=== PATIENT | male | born 1985 | race Caucasian/White ===

== ENCOUNTER 2017-10-12 10:07 | Emergency (ER) | payer OTHER ==
[2017-10-12 10:17] VITALS: TEMP 98.2
--- NOTE | 2017-10-12 10:44 | ED ---
General Adult HPI - General Chief complaint: Extremity Problem,Nontraumatic Stated complaint: hip and shoulder pain Time Seen by Provider: 10/12/17 10:29 Source: patient, RN notes reviewed Mode of arrival: ambulatory Limitations: no limitations - History of Present Illness Initial comments: Patient's 32-year-old male presented to the emergency room today with increased chronic left shoulder and right hip pain. Patient does admit that he seen neurology in the past for this and also his family doctor. 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 He states is very repetitive. Believes this has caused a flareup of his symptoms. Patient denies any other injury or trauma. Denies any bowel or bladder incontinence retention. Denies any saddle anesthesia. Patient has been using ibuprofen at home for this. He denies any other complaints. Patient denies any recent fever, chills, shortness of breath, chest pain, back pain, abdominal pain , nausea or vomiting, headaches or visual changes, or any other complaints. - Related Data Home Medications Medication Instructions Recorded Confirmed Aspirin 325 mg PO DAILY 08/30/15 08/30/15 Omeprazole [PriLOSEC] 20 mg PO TID PRN 08/30/15 09/03/15 Previous Rx's Medication Instructions Recorded Dexamethasone 0.75 mg PO DIRECTED #12 tablet 10/12/17 Allergies Allergy/AdvReac Type Severity Reaction Status Date / Time No Known Allergies Allergy Verified 10/12/17 10:17 Review of Systems ROS Statement: Those systems with pertinent positive or pertinent negative responses have been documented in the HPI. ROS Other: All systems not noted in ROS Statement are negative. Past Medical History Past Medical History: GERD/Reflux, Musculoskeletal Disorder Additional Past Medical History / Comment(s): ddd, herniated disc, occipital neualgia, constipation with blood in stool, states hx of stomach ulcer. History of Any Multi-Drug Resistant Organisms: None Reported Past Surgical History: No Surgical Hx Reported Additional Past Surgical History / Comment(s): EGD, COLONOSCOPY Past Anesthesia/Blood Transfusion Reactions: No Reported Reaction Past Psychological History: Anxiety, Bipolar, Depression, Schizophrenia Smoking Status: Current every day smoker Past Alcohol Use History: Rare Past Drug Use History: None Reported - Past Family History Mother Family Medical History: Cancer Additional Family Medical History / Comment(s): SKIN CA. GRANDFATHER-COLON CANCER General Exam - General Exam Comments Initial Comments: General: The patient is awake and alert, in no distress, and does not appear acutely ill. Eye: Pupils are equal, round and reactive to light, extra-ocular movements are intact. No nystagmus. There is normal conjunctiva bilaterally. No signs of icterus. Ears, nose, mouth and throat: There are moist mucous membranes and no oral lesions. Neck: The neck is supple, there is no tenderness or JVD. Musculoskeletal: Normal ROM, no tenderness. Normal appearance of both right hip and left shoulder. No specific tenderness on exam. Strength 5/5. Sensation intact. Pulses equal bilaterally 2+. Neurological: A&O x 3. CN II-XII intact, There are no obvious motor or sensory deficits. Coordination appears grossly intact. Speech is normal. Skin: Skin is warm and dry and no rashes or lesions are noted. Psychiatric: Cooperative, appropriate mood & affect, normal judgment. Limitations: no limitations Course Vital Signs 10/12/17 10:15 Temperature 98.2 F Pulse Rate 101 H Respiratory 20 Rate Blood Pressure 110/76 O2 Sat by Pulse 100 Oximetry Medical Decision Making - Medical Decision Making Patient 32-year-old male presenting for chronic left shoulder right hip pain. States been using ibuprofen for pain. Was discussed about following up with orthopedics Dr. no traumatic injury. Given course of steroids for symptoms. Disposition Clinical Impression: Chronic shoulder pain, Chronic hip pain Disposition: HOME SELF-CARE Condition: Good Instructions: Chronic Pain (ED) Additional Instructions: Please use medication as discussed. Please follow-up with family doctor in the next 2 days of symptoms have not improved. Please return to emergency room if the symptoms increase or worsen or for any other concerns. Prescriptions: Dexamethasone 0.75 mg PO DIRECTED #12 tablet Is patient prescribed a controlled substance at d/c from ED?: No Referrals: Robert Sanchez DO [Primary Care Provider] - 1-2 days Time of Disposition: 10:41
[2017-10-12 10:53] VITALS: BP 119/83; PULSE 74; RESP 18
== END 2017-10-12 10:53 | disposition home or self-care (01) ==
LOC: EC 10:07
DX: G89.29 Other chronic pain (principal); M25.512 Pain in left shoulder; M25.551 Pain in right hip; F17.200 Nicotine dependence, unspecified, uncomplicated; Z79.82 Long term (current) use of aspirin
CPT/HCPCS: 99283

== ENCOUNTER 2017-10-20 07:07 | Emergency (ER) | payer OTHER ==
[2017-10-20 07:14] VITALS: TEMP 97.8
[2017-10-20] MEDS ORDERED: SODIUM CHLORIDE 0.9% 1,000 ML IV STA ×2 (07:50)
[2017-10-20] MEDS ORDERED: PANTOPRAZOLE 40 MG/10 ML VIAL IVP STA (07:50)
[2017-10-20 08:37] LABS: Basophils # (A) 0.1 k/uL (0-0.2); Basophils % (A) 0 %; Eosinophils # (A) 0.2 k/uL (0-0.7); Eosinophils % (A) 2 %; HCT 41.6 % (39.0-53.0); HGB 13.9 gm/dL (13.0-17.5); Lymphocytes # (A) 2.1 k/uL (1.0-4.8); Lymphocytes % (A) 14 %; MCH 28.9 pg (25.0-35.0); MCHC 33.5 g/dL (31.0-37.0); MCV 86.2 fL (80.0-100.0); Mean Platelet Volume 6.4; Monocytes # (A) 0.7 k/uL (0-1.0); Monocytes % (A) 5 %; Neutrophils # (A) 11.1 k/uL (1.3-7.7); Neutrophils % (A) 78 %; Platelet Count 242 k/uL (150-450); RBC 4.82 m/uL (4.30-5.90); RDW 14.1 % (11.5-15.5); WBC 14.3 k/uL (3.8-10.6)
[2017-10-20] MEDS ORDERED: traMADol 50 MG TAB PO STA (08:39)
[2017-10-20 08:45] LABS: Partial Thromboplastin Time 22.7 sec (22.0-30.0)
[2017-10-20 08:47] LABS: ALT 31 U/L (21-72); AST 30 U/L (17-59); Albumin 4.2 g/dL (3.5-5.0); Alkaline Phosphatase 53 U/L (38-126); Anion Gap 11 mmol/L; Blood Urea Nitrogen 16 mg/dL (9-20); Carbon Dioxide 24 mmol/L (22-30); Chloride 107 mmol/L (98-107); Glucose 86 mg/dL (74-99); Lipase 98 U/L (23-300); Potassium 4.4 mmol/L (3.5-5.1); Sodium 142 mmol/L (137-145); Total Bilirubin 0.3 mg/dL (0.2-1.3); Total Protein 6.6 g/dL (6.3-8.2)
[2017-10-20 08:50] LABS: Creatine Kinase 249 U/L (55-170)
[2017-10-20 09:02] LABS: Creatine Kinase MB 0.8 ng/mL (0.0-2.4); Troponin I <0.012 ng/mL (0.000-0.034)
--- NOTE | 2017-10-20 10:06 | XR ---
EXAMINATION TYPE: XR Hip Complete RT DATE OF EXAM: 10/20/2017 CLINICAL HISTORY: Chronic right hip pain TECHNIQUE: AP and frogleg views of the right hip are obtained. COMPARISON: None. FINDINGS: There is no acute fracture/dislocation evident in the right hip. The joint space in the r ight hip appears within normal limits. No suspicious focal lytic or sclerotic lesion is seen. The ove rlying soft tissue appears unremarkable. IMPRESSION: Unremarkable study.
--- NOTE | 2017-10-20 10:07 | XR ---
EXAMINATION TYPE: XR KUB DATE OF EXAM: 10/20/2017 9:57 AM CLINICAL HISTORY: History of stomach ulcer with rectal bleeding. TECHNIQUE: Two Upright KUB images of the abdomen are obtained. COMPARISON: CT abdomen and pelvis January 04, 2010 FINDINGS: Scattered gas is seen in non-distended stomach and small bowel loops. Gas and fecal materia l is seen in non-distended colon. There is no visceromegaly, pneumoperitoneum, or abnormal calcificat ion appreciated. The lung bases are clear and the osseous structures are intact. IMPRESSION: Overall nonobstructive bowel gas pattern.
--- NOTE | 2017-10-20 10:41 | ED ---
General Adult HPI - General Chief complaint: GI Bleed Stated complaint: Rectal Bleeding Time Seen by Provider: 10/20/17 07:24 Source: patient Mode of arrival: wheelchair Limitations: no limitations - History of Present Illness Initial comments: 32 years old male has been taking lots of Motrin and he noticed some mom bleeding per rectum he said he has been taking 800 mg this morning but he takes about 1200 mg of Motrin 3 times a day he noticed some blood in his stool today. He is also complaining about some abdominal pain secondary to nonsteroidal anti-inflammatories and also complaining about pain in his pain in his right hip area he had there it medication to the right hip 3 years ago he still complaining about the pain there. No headaches no neck stiffness no chest pain or shortness of breath he has some epigastric area pain and he has a rectal pain noticed some blood No frequency urgency dysuria no other symptoms of TIA or CVA - Related Data Home Medications Medication Instructions Recorded Confirmed Cyanocobalamin (Vitamin B-12) 1,000 mcg PO DAILY 10/12/17 10/20/17 [Vitamin B-12] Ibuprofen [Motrin Ib] 800 mg PO Q6H PRN 10/12/17 10/20/17 [place]-3 Fatty Acids/Fish Oil [Fish 1 cap PO DAILY 10/20/17 10/20/17 Oil 1,000 mg Softgel] Previous Rx's Medication Instructions Recorded Omeprazole 20 mg PO BID #60 tablet. 10/20/17 traMADol HCl [Ultram] 50 mg PO Q6HR PRN 3 Days #12 tab 10/20/17 Allergies Allergy/AdvReac Type Severity Reaction Status Date / Time NARCOTICS AdvReac MIGRAINES Uncoded 10/20/17 07:14 Review of Systems ROS Statement: Those systems with pertinent positive or pertinent negative responses have been documented in the HPI. ROS Other: All systems not noted in ROS Statement are negative. Past Medical History Past Medical History: GERD/Reflux, Musculoskeletal Disorder Additional Past Medical History / Comment(s): ddd, herniated disc, occipital neualgia, constipation with blood in stool, states hx of stomach ulcer. History of Any Multi-Drug Resistant Organisms: None Reported Past Surgical History: No Surgical Hx Reported Additional Past Surgical History / Comment(s): EGD, COLONOSCOPY Past Anesthesia/Blood Transfusion Reactions: No Reported Reaction Past Psychological History: Anxiety, Bipolar, Depression, Schizophrenia Smoking Status: Current every day smoker Past Alcohol Use History: Rare Past Drug Use History: None Reported - Past Family History Mother Family Medical History: Cancer Additional Family Medical History / Comment(s): SKIN CA. GRANDFATHER-COLON CANCER General Exam - General Exam Comments Initial Comments: General: The patient is awake and alert, in no distress, and does not appear acutely ill. Skin: Skin is warm and dry and no rashes or lesions are noted. Eye: Pupils are equal, round and reactive to light, extra-ocular movements are intact; there is normal conjunctiva bilaterally. Ears, nose, mouth and throat: There are moist mucous membranes and no oral lesions. Neck: The neck is supple, there is no tenderness or JVD. Cardiovascular: There is a regular rate and rhythm. No murmur, rub or gallop is appreciated. Respiratory: To auscultation bilateral, no wheezing no rhonchi no distress respiratory degroot noticed Gastrointestinal: He is tender in epigastric area, rectal exam was not done and noticed external hemorrhoids Quite large Back: There is no tenderness to palpation in the midline. There is no obvious deformity. Musculoskeletal: Normal ROM, no tenderness, There is no pedal edema. There is no calf tenderness or swelling. No cords were appreciated. Neurological: CN II-XII intact, Cranial nerves III through XII are intact. There are no obvious motor or sensory deficits. Coordination appears grossly intact. Speech is normal. Psychiatric: Cooperative, appropriate mood & affect, normal judgment. Limitations: no limitations Course Vital Signs 10/20/17 10/20/17 07:11 08:21 Temperature 97.8 F Pulse Rate 70 63 Respiratory 18 20 Rate Blood Pressure 110/73 115/64 O2 Sat by Pulse 100 98 Oximetry Review of the labs noticed term white count is some 14.3 hemoglobin is 13.9 INR is normal troponin is normal his metabolic panel is unremarkable and is to put him on now PPIs guarding give him omeprazole 20 mg twice daily. The Motrin he has tolerated tramadol in the past and I gave him a few pills of tramadol then he will follow with the Dr. Sanchez for external hemorrhoids and will refer him to he be referred to Dr. Goyal is general surgeon station [facility] today considering his elevated white count and some erythema in the rectal area apart from on Augmentin 1 g twice daily for next 7 days. He is being referred to Dr. Esparza of for his hemorrhoids as well as GI bleed hopefully he will get scopes along with the treatment of MrSeth hemorrhoids Medical Decision Making - Lab Data Result diagrams: 10/20/17 08:17 10/20/17 08:17 Lab Results 10/20/17 10/20/17 10/20/17 Range/Units 08:17 08:17 08:17 WBC 14.3 H (3.8-10.6) k/uL RBC 4.82 (4.30-5.90) m/uL Hgb 13.9 (13.0-17.5) gm/dL Hct 41.6 (39.0-53.0) % MCV 86.2 (80.0-100.0) fL MCH 28.9 (25.0-35.0) pg MCHC 33.5 (31.0-37.0) g/dL RDW 14.1 (11.5-15.5) % Plt Count 242 (150-450) k/uL Neutrophils % 78 % Lymphocytes % 14 % Monocytes % 5 % Eosinophils % 2 % Basophils % 0 % Neutrophils # 11.1 H (1.3-7.7) k/uL Lymphocytes # 2.1 (1.0-4.8) k/uL Monocytes # 0.7 (0-1.0) k/uL Eosinophils # 0.2 (0-0.7) k/uL Basophils # 0.1 (0-0.2) k/uL PT (9.0-12.0) sec INR (<1.2) APTT (22.0-30.0) sec Sodium 142 (137-145) mmol/L Potassium 4.4 (3.5-5.1) mmol/L Chloride 107 (98-107) mmol/L Carbon Dioxide 24 (22-30) mmol/L Anion Gap 11 mmol/L BUN 16 (9-20) mg/dL Creatinine 0.89 (0.66-1.25) mg/dL Est GFR (CKD-EPI)AfAm >90 (>60 ml/min/1.73 sqM) Est GFR (CKD-EPI)NonAf >90 (>60 ml/min/1.73 sqM) Glucose 86 (74-99) mg/dL Plasma Lactic Acid Tom (0.7-2.0) mmol/L Calcium 10.0 (8.4-10.2) mg/dL Total Bilirubin 0.3 (0.2-1.3) mg/dL AST 30 (17-59) U/L ALT 31 (21-72) U/L Alkaline Phosphatase 53 (38-126) U/L Total Creatine Kinase 249 H (55-170) U/L CK-MB (CK-2) 0.8 (0.0-2.4) ng/mL CK-MB (CK-2) Rel Index 0.3 Troponin I <0.012 (0.000-0.034) ng/mL Total Protein 6.6 (6.3-8.2) g/dL Albumin 4.2 (3.5-5.0) g/dL Lipase 98 (23-300) U/L Blood Type Blood Type Recheck Antibody Screen Spec Expiration Date 10/20/17 10/20/17 10/20/17 Range/Units 08:17 08:17 08:17 WBC (3.8-10.6) k/uL RBC (4.30-5.90) m/uL Hgb (13.0-17.5) gm/dL Hct (39.0-53.0) % MCV (80.0-100.0) fL MCH (25.0-35.0) pg MCHC (31.0-37.0) g/dL RDW (11.5-15.5) % Plt Count (150-450) k/uL Neutrophils % % Lymphocytes % % Monocytes % % Eosinophils % % Basophils % % Neutrophils # (1.3-7.7) k/uL Lymphocytes # (1.0-4.8) k/uL Monocytes # (0-1.0) k/uL Eosinophils # (0-0.7) k/uL Basophils # (0-0.2) k/uL PT 10.0 (9.0-12.0) sec INR 1.0 (<1.2) APTT 22.7 (22.0-30.0) sec Sodium (137-145) mmol/L Potassium (3.5-5.1) mmol/L Chloride (98-107) mmol/L Carbon Dioxide (22-30) mmol/L Anion Gap mmol/L BUN (9-20) mg/dL Creatinine (0.66-1.25) mg/dL Est GFR (CKD-EPI)AfAm (>60 ml/min/1.73 sqM) Est GFR (CKD-EPI)NonAf (>60 ml/min/1.73 sqM) Glucose (74-99) mg/dL Plasma Lactic Acid Tom 1.2 (0.7-2.0) mmol/L Calcium (8.4-10.2) mg/dL Total Bilirubin (0.2-1.3) mg/dL AST (17-59) U/L ALT (21-72) U/L Alkaline Phosphatase (38-126) U/L Total Creatine Kinase (55-170) U/L CK-MB (CK-2) (0.0-2.4) ng/mL CK-MB (CK-2) Rel Index Troponin I (0.000-0.034) ng/mL Total Protein (6.3-8.2) g/dL Albumin (3.5-5.0) g/dL Lipase (23-300) U/L Blood Type A Positive Blood Type Recheck No Antibody Screen NEGATIVE Spec Expiration Date 10/23/2017 - 2316 Disposition Clinical Impression: GI bleed, Epigastric pain, Hemorrhoids Disposition: HOME SELF-CARE Condition: Good Instructions: Gastrointestinal Bleeding (ED) Prescriptions: Omeprazole 20 mg PO BID #60 tablet. traMADol HCl [Ultram] 50 mg PO Q6HR PRN 3 Days #12 tab PRN Reason: Pain Is patient prescribed a controlled substance at d/c from ED?: Yes When asked, does pt state using other controlled substances?: No If prescribed controlled substance>3 days was MAPS reviewed?: No If opioid is for acute pain is fill amount 7 days or less?: Yes Referrals: Robert Sanchez DO [Primary Care Provider] - 1-2 days Eamon Goyal MD [STAFF PHYSICIAN] - 1-2 days
[2017-10-20 10:49] VITALS: BP 111/63; PULSE 55; RESP 18
== END 2017-10-20 10:59 | disposition home or self-care (01) ==
LOC: EC 07:07
DX: K64.4 Residual hemorrhoidal skin tags (principal); K64.9 Unspecified hemorrhoids; R10.13 Epigastric pain; Z80.0 Family history of malignant neoplasm of digestive organs; F17.200 Nicotine dependence, unspecified, uncomplicated; Z79.899 Other long term (current) drug therapy; Z88.5 Allergy status to narcotic agent; M25.551 Pain in right hip
CPT/HCPCS: 36415; 86900; 86901; 80053; 82550; 82553; 83605; 83690; 84484; 85025; 85610; 85730; 86850; 73502; 74018; 99285; 96374; 96361 ×3; C9113

== ENCOUNTER 2017-11-24 06:14 | Day surgery (SDC) | payer OTHER ==
[2017-11-18 16:42] VITALS: BMI 21.6
[~2017-11-24 06:14] MED LIST: LACTATED RINGERS 1,000 ML IV SCH
[2017-11-24 08:02] VITALS: RESP 16; TEMP 97.3
[2017-11-24] MEDS ORDERED: LIDOCAINE 1% 20 ML VIAL (10MG/ML) FOR IV START INTRADERMA ONE (08:05)
[2017-11-24] MEDS ORDERED: LIDOCAINE HCL/PF 20 MG/ML 10 ML AMP ONE (08:41)
[2017-11-24] MEDS ORDERED: PROPOFOL 10 MG/ML 20 ML VIAL IV ONE (08:41)
--- NOTE | 2017-11-24 08:43 | P.GSHP ---
History of Present Illness H&P Date: 11/24/17 Chief Complaint: GI bleed This a 32-year-old male who has complaints of GI bleed. Patient states that he has been using large amounts of Motrin. He's had some epigastric pain. He presents today for EGD and colonoscopy. Past Medical History Past Medical History: CVA/TIA, GERD/Reflux, GI Bleed, Musculoskeletal Disorder, Osteoarthritis (OA) Additional Past Medical History / Comment(s): DDD, herniated disc X2. RT HIP PAIN R/T OA. Occipital Neuralgia. OCC BLOOD IN STOOL. States hx of stomach ulcer. HX COLON POLYPS. "POSS 2 STROKES R/T SEVERE MIGRAINES." History of Any Multi-Drug Resistant Organisms: None Reported Past Surgical History: No Surgical Hx Reported Additional Past Surgical History / Comment(s): EGD, COLONOSCOPY Past Anesthesia/Blood Transfusion Reactions: Family History of Problems w/ Anesthesia Additional Past Anesthesia/Blood Transfusion Reaction / Comment(s): MOTHER HAD EPIDURAL THAT DIDN'T WORK. Smoking Status: Current every day smoker - Past Family History Mother Family Medical History: Cancer Additional Family Medical History / Comment(s): SKIN CA. GRANDFATHER-COLON CANCER Medications and Allergies Home Medications Medication Instructions Recorded Confirmed Type Ibuprofen [Motrin Ib] 800 mg PO Q6H PRN 10/12/17 11/24/17 History Acetaminophen Tab [Tylenol Tab] 650 mg PO Q4H PRN 11/18/17 11/24/17 History Aspirin 325 mg PO BID PRN 11/18/17 11/24/17 History Ranitidine HCl [Zantac] 150 mg PO BID 11/18/17 11/24/17 History Allergies Allergy/AdvReac Type Severity Reaction Status Date / Time NARCOTICS AdvReac MIGRAINES Uncoded 11/18/17 16:19 Surgical - Exam Vital Signs Temp Pulse Resp BP Pulse Ox 97.3 F L 57 L 16 113/80 98 11/24/17 07:56 11/24/17 07:56 11/24/17 07:56 11/24/17 07:56 11/24/17 07:56 - General well developed, no distress - Eyes PERRL - ENT normal pinna - Neck no masses - Respiratory normal expansion - Cardiovascular Rhythm: regular - Abdomen Abdomen: soft, non tender Assessment and Plan Assessment: GI bleed. We'll perform EGD and colonoscopy.
--- NOTE | 2017-11-24 09:02 | P.OP ---
Date of Procedure: 11/24/17 Preoperative Diagnosis: GI bleed Postoperative Diagnosis: Peptic ulcer disease with small duodenal ulcer Antral gastritis No hiatal hernia Procedure(s) Performed: EGD Colonoscopy Anesthesia: MAC Surgeon: Eamon Goyal Pathology: other (Duodenum, antrum) Condition: stable Disposition: PACU Description of Procedure: Patient's placed on the endoscopy table in the lateral position. He received IV sedation. The gastroscope placed oropharynx passed in the esophagus into the stomach. Scope was then placed through the pylorus. First second portion of duodenum was examined. There is evidence of some small ulcers the duodenum. This was biopsied. There is no ab evidence of active bleeding. Scope summer back the antrum and this appeared mildly inflamed a biopsies performed. The scope was unretroflexed and remainder some appeared normal. There is no evidence of a hiatal hernia. The GE junction was at 40 cm. The distal esophagus appeared normal. The proximal esophagus appeared normal. Scope was withdrawn for patient. Next digital rectal exam was performed which revealed significant external hemorrhoids. Flexible colonoscope was then placed patient anus passed throughout the entire colon. The ileocecal valve was visualized. Cecum, ascending and transverse colon appeared normal. The descending and sigmoid colon appeared normal. Scope summer back the rectum this appeared normal. There is known to blood colon. Scope was withdrawn for patient.
[2017-11-24 09:37] VITALS: BP 114/75; PULSE 57
== END 2017-11-24 09:53 | disposition home or self-care (01) ==
LOC: ORWHC2ENDO 06:14
PROVIDERS: ATTEND Surgery
DX: K29.51 Unspecified chronic gastritis with bleeding (principal); K26.4 Chronic or unspecified duodenal ulcer with hemorrhage; M19.90 Unspecified osteoarthritis, unspecified site; Z86.010 Personal history of colon polyps; K64.4 Residual hemorrhoidal skin tags; Z86.73 Personal history of transient ischemic attack (TIA), and cerebral infarction without residual deficits; F17.210 Nicotine dependence, cigarettes, uncomplicated; Z87.19 Personal history of other diseases of the digestive system; K21.9 Gastro-esophageal reflux disease without esophagitis; Z88.8 Allergy status to other drugs, medicaments and biological substances; Z79.899 Other long term (current) drug therapy; Z79.82 Long term (current) use of aspirin; Z88.5 Allergy status to narcotic agent
CPT/HCPCS: 88305; 45378; 43239; J2001; J2704

== ENCOUNTER → 2018-01-06 | Day surgery (SDC) | payer OTHER ==
[2018-01-01 14:29] VITALS: BMI 22.7
[~2018-01-06] MED LIST changes: +GLYCOPYRROLATE 0.2 MG/ML 2 ML VIAL ONE; +LIDOCAINE 1% 20 ML VIAL (10MG/ML) FOR IV START INTRADERMA ONE; +LIDOCAINE 1% INJ 10MG/ML (20 ML MDV) ONE; +PROPOFOL 10 MG/ML 20 ML VIAL IV ONE
[2018-01-06 10:01] VITALS: TEMP 98.4
--- NOTE | 2018-01-06 10:17 | P.GSHP ---
History of Present Illness H&P Date: 01/06/18 Chief Complaint: Peptic ulcer disease Is a 32-year-old male with history of gastritis. Patient is a complete epigastric pain. He presents today for EGD. Past Medical History Past Medical History: CVA/TIA, GERD/Reflux, GI Bleed, Musculoskeletal Disorder, Osteoarthritis (OA) Additional Past Medical History / Comment(s): DDD, herniated disc X2. RT HIP PAIN R/T OA. Occipital Neuralgia. OCC BLOOD IN STOOL. States hx of stomach ulcer. HX COLON POLYPS. "POSS 2 STROKES R/T SEVERE MIGRAINES." History of Any Multi-Drug Resistant Organisms: None Reported Past Surgical History: No Surgical Hx Reported Additional Past Surgical History / Comment(s): EGD, COLONOSCOPY Past Anesthesia/Blood Transfusion Reactions: No Reported Reaction Additional Past Anesthesia/Blood Transfusion Reaction / Comment(s): MOTHER HAD EPIDURAL THAT DIDN'T WORK. Smoking Status: Current every day smoker - Past Family History Mother Family Medical History: Cancer Additional Family Medical History / Comment(s): SKIN CA. GRANDFATHER-COLON CANCER Medications and Allergies Home Medications Medication Instructions Recorded Confirmed Type Acetaminophen Tab [Tylenol Tab] 650 mg PO Q4H PRN 11/18/17 01/01/18 History Omeprazole 40 mg PO DAILY 01/01/18 01/01/18 History Allergies Allergy/AdvReac Type Severity Reaction Status Date / Time gabapentin Allergy Rash/Hives Verified 01/06/18 09:57 NARCOTICS AdvReac MIGRAINES Uncoded 01/06/18 09:57 Surgical - Exam Vital Signs Temp Pulse Resp BP Pulse Ox 98.4 F 63 16 124/82 99 01/06/18 09:59 01/06/18 09:59 01/06/18 09:59 01/06/18 09:59 01/06/18 09:59 - General well developed, no distress - Eyes PERRL - ENT normal pinna - Neck no masses - Respiratory normal expansion, normal respiratory effort - Cardiovascular Rhythm: regular - Abdomen Abdomen: soft, non tender Assessment and Plan Assessment: Epigastric dull pain. We'll perform EGD.
--- NOTE | 2018-01-06 10:26 | P.OP ---
Date of Procedure: 01/06/18 Preoperative Diagnosis: Peptic ulcer disease Postoperative Diagnosis: Antral gastritis No evidence of hiatal hernia No evidence of esophagitis Procedure(s) Performed: EGD Anesthesia: MAC Surgeon: Eamon Goyal Pathology: other (Antrum) Condition: stable Disposition: PACU Description of Procedure: Patient's placed on the endoscopy table in the lateral position. He received IV sedation. The gastroscope placed oropharynx passed in the esophagus and stomach. Scope was then placed through the pylorus. First second portion duodenum appeared normal. Scope summer back the antrum this. Mildly inflamed. A biopsies was performed. The scope was then retroflexed and the remainder some appeared normal. There is no evidence of hiatal hernia. The GE junction was at 40 cm. The distal esophagus appeared mildly inflamed a biopsies performed. The proximal esophagus appeared normal. Scope was withdrawn for patient.
[2018-01-06 10:54] VITALS: BP 113/69; PULSE 63; RESP 18
--- NOTE | 2018-01-06 14:06 | NM ---
EXAMINATION TYPE: NM hepatobiliary w CCK DATE OF EXAM: 01/06/2018 COMPARISON: NONE HISTORY: Abdominal pain TECHNIQUE: After the intravenous administration of 5.29 mCi Tc 99m Mebrofenin hepatobiliary scintigra phy is performed. Immediate images post injection. FINDINGS: There is satisfactory initial accumulation of tracer by the liver. The gallbladder is visualized wit hin 4 minutes. The small bowel activity is noted on delayed images at 75 minutes. At one hour CCK w as administered, patient was injected with 1.48 mcg of Kinevac, and gallbladder ejection fraction is calculated at 84 %. Therefore there is no scintigraphic evidence of cystic or common bile duct obstr uction to suggest acute cholecystitis. IMPRESSION: Gallbladder ejection fraction 84%, additional findings above.
== END ==
LOC: ORWHC2ENDO 09:37
PROVIDERS: ATTEND Surgery
DX: K29.50 Unspecified chronic gastritis without bleeding (principal); K21.9 Gastro-esophageal reflux disease without esophagitis; M19.90 Unspecified osteoarthritis, unspecified site; M54.81 Occipital neuralgia; G43.909 Migraine, unspecified, not intractable, without status migrainosus; Z87.11 Personal history of peptic ulcer disease; Z86.010 Personal history of colon polyps; Z87.19 Personal history of other diseases of the digestive system; Z86.73 Personal history of transient ischemic attack (TIA), and cerebral infarction without residual deficits; F17.200 Nicotine dependence, unspecified, uncomplicated; Z79.899 Other long term (current) drug therapy; Z88.8 Allergy status to other drugs, medicaments and biological substances; Z88.5 Allergy status to narcotic agent
CPT/HCPCS: 43239; 78227; 88305; 88342

== ENCOUNTER 2018-01-22 08:07 | Day surgery (SDC) | payer OTHER ==
[2018-01-18 16:07] VITALS: BMI 21.6
[~2018-01-22 08:07] MED LIST changes: -GLYCOPYRROLATE 0.2 MG/ML 2 ML VIAL ONE; +HEPARIN SODIUM,PORCINE 5,000 UNIT/ML 1 ML VIAL SQ ONE; -LIDOCAINE 1% 20 ML VIAL (10MG/ML) FOR IV START INTRADERMA ONE; +LIDOCAINE 1% 20 ML VIAL (10MG/ML) FOR IV START INTRADERMA PRN; -LIDOCAINE 1% INJ 10MG/ML (20 ML MDV) ONE; +ONDANSETRON 4 MG/2 ML VIAL IVP ONE; -PROPOFOL 10 MG/ML 20 ML VIAL IV ONE; +ceFAZolin IN SWFI 2 GM/20 ML SYRINGE IVP ONE
--- NOTE | 2018-01-22 09:26 | P.GSHP ---
History of Present Illness H&P Date: 01/22/18 Chief Complaint: Right upper quadrant pain This is a 32-year-old male referred from Dr. Sanchez. Patient presents today for laparoscopic cholecystectomy. He's had complete the right upper quadrant pain. His recent HIDA scan shows abnormal ejection fraction. Past Medical History Past Medical History: CVA/TIA, GERD/Reflux, GI Bleed, Musculoskeletal Disorder, Osteoarthritis (OA) Additional Past Medical History / Comment(s): DDD, herniated disc X2. RT HIP PAIN R/T OA. Occipital Neuralgia. OCC BLOOD IN STOOL. States hx of stomach ulcer. HX COLON POLYPS. "POSS 2 STROKES R/T SEVERE MIGRAINES.", GALLBLADDER ISSUES History of Any Multi-Drug Resistant Organisms: None Reported Past Surgical History: No Surgical Hx Reported Additional Past Surgical History / Comment(s): EGD, COLONOSCOPY Past Anesthesia/Blood Transfusion Reactions: No Reported Reaction Additional Past Anesthesia/Blood Transfusion Reaction / Comment(s): MOTHER HAD EPIDURAL THAT DIDN'T WORK. Smoking Status: Current every day smoker - Past Family History Mother Family Medical History: Cancer Additional Family Medical History / Comment(s): SKIN CA. GRANDFATHER-COLON CANCER Medications and Allergies Home Medications Medication Instructions Recorded Confirmed Type Acetaminophen Tab [Tylenol Tab] 650 mg PO Q4H PRN 11/18/17 01/18/18 History Omeprazole 40 mg PO DAILY 01/01/18 01/18/18 History Allergies Allergy/AdvReac Type Severity Reaction Status Date / Time gabapentin Allergy Rash/Hives Verified 01/18/18 16:03 NARCOTICS AdvReac MIGRAINES Uncoded 01/18/18 16:03 Surgical - Exam - General well developed, no distress - Eyes PERRL - ENT normal pinna - Neck no masses - Respiratory normal expansion - Cardiovascular Rhythm: regular - Abdomen Abdomen: soft, non tender Assessment and Plan Assessment: Chronic cholecystitis. We'll perform laparoscopic cholecystectomy.
[2018-01-22] MEDS ORDERED: MIDAZOLAM 2 MG/2 ML VIAL ONE (10:06)
[2018-01-22] MEDS ORDERED: ROCURONIUM BROMIDE 10 MG/ML 10 ML VIAL IV ONE (10:06)
[2018-01-22] MEDS ORDERED: SUCCINYLCHOLINE CHLORIDE 100 MG/5 ML SYR IV ONE (10:06)
[2018-01-22] MEDS ORDERED: HYDROmorphone (PF) 1 MG/ML ONE (10:06)
[2018-01-22] MEDS ORDERED: ALBUTEROL INHALER 60 PUFF/8 GM INHALER INHALATION ONE (10:06)
[2018-01-22] MEDS ORDERED: PROPOFOL 10 MG/ML 20 ML VIAL IV ONE (10:06)
[2018-01-22] MEDS ORDERED: KETOROLAC 30 MG/ML 1 ML VIAL ONE (10:06)
[2018-01-22] MEDS ORDERED: fentaNYL (PF) 50 MCG/ML 2 ML AMP ONE (10:06)
[2018-01-22] MEDS ORDERED: NEOSTIGMINE 1 MG/ML 10 ML VIAL ONE (10:06)
[2018-01-22] MEDS ORDERED: ePHEDrine SULFATE/0.9% NACL/PF 50 MG/5 ML SYRINGE IV ONE (10:06)
[2018-01-22] MEDS ORDERED: GLYCOPYRROLATE 0.2 MG/ML 2 ML VIAL ONE (10:06)
[2018-01-22] MEDS ORDERED: LIDOCAINE 1% INJ 10MG/ML (20 ML MDV) ONE (10:06)
[2018-01-22] MEDS ORDERED: BUPIVACAIN-EPI 0.25%-1:200,000 30 ML VIAL SQ ONE (10:30)
[2018-01-22] MEDS ORDERED: LACTATED RINGERS 1,000 ML IV ONE (11:01)
--- NOTE | 2018-01-22 11:13 | P.OP ---
Date of Procedure: 01/22/18 Preoperative Diagnosis: Cholecystitis Postoperative Diagnosis: Cholecystitis Procedure(s) Performed: Laparoscopic cholecystectomy Anesthesia: MAC Surgeon: Emaon Goyal Estimated Blood Loss (ml): 5 Pathology: other (Gallbladder) Condition: stable Disposition: PACU Description of Procedure: The patient was placed on the operating table. The patient received a general endotracheal tube anesthesia. The patients abdomen was prepped and draped in the usual sterile fashion. Through an infraumbilical stab incision, the fascia of the anterior abdominal wall was grasped with a pair of Kochers and then the Veress needle was placed in the peritoneal cavity. Position of the Veress needle was confirmed with positive drop test. The abdomen was then insufflated. After adequate insufflation, the 10 mm trocar was placed in the peritoneal cavity. Following this the laparoscope was placed in the peritoneal cavity. The patient was placed in the head-up, right side up position and then a 5 mm trocar was placed in the right lateral and right subcostal position under direct visualization. A 8 mm trocar was placed in the epigastric position. The gallbladder was grasped in the fundus and infundibulum. Traction on the gallbladder was placed in the lateral and the cephalad positions. The triangle of Calot was visualized.. The cystic duct was bluntly dissected until the union of the cystic duct and common bile duct was seen. The cystic duct was then divided and sealed with the Harmonic scissors. A PDS Endoloop was then placed throughout the cystic duct stump. The cystic artery divided and sealed with the Harmonic scissors. The gallbladder was then removed from the liver bed using Harmonic scissors. The gallbladder was then extracted through the epigastric port site. Operative field was checked for any bleeding spots and Harmonic scissors was used to coagulate the liver bed. The abdomen was irrigated. The trocars were removed. The skin was closed using interrupted 3-0 Vicryl suture. Dermabond dressing were applied. The patient tolerated the procedure well.
[2018-01-22 11:24] VITALS: RESP 16; TEMP 97
[2018-01-22] MEDS: HYDROmorphone 0.5 MG/0.5 ML SYRINGE IVP PRN ×2 (11:35→11:42)
[2018-01-22 12:30] VITALS: BP 122/77; PULSE 74
== END 2018-01-22 13:05 | disposition home or self-care (01) ==
LOC: OR 08:07
PROVIDERS: ATTEND Surgery
DX: K81.1 Chronic cholecystitis (principal); K21.9 Gastro-esophageal reflux disease without esophagitis; M19.90 Unspecified osteoarthritis, unspecified site; M79.2 Neuralgia and neuritis, unspecified; G43.909 Migraine, unspecified, not intractable, without status migrainosus; F17.210 Nicotine dependence, cigarettes, uncomplicated; Z79.899 Other long term (current) drug therapy; Z86.73 Personal history of transient ischemic attack (TIA), and cerebral infarction without residual deficits; Z87.11 Personal history of peptic ulcer disease; Z86.010 Personal history of colon polyps; Z88.8 Allergy status to other drugs, medicaments and biological substances; Z88.5 Allergy status to narcotic agent
CPT/HCPCS: 88304; 47562; J2250; J1644; J2710; J2405; J2001; J3010; J1885; J1170 ×2; J0330; J2704; J0690

== ENCOUNTER → 2018-05-26 | Outpatient (CLI) | payer OTHER ==
--- NOTE | 2018-05-26 17:12 | MR ---
EXAMINATION TYPE: MR lumbar spine wo con DATE OF EXAM: 05/26/2018 COMPARISON: None HISTORY: Low back pain into legs CONTRAST: 0 mL intravenous Gadavist. TECHNIQUE: Multiplanar, multisequence images of the lumbar spine were acquired. FINDINGS: Cord terminates at the T12 level. L5-S1: Mild disc bulge is present without thecal sac contact. Small amount of extension beyond the en dplate of S1 may be present suggesting subligamentous disc extension. No spinal canal stenosis or charo ral foraminal stenosis is present. L4-L5: Disc desiccation is present. There is loss of disc height. Broad-based disc bulge has mild ant erior thecal sac impression. Subligamentous disc extension is present centrally. No spinal canal sten osis is present. Neural foramen are patent. L3-L4: No significant disc bulge or disc herniation. No spinal canal stenosis. No foraminal stenosi s. L2-L3: No significant disc bulge or disc herniation. No spinal canal stenosis. No foraminal stenosi s. L1-L2: No significant disc bulge or disc herniation. No spinal canal stenosis. No foraminal stenosi s. T12-L1: No significant disc bulge or disc herniation. No spinal canal stenosis. No foraminal stenos is. IMPRESSION: 1. Subligamentous disc herniation centrally with mild anterior thecal sac contact at L4-5. 2. Disc desiccation and mild loss of disc height L4-5. 3. Mild disc bulge L5-S1 with questionable clinical significance.
== END ==
LOC: RADMRIMAIN 14:23
PROVIDERS: ATTEND Family Medicine
DX: M51.27 Other intervertebral disc displacement, lumbosacral region (principal)
CPT/HCPCS: 72148

== ENCOUNTER → 2018-09-16 | Outpatient (CLI) | payer OTHER ==
[2018-09-14 13:51] VITALS: BMI 24.7
[2018-09-16 11:43] VITALS: BP 125/81; PULSE 98; RESP 16
--- NOTE | 2018-09-16 12:27 | P.PAINCN ---
History of Present Illness - Reason for Consult Consult date: 09/16/18 - History of Present Illness This is initial consultation visit for this 33 years old male with a chronic history of severe low back pain, started more than 15 years ago, patient reported he had multiple minor traumatic injury started more than 15 years ago on from that time and started having neck pain problems, the intensity of the pain does fluctuate, but recently the pain becomes intense and increased with any activity interfering with the quality of life, he had pain management interventions done more than 5 years ago at different pain clinic, some improvement of his pain, currently is complaining of severe mid and low back pain, the pain is constant with radiation to the right lower extremity, associated with numbness and tingling sensation, he denies any weakness, no fever or night sweats, no change in bowel movement or urination Past Medical History Past Medical History: CVA/TIA, GERD/Reflux, GI Bleed, Rheumatoid Arthritis (RA) Additional Past Medical History / Comment(s): DDD, herniated disc X2. Occipital Neuralgia. OCC BLOOD IN STOOL. States hx of stomach ulcer. "POSS 2 STROKES R/T ON MRI.", "RA rt hip", hypoglycemia, History of Any Multi-Drug Resistant Organisms: None Reported Past Surgical History: Cholecystectomy Additional Past Surgical History / Comment(s): EGD, COLONOSCOPY, oral surgery Past Anesthesia/Blood Transfusion Reactions: Family History of Problems w/ Anesthesia Additional Past Anesthesia/Blood Transfusion Reaction / Comm: MOTHER HAD EPIDURAL THAT DIDN'T WORK. Past Psychological History: Anxiety, Bipolar, Depression, Schizoaffective Disorder Additional Psychological History / Comment(s): NO CURRENT [place] Smoking Status: Current every day smoker Past Alcohol Use History: Rare Additional Past Alcohol Use History / Comment(s): SMOKES 1 1/2 -3 PPD, SMOKING SINCE age 16 Past Drug Use History: None Reported - Past Family History Mother Family Medical History: Cancer Additional Family Medical History / Comment(s): SKIN CA Medications and Allergies Home Medications Medication Instructions Recorded Confirmed Type Omeprazole 40 mg PO DAILY 01/01/18 09/16/18 History Aspirin(Dose Known) 6 tab PO BID PRN 09/14/18 09/16/18 History Ibuprofen 600 mg PO TID 09/14/18 09/16/18 History Ibuprofen [Motrin Ib] 1,600 mg PO BID 09/14/18 09/16/18 History Allergies Allergy/AdvReac Type Severity Reaction Status Date / Time gabapentin Allergy Rash/Hives Verified 09/14/18 13:38 topiramate [From Topamax] Allergy creates Verified 09/14/18 13:38 black on on left eye NARCOTICS AdvReac MIGRAINES Uncoded 09/16/18 11:23 Physical Exam Vitals: Vital Signs Pulse Resp BP Pulse Ox 09/16/18 11:26 98 16 125/81 97 Social history : smoker , NO ETOH , NO Illegal drugs use . Family history : Review of Systems : - Constitutional : no chills , no fever , no night sweats , - Ears : no ear discharge , no change in hearing -Nose, Mouth ,Throat ; no bleeding gums, no sore throat , no epistaxis , -Cardiovascular : Denies chest pain, , no orthopnea , no palpitation -Respiratory : Denies cough , no dyspnea , no hemoptysis -Gastrointestinal : no change in bowel habits , no coffee-ground emesis . -Genitourinary : No hematuria , no discharge , no incontinence, -Musculoskeletal : No gait dysfunction , report mid low back pain , - Neurological : no ataxia , no tremor , no sezure , -Psychatric : no suicidal ideation no hallucination - Endocrine : no cold intolerence , no polyuria , no polydypsia , -Hematologic : no easy bleeding , no easy brusing , -Allergic / immm : no angioedema , no wheezing ,no allergic rhinitis -Integumentary : no brttle nails , no change hair / nails , no foot/leg ulcers . Physical Examinations : -Constitutional : Cooperative , not in acute distress . -HEENT : nech ; supple , no Lymphadenopathy , no Thyromegaly , :eyes : no icterus, no photophobia . ENT : normal oropharynx , no Thrush - Respiratory : Chest clear to auscultations Bilaterally , no wheezing . - Cardiovascular : regular rate and rhythem , S1 , S2 , no S3 , no S4. - Gastrointestina l: abdomen soft no tenderness , no organomegally . - Genitourinary : Defferred . -Integumentary : No cellulitis , no ulcers , normal skin turgor , no cyanotic . - neurologic : Cranial nerve II to XII intact , no focal neurological deffecit -psychatric : alert , oriented X 3 , appropriate affect , intact judgment and insight . -Lymphatic : no Lymphadenopathy. - musculoskeltal: Lumber spine moter stegnth lower extremities ,thigh and legs 5/5 Right side , 5/5 Left side deep tendon reflexes : normal Knee Jerk , normal ankle Jerk positive lumber facet Loading Test Range of motion of the lumbar spine Flexion 30 degrees, extension 10 degrees strait leg raising test , positive at 30 degree Fabere test positive RT and positive LT . tenderness over the sacroiliac joint on the right side, and on the left side Multiple trigger points identified in the lower thoracic ,and upper lumbar area. Results Comments: MRI of the lumbar spine L4 5 disc herniation and L5-S1 disc desiccation and degeneration Assessment and Plan Plan: Assessment and plan=1-chronic severe low back pain secondary to lumbar disc herniation at L4 5 2-myofascial pain syndrome of the lumbar and lower thoracic area Patient will be good candidate to have lumbar epidural steroid injection at L4 5 level Patient could benefit from Flexeril 5 mg twice a day. Patient could benefit from physical therapy, referral for physical therapy was given today. Time with Patient: Greater than 30 PQRS Measure Charge Sheet Measure #130: Documentation of Current Meds in Medical Chart: Patient's medications documented in chart Measure #226: Tobacco Use: Screen & Cessation Intervention: Pt screened for tobacco use AND intervention given Measure #111: Pneumonia Vaccination: Pneumococcal vaccine NOT administered or previously given Measure #47: Advance Care Plan: Advance care planning discussed & documented, pt chose/unable to give Measure #412: Opioid Treatment Agreement: No documentation of signed opioid treatment agreement Measure #408: Opioid Therapy Follow-up Evaluation: Patient had NO f/u eval minimum every 3 months during opioid therapy Measure #317: Preventitive Care & Scrn High Bld Press & F/U: Normal blood pressure, f/u not required Measure #128: Body Mass Index (BMI) Screening & Follow-up: BMI documented within normal parameters Measure #131: Pain Assessment & Follow-up: Pain positive & plan documented, Follow-up scheduled Measure #431: Unhealthy Alcohol Use Preventative Care & Scrn: Patient not identified as an unhealthy alcohol user PQRS Narrative: Smoking Status Current every day smoker Do You Want the Pneumonia No Vaccine AT THIS TIME? Blood Pressure 125/81 Pain Intensity [Bilateral 6 Lower Back] Scale Used Numeric (1 - 10) Hx Alcohol Use (MH) No Home Medications: Ambulatory Orders Omeprazole 40 mg PO DAILY 01/01/18 Aspirin(Dose Known) 6 tab PO BID PRN 09/14/18 Ibuprofen 600 mg PO TID 09/14/18 Ibuprofen [Motrin Ib] 1,600 mg PO BID 09/14/18
== END ==
LOC: PNWHC3 10:29
PROVIDERS: ATTEND Specialist
DX: G89.29 Other chronic pain (principal); M51.26 Other intervertebral disc displacement, lumbar region; M79.18 Myalgia, other site; F17.200 Nicotine dependence, unspecified, uncomplicated; Z79.891 Long term (current) use of opiate analgesic; Z79.899 Other long term (current) drug therapy; Z79.1 Long term (current) use of non-steroidal anti-inflammatories (NSAID)
CPT/HCPCS: 99211

== ENCOUNTER 2018-09-30 07:20 | Day surgery (SDC) | payer OTHER ==
[2018-09-28 09:20] VITALS: BMI 24.7
[2018-09-30 07:57] VITALS: RESP 16; TEMP 98
[2018-09-30] MEDS ORDERED: LIDOCAINE 1% 20 ML VIAL (10MG/ML) FOR IV START INTRADERMA ONE (08:01)
[2018-09-30] MEDS ORDERED: LACTATED RINGERS 1,000 ML IV ONE (08:01)
--- NOTE | 2018-09-30 08:45 | P.PCN ---
Date of Procedure: 09/30/18 Description of Procedure: PREOPERATIVE DIAGNOSIS: lumbar radiculopathy POSTOPERATIVE DIAGNOSIS: Lumbar radiculopathy PROCEDURE 1. Lumbar epidural steroid injection under fluoroscopic guidance at the L4-L5 level. 2. Lumbar epidurogram. ANESTHESIA: Local with 1% lidocaine 5 ml and 1 mg of Versed and 50 mics of fentanyl EBL: Minimal PROCEDURE INDICATION: The patient with low back pain and radiculitis symptoms unresponsive to conservative treatment. Fluoroscopy was used to optimize visualization of the needle placement and to maximize safety. PROCEDURE DESCRIPTION / TECHNIQUE: The patient was seen and identified in the preoperative area. Risks, benefits, complications including but not limited to infections ,bleeding ,allergic reaction to the medications, nerve damage and incomplete pain relief , as well as alternatives to the procedure were discussed with the patient. The patient agreed to proceed with the procedure and signed the consent. IV was started, and vital signs were stable. Patient was taken to the OR and time out was completed. The patient was placed in the prone position on procedure table and a pillow was placed under the abdomen to reduce lumbar lordosis. The lumbosacral area was prepped and draped in the usual sterile fashion. Vitals were closely monitored during the procedure. Using anterior-posterior fluoroscopy, the L 4/5 interlaminar space was ident ified and the skin over this site was marked and then infiltrated with 1% lidocaine subcutaneously. Subsequently, a 20-gauge Tuohy epidural needle was inserted and advanced toward the epidural space using the Loss of resistance technique and guided by AP and lateral fluoroscopy. The correct needle position in the epidural space was verified with the injection of 1 mL of the water soluble contrast dye Omnipaque 180 contrast and observing an excellent epidurogram with the epidural spread of the dye, after negative aspiration for blood and CSF and in the absence of paresthesias. Again after negative aspiration, a 3 ml mixture containing 40mg of depomedrol and 2 ml of preservative free Normal Saline was injected and a washout of epidurogram was seen. Needle was withdrawn intact, skin was cleansed, and bandages were applied. COMPLICATIONS: None DISPOSITION / PLANS: The patient was placed in a supine position and transferred to the recovery area in a stable condition for observation. There was no evidence of lower extremity motor or sensory deficit after the procedure. Patient was discharged from the recovery room after meeting discharge criteria. Home discharge instructions were given to the patient by the staff. The patient was reexamined prior to discharge. We will repeat the injection the next 2-4 weeks
[2018-09-30] MEDS ORDERED: IV FLUID CONTINUATION 1,000 ML IV ONE (08:55)
--- NOTE | 2018-09-30 09:04 | FL ---
EXAMINATION TYPE: FL guided pain mgmt. Statistic DATE OF EXAM: 09/30/2018 HISTORY: Fluoroscopy time 3 seconds of fluoroscopy provided. IMPRESSION: 1. Fluoroscopy time.
[2018-09-30 09:16] VITALS: BP 104/68; PULSE 74
== END 2018-09-30 09:27 | disposition home or self-care (01) ==
LOC: ORPAIN 07:20
PROVIDERS: ATTEND Hospitalist
DX: G89.29 Other chronic pain (principal); M51.16 Intervertebral disc disorders with radiculopathy, lumbar region; K21.9 Gastro-esophageal reflux disease without esophagitis; M06.9 Rheumatoid arthritis, unspecified; F31.9 Bipolar disorder, unspecified; F25.9 Schizoaffective disorder, unspecified; F17.210 Nicotine dependence, cigarettes, uncomplicated; M79.18 Myalgia, other site; Z88.5 Allergy status to narcotic agent; Z88.8 Allergy status to other drugs, medicaments and biological substances; Z79.1 Long term (current) use of non-steroidal anti-inflammatories (NSAID); Z79.899 Other long term (current) drug therapy
CPT/HCPCS: 62323; J2250; J1030; J3010; Q9966

== ENCOUNTER 2018-10-14 07:35 | Day surgery (SDC) | payer OTHER ==
[2018-10-12 12:18] VITALS: BMI 24.5
[~2018-10-14 07:35] MED LIST changes: -HEPARIN SODIUM,PORCINE 5,000 UNIT/ML 1 ML VIAL SQ ONE; -LIDOCAINE 1% 20 ML VIAL (10MG/ML) FOR IV START INTRADERMA PRN; -ONDANSETRON 4 MG/2 ML VIAL IVP ONE; -ceFAZolin IN SWFI 2 GM/20 ML SYRINGE IVP ONE
[2018-10-14 08:18] VITALS: TEMP 98.7
[2018-10-14] MEDS ORDERED: LIDOCAINE 1% 20 ML VIAL (10MG/ML) FOR IV START INTRADERMA ONE (08:18)
[2018-10-14] MEDS ORDERED: LACTATED RINGERS 1,000 ML IV ONE (08:19)
[2018-10-14 08:23] LABS: Glucose,Whole Blood 96 mg/dL (75-99)
--- NOTE | 2018-10-14 09:25 | P.PCN ---
Date of Procedure: 10/14/18 Procedure(s) Performed: PREOPERATIVE DIAGNOSIS: 1- Lumbar herniated Disc Diseases 2-Lumbar radiculopathy. POSTOPERATIVE DIAGNOSIS: Same as. Preop Diagnoses PROCEDURE 1. Lumbar epidural steroid injection under fluoroscopic guidance at the L4-5 level. 2. Lumbar epidurogram. ANESTHESIA: Local with 1% lidocaine 3 ml and , moderate sedation with intravenous Versed 3 mg . EBL: Minimal PROCEDURE INDICATION: The patient with low back pain and radiculitis symptoms unresponsive to conservative treatment. Fluoroscopy was used to optimize visualization of the needle placement and to maximize safety. PROCEDURE DESCRIPTION / TECHNIQUE: The patient was seen and identified in the preoperative area. Risks, benefits, complications including but not limited to infections ,bleeding ,allergic reaction to the medications ,nerve damage and not complete pain releife , and alternatives were discussed with the patient. The patient agreed to proceed with the procedure and signed the consent. IV was started, and vital signs were stable. Patient was taken to the OR and time out was completed. The patient was placed in the prone position on procedure table and a pillow was placed under the abdomen to reduce lumbar lordosis. The lumbosacral area was prepped and draped in the usual sterile fashion.ere closely monitored during the procedure. Conscious sedation was used during the procedure to decrease patients anxiety. Vital signs was monitered during the entire procedure. Using anterior-posterior fluoroscopy, the L4-5 interlaminar space was identified and the skin over this site was marked and then infiltrated with 1% lidocaine subcutaneously. Subsequently, a 18-gauge Tuohy epidural needle was inserted and advanced toward the epidural space using the ``Loss of resistance technique and guided by AP and lateral fluoroscopy. The correct needle position in the ep idural space was verified with the injection of 2 mL of the water soluble contrast dye Isovue 200 contrast and observing an excellent epidurogram with the epidural spread of the dye, after negative aspiration for blood and CSF and in the absence of paresthesias. Again after negative aspiration, a 6 ml mixture containing 80 mg of Depo-medrol , and 2 ml of preservative free Normal Saline, and 2 ml of preservative free lidocaine 1% solution was injected and a washout of epidurogram was seen. Needle was withdrawn intact, skin was cleansed, and bandages were applied. COMPLICATIONS: None DISPOSITION / PLANS: The patient was placed in a supine position and transferred to the recovery area in a stable condition for observation. There was no evidence of lower extremity motor or sensory deficit after the procedure. Patient was discharged from the recovery room after meeting discharge criteria. Home discharge instructions were given to the patient by the staff. The patient was reexamined prior to discharge. The patient will schedule a follow up in the clinic in 2-4 weeks.
[2018-10-14 09:49] VITALS: BP 118/78; PULSE 85; RESP 18
--- NOTE | 2018-10-14 11:27 | FL ---
Fluoroscopy HISTORY: Pain 3 seconds fluoroscopy time supplied to the referring clinician. 1 intraoperative C-arm images doc ument the procedure. See dictated report from anesthesia.
== END 2018-10-14 09:56 | disposition home or self-care (01) ==
LOC: ORPAIN 07:35
PROVIDERS: ATTEND Specialist
DX: M51.16 Intervertebral disc disorders with radiculopathy, lumbar region (principal); Z88.8 Allergy status to other drugs, medicaments and biological substances
CPT/HCPCS: 62323; J2250; J1030; Q9966; 99152

== ENCOUNTER 2018-10-25 21:51 | Emergency (ER) | payer OTHER ==
[2018-10-25 22:03] VITALS: RESP 18
[2018-10-25] MEDS ORDERED: diphenhydrAMINE 50 MG/ML 1 ML VIAL IVP STA (22:14)
[2018-10-25] MEDS ORDERED: SODIUM CHLORIDE 0.9% 1,000 ML IV STA (22:14)
--- NOTE | 2018-10-25 22:17 | ED ---
Headache HPI - General Chief Complaint: Headache Stated Complaint: Migraine Time Seen by Provider: 10/25/18 22:14 Mode of arrival: EMS - History of Present Illness Initial Comments: John is a 33-year-old gentleman with a history of chronic migraines who presents the emergency department today for evaluation of migraine that he has had all day today. Patient reports migraine started early this morning he has taken Excedrin Migraine with no relief. He reports this is his usual migraine, no different from previous. Wasn't sudden onset, not the worse headache of his life. Patient reports that he has been told that he has cluster and tension migraines. He has also been treated for occipital neuralgia in the past secondary to an injury to his posterior neck. Patient reports that he also follows with pain management due to chronic neck and back pain and that he is scheduled to see his pain management doctor tomorrow. Patient reports that in the past his headaches have responded well to the injections used to get for occipital neuralgia. - Related Data Home Medications Medication Instructions Recorded Confirmed Ibuprofen [Motrin Ib] 800 mg PO BID 09/14/18 10/25/18 Cyclobenzaprine [Flexeril] 5 mg PO BID 09/16/18 10/25/18 Acetaminophen/Caffeine [Excedrin 1 - 2 tab PO DAILY PRN 10/25/18 10/25/18 Tension Headache Cplt] Omeprazole 20 mg PO BID 10/25/18 10/25/18 Allergies Allergy/AdvReac Type Severity Reaction Status Date / Time gabapentin Allergy Rash/Hives Verified 10/25/18 22:05 topiramate [From Topamax] AdvReac creates Verified 10/25/18 22:05 black on on left eye NARCOTICS AdvReac MIGRAINES Uncoded 10/14/18 08:06 Review of Systems ROS Statement: Those systems with pertinent positive or pertinent negative responses have been documented in the HPI. ROS Other: All systems not noted in ROS Statement are negative. Past Medical History Past Medical History: CVA/TIA, GERD/Reflux, GI Bleed, Rheumatoid Arthritis (RA) Additional Past Medical History / Comment(s): DDD, herniated disc X2. Occipital Neuralgia. OCC BLOOD IN STOOL. States hx of stomach ulcer. "POSS 2 STROKES R/T ON MRI.", "RA rt hip", hypoglycemia, History of Any Multi-Drug Resistant Organisms: None Reported Past Surgical History: Cholecystectomy Additional Past Surgical History / Comment(s): EGD, COLONOSCOPY, oral surgery, PAIN CLINIC Past Anesthesia/Blood Transfusion Reactions: Family History of Problems w/ Anesthesia Additional Past Anesthesia/Blood Transfusion Reaction / Comment(s): MOTHER HAD EPIDURAL THAT DIDN'T WORK. Past Psychological History: Anxiety, Bipolar, Depression, Schizoaffective Disorder Smoking Status: Current every day smoker Past Alcohol Use History: Rare Past Drug Use History: None Reported - Past Family History Mother Family Medical History: Cancer Additional Family Medical History / Comment(s): SKIN CA General Exam - General Exam Comments Initial Comments: Physical Exam GENERAL: Patient is well-developed and well-nourished. Patient is nontoxic and well-hydrated and is in no distress. HENT: Normocephalic, Atraumatic TM normal bilaterally EYES: PERRL, EOMI PULMONARY: Unlabored respirations. No audible rales rhonchi or wheezing was noted. CARDIOVASCULAR: There is a regular rate and rhythm without any murmurs gallops or rubs. ABDOMEN: Soft and nontender with normal bowel sounds. SKIN: Skin is clear with no lesions or rashes and otherwise unremarkable. : Deferred NEUROLOGIC: Patient is alert and oriented x3. Moving all extremities spontaneously MUSCULOSKELETAL: Normal extremities with adequate strength and full range of motion. No lower ex tremity swelling or edema. No calf tenderness. PSYCHIATRIC: Normal psychiatric evaluation. Course Vital Signs 10/25/18 10/25/18 10/25/18 21:55 22:03 23:13 Temperature 98.7 F Pulse Rate 75 71 Respiratory 18 18 Rate Blood Pressure 135/89 121/89 O2 Sat by Pulse 99 98 Oximetry Procedures - Nerve Block Consent Obtained: verbal consent Local Anesthetic Used: Other (Lidocaine 4%) Nerve Blocks: other (Sphenopalatine) Procedure Successful: Yes Complications: none Patient Tolerated Procedure: well Medical Decision Making - Medical Decision Making The patient was seen and evaluated, history is obtained from the patient Patient with history of chronic migraines presenting with a migraine that has been present all day similar to previous no red flag symptoms Patient has tearing of the left eye as well rhinorrhea from the left nostril and pain in the left ear This is a classic cluster headache patient was given nasal cannula oxygen I offered the patient Reglan and Benadryl he states that he took a Benadryl pill earlier and it made it worse we would not like to try this. I discussed the option for skin O Federico block which patient consented to. Sphenopalatine block was performed with 4% topical lidocaine which was inserted into the nostril on a Q-tip, left for 5 minutes. Patient was then able to rest for short period time and requested discharge home he will follow up with his pain management doctor later in the day today. Disposition Clinical Impression: Migraine Disposition: HOME SELF-CARE Condition: Stable Instructions (If sedation given, give patient instructions): Acute Headache (ED) Additional Instructions: Follow up with your Pain Management physician about treatment for headaches Is patient prescribed a controlled substance at d/c from ED?: No Referrals: Robert Sanchez DO [Primary Care Provider] - 1-2 days
[2018-10-25] MEDS ORDERED: LIDOCAINE 4% LTA KIT (4 ML) TOPICAL STA (23:03)
[2018-10-25] MEDS: METOCLOPRAMIDE 5 MG/ML 2 ML VIAL IVP STA ×2 (23:07→23:13)
[2018-10-26 01:12] VITALS: BP 133/84; PULSE 85; TEMP 98
== END 2018-10-26 01:20 | disposition home or self-care (01) ==
LOC: EC 21:51
DX: G43.909 Migraine, unspecified, not intractable, without status migrainosus (principal); K21.9 Gastro-esophageal reflux disease without esophagitis; F17.200 Nicotine dependence, unspecified, uncomplicated; Z86.69 Personal history of other diseases of the nervous system and sense organs; Z86.73 Personal history of transient ischemic attack (TIA), and cerebral infarction without residual deficits; Z90.49 Acquired absence of other specified parts of digestive tract; Z98.890 Other specified postprocedural states; Z79.1 Long term (current) use of non-steroidal anti-inflammatories (NSAID); Z79.899 Other long term (current) drug therapy; Z88.5 Allergy status to narcotic agent; Z88.8 Allergy status to other drugs, medicaments and biological substances
CPT/HCPCS: 64505; 96360; 99284

== ENCOUNTER → 2018-10-26 | Outpatient (CLI) | payer OTHER ==
[2018-10-26 13:28] VITALS: BP 127/85; PULSE 104; RESP 16
--- NOTE | 2018-10-26 14:02 | P.PAINPG ---
Subjective Progress Note Date: 10/26/18 This is a follow-up visit for this 33 years old male with axial of severe chronic low back pain, and the tom were lumbar herniated disc disease lumbar radiculopathy, and previously we have done lumbar epidural steroid injection, and he had improvement of his low back pain, currently is complaining of severe neck pain and headache which is constant and increases with any neck movement, and yesterday patient had emergency room visits secondary to the headache, patient continued to take Flexeril 5 mg twice a day and Excedrin headache, and this medication is not helping enough to control his headache, he denies any visual changes, and he reported the headache starts from the base of the skull and radiated to the top, previously he had been diagnosed with the occipital neuralgia and he had occipital nerve block done by neurologist and according to the patient he had excellent pain relief Objective - Vital Signs Vital signs: Vital Signs Temp Pulse 104 H 10/26/18 13:23 Resp 16 10/26/18 13:23 BP 127/85 10/26/18 13:23 Pulse Ox 97 10/26/18 13:23 Intake & Output 10/25/18 10/26/18 10/26/18 18:59 06:59 18:59 Weight 77.111 kg - Exam Physical Examinations : -Constitutiona : Cooperative , not in acute distress . -HEENT : nech : supple , no Lymphadenopathy , normal thyroid size . eyes : no ptosis , no icterus, no photophobia . ENT : normal of hearing , normal oropharynx , no Thrush . - Respiratory : Chest clear to auscultations Bilaterally , no wheezing , no Rhonchi . - Cardiovascula : regular rate and rhythem , S1 , S2 , no S3 , no S4. - Gastrointestina : abdomen soft no tenderness , bowel sounds , no organomegally . - Genitourinary : Defferred . - neurologic : Cranial nerve II to XII intact , no focal neurological deffecit . -psychatric : alert , oriented X 3 , appropriate affect , intact judgment and insight . -Lymphatic : no Lymphadenopathy . - musculoskeltal : Cervical Spine motor stregnth in the deltoid and biceps, normal right side , normal Left side motor stregnth biceps and the wrist extensors normal right side ,normal left side . motor stregnth in the triceps muscle . normal Right side , normal Left side deep tendon reflexes normal at the biceps , normal at Brachioradialis , normal at triceps. cervical facet loading test: Positive Bilaterally Spurling test positive bilaterally. Sever tenderness over the occipital n erve bilaterally Lumber spine moter stegnth lower extremities ,thigh and legs 5/5 Right side , 5/5 Left side . Assessment and Plan Plan: Assessment and plan= low back pain secondary to lumbar radiculopathy/lumbar herniated disc disease Pain improved after lumbar epidural steroid injections. Severe headache and neck pain, secondary to cervical spondylosis , occipital neuralgia Patient could benefit from Fioricet 1 tablet by mouth every 8 hours dispensed 40 with 1 refill, and amitriptyline 10 mg daily at bedtime Dispensed 30 with one refill, this will decrease the frequency of headache attack Patient will be scheduled to have bilateral occipital nerve block , if patient had no benefit from the occipital nerve block , then in the future we'll order MRI of the cervical spine Time with Patient: Less than 30 PQRS Measure Charge Sheet Measure #130: Documentation of Current Meds in Medical Chart: Patient's medications documented in chart Measure #226: Tobacco Use: Screen & Cessation Intervention: Pt screened for tobacco use AND intervention given Measure #111: Pneumonia Vaccination: Pneumococcal vaccine NOT administered or previously given Measure #47: Advance Care Plan: Advance care planning discussed & documented, pt chose/unable to give Measure #412: Opioid Treatment Agreement: No documentation of signed opioid treatment agreement Measure #408: Opioid Therapy Follow-up Evaluation: Patient had NO f/u eval minimum every 3 months during opioid therapy Measure #317: Preventitive Care & Scrn High Bld Press & F/U: Normal blood pressure, f/u not required Measure #128: Body Mass Index (BMI) Screening & Follow-up: BMI documented within normal parameters Measure #131: Pain Assessment & Follow-up: Pain positive & plan documented, Follow-up scheduled Measure #431: Unhealthy Alcohol Use Preventative Care & Scrn: Patient not identified as an unhealthy alcohol user PQRS Narrative: Smoking Status Current every day smoker Blood Pressure 127/85 Pain Intensity [Posterior Neck 5 ] Scale Used Numeric (1 - 10) Hx Alcohol Use (MH) Yes: OCCASIONAL. Home Medications: Ambulatory Orders Ibuprofen [Motrin Ib] 800 mg PO BID 09/14/18 Cyclobenzaprine [Flexeril] 5 mg PO BID 09/16/18 Acetaminophen/Caffeine [Excedrin Tension Headache Cplt] 1 - 2 tab PO DAILY PRN 10/25/18 Omeprazole 20 mg PO BID 10/25/18 Controlled Substance Measures - Controlled Substance Measures Is patient prescribed a controlled substance at discharge?: No
== END ==
LOC: PNWHC3 12:53
PROVIDERS: ATTEND Specialist
DX: M51.16 Intervertebral disc disorders with radiculopathy, lumbar region (principal); M47.812 Spondylosis without myelopathy or radiculopathy, cervical region; M54.81 Occipital neuralgia; F17.200 Nicotine dependence, unspecified, uncomplicated; Z79.1 Long term (current) use of non-steroidal anti-inflammatories (NSAID); Z79.899 Other long term (current) drug therapy
CPT/HCPCS: 99211

== ENCOUNTER 2018-11-04 09:04 | Day surgery (SDC) | payer OTHER ==
[2018-11-02 11:31] VITALS: BMI 24.7
[2018-11-04 09:53] VITALS: RESP 16; TEMP 98.2
[2018-11-04] MEDS ORDERED: LIDOCAINE 1% 20 ML VIAL (10MG/ML) FOR IV START INTRADERMA ONE (09:58)
[2018-11-04] MEDS ORDERED: LACTATED RINGERS 1,000 ML IV ONE (09:58)
--- NOTE | 2018-11-04 11:27 | P.PCN ---
Date of Procedure: 11/04/18 Procedure(s) Performed: Pre-operative diagnosis: Bilateral occipital neuralgia Post Operative Diagnosis same Procedure: Bilateral occipital nerve blocks ANESTHESIA: none EBL: Minimal PROCEDURE INDICATION: The patient with neck pain and headache secondary to occipital neuralgia unresponsive to conservative treatments. PROCEDURE DESCRIPTION / TECHNIQUE: The patient was seen and identified in the preoperative area. Risks, benefits, complications, and alternatives were discussed with the patient, the patient agreed to proceed with the procedure and signed the consent. IV was started. Vital signs remained stable throughout the procedure. Patient was taken to the OR and time out was completed. The patient was placed in the seated position on the bed, leaning forward on a pillow placed on the procedure table. The cervical area and bilateral occiptial area were prepped with alcohol swab. Vital signs were closely monitored during the procedure. The bilateral occiptal ridge was palpated and was then accessed with a 25 G needle. Then after negative aspiration, 2.5 ml of the treatment solution was injected on each side. Treatment solution consisted of 4 ml of ropivacaine 0.5% and Kenalog 40 mg Needle was withdrawn intact. Patient tolerated procedure well. No acute complications. Patient was given 30 mg IV Toradol following the procedure.
[2018-11-04] MEDS ORDERED: IV FLUID CONTINUATION 1,000 ML IV ONE (11:29)
[2018-11-04] MEDS ORDERED: KETOROLAC 30 MG/ML 1 ML VIAL IVP ONE (11:30)
[2018-11-04 12:26] VITALS: BP 122/89; PULSE 78
== END 2018-11-04 12:42 | disposition home or self-care (01) ==
LOC: ORPAIN 09:04
PROVIDERS: ATTEND Anesthesiology
DX: G89.29 Other chronic pain (principal); M54.81 Occipital neuralgia; M51.16 Intervertebral disc disorders with radiculopathy, lumbar region; F17.200 Nicotine dependence, unspecified, uncomplicated; Z79.899 Other long term (current) drug therapy; Z88.8 Allergy status to other drugs, medicaments and biological substances; Z91.09 Other allergy status, other than to drugs and biological substances
CPT/HCPCS: 64405; J3301; J1885

== ENCOUNTER → 2018-11-29 | Outpatient (CLI) | payer OTHER ==
[2018-11-29 13:53] VITALS: BP 139/91; PULSE 97; RESP 16
--- NOTE | 2018-11-29 16:20 | P.PAINPG ---
Subjective Progress Note Date: 11/29/18 This is a follow-up visit for this 33 year old male who presents with neck pain and chronic low back pain, he was diagnosed with lumbar herniated disc disease, lumbar radiculopathy, and previously we have done lumbar epidural steroid injection, with good ongoing improvement of his low back pain. At his last visit, he was mainly complaining of neck pain, and was diagnosed with occipital neuralgia, he underwent bilateral occipital nerve blocks on 11/04/2018. He returns today for follow-up. He reports that the nerve blocks did not help his pain, and in fact made it worse. He reports that he was having a migraine that day, and the nerve blocks accentuated his migraine. He had pain that lasted for about a day. Pain is primarily located in the left side of his neck and low cervicalupper thoracic region, primarily on the left side. The pain radiates to left trapezius muscle. Pain does not radiate to arms, he denies numbness and tingling or weakness. Review of systems is negative for chest pain, shortness of breath, new onset weakness, numbness/tingling, abdominal pain, malaise, fever, night sweats, chills, homicidal or suicidal ideation, or bowel or bladder incontinence. Objective Physical exam: Vitals: Reviewed in EMR GENERAL: Well appearing, in no acute distress PSYCH: Mood and affect is appropriate. Awake, alert, and oriented SKIN: Skin color, texture, turgor normal, no rashes or lesions HEENT: Normocephalic, atraumatic. EOM intact CV: No pedal edema RESP: Respirations are unlabored, no audible wheezing GI: Abdomen non-distended MUSCULOSKELETAL: Bilateral upper and lower extremity strength is normal and symmetric. No atrophy or tone abnormalities are noted. Neck and upper back: Tenderness to palpation over the cervical paraspinous muscles left greater than right. Spurling negative, Doran's sign negative. Positive facet loading. Positive occipital Tinel's on the left side. Tenderness to palpation over the thoracic spine and paraspinal musculature. Lumbar spine: Straight leg raising in the sitting position is positive on the right for radicular pain. No pain to palpation over the lumbar spine and paraspinous muscles. Negative for pain with facet loading and back extension/rotation. Normal range of motion without pain reproduction Buttocks: No pain to palpation over the PSIS, sacroiliac joint maneuvers are negative for pain. Extremities: Peripheral joint ROM is full and pain free without obvious instability or laxity in all four extremities. No edema or skin discolorations noted. Gait: Gait is normal NEUR: Bilateral upper and lower extremity coordination and muscle stretch reflexes are physiologic and symmetric. Negative clonus bilaterally. No loss of sensation is noted. Assessment and Plan Plan: Assessment and plan= low back pain secondary to lumbar radiculopathy/lumbar herniated disc disease: Pain improved after lumbar epidural steroid injections. Severe headache and neck pain, patient did not benefit from occipital nerve blocks. Pain is likely secondary to cervical and thoracic spondylosis , we will order cervical and thoracic spine MRI today Patient was counseled on the importance of smoking cessation as it pertains to chronic pain Follow-up: After MRI Objective - Vital Signs Vital signs: Vital Signs Temp Pulse 97 11/29/18 13:51 Resp 16 11/29/18 13:51 BP 139/91 11/29/18 13:51 Pulse Ox 98 11/29/18 13:51 Intake & Output 11/28/18 11/29/18 11/29/18 18:59 06:59 18:59 Weight 78.471 kg PQRS Measure Charge Sheet Measure #130: Documentation of Current Meds in Medical Chart: Patient's medications documented in chart Measure #226: Tobacco Use: Screen & Cessation Intervention: Pt screened for tobacco use AND intervention given Measure #111: Pneumonia Vaccination: Pneumococcal vaccine NOT administered or previously given Measure #47: Advance Care Plan: Advance care planning discussed & documented, pt chose/unable to give Measure #412: Opioid Treatment Agreement: No documentation of signed opioid treatment agreement Measure #317: Preventitive Care & Scrn High Bld Press & F/U: Pre-hypertensive or hypertensive BP documented, pt will f/u with PCP Measure #128: Body Mass Index (BMI) Screening & Follow-up: BMI documented within normal parameters Measure #131: Pain Assessment & Follow-up: Pain positive & plan documented, Follow-up scheduled Measure #431: Unhealthy Alcohol Use Preventative Care & Scrn: Patient not identified as an unhealthy alcohol user PQRS Narrative: Smoking Status Current every day smoker Blood Pressure 139/91 Pain Intensity [Medial Back] 5 Scale Used Numeric (1 - 10) Hx Alcohol Use (MH) Yes: OCCASIONAL. Home Medications: Ambulatory Orders Ibuprofen [Motrin Ib] 800 mg PO BID 09/14/18 Cyclobenzaprine [Flexeril] 5 mg PO BID 09/16/18 Omeprazole 40 mg PO BID 10/25/18 Amitriptyline HCl [Elavil] 10 mg PO HS 10/26/18 Butalb/Acetaminophen/Caffeine [Fioricet 50-300-40 mg Capsule] 1 cap PO Q8H PRN 11/02/18 Controlled Substance Measures - Controlled Substance Measures Is patient prescribed a controlled substance at discharge?: No
== END ==
LOC: PNWHC3 13:00
PROVIDERS: ATTEND Anesthesiology
DX: M51.16 Intervertebral disc disorders with radiculopathy, lumbar region (principal); M54.2 Cervicalgia; F17.200 Nicotine dependence, unspecified, uncomplicated; R51 Headache; Z79.1 Long term (current) use of non-steroidal anti-inflammatories (NSAID); Z79.899 Other long term (current) drug therapy
CPT/HCPCS: 99211

== ENCOUNTER → 2018-12-09 | Outpatient (CLI) | payer OTHER ==
--- NOTE | 2018-12-10 00:09 | MR ---
MRI CERVICAL SPINE: MR scan thoracic spine CLINICAL HISTORY: Neck pain back pain TECHNIQUE: Multiplanar, multisequence imaging of the cervical spine and thoracic is performed without contrast COMPARISON: None FINDINGS: Cervical vertebra have fairly normal alignment. Disc spaces appear normal for age. Brainstem is intac t. Cervical spinal cord has normal signal pattern. There is no edema. There is no evidence of cervica l disc herniation. I see no focal bone destruction. Thoracic vertebra have normal alignment. Disc spaces are fairly normal. There is no compression fract ure. I see no focal bone destruction. Thoracic spinal cord has normal signal pattern. There is no cesar ma. There is no thoracic spinal stenosis. Posterior elements are intact. There is no evidence of thor acic paraspinal mass. IMPRESSION: Negative MR scan of the cervical spine. Negative MR scan of the thoracic spine.
== END | disposition home or self-care (01) ==
LOC: RADMRIMAIN 20:21
PROVIDERS: ATTEND Anesthesiology
DX: M47.813 Spondylosis without myelopathy or radiculopathy, cervicothoracic region (principal)
CPT/HCPCS: 72141; 72146

== ENCOUNTER → 2018-12-21 | Outpatient (CLI) | payer OTHER ==
[2018-12-21 14:13] VITALS: BP 127/83; PULSE 89; RESP 16
--- NOTE | 2018-12-21 16:12 | P.PAINPG ---
Subjective Progress Note Date: 12/21/18 Mr. Serrano is a 33-year-old male with occipital neuralgia lumbar radicular pain. Today he states that his pain is very bearable. His occipital nerve block as discussed in previous notes did not help him. He has no new complaints today. He does use Flexeril occasionally less than 15 in a month, he does have refills. Otherwise he is not using it any other medication from our clinic. He continues to experience some benefit from her lumbar epidural steroid injections. Objective - Vital Signs Vital signs: Vital Signs Temp Pulse 89 12/21/18 13:56 Resp 16 12/21/18 13:56 BP 127/83 12/21/18 13:56 Pulse Ox 97 12/21/18 13:56 Intake & Output 12/20/18 12/21/18 12/21/18 18:59 06:59 18:59 Weight 78.018 kg - Exam Vital Signs: Reviewed in EMR GENERAL: Well appearing, in no acute distress, PSYCH: Mood and affect is appropriate. Awake, alert, and oriented SKIN: Skin color, texture, turgor normal, no rashes or lesions HEENT: Normocephalic, atraumatic. EOM intact CV: No pedal edema RESP: Respirations are unlabored, no audible wheezing GI: Abdomen non-distended MUSCULOSKELETAL: Bilateral upper and lower extremity strength is normal and symm etric. No atrophy or tone abnormalities are noted. Neck: No pain with neck flexion, extension, or lateral flexion. No obvious deformity or signs of trauma. Normal cervical lordotic curve and normal cervical spine range of motion Lumbar spine: No pain with palpation Buttocks: No pain to palpation over the PSIS, Judith test is negative bilaterally Extremities: Peripheral joint ROM is full and pain free without obvious instability or laxity in all four extremities. No edema or skin discolorations noted. Gait: Gait is anantalgic NEUR: No loss of sensation is noted. Cranial nerves are grossly intact. Assessment and Plan Assessment: Assessment: 1. Lumbar radicular pain, much improved 2. Occipital neuralgia Plan: 1. Explanation: Spoke to him about the natural process of his disease 2. Opioid agreement: None 3. Counseling: Encouraged him encouraged him to continue to stay active 4. Procedures: None at this time can revisit lumbar epidural if his radicular pain worsens 5. Consultations: None 6. Investigations: MRI was reviewed unremarkable 7. Medications: He has refills on the Flexeril and he takes less than 1 per day 8. Disposition: 3 months , PQRS Measure Charge Sheet PQRS Narrative: Smoking Status Current every day smoker Blood Pressure 127/83 Pain Intensity [Left Posterior 4 Neck] Scale Used Numeric (1 - 10) Hx Alcohol Use (MH) Yes: OCCASIONAL. Home Medications: Ambulatory Orders Ibuprofen [Motrin Ib] 800 mg PO BID 09/14/18 Cyclobenzaprine [Flexeril] 5 mg PO BID 09/16/18 Omeprazole 40 mg PO BID 10/25/18 Controlled Substance Measures - Controlled Substance Measures Is patient prescribed a controlled substance at discharge?: No When asked, does pt state using other controlled substances?: No
== END | disposition home or self-care (01) ==
LOC: PNWHC3 13:36
PROVIDERS: ATTEND Student in an Organized Health Care Education/Training Program
DX: M54.81 Occipital neuralgia (principal); M54.16 Radiculopathy, lumbar region; F17.200 Nicotine dependence, unspecified, uncomplicated; Z79.1 Long term (current) use of non-steroidal anti-inflammatories (NSAID); Z79.899 Other long term (current) drug therapy
CPT/HCPCS: 99211

== ENCOUNTER → 2019-03-14 | Outpatient (CLI) | payer OTHER ==
[2019-03-14 12:04] VITALS: BP 116/80; PULSE 103; RESP 18
--- NOTE | 2019-03-14 12:26 | P.PAINPG ---
Subjective Progress Note Date: 03/14/19 This is a healthy 33-year-old male who is sooner clinic for lumbar radicular pain, neck supple neuralgia. He has had lumbar epidural steroid injections at L4-L5 which really improved his radicular and back pain. He stated that this pain that he has had in the past is returned, and he would like an epidural. He denies any other new medical history. Otherwise she would like a refill for Flexeril, which she has been obtaining through our clinic. He denies any side effects to this medication. 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 He does have an MRI within the past year Objective - Vital Signs Vital signs: Vital Signs Temp Pulse 103 H 03/14/19 12:01 Resp 18 03/14/19 12:01 BP 116/80 03/14/19 12:01 Pulse Ox 98 03/14/19 12:01 - Exam Vital Signs: Reviewed in EMR GENERAL: Well appearing, in no acute distress, PSYCH: Mood and affect is appropriate. Awake, alert, and oriented SKIN: Skin color, texture, turgor normal, no rashes or lesions HEENT: Normocephalic, atraumatic. EOM intact CV: No pedal edema RESP: Respirations are unlabored, no audible wheezing GI: Abdomen non-distended MUSCULOSKELETAL: Bilateral upper and lower extremity strength is normal and symmetric. No atrophy or tone abnormalities are noted. Lumbar spine: To pain to palpation over the lumbar spine and paraspinous muscles. Straight leg test is positive Extremities: Peripheral joint ROM is full and pain free without obvious instability or laxity in all four extremities. No edema or skin discolorations noted. Gait: Gait is anantalgic NEUR: No loss of sensation is noted. Cranial nerves are grossly intact. Assessment and Plan Assessment: Assessment: 1. Lumbar radicular pain 2. Degenerative disc disease 3. Occipital neuralgia Plan: 1. Explanation: He has a good understanding of his disease process, I spoke to him about his bulging disc in his radicular symptoms. 2. Opioid agreement: None 3. Counseling: The patient should continue to be active 4. Procedures: At this time we will plan on performing a lumbar epidural at L4- L5. This is because he had good relief with the previous epidural at this level. While his symptoms appear to be in the L5 or S1 distribution as the pain radiates down to the bottom of his foot, before because of previous good successful attempt at this level. Furthermore his disc herniation is at L4-L5 5. Consultations: None 6. Investigations: His lumbar MRI was reviewed 7. Medications: Refilled his Flexeril 8. Disposition: For his procedure , PQRS Measure Charge Sheet Measure #47: Advance Care Plan: Advance care planning discussed & documented, pt chose/unable to give Measure #131: Pain Assessment & Follow-up: Pain positive & plan documented, Follow-up scheduled PQRS Narrative: Smoking Status Current every day smoker Blood Pressure 116/80 Pain Intensity [Right Back] 5 Scale Used Numeric (1 - 10) Hx Alcohol Use (MH) Yes: RARE Home Medications: Ambulatory Orders Ibuprofen [Motrin Ib] 800 mg PO BID 09/14/18 Cyclobenzaprine [Flexeril] 5 mg PO BID 09/16/18 Omeprazole 40 mg PO BID 10/25/18 Controlled Substance Measures - Controlled Substance Measures Is patient prescribed a controlled substance at discharge?: No
== END | disposition home or self-care (01) ==
LOC: PNWHC3 11:16
PROVIDERS: ATTEND Student in an Organized Health Care Education/Training Program
DX: M51.16 Intervertebral disc disorders with radiculopathy, lumbar region (principal); M54.81 Occipital neuralgia; F17.200 Nicotine dependence, unspecified, uncomplicated; Z79.1 Long term (current) use of non-steroidal anti-inflammatories (NSAID); Z79.899 Other long term (current) drug therapy
CPT/HCPCS: 99211

== ENCOUNTER 2019-03-31 08:29 | Day surgery (SDC) | payer OTHER ==
[2019-03-29 13:11] VITALS: BMI 25.1
[2019-03-31 08:57] VITALS: TEMP 97.9
[2019-03-31] MEDS ORDERED: IV FLUID CONTINUATION 1,000 ML IV ONE (10:01)
[2019-03-31 10:04] VITALS: RESP 16
[2019-03-31 10:14] VITALS: BP 110/72; PULSE 87
--- NOTE | 2019-03-31 10:30 | P.PCN ---
Date of Procedure: 03/31/19 Procedure(s) Performed: PREOPERATIVE DIAGNOSIS: 1- Lumbar radiculopathy, Lumbar Degenerative Disc Diseases 2-Lumbar spondylosis with Facet arthropathy without myelopathy POSTOPERATIVE DIAGNOSIS: 1-Lumber Degenerative Disc Diseases 2-Lumbar spondylosis with Facet arthropathy without myelopathy PROCEDURE 1. Lumbar epidural steroid injection under fluoroscopic guidance at the L4-5 level using a right paramedian approach 2. Lumbar epidurogram. ANESTHESIA: Local with 1% lidocaine 3 ml, moderate sedation with intravenous Versed, sedation time 12 minutes Fluoroscopy was used for the procedure and images were saved in the radiology portion of the chart. EBL: Minimal PROCEDURE INDICATION: The patient with low back pain and radiculitis symptoms unresponsive to conservative treatment. Fluoroscopy was used to optimize visualization of the needle placement and to maximize safety. PROCEDURE DESCRIPTION / TECHNIQUE: The patient was seen and identified in the preoperative area. Risks, benefits, complications including but not limited to infections ,bleeding ,allergic reaction to the medications ,nerve damage and incomplete pain releif , and alternatives were discussed with the patient. The patient agreed to proceed with the procedure and signed the consent. IV was started, and vital signs were stable. Patient was taken to the OR and time out was completed. The patient was placed in the prone position on procedure table and a pillow was placed under the abdomen to reduce lumbar lordosis. The lumbosacral area was prepped and draped in the usual sterile fashion. Vitals were closely monitored during the procedure. Conscious sedation was used during the procedure to decrease patient ?s anxiety. Using anterior-posterior fluoroscopy, the L4-5 interlaminar space was identified and the skin over this site was marked and then infiltrated with 1% lidocaine subcutaneously. Subsequently, a 20-gauge 3.5" Tuohy epidural needle was inserted and advanced toward the epidural space using the loss of resistance technique and guided by AP and lateral/ oblique fluoroscopy. The correct needle position in the epidural space was verified with the injection of 2 mL of the water soluble contrast dye Isovue 200 contrast under live fluoroscopy, observing an excellent epidurogram. Then, after negative aspiration for blood and CSF and in the absence of paresthesias, a 5 ml mixture containing 80 mg of Depo-medrol , 3 ml of preservative free Normal Saline, and 1 ml of preservative free lidocaine 1% solution was injected and a washout epidurogram was seen. Needle was withdrawn intact, skin was cleansed, and bandages were applied. COMPLICATIONS: None DISPOSITION / PLANS: The patient was placed in a supine position and transferred to the recovery area in a stable condition for observation. There was no evidence of lower extremity motor or sensory deficit after the procedure. Patient was discharged from the recovery room after meeting discharge criteria. Home discharge instructions were given to the patient by the staff. The patient will schedule a follow up in the clinic in 2-4 weeks.
--- NOTE | 2019-03-31 10:55 | FL ---
EXAMINATION TYPE: FL guided pain mgmt statistic DATE OF EXAM: 03/31/2019 HISTORY: Flouroscopy time 5 seconds of fluoroscopy provided. IMPRESSION: 1. Fluoroscopy time.
== END 2019-03-31 10:37 | disposition home or self-care (01) ==
LOC: ORPAIN 08:29
PROVIDERS: ATTEND Anesthesiology
DX: M47.26 Other spondylosis with radiculopathy, lumbar region (principal); M51.16 Intervertebral disc disorders with radiculopathy, lumbar region; M54.81 Occipital neuralgia; F17.200 Nicotine dependence, unspecified, uncomplicated; Z91.048 Other nonmedicinal substance allergy status; Z79.899 Other long term (current) drug therapy; Z79.1 Long term (current) use of non-steroidal anti-inflammatories (NSAID); Z88.5 Allergy status to narcotic agent; Z88.8 Allergy status to other drugs, medicaments and biological substances
CPT/HCPCS: 62323; J2250; J1030; Q9966; 99152

== ENCOUNTER → 2019-05-03 | Outpatient (CLI) | payer OTHER ==
[2019-05-03 13:17] VITALS: BP 130/73; PULSE 81; RESP 18; TEMP 98.5
--- NOTE | 2019-05-03 13:49 | P.PAINPG ---
Subjective Progress Note Date: 05/03/19 This is a follow-up visit for this 33 years old male with axial of severe chronic low back pain, he is diagnosed with lumbar herniated disc disease, lumbar radiculopathy, and previously we have done lumbar epidural steroid injection, and he had improvement of his low back pain, patient continued to take Flexeril 5 mg twice a day and Motrin 800 mg every 8 hours., He denies any fever or night sweats. Denies any motor or sensory deficit he denies any change in bowel movement or urination, and he reported that his low back pain improved significantly after the epidural steroid injection Objective - Vital Signs Vital signs: Vital Signs Temp 98.5 F 05/03/19 13:09 Pulse 81 05/03/19 13:09 Resp 18 05/03/19 13:09 BP 130/73 05/03/19 13:09 Pulse Ox 99 05/03/19 13:09 - Exam Physical Examinations : -Constitutiona : Cooperative , not in acute distress . -HEENT : nech : supple , no Lymphadenopathy , normal thyroid size . : eyes : no ptosis , no icterus, no photophobia . - neurologic : Cranial nerve II to XII intact , no focal neurological deffecit . -psychatric : alert , oriented X 3 , appropriate affect , intact judgment and insight . -Lymphatic : no Lymphadenopathy . - musculoskeltal : Lumber spine moter stegnth lower extremities ,thigh and legs 5/5 Right side , 5/5 Left side deep tendon reflexes : normal Knee Jerk , normal ankle Jerk Assessment and Plan Plan: Assessment and plan= lumbar herniated disc disease. Lumbar radiculopathy. Patient improved after lumbar epidural steroid injection, patient given prescription refill for Flexeril 10 mg twice a day when necessary Motrin 800 mg every 8 hours dispense 90 with 2 refills, and he will follow up in the pain clinic when necessary. Time with Patient: Less than 30 PQRS Measure Charge Sheet Measure #130: Documentation of Current Meds in Medical Chart: Patient's medications documented in chart Measure #226: Tobacco Use: Screen & Cessation Intervention: Pt screened for tobacco use AND intervention given Measure #111: Pneumonia Vaccination: Pneumococcal vaccine NOT administered or previously given Measure #47: Advance Care Plan: Advance care planning discussed & documented, pt chose/unable to give Measure #412: Opioid Treatment Agreement: No documentation of signed opioid treatment agreement Measure #408: Opioid Therapy Follow-up Evaluation: Patient had NO f/u eval minimum every 3 months during opioid therapy Measure #317: Preventitive Care & Scrn High Bld Press & F/U: Normal blood pressure, f/u not required Measure #128: Body Mass Index (BMI) Screening & Follow-up: BMI documented within normal parameters Measure #131: Pain Assessment & Follow-up: Pain positive & plan documented, Follow-up scheduled Measure #431: Unhealthy Alcohol Use Preventative Care & Scrn: Patient not identified as an unhealthy alcohol user PQRS Narrative: Smoking Status Current every day smoker Blood Pressure 130/73 Pain Intensity [Lower Back] 4 Scale Used Numeric (1 - 10) Hx Alcohol Use (MH) Yes: OCCASIONAL Home Medications: Ambulatory Orders Ibuprofen [Motrin Ib] 800 mg PO BID 09/14/18 Cyclobenzaprine [Flexeril] 5 mg PO BID 09/16/18 Omeprazole 40 mg PO BID 10/25/18 Controlled Substance Measures - Controlled Substance Measures Is patient prescribed a controlled substance at discharge?: No
== END | disposition home or self-care (01) ==
LOC: PNWHC3 12:33
PROVIDERS: ATTEND Specialist
DX: M51.16 Intervertebral disc disorders with radiculopathy, lumbar region (principal); F17.200 Nicotine dependence, unspecified, uncomplicated; Z79.1 Long term (current) use of non-steroidal anti-inflammatories (NSAID); Z79.899 Other long term (current) drug therapy
CPT/HCPCS: 99211

== ENCOUNTER 2020-01-29 10:52 | Emergency (ER) | payer OTHER ==
[2020-01-29 11:11] VITALS: BP 124/90; PULSE 75; RESP 18; TEMP 98
--- NOTE | 2020-01-29 11:21 | ED ---
Upper Extremity HPI - General Chief Complaint: Extremity Injury, Upper Stated Complaint: hand injury Time Seen by Provider: 01/29/20 11:12 Source: patient, RN notes reviewed, old records reviewed Mode of arrival: ambulatory Limitations: no limitations - History of Present Illness Initial Comments: is a 34-year-old male who presents the ER today for evaluation with chief complaint of left arm and hand swelling and irritation with movement for the past few weeks. Patient reports he was lifting something a few weeks ago and felt a pop sensation in his hand and wrist. He reports he's been diagnosed with carpal tunnel in the past has been using wrist splint. Patient reports that today he woke up after sleeping with his wrist splint on noting that his left hand is significant swollen. He is left-handed. Patient states that he has been taking ibuprofen for pain relief. Patient states that he was seen by his PCP who is had referred him to see orthopedics. He states he is not called orthopedics due to being busy over the past few weeks. He denies any other significant complaints. - Related Data Home Medications Medication Instructions Recorded Confirmed Ibuprofen [Motrin Ib] 800 mg PO BID 09/14/18 05/03/19 Cyclobenzaprine [Flexeril] 5 mg PO BID 09/16/18 05/03/19 Omeprazole 40 mg PO BID 10/25/18 05/03/19 Previous Rx's Medication Instructions Recorded Ibuprofen [Motrin] 800 mg PO Q8H #30 tab 01/29/20 methylPREDNISolone Dose Pack 4 mg PO DIRECTED #21 package 01/29/20 [Medrol Dose Pack] Allergies Allergy/AdvReac Type Severity Reaction Status Date / Time adhesive tape Allergy Rash/Hives Verified 01/29/20 11:11 gabapentin Allergy Rash/Hives Verified 01/29/20 11:11 topiramate [From Topamax] AdvReac creates Verified 01/29/20 11:11 black SPOT on left eye NARCOTICS AdvReac MIGRAINES Uncoded 01/29/20 11:11 Review of Systems ROS Statement: Those systems with pertinent positive or pertinent negative responses have been documented in the HPI. ROS Other: All systems not noted in ROS Statement are negative. Past Medical History Past Medical History: CVA/TIA, GERD/Reflux, GI Bleed, Rheumatoid Arthritis (RA) Additional Past Medical History / Comment(s): DDD, herniated disc X2. Occipital Neuralgia. OCC BLOOD IN STOOL. States hx of stomach ulcer. "POSS 2 STROKES R/T ON MRI.", "Rheumatoid Arthritis rt hip", hypoglycemia. History of Any Multi-Drug Resistant Organisms: None Reported Past Surgical History: Cholecystectomy Additional Past Surgical History / Comment(s): EGD, COLONOSCOPY, oral surgery, PAIN CLINIC PROCEDURES. Past Anesthesia/Blood Transfusion Reactions: Family History of Problems w/ Anesthesia Additional Past Anesthesia/Blood Transfusion Reaction / Comment(s): MOTHER HAD EPIDURAL THAT DIDN'T WORK. Past Psychological History: Anxiety, Bipolar, Depression, Schizoaffective Disorder Past Alcohol Use History: Rare Past Drug Use History: None Reported - Past Family History Mother Family Medical History: Cancer Additional Family Medical History / Comment(s): SKIN CA General Exam - General Exam Comments Initial Comments: Alert and oriented 34-year-old male. No acute distress. Limitations: no limitations General appearance: alert, in no apparent distress Head exam: Present: atraumatic, normocephalic, normal inspection Eye exam: Present: normal appearance, PERRL, EOMI. Absent: scleral icterus, conjunctival injection, periorbital swelling ENT exam: Present: normal exam Neck exam: Present: normal inspection. Absent: tenderness, meningismus, lymphadenopathy Respiratory exam: Present: normal lung sounds bilaterally. Absent: respiratory distress, wheezes, rales, rhonchi, stridor Cardiovascular Exam: Present: regular rate, normal rhythm, normal heart sounds. Absent: systolic murmur, diastolic murmur, rubs, gallop, clicks GI/Abdominal exam: Present: soft, normal bowel sounds. Absent: distended, tenderness, guarding, rebound, rigid Extremities exam: Present: normal inspection, full ROM, normal capillary refill. Absent: tenderness, pedal edema, joint swelling, calf tenderness Left Upper Arm exam: Present: normal inspection, full ROM Elbow exam: Present: normal inspection, full ROM Forearm Wrist exam: Present: swelling, other (Patient has positive Tinel's test. Evidence of swelling over the thenar eminence. No erythema. Normal pulses distally. Capillary refill less than 2 seconds. ). Absent: normal inspection, full ROM Hand Wrist exam: Present: tenderness, swelling. Absent: normal inspection, full ROM, abrasion, laceration, ecchymosis Neuro motor exam: Present: wrist extension intact, thumb opposition intact, thumb IP flexion intact, thumb adduction intact, fingers 2-5 abduction intact Vascular: Present: normal capillary refill Back exam: Present: normal inspection Neurological exam: Present: alert Psychiatric exam: Present: normal affect, normal mood Skin exam: Present: warm, dry, intact, normal color. Absent: rash Course Vital Signs 01/29/20 11:09 Temperature 98.0 F Pulse Rate 75 Respiratory 18 Rate Blood Pressure 124/90 O2 Sat by Pulse 99 Oximetry Medical Decision Making - Medical Decision Making 34-year-old male presents emergency department today for evaluation for left wrist and forearm pain has been present for 7 weeks. He reports initially having a pop in his wrist while lifting. Patient reports wearing a sports for carpal tunnel but not frequently. Patient does have evidence of swelling that he had no erythema. Some pain with range of motion of the wrist. Positive Tinel sign. At this time patient's symptoms would be consistent with carpal tunnel. Advised Patient to take anti-inflammatory medicine. Wrist and hand x- ray were negative for acute process. Patient will have follow-up with orthopedic. - Radiology Data Radiology results: report reviewed No acute osseous abdomen and left hand. Significant soft tissue swelling is identified. Normal two-view left forearm. Disposition Clinical Impression: Swelling of left hand, Forearm strain, Carpal tunnel syndrome of left wrist Disposition: HOME SELF-CARE Condition: Good Instructions (If sedation given, give patient instructions): Arthralgia (ED), Carpal Tunnel Surgery (DC) Additional Instructions: Patient advised to use a wrist splints. Following up with medical staff specialist. Patient can take anti-inflammatory medicine as prescribed and co ntinue Tylenol and Motrin for pain. Ice the areas of swelling and pain 2-3 times a day and stretch with wrist and hand. Prescriptions: methylPREDNISolone Dose Pack [Medrol Dose Pack] 4 mg PO DIRECTED #21 package Ibuprofen [Motrin] 800 mg PO Q8H #30 tab Is patient prescribed a controlled substance at d/c from ED?: No Referrals: Robert Sanchez DO [Primary Care Provider] - 1-2 days Marina Contreras DO [Doctor of Osteopathic Medicine] - 1-2 days Time of Disposition: 12:17
--- NOTE | 2020-01-29 11:38 | XR ---
EXAMINATION TYPE: XR forearm LT DATE OF EXAM: 01/29/2020 COMPARISON: None HISTORY: Popping injury 7 weeks prior, pain and swelling TECHNIQUE: 2 view left forearm FINDINGS: No acute fracture or dislocation is evident. Soft tissues appear normal. No subacute abnorm ality is evident. IMPRESSION: 1. Normal 2 view left forearm
--- NOTE | 2020-01-29 11:39 | XR ---
EXAMINATION TYPE: XR hand complete LT DATE OF EXAM: 01/29/2020 COMPARISON: None HISTORY: Pain swelling popping injury 7 weeks prior TECHNIQUE: Three-view left hand FINDINGS: No acute fractures or dislocations are evident. Old fifth metacarpal fracture is evident. N o significant soft tissue swelling this however joint spaces are preserved. IMPRESSION: 1. No acute osseous abnormality left hand. 2. Significant soft tissue swelling is not identified
== END 2020-01-29 12:30 | disposition home or self-care (01) ==
LOC: EC 10:52
DX: G56.02 Carpal tunnel syndrome, left upper limb (principal); S56.912A Strain of unspecified muscles, fascia and tendons at forearm level, left arm, initial encounter; K21.9 Gastro-esophageal reflux disease without esophagitis; F41.9 Anxiety disorder, unspecified; F32.9 Major depressive disorder, single episode, unspecified; F25.9 Schizoaffective disorder, unspecified; M06.9 Rheumatoid arthritis, unspecified; Z79.1 Long term (current) use of non-steroidal anti-inflammatories (NSAID); Z79.899 Other long term (current) drug therapy; Z91.048 Other nonmedicinal substance allergy status; Z88.8 Allergy status to other drugs, medicaments and biological substances; Z88.5 Allergy status to narcotic agent; Z87.19 Personal history of other diseases of the digestive system; Z86.73 Personal history of transient ischemic attack (TIA), and cerebral infarction without residual deficits; Z87.11 Personal history of peptic ulcer disease; Z90.49 Acquired absence of other specified parts of digestive tract; Z98.890 Other specified postprocedural states; X50.0XXA Overexertion from strenuous movement or load, initial encounter; Y93.89 Activity, other specified
CPT/HCPCS: 99284

== ENCOUNTER 2020-09-20 08:29 | Emergency (ER) | payer OTHER ==
[2020-09-20 08:41] VITALS: BP 136/86; PULSE 77; RESP 18; TEMP 97.5
[2020-09-20] MEDS ORDERED: DIPH,PERTUS(ACELL)TETVAC-LF 0.5 ML VIAL IM ONE (09:08)
--- NOTE | 2020-09-20 09:54 | XR ---
EXAMINATION TYPE: XR hand complete LT DATE OF EXAM: 09/20/2020 CLINICAL HISTORY: Pain and swelling after popping injury 7 weeks ago. TECHNIQUE: Frontal, lateral and oblique images of the left hand are obtained. COMPARISON: Lateral hand xray January 29, 2020. FINDINGS: There is no acute fracture/dislocation evident in the left hand. Old fracture fifth metaca rpal redemonstrated midshaft level. The joint spaces in the left hand appear within normal limits. T he overlying soft tissue appears unremarkable. IMPRESSION: There is no acute fracture or dislocation in the left hand.
--- NOTE | 2020-09-20 10:04 | ED ---
Upper Extremity HPI - General Chief Complaint: Extremity Injury, Upper Stated Complaint: Hand injury Time Seen by Provider: 09/20/20 08:44 Source: patient, old records reviewed Mode of arrival: ambulatory Limitations: physical limitation - History of Present Illness Initial Comments: 35-year-old male presents emergency from chief complaint left hand pain. Patient states that he was coming out of his back porch was so we'll states that he put all his weight on it when he fell. Patient states there is a small, tetanus not up-to-date. Patient states he still painful swollen is concerned about possible fracture - Related Data Home Medications Medication Instructions Recorded Confirmed Ibuprofen [Motrin Ib] 800 mg PO BID 09/14/18 05/03/19 Cyclobenzaprine [Flexeril] 5 mg PO BID 09/16/18 05/03/19 Omeprazole 40 mg PO BID 10/25/18 05/03/19 Previous Rx's Medication Instructions Recorded Ibuprofen [Motrin] 800 mg PO Q8H #30 tab 01/29/20 methylPREDNISolone Dose Pack 4 mg PO DIRECTED #21 package 01/29/20 [Medrol Dose Pack] Allergies Allergy/AdvReac Type Severity Reaction Status Date / Time adhesive tape Allergy Rash/Hives Verified 09/20/20 08:41 gabapentin Allergy Rash/Hives Verified 09/20/20 08:41 topiramate [From Topamax] AdvReac creates Verified 09/20/20 08:41 black SPOT on left eye NARCOTICS AdvReac MIGRAINES Uncoded 09/20/20 08:41 Review of Systems ROS Statement: Those systems with pertinent positive or pertinent negative responses have been documented in the HPI. ROS Other: All systems not noted in ROS Statement are negative. Past Medical History Past Medical History: CVA/TIA, GERD/Reflux, GI Bleed, Rheumatoid Arthritis (RA) Additional Past Medical History / Comment(s): DDD, herniated disc X2. Occipital Neuralgia. OCC BLOOD IN STOOL. States hx of stomach ulcer. "POSS 2 STROKES R/T ON MRI.", "Rheumatoid Arthritis rt hip", hypoglycemia. History of Any Multi-Drug Resistant Organisms: None Reported Past Surgical History: Cholecystectomy Additional Past Surgical History / Comment(s): EGD, COLONOSCOPY, oral surgery, PAIN CLINIC PROCEDURES. Past Anesthesia/Blood Transfusion Reactions: Family History of Problems w/ Anesthesia Additional Past Anesthesia/Blood Transfusion Reaction / Comment(s): MOTHER HAD EPIDURAL THAT DIDN'T WORK. Past Psychological History: Anxiety, Bipolar, Depression, Schizoaffective Disorder Past Alcohol Use History: Rare Past Drug Use History: None Reported - Past Family History Mother Family Medical History: Cancer Additional Family Medical History / Comment(s): SKIN CA General Exam Limitations: no limitations General appearance: alert, in no apparent distress Head exam: Present: atraumatic, normocephalic, normal inspection Neck exam: Present: full ROM Respiratory exam: Present: normal lung sounds bilaterally. Absent: respiratory distress, wheezes, rales, rhonchi, stridor Cardiovascular Exam: Present: regular rate, normal rhythm, normal heart sounds. Absent: systolic murmur, diastolic murmur, rubs, gallop, clicks Extremities exam: Present: other (Left hand there is moderate ecchymosis and tenderness with palpation of the dorsal aspect no iris deformity full range of motion) Course Vital Signs 09/20/20 08:39 Temperature 97.5 F L Pulse Rate 77 Respiratory 18 Rate Blood Pressure 136/86 O2 Sat by Pulse 99 Oximetry Medical Decision Making - Medical Decision Making X-rays unremarkable. Patient is left-hand sprain. Patient will be discharged stable condition. Disposition Clinical Impression: Sprain of left hand Disposition: HOME SELF-CARE Condition: Stable Instructions (If sedation given, give patient instructions): Hand Sprain (ED) Additional Instructions: Please return to the Emergency Department if symptoms worsen or any other concerns. Is patient prescribed a controlled substance at d/c from ED?: No Referrals: Robert Sanchez DO [Primary Care Provider] - 1-2 days Time of Disposition: 10:03
== END 2020-09-20 10:55 | disposition home or self-care (01) ==
LOC: EC 08:29
DX: S63.92XA Sprain of unspecified part of left wrist and hand, initial encounter (principal); F31.9 Bipolar disorder, unspecified; F25.9 Schizoaffective disorder, unspecified; K21.9 Gastro-esophageal reflux disease without esophagitis; M06.9 Rheumatoid arthritis, unspecified; Z86.73 Personal history of transient ischemic attack (TIA), and cerebral infarction without residual deficits; Z87.11 Personal history of peptic ulcer disease; Z79.1 Long term (current) use of non-steroidal anti-inflammatories (NSAID); W18.30XA Fall on same level, unspecified, initial encounter
CPT/HCPCS: 90471; 90715; 99284

== ENCOUNTER → 2021-04-24 | Outpatient (CLI) | payer OTHER ==
--- NOTE | 2021-04-25 04:10 | MR ---
EXAMINATION TYPE: MR lumbar spine wo con DATE OF EXAM: 04/24/2021 COMPARISON: 05/26/2018 HISTORY: Lower Back pain that radiates down right side x20 years Multiplanar multiecho imaging of the lumbar spine without contrast. Normal alignment. There is mild narrowing and decreased signal in the L4-5 disc. 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 The other disc spaces are fairly normal. There is no compression fracture. Th e neural foramina appear normal. There is no spinal stenosis. Lumbar nerve roots appear normal. There is no lumbar paraspinal mass. Sacroiliac joints are intact. There is no evidence of focal bone destr uction. IMPRESSION: Mild degenerative disc changes at L4-5 with small posterior disc herniation at L4-5 that appears smal ler than old exam. No spinal stenosis. No fracture.
== END | disposition home or self-care (01) ==
LOC: RADMRIMAIN 18:26
PROVIDERS: ATTEND Family Medicine
DX: M51.16 Intervertebral disc disorders with radiculopathy, lumbar region (principal)
CPT/HCPCS: 72148

== ENCOUNTER → 2021-04-29 | Outpatient (CLI) | payer OTHER ==
[2021-04-29 13:20] VITALS: BP 128/74; PULSE 90; RESP 18; TEMP 98.4
--- NOTE | 2021-04-29 20:20 | P.PN ---
Subjective Progress Note Date: 04/29/21 Principal diagnosis: This is follow-up visit for this patient, a 35 yr old male with a history of severe and chronic low back pain secondary to lumbar degenerative disc diseases and disc hernation presents today for a pain management evaluation. Pain is on average a 6 /10 in intensity and dull/ achy in the lower lumbar region and at times is sharp/ shooting on the left side towards his knee and on the right side down towards his toes. He is unsure if his history of pelvic fracture has anything to do with his radiating pain. Pain is provoked by bending, lifting and twisting. Pain is alleviated with medications, rest, injections, home based exercise regimen, topical pain creams and heat. He is not in physical or occupational therapy at this time. Pt admits he took "a lot of flexeril and motrin" this morning prior to his appointment so he would be in less pain walking from the parking lot to the 3rd floor. Interventional pain procedures completed include L4-L5 LESI in 03/2019 with >50% improvement in pain Patient is currently on Patient denies any side effects of the medication(s), denies excessive drowsiness or sleepiness, denies suicidal ideation and reports that the current pain medication is helping to control the pain and improve activities of daily living. Patient denies any motor or sensory deficits. Patient denies any fever or night sweats, denies any change in the bowel movements or urination. Physical Examination: -Constitutional: Cooperative. Not in acute distress . -HEENT: Neck is supple. No lymphadenopathy. No thyromegaly. Normal thyroid size. Eyes: No ptosis , no icterus, no photophobia. ENT: No auditory deficits. Normal oropharynx. No Thrush. - Respiratory: Chest clear to auscultations bilaterally. No wheezing. No rhonchi. - Cardiovascular: Regular rate and rhythm. S1 / S2 , no S3 , no S4. - Gastrointestinal: Abdomen soft no tenderness. Bowel sounds positive in all four quadrants. No organomegaly. - Genitourinary: Deferred. - Neurologic: Cranial nerve II to XII intact. No focal neurological deficits. - Psychatric: Alert & oriented x 3. Matching mood & appropriate affect. Judgment and insight intact. - Lymphatic: No Lymphadenopathy. - Musculoskeltal: Cervical spine: Muscle bulk/ tone/ strength in the bilateral upper extremities normal. Facet loading test cervical area positive. Lumbar spine: Motor bulk/ tone is 5/5 and strength in the lower extremities , thigh and legs is 4-5/5, limited due to pain Deep tendon reflexes : Normal Knee Jerk. Normal Ankle Jerk . L5 vertebral body tenderness to palpation, minimal L5 facet tenderness without jump reflex Lumbar Facet Loading Test positive Straight Leg Raise: positive at 30 degree right side/ left side Judith test: positive right side / left side Range of motion: Range of motion in flexion of the lumbar spine <60 degrees Range of motion: Extension of the lumbar spine <20 degrees Severe tenderness over the Sacroiliac joint: right side / left side MRI of the Lumbar spine: L4-L5 small disc herniation with degenerative disc disease Assessment and plan: Chronic low back pain secondary to lumbar disc hernation and degenerative disc disease without myelopathy Recommendation of L4-L5 LESI Chronic and current use of high-risk medication (Opioids). The patient was counseled about risk of opioid use, psychological risk associated with opioids and was orally counseled to not overuse , divert or sell medications. Pt is to store medication in a safe location. The patient is counseled against driving while using narcotic medications and also not to use alcohol or any illicit recreational drugs. Patient verbalized understanding that the lack of compliance will result in failure to renew narcotic prescription(s) as well as possible discharge from the clinic Diagnoses, prognosis and treatment options including but not limited to physical therapy, surgical interventions, interventional therapies and medication management including narcotics and adjuvant medication were discussed. All patient questions answered MAPS reviewed and it was appropriate. I have spent 31 minutes on patient care today. The time was used to review the medical records including relevant urine studies and Prescription history (MAPs), review of the available imaging, evaluation and examination of the pa tient, coordination of care with the medical staff and if applicable referring physicians, as well as creation of the medical record Objective - Vital Signs Vital signs: Vital Signs Temp 98.4 F 04/29/21 13:01 Pulse 90 04/29/21 13:01 Resp 18 04/29/21 13:01 BP 128/74 04/29/21 13:01 Pulse Ox 98 04/29/21 13:01 Intake & Output 04/29/21 04/29/21 04/30/21 06:59 18:59 06:59 Weight 73.482 kg PQRS Measure Charge Sheet Mode of Arrival: Ambulatory - Pain Location Bilateral Lower Back Non-Pharmacological Interventions: Heat, Inactivity Pharmacological Interventions: PRN Medication, Topical Medication PQRS Narrative: Smoking Status Current every day smoker Blood Pressure 128/74 Pain Intensity [Bilateral 4 Lower Back] Scale Used Numeric (1 - 10) Hx Alcohol Use (MH) Yes: OCCASIONAL Home Medications: Ambulatory Orders Ibuprofen [Motrin Ib] 800 mg PO BID 09/14/18 Cyclobenzaprine [Flexeril] 5 mg PO BID 09/16/18 Omeprazole 40 mg PO BID 10/25/18 Ibuprofen [Motrin] 800 mg PO Q8H #30 tab 01/29/20 methylPREDNISolone Dose Pack [Medrol Dose Pack] 4 mg PO DIRECTED #21 package 01/29/20
== END ==
LOC: PNWHC3 12:27
PROVIDERS: ATTEND Physician Assistant Medical
DX: M51.36 Other intervertebral disc degeneration, lumbar region (principal); M51.26 Other intervertebral disc displacement, lumbar region; G89.29 Other chronic pain; Z79.891 Long term (current) use of opiate analgesic; F17.200 Nicotine dependence, unspecified, uncomplicated; Z91.048 Other nonmedicinal substance allergy status; Z88.8 Allergy status to other drugs, medicaments and biological substances; Z88.1 Allergy status to other antibiotic agents; Z88.5 Allergy status to narcotic agent
CPT/HCPCS: 99211

== ENCOUNTER 2021-07-11 09:13 | Day surgery (SDC) | payer OTHER ==
[2021-07-09 11:24] VITALS: BMI 22.8
[~2021-07-11 09:13] MED LIST changes: +LIDOCAINE 1% (10MG/ML) FOR IV START INTRADERMA PRN
[2021-07-11 09:32] VITALS: TEMP 97
[2021-07-11] MEDS ORDERED: LIDOCAINE 1% (10MG/ML) FOR IV START INTRADERMA ONE (09:35)
[2021-07-11] MEDS ORDERED: methylPREDNISolone ACETATE 40 MG/ML 1 ML VIAL ONE (09:48)
[2021-07-11] MEDS ORDERED: IOPAMIDOL M200 10 ML VIAL ONE (09:48)
[2021-07-11] MEDS ORDERED: ROPIVACAINE 5MG/ML 20ML VIAL ONE (09:48)
[2021-07-11] MEDS ORDERED: MIDAZOLAM 2 MG/2 ML VIAL ONE (09:48)
[2021-07-11] MEDS ORDERED: IV FLUID CONTINUATION 800 ML IV ONE (10:04)
--- NOTE | 2021-07-11 10:08 | P.PCN ---
Date of Procedure: 07/11/21 Procedure(s) Performed: PREOPERATIVE DIAGNOSIS: 1- Lumbar herniated Disc Diseases 2-Lumbar radiculopathy. 3-myofascial pain syndrome thoracic area POSTOPERATIVE DIAGNOSIS: Same as. Preop Diagnoses PROCEDURE 1. Lumbar epidural steroid injection under fluoroscopic guidance at the L4-5 level. 2. Lumbar epidurogram. 3-trigger point injection left side thoracic paraspinal muscles, total of 3 trigger point injections. ANESTHESIA: Local with 1% lidocaine 3 ml and , moderate sedation with intravenous Versed 2 mg . EBL: Minimal PROCEDURE INDICATION: The patient with low back pain and radiculitis symptoms unresponsive to conservative treatment. Fluoroscopy was used to optimize v isualization of the needle placement and to maximize safety. PROCEDURE DESCRIPTION / TECHNIQUE: The patient was seen and identified in the preoperative area. Risks, benefits, complications including but not limited to infections ,bleeding ,allergic reaction to the medications ,nerve damage and not complete pain releife , and alternatives were discussed with the patient. The patient agreed to proceed with the procedure and signed the consent. IV was started, and vital signs were stable. Patient was taken to the OR and time out was completed. The patient was placed in the prone position on procedure table and a pillow was placed under the abdomen to reduce lumbar lordosis. The lumbosacral area was prepped and draped in the usual sterile fashion.ere closely monitored during the procedure. Conscious sedation was used during the procedure to decrease patients anxiety. Vital signs was monitered during the entire procedure. Using anterior-posterior fluoroscopy, the L4-5 interlaminar space was identified and the skin over this site was marked and then infiltrated with 1% lidocaine subcutaneously. Subsequently, a 20-gauge Tuohy epidural needle was inserted and advanced toward the epidural space using the ``Loss of resistance technique and guided by AP and lateral fluoroscopy. The correct needle position in the epidural space was verified with the injection of 2 mL of the water soluble contrast dye Isovue 200 contrast and observing an excellent epidurogram with the epidural spread of the dye, after negative aspiration for blood and CSF and in the absence of paresthesias. Again after negative aspiration, a 6 ml mixture containing 80 mg of Depo-medrol , and 2 ml of preservative free Normal Saline, and 2 ml of preservative free lidocaine 1% solution was injected and a washout of epidurogram was seen. Needle was withdrawn intact. And after that the trigger point injection done in a sterile technique, using 25-gauge needle total of 3 trigger point injections on the left side thoracic paraspinal muscles around T8 and T9, T10, on the left side each trigger point injected with ropivacaine 0.5% injection done after negative aspiration under was no paresthesia during the injection patient tolerated the procedure well without any complication. COMPLICATIONS: None DISPOSITION / PLANS: The patient was placed in a supine position and transferred to the recovery area in a stable condition for observation. There was no evidence of lower extremity motor or sensory deficit after the procedure. Patient was discharged from the recovery room after meeting discharge criteria. Home discharge instructions were given to the patient by the staff. The patient was reexamined prior to discharge. The patient will schedule a follow up in the clinic in 2-4 weeks.
[2021-07-11 10:18] VITALS: RESP 20
[2021-07-11 10:27] VITALS: BP 116/70; PULSE 70
--- NOTE | 2021-07-11 12:23 | FL ---
Fluoroscopy HISTORY: Pain 4 seconds fluoroscopy time supplied to the referring clinician. 1 intraoperative C-arm images docume nt the procedure. See dictated report from anesthesia.
== END 2021-07-11 10:33 | disposition home or self-care (01) ==
LOC: ORPAIN 09:13
PROVIDERS: ATTEND Specialist
DX: M51.16 Intervertebral disc disorders with radiculopathy, lumbar region (principal); M79.18 Myalgia, other site; Z88.5 Allergy status to narcotic agent; Z88.8 Allergy status to other drugs, medicaments and biological substances; Z91.09 Other allergy status, other than to drugs and biological substances
CPT/HCPCS: 20553; 62323; J2250; J1030; Q9966; J2795; 99152

== ENCOUNTER 2021-07-25 13:41 | Emergency (ER) | payer OTHER ==
[2021-07-25 14:15] VITALS: TEMP 97.7
[2021-07-25] MEDS ORDERED: DEXAMETHASONE SOD PHOSPHATE 4 MG/ML 1 ML VIAL IVP STA (15:16)
[2021-07-25] MEDS ORDERED: SODIUM CHLORIDE 0.9% 1,000 ML IV ONE (15:18)
[2021-07-25 15:28] VITALS: RESP 18
[2021-07-25 15:39] LABS: Basophils # (A) 0.1 k/uL (0-0.2); Basophils % (A) 1 %; Eosinophils # (A) 0.3 k/uL (0-0.7); Eosinophils % (A) 3 %; HCT 42.7 % (39.0-53.0); HGB 13.6 gm/dL (13.0-17.5); Lymphocytes # (A) 3.2 k/uL (1.0-4.8); Lymphocytes % (A) 36 %; MCH 27.9 pg (25.0-35.0); MCHC 31.9 g/dL (31.0-37.0); MCV 87.4 fL (80.0-100.0); Monocytes # (A) 0.5 k/uL (0-1.0); Monocytes % (A) 5 %; Neutrophils # (A) 4.8 k/uL (1.3-7.7); Neutrophils % (A) 53 %; Platelet Count 252 k/uL (150-450); RBC 4.89 m/uL (4.30-5.90); RDW 13.3 % (11.5-15.5); WBC 8.9 k/uL (3.8-10.6)
[2021-07-25 15:52] LABS: ALT 15 U/L (4-49); AST 24 U/L (17-59); African American GFR (CKD) >90 (>60 ml/min/1.73 sqM); Albumin 3.3 g/dL (3.5-5.0); Alkaline Phosphatase 45 U/L (38-126); Anion Gap 5 mmol/L; Blood Urea Nitrogen 17 mg/dL (9-20); Calcium 8.9 mg/dL (8.4-10.2); Carbon Dioxide 22 mmol/L (22-30); Chloride 108 mmol/L (98-107); Glucose 93 mg/dL (74-99); Non-African American GFR(CKD) >90 (>60 ml/min/1.73 sqM); Potassium 3.9 mmol/L (3.5-5.1); Sodium 135 mmol/L (137-145); Total Bilirubin 0.3 mg/dL (0.2-1.3); Total Protein 5.7 g/dL (6.3-8.2)
--- NOTE | 2021-07-25 16:33 | XR ---
EXAMINATION TYPE: XR chest 2V DATE OF EXAM: 07/25/2021 4:29 PM COMPARISON:Chest radiographs from 08/31/2010 TECHNIQUE: XR chest 2V Frontal and lateral views of the chest. CLINICAL INDICATION:Male, 36 years old with history of chest pain; FINDINGS: Lungs/Pleura: There is no evidence of pleural effusion, focal consolidation, or pneumothorax. Pulmonary vascularity: Unremarkable. Heart/mediastinum: Cardiomediastinal silhouette is unremarkable. Musculoskeletal: No acute osseous pathology. IMPRESSION: No acute cardiopulmonary disease/process.
--- NOTE | 2021-07-25 16:35 | XR ---
EXAMINATION TYPE: XR forearm LT DATE OF EXAM: 07/25/2021 4:29 PM INDICATION: Patient age:Male; 36 years old; Reason for study: forearm and hand pain; COMPARISON: Hand radiograph 09/20/2020 and forearm 01/29/2020. TECHNIQUE: The left forearm was examined in AP and lateral projections. FINDINGS: No acute osseous pathology, soft tissue swelling or joint dislocations are seen. IMPRESSION: No evidence of acute fracture.
[2021-07-25] MEDS ORDERED: hydrOXYzine HCL 50 MG/ML 1 ML VIAL IM PRN (16:59)
[2021-07-25] MEDS ORDERED: ACETAMINOPHEN TAB 325 MG TAB PO STA (17:04)
--- NOTE | 2021-07-25 17:36 | ED ---
Extremity Problem HPI - General Chief complaint: Extremity Problem,Nontraumatic Stated complaint: L arm pain,Dizziness Time Seen by Provider: 07/25/21 14:45 Source: patient, family Mode of arrival: wheelchair Limitations: no limitations - History of Present Illness Initial comments: Patient is a 36-year-old male presenting with chief complaint of L forearm pain. Pain began today just a few hours prior to presentation, patient states that the pain radiates down the forearm into his fifth and fourth finger. His partner at bedside states that earlier his finger was beginning to turn purple and feel cold which prompted them to present to the ER. The pain as a burning tension type pain that wraps around the left forearm At home he took 1200 mg of Motrin and one dose, which she states did not affect the pain. Patient states that while waiting in the ER he began to develop sharp chest pain that comes and goes. It is localized to the center of the chest. No pleuritic changes. He is complaining of headache, he has a hx of occipital neuralgia. He denies shortness of breath, fever, chills, nausea, vomiting, weakness, loss of range of motion, loss of sensation, vision/hearing changes. - Related Data Home Medications Medication Instructions Recorded Confirmed Aspirin/Acetaminophen/Caffeine 2 tab PO DAILY PRN 07/25/21 07/25/21 [Excedrin Migraine Caplet] Cyclobenzaprine [Flexeril] 5 mg PO BID PRN 07/25/21 07/25/21 Ibuprofen [Motrin Ib] 800 mg PO Q8H PRN 07/25/21 07/25/21 Omeprazole 40 mg PO DAILY PRN 07/25/21 07/25/21 Previous Rx's Medication Instructions Recorded methylPREDNISolone [Medrol Dose 4 mg PO DIRECTED #1 packet 07/25/21 Pack] Allergies Allergy/AdvReac Type Severity Reaction Status Date / Time adhesive tape Allergy Rash/Hives Verified 07/25/21 16:15 gabapentin Allergy Rash/Hives Verified 07/25/21 16:15 topiramate [From Topamax] AdvReac creates Verified 07/25/21 16:15 black SPOT on left eye NARCOTICS AdvReac MIGRAINES Uncoded 07/25/21 16:15 Review of Systems ROS Statement: Those systems with pertinent positive or pertinent negative responses have been documented in the HPI. ROS Other: All systems not noted in ROS Statement are negative. Past Medical History Past Medical History: CVA/TIA, GERD/Reflux, GI Bleed, Rheumatoid Arthritis (RA) Additional Past Medical History / Comment(s): Patient states back pain is worse since last procedure. DDD, herniated disc X2. Occipital Neuralgia. OCC BLOOD IN STOOL. States hx of stomach ulcer. "POSSIBLE 2 STROKES ON MRI.", "Rheumatoid Arthritis right hip", hypoglycemia. History of Any Multi-Drug Resistant Organisms: None Reported Past Surgical History: Cholecystectomy Additional Past Surgical History / Comment(s): EGD, COLONOSCOPY, oral surgery, PAIN CLINIC PROCEDURES. Past Anesthesia/Blood Transfusion Reactions: Family History of Problems w/ Anesthesia Additional Past Anesthesia/Blood Transfusion Reaction / Comment(s): MOTHER HAD EPIDURAL THAT DIDN'T WORK. Past Psychological History: Anxiety, Bipolar, Depression, Schizoaffective Disorder Smoking Status: Current every day smoker Past Alcohol Use History: Rare Past Drug Use History: None Reported - Past Family History Mother Family Medical History: Cancer Additional Family Medical History / Comment(s): SKIN CANCER. General Exam Limitations: no limitations General appearance: alert, in distress (visibly in pain) Head exam: Present: atraumatic, normocephalic, normal inspection Eye exam: Present: normal appearance, PERRL, EOMI. Absent: scleral icterus, conjunctival injection, periorbital swelling Neck exam: Present: normal inspection Respiratory exam: Present: normal lung sounds bilaterally. Absent: respiratory distress, wheezes, rales, rhonchi, stridor Cardiovascular Exam: Present: regular rate, normal rhythm, normal heart sounds. Absent: systolic murmur, diastolic murmur, rubs, gallop, clicks Extremities exam: Present: normal inspection, full ROM, normal capillary refill. Absent: joint swelling Left General: Present: normal inspection Forearm Wrist exam: Present: normal inspection, full ROM, tenderness. Absent: swelling, ecchymosis, crepitus, dislocation Vascular: Present: radial pulse (normal) Back exam: Present: normal inspection. Absent: tenderness Neurological exam: Present: alert, oriented X3, CN II-XII intact Psychiatric exam: Present: normal affect, normal mood Skin exam: Present: warm, dry, intact, normal color. Absent: rash Course Vital Signs 07/25/21 07/25/21 07/25/21 14:12 15:26 16:44 Temperature 97.7 F Pulse Rate 103 H 82 77 Respiratory 16 18 18 Rate Blood Pressure 131/78 111/76 112/78 O2 Sat by Pulse 98 99 98 Oximetry 07/25/21 17:52 Temperature Pulse Rate 62 Respiratory 18 Rate Blood Pressure 111/83 O2 Sat by Pulse 98 Oximetry Medical Decision Making - Medical Decision Making Patient is a 36-year-old male presenting with chief complaint of left forearm pain. Pain began today a few hours prior to presentation, it is a burning tension-type pain, it wraps around the forearm and radiates down to the fourth and fifth digit. Patient states that earlier the fingers were feeling cold and turning purple. Since arrival he is also complaining of chest pain and headache. On examination there is normal inspection of the left forearm and fingers, there is no discoloration. Radial pulse is easily palpated and 2/2. Fingers and wrist have full range of motion, patient admits to pain with range of motion at the elbow but is still able to flex and extend the arm. Heart and lungs are clear to auscultation. X-ray of the forearm and chest showed no acute abnormality. Venous Doppler study shows no evidence of DVT. Patient was given 1 L fluid bolus, 650 mg of Tylenol, 4 mg Decadron, and 25 mg hydroxyzine. On reevaluation patient states that pain is still present, states that he no longer notices the discoloration that he states was present on presentation. Patient is requesting discharge home for continued rest and supportive treatment. I prescribed the patient a Medrol Dosepak, take as instructed. Follow up with PCP tomorrow. Return to ER if symptoms worsen or if new onset alarm symptoms began. I educated the patient on return parameters and answered all questions. Patient conveyed verbal understanding and agreed to the plan. I discussed this case with my attending Dr. Beyer. - Lab Data Result diagrams: 07/25/21 15:26 07/25/21 15:26 Lab Results 07/25/21 07/25/21 07/25/21 Range/Units 15:26 15:26 15:26 WBC 8.9 (3.8-10.6) k/uL RBC 4.89 (4.30-5.90) m/uL Hgb 13.6 (13.0-17.5) gm/dL Hct 42.7 (39.0-53.0) % MCV 87.4 (80.0-100.0) fL MCH 27.9 (25.0-35.0) pg MCHC 31.9 (31.0-37.0) g/dL RDW 13.3 (11.5-15.5) % Plt Count 252 (150-450) k/uL MPV 7.0 Neutrophils % 53 % Lymphocytes % 36 % Monocytes % 5 % Eosinophils % 3 % Basophils % 1 % Neutrophils # 4.8 (1.3-7.7) k/uL Lymphocytes # 3.2 (1.0-4.8) k/uL Monocytes # 0.5 (0-1.0) k/uL Eosinophils # 0.3 (0-0.7) k/uL Basophils # 0.1 (0-0.2) k/uL Sodium 135 L (137-145) mmol/L Potassium 3.9 (3.5-5.1) mmol/L Chloride 108 H (98-107) mmol/L Carbon Dioxide 22 (22-30) mmol/L Anion Gap 5 mmol/L BUN 17 (9-20) mg/dL Creatinine 1.01 (0.66-1.25) mg/dL Est GFR (CKD-EPI)AfAm >90 (>60 ml/min/1.73 sqM) Est GFR (CKD-EPI)NonAf >90 (>60 ml/min/1.73 sqM) Glucose 93 (74-99) mg/dL Calcium 8.9 (8.4-10.2) mg/dL Total Bilirubin 0.3 (0.2-1.3) mg/dL AST 24 (17-59) U/L ALT 15 (4-49) U/L Alkaline Phosphatase 45 (38-126) U/L Troponin I <0.012 (0.000-0.034) ng/mL Total Protein 5.7 L (6.3-8.2) g/dL Albumin 3.3 L (3.5-5.0) g/dL - EKG Data -: EKG Interpreted by Me (and Dr. Beyer) EKG shows normal: sinus rhythm, axis, intervals, QRS complexes, ST-T waves Rate: normal - Radiology Data Radiology results: report reviewed Chest x-ray: No acute process Forearm x-ray: No acute fracture or dislocation Venous Doppler ultrasound of left upper extremity: No evidence of DVT Disposition Clinical Impression: Radiculopathy affecting upper extremity Disposition: HOME SELF-CARE Condition: Good Instructions (If sedation given, give patient instructions): Paresthesia (ED), Cervical Radiculopathy (ED), Arthralgia (ED), Arm Pain (ED) Additional Instructions: Follow-up with primary care tomorrow. Take medication as prescribed. May take Motrin and Tylenol as needed for pain control per package instructions. Do not exceed 4000 mg of Tylenol or 3200 mg of Motrin in 24 hours. Report back to ER with any worsening symptoms or new onset alarming symptoms, including but not limited to loss of range of motion, loss of sensation, pallor of the extremity, increasing coldness of extremity. Prescriptions: methylPREDNISolone [Medrol Dose Pack] 4 mg PO DIRECTED #1 packet Is patient prescribed a controlled substance at d/c from ED?: No Referrals: Robert Sanchze DO [Primary Care Provider] - 1-2 days Time of Disposition: 18:28
--- NOTE | 2021-07-25 18:17 | US ---
EXAMINATION TYPE: US venous doppler duplex UE LT DATE OF EXAM: 07/25/2021 COMPARISON: NONE CLINICAL HISTORY: L arm pain. Left arm pain x 1 day SIDE PERFORMED: Left Left Arm: Appears negative for DVT Grayscale, color doppler, spectral doppler imaging performed of the deep veins of the upper extremiti es. There is normal flow, compressibility and vascular waveforms. IMPRESSION: No evidence of DVT of the left arm.
[2021-07-25 18:45] VITALS: BP 113/86; PULSE 70
== END 2021-07-25 18:45 | disposition home or self-care (01) ==
LOC: EC 13:41
DX: M54.10 Radiculopathy, site unspecified (principal); K21.9 Gastro-esophageal reflux disease without esophagitis; M06.9 Rheumatoid arthritis, unspecified; F41.9 Anxiety disorder, unspecified; F31.9 Bipolar disorder, unspecified; F25.9 Schizoaffective disorder, unspecified; F17.200 Nicotine dependence, unspecified, uncomplicated; Z79.82 Long term (current) use of aspirin; Z88.5 Allergy status to narcotic agent; Z86.73 Personal history of transient ischemic attack (TIA), and cerebral infarction without residual deficits; Z90.49 Acquired absence of other specified parts of digestive tract
CPT/HCPCS: 99285; 96374; 96361; 36415; 93005; 80053; 84484; 85025; 73090; 71046; 93971; J1100

== ENCOUNTER → 2021-08-29 | Outpatient (CLI) | payer OTHER ==
[2021-08-29 11:07] VITALS: BP 114/81; PULSE 86; RESP 18; TEMP 98.7
--- NOTE | 2021-08-29 11:15 | P.PN ---
Subjective Progress Note Date: 08/29/21 Principal diagnosis: A 36 yr old male with a history of severe and chronic low back pain secondary to lumbar degenerative disc diseases and lumbar spondylosis with facet arthropathy presents today for evaluation. MRI results of the cervical spine reviewed with patient. Pain level is currently at 5 out of 10 in intensity, constant, stabbing, sore sensation in the muscular regions of the left cervical spine, bilateral thoracic spine and bilateral lumbar spine. Denies radiation of pain. Pain is provoked by twisting and bending. Pain is alleviated with medications, topicals, injections, heat, daily home stretching regimen, use of a massage chair and rest. Interventional pain procedures completed include LESI L4-L5 Patient is currently on Motrin, Tylenol, Lidoderm patches Patient denies any side effects of the medication(s), denies excessive drowsiness or sleepiness, denies suicidal ideation and reports that the current pain medication is helping to control the pain and improve activities of daily living. Patient denies any motor or sensory deficits. Patient denies any fever or night sweats, denies any change in the bowel movements or urination. Physical Examination: -Constitutional: Cooperative. Not in acute distress . -HEENT: Neck is supple. No lymphadenopathy. No thyromegaly. Normal thyroid size. Eyes: No ptosis , no icterus, no photophobia. ENT: No auditory deficits. Normal oropharynx. No Thrush. - Respiratory: Chest clear to auscultations bilaterally. No wheezing. No rhonchi. - Cardiovascular: Regular rate and rhythm. S1 / S2 , no S3 , no S4. - Gastrointestinal: Abdomen soft no tenderness. Bowel sounds positive in all four quadrants. No organomegaly. - Genitourinary: Deferred. - Neurologic: Cranial nerve II to XII intact. No focal neurological deficits. - Psychatric: Alert & oriented x 3. Matching mood & appropriate affect. Judgment and insight intact. - Lymphatic: No Lymphadenopathy. - Musculoskeletal: Cervical spine: Muscle bulk tenderness/ tone/ strength in the bilateral upper extremities normal. Facet loading test cervical area positive. Lumbar spine: Motor bulk tenderness/ tone/ strength lower extremities , thigh and legs : 5/5 Deep tendon reflexes : Normal Knee Jerk. Normal Ankle Jerk . Vertebral body tenderness to palpation over Lumbar Facet Loading Test positive Straight Leg Raise: positive at 30 degrees right side/ left side Gaenslen's Test positive Sacral spine : Motor bulk tenderness Severe tenderness over the Sacroiliac joint: right side / left side Range of motion: Flexion of the lumbar spine <60 degrees Range of motion: Extension of the lumbar spine <20 degrees Gaenslen's Test positive Judith test: positive right side / left side Imaging: MRI without contrast of the cervical spine from reviewed Assessment and plan: Chronic cervical and low back pain secondary to lumbar degenerative disc disease , lumbar spondylosis with facet arthropathy without myelopathy Cervical pain appears to be muscular in origin based on MRI findings. Recommendation of TPIs of left C4-C7, BL T6-T12, BL L1-L4. Risks, benefits of procedure discussed and patient verbalized understanding. Denies anticoagulant use or medical history of diabetes. All patient questions answered MAPS reviewed and it was appropriate. I have spent 31 minutes on patient care today. Dr Cook was available by phone for the evaluation of this patient. The time was used to review the medical records including relevant urine studies and Prescription history (MAPs), review of the available imaging, evaluation and examination of the patient, coordination of care with the medical staff and if applicable referring physicians, as well as creation of the medical record Objective - Vital Signs Vital signs: Vital Signs Temp 98.7 F 08/29/21 10:54 Pulse 86 08/29/21 10:54 Resp 18 08/29/21 10:54 BP 114/81 08/29/21 10:54 Pulse Ox 96 08/29/21 10:54 Intake & Output 08/28/21 08/29/21 08/29/21 18:59 06:59 18:59 Weight 74.389 kg PQRS Measure Charge Sheet Mode of Arrival: Ambulatory - Pain Location Bilateral Upper Back Non-Pharmacological Interventions: Exercise, Heat, Home Exercise, Massage Pharmacological Interventions: PRN Medication, Topical Medication PQRS Narrative: Smoking Status Current every day smoker Blood Pressure 114/81 Pain Intensity [Bilateral 5 Upper Back] Scale Used Numeric (1 - 10) Hx Alcohol Use (MH) Yes: OCCASIONAL Home Medications: Ambulatory Orders Aspirin/Acetaminophen/Caffeine [Excedrin Migraine Caplet] 2 tab PO DAILY PRN 07/25/21 Cyclobenzaprine [Flexeril] 5 mg PO BID PRN 07/25/21 Ibuprofen [Motrin Ib] 800 mg PO Q8H PRN 03/31/22 Omeprazole 40 mg PO DAILY PRN 07/25/21
== END ==
LOC: PNWHC3 09:22
PROVIDERS: ATTEND Specialist
DX: M51.36 Other intervertebral disc degeneration, lumbar region (principal); M47.816 Spondylosis without myelopathy or radiculopathy, lumbar region; G89.29 Other chronic pain; M54.2 Cervicalgia; F17.200 Nicotine dependence, unspecified, uncomplicated; Z91.048 Other nonmedicinal substance allergy status; Z88.5 Allergy status to narcotic agent; Z88.6 Allergy status to analgesic agent; Z88.8 Allergy status to other drugs, medicaments and biological substances
CPT/HCPCS: 99211

== ENCOUNTER → 2021-08-30 | Outpatient (CLI) | payer OTHER ==
--- NOTE | 2021-08-30 13:01 | CA ---
Transthoracic Echo Report Name: John Doran Age: 36 Gender: M : 1985 Exam Date: 08/30/2021 11:56 Exam Location: [facility] Ht (in): 72 Wt (lb): 164 Ordering Physician: Ashley Vargas MD Attending/Referring Phys: Maritza Sotelo [employer] Tender Lizett Kwan RDCS Procedure CPT: Indications: I70.90 Atherosclerosis Cardiac Hx: Technical Quality: Contrast 1: Agitated Saline Total Dose (mL): 5 Contrast 2: Total Dose (mL): MEASUREMENTS (Male / Female) Normal Values 2D ECHO LV Diastolic Diameter PLAX 4.8 cm 4.2 - 5.9 / 3.9 - 5.3 cm LV Systolic Diameter PLAX 3.3 cm IVS Diastolic Thickness 1.0 cm 0.6 - 1.0 / 0.6 - 0.9 cm LVPW Diastolic Thickness 1.2 cm 0.6 - 1.0 / 0.6 - 0.9 cm LV Relative Wall Thickness 0.5 RV Internal Dim ED PLAX 2.5 cm LA Systolic Diameter LX 3.2 cm 3.0 - 4.0 / 2.7 - 3.8 cm M-MODE Aortic Root Diameter MM 3.0 cm LA Systolic Diameter MM 3.5 cm LA Ao Ratio MM 1.2 MV E Point Septal Separation 0.4 cm AV Cusp Separation MM 2.2 cm DOPPLER MV Area PHT 5.2 cm??? Mitral E Point Velocity 78.0 cm/s Mitral A Point Velocity 59.8 cm/s Mitral E to A Ratio 1.3 MV Deceleration Time 146.6 ms MV E' Velocity 9.1 cm/s Mitral E to MV E' Ratio 8.5 TR Peak Velocity 146.5 cm/s TR Peak Gradient 8.6 mmHg Right Ventricular Systolic Press 13.6 mmHg FINDINGS Left Ventricle Normal Left ventricular size, wall thickness, systolic function with no obvious regional wall motion abnormalities. Normal Left ventricular diastolic filling pattern. Right Ventricle Normal right ventricular size and function. Right Atrium Normal right atrial size. Left Atrium Normal left atrial size. Bubble study performed no shunt noted. Mitral Valve Mild mitral regurgitation. Aortic Valve Trileaflet aortic valve. Tricuspid Valve Mild tricuspid regurgitation. Pulmonic Valve Structurally normal pulmonic valve. Pericardium Normal pericardium. Aorta Normal size aortic root and proximal ascending aorta. CONCLUSIONS Normal LV size and systolic function without segmental wall motion abnormalities Previewed by: Dr. Orlando Monroe MD (Electronically Signed) Final Date: 30 Aug 2021 13:00
== END | disposition home or self-care (01) ==
LOC: RADECHMAIN 11:46
PROVIDERS: ATTEND Surgery
DX: I08.1 Rheumatic disorders of both mitral and tricuspid valves (principal)
CPT/HCPCS: 93306

== ENCOUNTER 2021-10-02 05:13 | Inpatient (IN) | payer MEDICAID, OTHER ==
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
[2021-10-02 08:31] LABS: ALT 36 U/L (4-49); AST 37 U/L (17-59); Acetaminophen <10.0 ug/mL; African American GFR (CKD) >90 (>60 ml/min/1.73 sqM); Albumin 4.4 g/dL (3.5-5.0); Alkaline Phosphatase 61 U/L (38-126); Anion Gap 10 mmol/L; Blood Urea Nitrogen 5 mg/dL (9-20); Carbon Dioxide 23 mmol/L (22-30); Chloride 104 mmol/L (98-107); Glucose 138 mg/dL (74-99); Non-African American GFR(CKD) >90 (>60 ml/min/1.73 sqM); Potassium 3.6 mmol/L (3.5-5.1); Salicylate <1.0 mg/dL; Sodium 137 mmol/L (137-145); Total Bilirubin 0.4 mg/dL (0.2-1.3); Total Protein 7.2 g/dL (6.3-8.2)
[2021-10-02 09:04] LABS: Amphetamine Screen,Urine Not Detected (NotDetected); Barbiturate Screen,Urine Not Detected (NotDetected); Benzodiazepines Screen,Urine Not Detected (NotDetected); Cocaine Screen,Urine Not Detected (NotDetected); Methadone Screen, Urine Not Detected (NotDetected); Opiate Screen,Urine Not Detected (NotDetected); Oxycodone Screen, Urine Not Detected (NotDetected); Phencyclidine Screen,Urine Not Detected (NotDetected); Tricyclic Antidepressant,Urine Not Detected (NotDetected); Urn Cannabinoid Scrn Not Detected (NotDetected)
[2021-10-02] MEDS ORDERED: HALOPERIDOL LACTATE 5 MG/ML 1 ML VIAL IM PRN (11:13)
[2021-10-02] MEDS ORDERED: MAGNESIUM HYDROXIDE 2,400 MG/10 ML CUP PO PRN (11:13)
[2021-10-02] MEDS ORDERED: LORazepam 2 MG/ML INJ IM PRN (11:17)
[2021-10-02] MEDS ORDERED: haloperidoL 5 MG TAB PO PRN (11:17)
[2021-10-02] MEDS: LORazepam 1 MG TAB PO PRN (11:52)
[2021-10-02] MEDS: NICOTINE 21MG/24HR PATCH TRANSDERM SCH (12:18)
[2021-10-02 12:55] LABS: Appearance,Urine Clear (Clear); Bilirubin,Urine Negative (Negative); Blood,Urine Negative (Negative); Color,Urine Light Yellow; Glucose,Urine (UA) Negative (Negative); Ketones,Urine Trace (Negative); Leukocyte Esterase,Urine Negative (Negative); Nitrite,Urine Negative (Negative); PH, Urine 5.5 (5.0-8.0); Protein,Urine Negative (Negative); Specific Gravity,Urine 1.005 (1.001-1.035); Urobilinogen,Urine <2.0 mg/dL (<2.0)
--- NOTE | 2021-10-02 19:07 | P.CONS ---
History of Present Illness - Reason for Consult Consult date: 10/02/21 Medical management Requesting physician: Robert Toledo - Chief Complaint Hearing voices - History of Present Illness This is a 36-year-old patient who follows with Dr. Sanchez. Brought into the ER by the law enforcement officers. He had called 911 many times complained that his father was trying to harm him by using some raised. He tells me that when he was in his yard and only in his yard his neighbors had this gadget in the hands giving out waves. Patient does give a history of occipital neuralgia and sometimes takes pain medications the same. Denies any fever and chills. Occasional cough. Is a smoker. Takes alcohol occasionally. Unemployed. Lives with his parents. No urinary or bowel symptoms. Also has Raynaud's Review of systems: GEN.: None EYES: None HEENT: None NECK: None RESPIRATORY: None CARDIOVASCULAR: None GASTROINTESTINAL: None GENITOURINARY: None MUSCULOSKELETAL: None LYMPHATICS: None HEMATOLOGICAL: None PSYCHIATRY: As above NEUROLOGICAL: None Past medical history to include: Occipital neuralgia, Raynaud's, GERD, GI bleed, no tinnitus, herniated disc, stomach ulcer, Social history: Smokes average about 2 packs a day. For closer 20 years. Alcohol sometimes. More so in the last few days. Family history: Skin cancer Physical examination: VITAL SIGNS: 98.3, 18, 16, 149.99, 98% room air GENERAL: BMI 21.8, sitting up, awake, slightly anxious. EYES: Pupils equal. Conjunctiva normal. HEENT: External appearance of nose and ears normal, oral cavity grossly normal. NECK: JVD not raised; masses not palpable. HEART: First and second heart sounds are normal; no edema. LUNGS: Respiratory rate normal; clear to auscultation. ABDOMEN: Soft, nontender, liver spleen not palpable, no masses palpable. PSYCH: Alert and oriented x3; mood and affect slightly anxiousl. MUSCULOSKELETAL:No Clubbing/cyanosis;muscles-grossly intact NEUROLOGICAL: Cranial nerves grossly intact; no facial asymmetry, power and sensation grossly intact. LYMPHATICS: No lymph nodes palpable in the axilla and neck INVESTIGATIONS, reviewed in the clinical context: Sodium 137 potassium 3.6 creatinine 0.73 Urine drug screen: Negative COVID-19: Negative Assessment and plan: -Psychosis not otherwise specified -Raynauds disease Room temperatures well controlled -Chronic nicotine dependence, cigarette smoker Nicotine patch 21 -GERD Pepcid when necessary Patient will be able by the psychiatry team. Further medications for them. Patient given nicotine patch. Pepcid as needed. Follow up with Dr. Sanchez upon discharge. Thank you Dr. toledo Past Medical History Past Medical History: CVA/TIA, GERD/Reflux, GI Bleed, Rheumatoid Arthritis (RA) Additional Past Medical History / Comment(s): diverticulitis, DDD, herniated disc X2. Occipital Neuralgia. OCC BLOOD IN STOOL. hx of stomach ulcer. "POSSIBLE 2 STROKES ON MRI.", occiptal migraines, "sore left arm". reynaulds disease History of Any Multi-Drug Resistant Organisms: None Reported Past Surgical History: Cholecystectomy Additional Past Surgical History / Comment(s): EGD, COLONOSCOPY, oral surgery, PAIN CLINIC PROCEDURES. Past Anesthesia/Blood Transfusion Reactions: Family History of Problems w/ Anesthesia Additional Past Anesthesia/Blood Transfusion Reaction / Comm: MOTHER HAD EPIDU RAL THAT DIDN'T WORK. Past Psychological History: Anxiety, Depression Additional Psychological History / Comment(s): NO CURRENT TX. Smoking Status: Current every day smoker Past Alcohol Use History: Occasional Additional Past Alcohol Use History / Comment(s): SMOKES 1 1/2 -3 PPD, SMOKING SINCE age 16. Past Drug Use History: None Reported Additional Drug Use History / Comment(s): occ CBD - Past Family History Mother Family Medical History: Cancer Additional Family Medical History / Comment(s): SKIN CANCER. Medications and Allergies Home Medications Medication Instructions Recorded Confirmed Type Acetaminophen [Tylenol] 650 mg PO TID PRN 10/02/21 10/02/21 History Allergies Allergy/AdvReac Type Severity Reaction Status Date / Time adhesive tape Allergy Rash/Hives Verified 10/02/21 13:02 gabapentin Allergy Rash/Hives Verified 10/02/21 13:02 hydrocodone AdvReac MIGRAINE Verified 10/02/21 13:02 topiramate [From Topamax] AdvReac creates Verified 10/02/21 13:02 black SPOT on left eye NARCOTICS AdvReac MIGRAINES Uncoded 10/02/21 13:02 Physical Exam Vitals: Vital Signs Temp Pulse Pulse Resp BP BP Pulse Ox 10/02/21 12:22 98.7 F 99 20 141/92 98 10/02/21 05:15 98.3 F 108 H 16 149/99 98 Intake and Output 10/02/21 10/02/21 10/02/21 06:59 14:59 22:59 Other: Weight 74.389 kg 70.896 kg Results CBC & Chem 7: 10/02/21 07:39 Labs: Abnormal Lab Results - Last 24 Hours (Table) 10/02/21 10/02/21 Range/Units 07:39 07:39 BUN 5 L (9-20) mg/dL Glucose 138 H (74-99) mg/dL Urine Ketones Trace H (Negative)
[2021-10-03 08:17] LABS: ALT 42 U/L (4-49); AST 42 U/L (17-59); African American GFR (CKD) >90 (>60 ml/min/1.73 sqM); Albumin 4.5 g/dL (3.5-5.0); Alkaline Phosphatase 59 U/L (38-126); Anion Gap 8 mmol/L; Bilirubin,Unconjugated 0.5 mg/dL (0.0-1.1); Blood Urea Nitrogen 13 mg/dL (9-20); Calcium 10.1 mg/dL (8.4-10.2); Carbon Dioxide 25 mmol/L (22-30); Chloride 107 mmol/L (98-107); Glucose 99 mg/dL (74-99); Non-African American GFR(CKD) >90 (>60 ml/min/1.73 sqM); Potassium 4.1 mmol/L (3.5-5.1); Sodium 140 mmol/L (137-145); Total Bilirubin 0.5 mg/dL (0.2-1.3); Total Protein 7.4 g/dL (6.3-8.2)
[2021-10-03] MEDS: NICOTINE 21MG/24HR PATCH TRANSDERM SCH (08:48)
[2021-10-03 10:55] LABS: Chol/HDL Ratio 3.56 Ratio; LDL Cholesterol,Calculated 127.6 mg/dL (0.0-131.0); VLDL Calculation 16.24 mg/dL (5.00-40.00)
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
[2021-10-03] MEDS: ARIPiprazole 5 MG TAB PO SCH (12:29)
[2021-10-03] MEDS: ACETAMINOPHEN TAB 325 MG TAB PO PRN (15:32)
[2021-10-03] MEDS: MAG HYDROX/AL HYDROX/SIMETH 30 ML CUP PO PRN (15:34)
[2021-10-03] MEDS: MELATONIN 5 MG TABLET PO SCH (20:54)
[2021-10-03] MEDS: LORazepam 1 MG TAB PO PRN (20:55)
[2021-10-04] MEDS: ARIPiprazole 5 MG TAB PO SCH (08:27)
[2021-10-04] MEDS: NICOTINE 21MG/24HR PATCH TRANSDERM SCH (08:27)
[2021-10-04] MEDS: LORazepam 1 MG TAB PO PRN (10:26)
--- NOTE | 2021-10-04 10:37 | P.PN ---
Progress Note - Text Progress Note Date: 10/04/21 Interval History: Patient was seen and was directable and agreeable to speak with program writer in the office. Patient appears to be mildly more appropriate today. He claims that he is doing "a bit better" since yesterday. He states that he is taking the Abilify is helping him "with my thoughts". Patient was less preoccupied with his paranoia and delusions of his neighbors. He states that "I just don't want to talk about that anymore". He claims that he is able to sleep better last night using the Ativan. He had several questions about the court process and thought that he was able to "signed myself out". At this time patient denies any suicidal or homical ideations, intent or plan. Patient denies any auditory, visual hallucinations. Patient denies any side effects from the medications and has been compliant with meds. Mental Status Exam: General Appearance: Patient appears to be stated age is alert, directable, and attempts to cooperate however is and paranoid, improving. Patient appears to have improving hygiene and grooming. Behavior: Patient is seated without any agitated behavior. Paranoia, improving Speech: Patient's speech is fluent and nonpressured. Mood/Affect: Patient reports their mood is "ok", affect is congruent and constricted. Suicidality/Homicidality: Patient denies having any homicidal ideation intent or plan. Denies any suicidal ideations intent or plan Perceptions: Patient denies any visual hallucinations and denies any auditory hallucinations Though content/process: Improving paranoia. Illogical at times. More goal oriented. Memory and concentration: AOX3, grossly intact for the purposes of this session Judgment and insight: poor, improving mildly. IMPRESSIONS: Psychosis unspecified Nicotine dependence Alcohol use disorder Plan: -Patient continues to meet criteria for inpatient psychiatric admission for symptom stabilization and safety. Patient has not signed adult voluntary form and medication consent and was placed in patient's chart. -Medications: Increase Abilify to 10 mg daily for mood/psychosis, melatonin 5 mg daily at bedtime for sleep. Added trazodone 50 mg daily at bedtime for insomnia. -When necessary Ativan and Haldol for agitation/aggression. -NRT - nicotine patch -SW on board for discharge planning. Encouraged the patient to participate in milieu. Currently awaiting deferral with trust and estates attorney and court date.
[2021-10-04] MEDS: ACETAMINOPHEN TAB 325 MG TAB PO PRN (18:28)
[2021-10-04] MEDS: traZODone HCL 50 MG TAB PO SCH (20:32)
[2021-10-04] MEDS: MELATONIN 5 MG TABLET PO SCH (20:32)
[2021-10-05] MEDS: NICOTINE 21MG/24HR PATCH TRANSDERM SCH (06:13)
[2021-10-05 06:15] VITALS: RESP 16
[2021-10-05] MEDS: ARIPiprazole 10 MG TAB PO SCH (08:17)
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
[2021-10-05] MEDS: ACETAMINOPHEN TAB 325 MG TAB PO PRN ×2 (12:53→19:58)
[2021-10-05] MEDS: MAG HYDROX/AL HYDROX/SIMETH 30 ML CUP PO PRN (12:56)
[2021-10-05] MEDS: MELATONIN 5 MG TABLET PO SCH (19:58)
[2021-10-05] MEDS: traZODone HCL 50 MG TAB PO SCH (19:58)
[2021-10-05] MEDS: LORazepam 1 MG TAB PO PRN (22:13)
[2021-10-06] MEDS: NICOTINE 21MG/24HR PATCH TRANSDERM SCH (07:56)
[2021-10-06] MEDS: ARIPiprazole 10 MG TAB PO SCH (07:57)
[2021-10-06] MEDS: ACETAMINOPHEN TAB 325 MG TAB PO PRN ×2 (09:22→14:58)
--- NOTE | 2021-10-06 10:54 | P.PN ---
Subjective Progress Note Date: 10/06/21 Principal diagnosis: IMPRESSIONS: Psychosis unspecified Nicotine dependence Alcohol use disorder Subjective data: I am feeling a lot better I also plan to get my medical records which only showed my mother to prove her that it's not all my imagination since he was would have had it documented Patient was little surprised when told that the hospital also feels that he may have some issues with some delusional thinking and that he requires treatment for it Patient seemed to accept it and has dropped area showing the records to his mother Mental Status Exam: General Appearance: Patient appears to be stated age is alert, directable, and attempts to cooperate however is and paranoid, i. Patient appears to have improving hygiene and grooming. Behavior: Patient is seated without any agitated behavior. Paranoia, improving Speech: Patient's speech is fluent and nonpressured. Mood/Affect: Patient reports their mood is "ok", affect is congruent and constricted. Suicidality/Homicidality: Patient denies having any homicidal ideation intent or plan. Denies any suicidal ideations intent or plan Perceptions: Patient denies any visual hallucinations and denies any auditory hallucinations Though content/process: Improving paranoia. Illogical at times. More goal stuart ented. Memory and concentration: AOX3, grossly intact for the purposes of this session Judgment and insight: poor, improving mildly. IMPRESSIONS: Psychosis unspecified Nicotine dependence Alcohol use disorder Plan: -Patient continues to meet criteria for inpatient psychiatric admission for symptom stabilization and safety. Patient has not signed adult voluntary form and medication consent and was placed in patient's chart. -Medications: Increase Abilify to 15 mg daily for mood/psychosis, melatonin 5 mg daily at bedtime for sleep. Continue trazodone 50 mg daily at bedtime for insomnia. -When necessary Ativan and Haldol for agitation/aggression. -NRT - nicotine patch -SW on board for discharge planning. Encouraged the patient to participate in milieu. Currently awaiting deferral with railway head tender and court date. Bob Puga M.D. 10/07/2021 Objective - Vital Signs Vital signs: Vital Signs Temp 97.0 F L 10/05/21 06:14 Pulse 119 H 10/06/21 07:57 Resp 16 10/05/21 06:14 BP 126/67 10/06/21 07:57 Pulse Ox 99 10/04/21 06:52 FiO2 Intake & Output 10/05/21 10/06/21 10/06/21 18:59 06:59 18:59 Weight 70.2 kg - Labs CBC & Chem 7: 10/03/21 07:34
[2021-10-06] MEDS: traZODone HCL 50 MG TAB PO SCH (20:24)
[2021-10-06] MEDS: MELATONIN 5 MG TABLET PO SCH (20:24)
[2021-10-06] MEDS: LORazepam 1 MG TAB PO PRN (22:00)
[2021-10-06] MEDS: MAG HYDROX/AL HYDROX/SIMETH 30 ML CUP PO PRN (22:00)
[2021-10-07 06:44] VITALS: BP 110/58; PULSE 83; TEMP 97.8
[2021-10-07] MEDS: NICOTINE 21MG/24HR PATCH TRANSDERM SCH (07:54)
[2021-10-07] MEDS ORDERED: ARIPiprazole 15 MG TAB PO SCH (09:00)
--- NOTE | 2021-10-07 11:26 | P.DS ---
Providers Date of admission: 10/02/21 11:11 Expected date of discharge: 10/07/21 Attending physician: Robert Toledo MD Consults: 10/02/21 11:13 Consult Physician Routine Consulting Provider: Nirmal Wilson Consult Reason/Comments: Medical H&P Do you want consulting provider notified?: Yes Primary care physician: Robert Sanchez - Discharge Diagnosis(es) (1) Unspecified psychosis Current Visit: Yes Status: Acute Priority: High (2) Nicotine dependence Current Visit: Yes Status: Acute Priority: Low (3) Alcohol use disorder Current Visit: Yes Status: Acute Priority: Medium Hospital Course: Admission HPI: Admission note was completed by technical document writer "Patient is a 36-year-old male who currently lives out of his van and is homeless, has 1 adult and is unemployed. Patient presented to the hospital yesterday and was brought in by the police. Apparently patient was complaining of depression and racing thoughts and was delusional. According to ER report patient had called 911 numerous times. Patient was admitted involuntarily to the mental health unit and according to petition states that patient was hearing voices and believed that other people were out to kill him. Patient was seen today by technical document writer and agreeable to speak. Patient was delusional, believed that his neighbors had "laser mics" which they were using to shoot his van and also to listen in on him. He states that they were hiding it and also were talking about him behind his back. He states that there are also using it on other people in the neighborhood. He claims that he does not know what there again is however believes that "somebody was out to get me". He claims that he believed that people were messing with him and believes that the ER doctor said that there was "damage to my ear" and believes that his hearing is "messed up". He claims that his sleep and appetite are fair. He is denying any depression or anxiety at this time. Patient denies any suicidal or homicidal ideations intent or plan. At this time patient denies any auditory or visual hallucinations. He claims that he uses cigarettes daily and also alcohol frequently. He denies any significant withdrawal symptoms at this time or any DTs in the past. He states his last drink was 2 days ago." Hospital course: Upon admission to the unit patient was admitted involuntarily on a petition and certificate and a second certificate was completed and faxed with the courts. Patient ended up signing a deferral with the disability attorney and agreeing to treatment. Patient got along well with other patients on the unit and followed unit protocol. Patient was compliant with the medications and denied any side effects throughout hospital course. Patient was started on Abilify and titrated to a dose of 50 mg daily for mood/psychosis, trazodone increased to a dose of 100 mg daily at bedtime for insomnia/mood. Patient spoke of his stressors and engaged in therapy both group and individual. Patient was also seen by medical team for history and physical exam. Throughout the course of the hospitalization patient gradually improved with regards to psychosis/delusions, mood, sleep and returned back to their baseline level of functioning. On the day of discharge patient denied any suicidal or homicidal ideations intent or plan denied any auditory or visual hallucinations. Patient endorsed wanting to live for his health and family. The patient denied any access to guns or weapons. Patient denied any paranoia and did not endorse any delusions. Patient does have a significant history of substance abuse and was counseled on abstaining from all substances including alcohol and marijuana. Patient was offered however declined inpatient substance-abuse rehab. Patient elected to do outpatient substance use treatment program through [facility]. Patient was also counseled on the medications and need for regular compliance and was encouraged to follow-up with their outpatient appointment for mental health and also for primary care. Prior to discharge a family meeting will be arranged by social worker psychiatric to answer any questions and ensure safety upon discharge. Mental status exam: General Appearance: Patient appears to be stated age is alert, pleasant, and cooperative. Patient is in no acute distress and has improved hygiene and grooming Behavior: Patient is calmly seated without any agitated behavior. Speech: Patient's speech is fluent and nonpressured. Mood/Affect: Patient reports their mood is "good", affect is congruent\\ Suicidality/Homicidality: Patient denies having any suicidal or homicidal ideation intent or plan. Perceptions: Patient denies any auditory or visual hallucinations. Though content/process: There is no evidence of any delusional thought content and thought process is linear and goal-directed. Memory and concentration: AOX3, grossly intact for the purposes of this session. Can spell "WORLD" backwards correctly. Judgment and insight: chronically poor, however has improved with guarded prognosis Impression: Psychosis unspecified Alcohol use disorder Nicotine dependence Plan: -Continue with discharge today as patient has improved and stabilized psychiatrically and is not currently an imminent threat to himself and/or others. Patient will remain at chronically elevated risk for harm to self and/or others due to his chronically poor insight and judgment. -Continue medications: Abilify 10 mg by mouth daily for mood/psychosis, melatonin 10 mg daily at bedtime for sleep and trazodone 100 mg daily at bedtime for insomnia. -Patient was counseled on the need for medication compliance and appropriate follow-up at mental health and also primary care for medical issues. Patient verbalized understanding and agreed. -Social work to arrange for and conduct family meeting to ensure safety upon discharge and answer any questions/concerns. Social work also to arrange for patients follow up appointments with [facility] for psychiatric care along with follow up with primary care provider. -Patient counseled on abstaining from recreational drugs and marijuana and alcohol. Was informed/educated on the adverse effects on their physical and mental health. Patient verbally agreed and understood. Patient was offered substance abuse treatment however declined at this time. -Patient was instructed to return to the hospital or seek immediate medical care if their psychiatric or medical symptoms do worsen or reoccur. Vital Signs Temp 97.8 F 10/07/21 06:43 Pulse 83 10/07/21 06:43 Resp 16 10/07/21 06:43 BP 110/58 10/07/21 06:43 Pulse Ox 99 10/07/21 06:43 FiO2 Intake & Output 10/06/21 10/07/21 10/07/21 18:59 06:59 18:59 Weight 70.2 kg Allergies Allergy/AdvReac Type Severity Reaction Status Date / Time adhesive tape Allergy Rash/Hives Verified 10/02/21 13:02 gabapentin Allergy Rash/Hives Verified 10/02/21 13:02 hydrocodone AdvReac MIGRAINE Verified 10/02/21 13:02 topiramate [From Topamax] AdvReac creates Verified 10/02/21 13:02 black SPOT on left eye NARCOTICS AdvReac MIGRAINES Uncoded 10/02/21 13:02 Laboratory Results Sodium 140 mmol/L (137-145) 10/03/21 07:34 Potassium 4.1 mmol/L (3.5-5.1) 10/03/21 07:34 Chloride 107 mmol/L (98-107) 10/03/21 07:34 Carbon Dioxide 25 mmol/L (22-30) 10/03/21 07:34 Anion Gap 8 mmol/L 10/03/21 07:34 BUN 13 mg/dL (9-20) 10/03/21 07:34 Creatinine 0.93 mg/dL (0.66-1.25) 10/03/21 07:34 Est GFR (CKD-EPI)AfAm >90 (>60 ml/min/1.73 sqM) 10/03/21 07:34 Est GFR (CKD-EPI)NonAf >90 (>60 ml/min/1.73 sqM) 10/03/21 07:34 Glucose 99 mg/dL (74-99) 10/03/21 07:[address] Glu mg/dL 112 10/03/21 07:34 Hemoglobin A1c 5.5 % (0.0-6.0) 10/03/21 07:34 Calcium 10.1 mg/dL (8.4-10.2) 10/03/21 07:34 Total Bilirubin 0.5 mg/dL (0.2-1.3) 10/03/21 07:34 Conjugated Bilirubin 0.0 mg/dL (0.0-0.3) 10/03/21 07:34 Unconjugated Bilirubin 0.5 mg/dL (0.0-1.1) 10/03/21 07:34 Delta Bilirubin 0.0 mg/dL (0.0-0.2) 10/03/21 07:34 AST 42 U/L (17-59) 10/03/21 07:34 ALT 42 U/L (4-49) 10/03/21 07:34 Alkaline Phosphatase 59 U/L (38-126) 10/03/21 07:34 Total Protein 7.4 g/dL (6.3-8.2) 10/03/21 07:34 Albumin 4.5 g/dL (3.5-5.0) 10/03/21 07:34 Triglycerides 81.20 mg/dL (0.00-149.00) 10/03/21 07:34 Cholesterol 200.00 mg/dL (0.00-200.00) 10/03/21 07:34 LDL Cholesterol, Calc 127.6 mg/dL (0.0-131.0) 10/03/21 07:34 VLDL Cholesterol, Calc 16.24 mg/dL (5.00-40.00) 10/03/21 07:34 HDL Cholesterol 56.20 mg/dL (40.00-60.00) 10/03/21 07:34 Cholesterol/HDL Ratio 3.56 Ratio 10/03/21 07:34 TSH 3.100 mIU/L (0.465-4.680) 10/03/21 07:34 Urine Color Light Yellow 10/02/21 07:39 Urine Appearance Clear (Clear) 10/02/21 07:39 Urine pH 5.5 (5.0-8.0) 10/02/21 07:39 Ur Specific [place] 1.005 (1.001-1.035) 10/02/21 07:39 Urine Protein Negative (Negative) 10/02/21 07:39 Urine Glucose (UA) Negative (Negative) 10/02/21 07:39 Urine Ketones Trace (Negative) H 10/02/21 07:39 Urine Blood Negative (Negative) 10/02/21 07:39 Urine Nitrite Negative (Negative) 10/02/21 07:39 Urine Bilirubin Negative (Negative) 10/02/21 07:39 Urine Urobilinogen <2.0 mg/dL (<2.0) 10/02/21 07:39 Ur Leukocyte Esterase Negative (Negative) 10/02/21 07:39 Salicylates <1.0 mg/dL 10/02/21 07:39 Urine Opiates Screen Not Detected (NotDetected) 10/02/21 07:39 Ur Oxycodone Screen Not Detected (NotDetected) 10/02/21 07:39 Urine Methadone Screen Not Detected (NotDetected) 10/02/21 07:39 Ur Propoxyphene Screen Not Detected (NotDetected) 10/02/21 07:39 Acetaminophen <10.0 ug/mL 10/02/21 07:39 Ur Barbiturates Screen Not Detected (NotDetected) 10/02/21 07:39 U Tricyclic Antidepress Not Detected (NotDetected) 10/02/21 07:39 Ur Phencyclidine Scrn Not Detected (NotDetected) 10/02/21 07:39 Ur Amphetamines Screen Not Detected (NotDetected) 10/02/21 07:39 U Methamphetamines Scrn Not Detected (NotDetected) 10/02/21 07:39 U Benzodiazepines Scrn Not Detected (NotDetected) 10/02/21 07:39 Urine Cocaine Screen Not Detected (NotDetected) 10/02/21 07:39 U Marijuana (THC) Screen Not Detected (NotDetected) 10/02/21 07:39 Coronavirus (PCR) Not Detected (Not Detectd) 10/02/21 09:09 Laboratory Results Sodium 140 mmol/L (137-145) 10/03/21 07:34 Potassium 4.1 mmol/L (3.5-5.1) 10/03/21 07:34 Chloride 107 mmol/L (98-107) 10/03/21 07:34 Carbon Dioxide 25 mmol/L (22-30) 10/03/21 07:34 Anion Gap 8 mmol/L 10/03/21 07:34 BUN 13 mg/dL (9-20) 10/03/21 07:34 Creatinine 0.93 mg/dL (0.66-1.25) 10/03/21 07:34 Est GFR (CKD-EPI)AfAm >90 (>60 ml/min/1.73 sqM) 10/03/21 07:34 Est GFR (CKD-EPI)NonAf >90 (>60 ml/min/1.73 sqM) 10/03/21 07:34 Glucose 99 mg/dL (74-99) 10/03/21 07:[address] Glu mg/dL 112 10/03/21 07:34 Hemoglobin A1c 5.5 % (0.0-6.0) 10/03/21 07:34 Calcium 10.1 mg/dL (8.4-10.2) 10/03/21 07:34 Total Bilirubin 0.5 mg/dL (0.2-1.3) 10/03/21 07:34 Conjugated Bilirubin 0.0 mg/dL (0.0-0.3) 10/03/21 07:34 Unconjugated Bilirubin 0.5 mg/dL (0.0-1.1) 10/03/21 07:34 Delta Bilirubin 0.0 mg/dL (0.0-0.2) 10/03/21 07:34 AST 42 U/L (17-59) 10/03/21 07:34 ALT 42 U/L (4-49) 10/03/21 07:34 Alkaline Phosphatase 59 U/L (38-126) 10/03/21 07:34 Total Protein 7.4 g/dL (6.3-8.2) 10/03/21 07:34 Albumin 4.5 g/dL (3.5-5.0) 10/03/21 07:34 Triglycerides 81.20 mg/dL (0.00-149.00) 10/03/21 07:34 Cholesterol 200.00 mg/dL (0.00-200.00) 10/03/21 07:34 LDL Cholesterol, Calc 127.6 mg/dL (0.0-131.0) 10/03/21 07:34 VLDL Cholesterol, Calc 16.24 mg/dL (5.00-40.00) 10/03/21 07:34 HDL Cholesterol 56.20 mg/dL (40.00-60.00) 10/03/21 07:34 Cholesterol/HDL Ratio 3.56 Ratio 10/03/21 07:34 TSH 3.100 mIU/L (0.465-4.680) 10/03/21 07:34 Urine Color Light Yellow 10/02/21 07:39 Urine Appearance Clear (Clear) 10/02/21 07:39 Urine pH 5.5 (5.0-8.0) 10/02/21 07:39 Ur Specific [place] 1.005 (1.001-1.035) 10/02/21 07:39 Urine Protein Negative (Negative) 10/02/21 07:39 Urine Glucose (UA) Negative (Negative) 10/02/21 07:39 Urine Ketones Trace (Negative) H 10/02/21 07:39 Urine Blood Negative (Negative) 10/02/21 07:39 Urine Nitrite Negative (Negative) 10/02/21 07:39 Urine Bilirubin Negative (Negative) 10/02/21 07:39 Urine Urobilinogen <2.0 mg/dL (<2.0) 10/02/21 07:39 Ur Leukocyte Esterase Negative (Negative) 10/02/21 07:39 Salicylates <1.0 mg/dL 10/02/21 07:39 Urine Opiates Screen Not Detected (NotDetected) 10/02/21 07:39 Ur Oxycodone Screen Not Detected (NotDetected) 10/02/21 07:39 Urine Methadone Screen Not Detected (NotDetected) 10/02/21 07:39 Ur Propoxyphene Screen Not Detected (NotDetected) 10/02/21 07:39 Acetaminophen <10.0 ug/mL 10/02/21 07:39 Ur Barbiturates Screen Not Detected (NotDetected) 10/02/21 07:39 U Tricyclic Antidepress Not Detected (NotDetected) 10/02/21 07:39 Ur Phencyclidine Scrn Not Detected (NotDetected) 10/02/21 07:39 Ur Amphetamines Screen Not Detected (NotDetected) 10/02/21 07:39 U Methamphetamines Scrn Not Detected (NotDetected) 10/02/21 07:39 U Benzodiazepines Scrn Not Detected (NotDetected) 10/02/21 07:39 Urine Cocaine Screen Not Detected (NotDetected) 10/02/21 07:39 U Marijuana (THC) Screen Not Detected (NotDetected) 10/02/21 07:39 Coronavirus (PCR) Not Detected (Not Detectd) 10/02/21 09:09 Patient Condition at Discharge: Stable Plan - Discharge Summary Discharge Rx Participant: Yes New Discharge Prescriptions: New ARIPiprazole [Abilify] 15 mg PO DAILY 30 Days tab traZODone HCL [Desyrel] 100 mg PO HS 30 Days tab Nicotine 21Mg/24Hr Patch [Habitrol] 1 patch TRANSDERM DAILY 14 Days patch Melatonin 10 mg PO HS 30 Days tab Discontinued Acetaminophen [Tylenol] 650 mg PO TID PRN PRN Reason: Pain Or Fever > 100.5 Discharge Medication List ARIPiprazole [Abilify] 15 mg PO DAILY 30 Days tab 10/07/21 [Rx] Melatonin 10 mg PO HS 30 Days tab 10/07/21 [Rx] Nicotine 21Mg/24Hr Patch [Habitrol] 1 patch TRANSDERM DAILY 14 Days patch 10/07/21 [Rx] traZODone HCL [Desyrel] 100 mg PO HS 30 Days tab 10/07/21 [Rx] Follow up Appointment(s)/Referral(s): Robert Sanchez DO [Primary Care Provider] - 1-2 days Activity/Diet/Wound Care/Special Instructions: Activity and diet as tolerated. Avoid the use of street drugs and alcohol. Take all medications as prescribed. When you are in need of refills on your medications please contact your medical provider and/or outpatient psychiatrist to have this done. Please go to scheduled outpatient appointment for aftercare treatment. If symptoms return or become worse, call the crisis line at and/or go to the nearest emergency room for evaluation Discharge Disposition: HOME SELF-CARE
== END 2021-10-07 13:55 | disposition home or self-care (01) | DRG 885 ==
LOC: EC 05:13 → 3MHU 11:11
PROVIDERS: ADMIT Psychiatry & Neurology Psychiatry; ATTEND Psychiatry & Neurology Psychiatry
DX: F23 Brief psychotic disorder (principal); F10.10 Alcohol abuse, uncomplicated; F17.210 Nicotine dependence, cigarettes, uncomplicated; F32.A Depression, unspecified; G47.00 Insomnia, unspecified; I73.00 Raynaud's syndrome without gangrene; K21.9 Gastro-esophageal reflux disease without esophagitis; M06.9 Rheumatoid arthritis, unspecified; Z59.00 Homelessness unspecified; Z79.899 Other long term (current) drug therapy; Z81.8 Family history of other mental and behavioral disorders; Z86.73 Personal history of transient ischemic attack (TIA), and cerebral infarction without residual deficits; Z87.11 Personal history of peptic ulcer disease; Z20.822 Contact with and (suspected) exposure to COVID-19
CPT/HCPCS: 36415; 80053; 80061; 80143; 80179; 80306; 81003; 82075; 82248; 83036; 84443; 87635; 99285

== ENCOUNTER 2021-11-07 11:05 | Day surgery (SDC) | payer OTHER ==
[~2021-11-07 11:05] MED LIST changes: -LIDOCAINE 1% (10MG/ML) FOR IV START INTRADERMA PRN
[2021-11-07 11:22] VITALS: RESP 18; TEMP 98
[2021-11-07] MEDS ORDERED: methylPREDNISolone ACETATE 40 MG/ML 1 ML VIAL ONE (11:58)
[2021-11-07] MEDS ORDERED: ROPIVACAINE 5MG/ML 20ML VIAL ONE (11:58)
[2021-11-07] MEDS ORDERED: DEXAMETHASONE SOD PHOSPHATE 10 MG/ML 1 ML VIAL ONE (11:58)
--- NOTE | 2021-11-07 12:03 | P.PCN ---
Date of Procedure: 11/07/21 Procedure(s) Performed: Bilateral cervical, thoracic, lumbar paraspinal trigger point injection Description of Procedure: Preoperative Diagnosis: myofascial pain syndrome of cervical, thoracic, lumbar paraspinal muscles Postoperative diagnosis: Same Anesthesia: Local Surgeon: Rita Holman MD Indications for procedure: This is a 36 patient with myofascial pain and palpable trigger points in cervical, thoracic, lumbar muscles. The patient consents for an injection after an explanation of risks including but not limited to bleeding and infection, benefits, and alternatives and the patient has signed a consent form indicating understanding of all of them. Description of procedure: After informed consent was obtained the patient's painful area was sterilely prepped in the usual fashion with ChloraPrep. 6 trigger points were identified via palpation of the cervical, thoracic, lumbar muscles and marked sterilely. Each trigger point was injected with a 25-gauge one and a half inch needle. At that point a solution consisting of 19 ml of 0.5% ropivacaine with 40mg of depomedrol was distributed evenly over the trigger points. The patient's vital signs were stable afterwards and the procedure was tolerated well. Patient was discharged home with follow-up instructions.
[2021-11-07 12:25] VITALS: BP 128/87; PULSE 88
== END 2021-11-07 12:35 | disposition home or self-care (01) ==
LOC: ORPAIN 11:05
PROVIDERS: ATTEND Hospitalist
DX: M79.18 Myalgia, other site (principal); Z88.5 Allergy status to narcotic agent; Z88.8 Allergy status to other drugs, medicaments and biological substances; Z91.09 Other allergy status, other than to drugs and biological substances; Z79.899 Other long term (current) drug therapy; F17.200 Nicotine dependence, unspecified, uncomplicated; Z80.0 Family history of malignant neoplasm of digestive organs; Z80.8 Family history of malignant neoplasm of other organs or systems
CPT/HCPCS: 20553; J1100; J2795

== ENCOUNTER 2021-11-20 04:02 | Inpatient (IN) | payer MEDICAID, OTHER ==
--- NOTE | 2021-11-20 06:23 | ED ---
Psych HPI - General Chief Complaint: Psychiatric Symptoms Stated Complaint: Mental Health Time Seen by Provider: 11/20/21 04:25 Source: patient, police Mode of arrival: ambulatory - History of Present Illness Initial Comments: This patient is a 36-year-old man who complains of having auditory hallucinations and insomnia going back for approximately 2 weeks now. Patient has history of similar and states that he has stopped taking his medications. MD Complaint: other Onset/Timin -: week(s) Associated Psychiatric Symptoms: racing thoughts, auditory hallucinations History of same: Yes Quality: getting worse Improves With: none Worsens With: none Context: not taking psychiatric medications Associated Symptoms: insomnia - Related Data Home Medications Medication Instructions Recorded Confirmed Aspirin 325 mg PO DAILY PRN 11/05/21 11/07/21 Melatonin 10 mg PO HS PRN 11/05/21 11/07/21 Nicotine 21Mg/24Hr Patch [Habitrol] 1 patch TRANSDERM DAILY PRN 11/05/21 11/07/21 hydrOXYzine pamoate [Hydroxyzine 25 mg PO DAILY PRN 11/05/21 11/07/21 Pamoate] Allergies Allergy/AdvReac Type Severity Reaction Status Date / Time adhesive tape Allergy Rash/Hives Verified 11/20/21 04:06 gabapentin Allergy Rash/Hives Verified 11/20/21 04:06 hydrocodone AdvReac MIGRAINE Verified 11/20/21 04:06 topiramate [From Topamax] AdvReac creates Verified 11/20/21 04:06 black SPOT on left eye NARCOTICS AdvReac MIGRAINES Uncoded 11/20/21 04:06 Review of Systems ROS Statement: Those systems with pertinent positive or pertinent negative responses have been documented in the HPI. ROS Other: All systems not noted in ROS Statement are negative. Constitutional: Denies: fever Respiratory: Denies: cough, dyspnea Cardiovascular: Denies: chest pain, palpitations Gastrointestinal: Denies: abdominal pain, vomiting, diarrhea Genitourinary: Denies: dysuria, hematuria Musculoskeletal: Denies: back pain Skin: Denies: rash Neurological: Denies: headache, weakness Psychiatric: Reports: anxiety, auditory hallucinations Past Medical History Past Medical History: CVA/TIA, GERD/Reflux, GI Bleed, Rheumatoid Arthritis (RA) Additional Past Medical History / Comment(s): diverticulitis, DDD, herniated disc X2. Occipital Neuralgia. OCC BLOOD IN STOOL. hx of stomach ulcer. "POSSIBLE 2 STROKES ON MRI.", occiptal migraines, "sore left arm". reynaulds disease History of Any Multi-Drug Resistant Organisms: None Reported Past Surgical History: Cholecystectomy Additional Past Surgical History / Comment(s): EGD, COLONOSCOPY, oral surgery, PAIN CLINIC PROCEDURES. Past Anesthesia/Blood Transfusion Reactions: Family History of Problems w/ Anesthesia Additional Past Anesthesia/Blood Transfusion Reaction / Comment(s): MOTHER HAD EPIDURAL THAT DIDN'T WORK. Past Psychological History: Anxiety, Depression Smoking Status: Current every day smoker Past Alcohol Use History: None Reported Past Drug Use History: None Reported - Past Family History Mother Family Medical History: Cancer Additional Family Medical History / Comment(s): SKIN CANCER. grandfather colon cancer General Exam Limitations: no limitations General appearance: alert, in no apparent distress Head exam: Present: atraumatic, normocephalic Eye exam: Present: normal appearance Neck exam: Present: normal inspection, full ROM Respiratory exam: Present: normal lung sounds bilaterally. Absent: respiratory distress, wheezes, rales, rhonchi, stridor Cardiovascular Exam: Present: regular rate, normal rhythm, normal heart sounds. Absent: systolic murmur, diastolic murmur, rubs, gallop GI/Abdominal exam: Present: soft. Absent: distended, tenderness, guarding, rebound, rigid, mass Extremities exam: Present: normal inspection, normal capillary refill. Absent: pedal edema, calf tenderness Neurological exam: Present: alert Psychiatric exam: Present: anxious, manic. Absent: depressed, homicidal ideation, suicidal ideation Skin exam: Present: warm, dry, intact, normal color. Absent: rash Course Vital Signs 11/20/21 04:04 Temperature 98.4 F Pulse Rate 116 H Respiratory 20 Rate Blood Pressure 131/89 O2 Sat by Pulse 99 Oximetry Disposition Clinical Impression: Acute psychosis Disposition: ADMITTED IP TO THIS HOSP Condition: Fair Is patient prescribed a controlled substance at d/c from ED?: No Referrals: Robert Sanchez DO [Primary Care Provider] - 1-2 days
[2021-11-20] MEDS ORDERED: chlorproMAZINE 25 MG/ML 2 ML AMP IM PRN (08:05)
[2021-11-20] MEDS ORDERED: chlorproMAZINE 25 MG TAB PO PRN (08:05)
[2021-11-20] MEDS ORDERED: MAGNESIUM HYDROXIDE 2,400 MG/10 ML CUP PO PRN (08:05)
[2021-11-20] MEDS ORDERED: LORazepam 2 MG/ML INJ IM PRN (08:05)
[2021-11-20] MEDS ORDERED: MAG HYDROX/AL HYDROX/SIMETH 30 ML CUP PO PRN (08:05)
[2021-11-20] MEDS: NICOTINE 14MG/24HR PATCH TRANSDERM SCH (09:18)
[2021-11-20] MEDS: LORazepam 1 MG TAB PO PRN (13:13)
--- NOTE | 2021-11-20 14:40 | P.HP ---
Psychiatric H&P - . H&P Date: 11/20/21 History & Physical: Allergies Allergy/AdvReac Type Severity Reaction Status Date / Time adhesive tape Allergy Rash/Hives Verified 11/20/21 07:04 gabapentin Allergy Rash/Hives Verified 11/20/21 07:04 paliperidone [From Invega] Allergy per oasis Verified 11/20/21 07:04 hydrocodone AdvReac MIGRAINE Verified 11/20/21 07:04 topiramate [From Topamax] AdvReac creates Verified 11/20/21 07:04 black SPOT on left eye NARCOTICS AdvReac MIGRAINES Uncoded 11/20/21 07:04 Vital Signs Temp 99 F 11/20/21 09:21 Pulse 119 H 11/20/21 09:21 Resp 20 11/20/21 09:21 BP 127/89 11/20/21 09:21 Pulse Ox 99 11/20/21 04:04 FiO2 Intake & Output 11/19/21 11/20/21 11/20/21 18:59 06:59 18:59 Weight 73.936 kg 68.492 kg Laboratory Last Values Coronavirus (PCR) Not Detected (Not Detectd) 11/20/21 06:39 11/20/21 14:39 IDENTIFYING DATA: Patient is a homeless, unemployed, 36-year-old male with significant history of psychosis who presents to the hospital on a pickup order due to nonadherence with treatment and follow-up. HPI: Patient presented to the hospital on 11/20/2021, brought into the hospital and corn picker order as a demand has been filed for court. The patient has been nonadherent to treatment. When assessed in the emergency department, the patient was noted to be noticeably responding to internal stimuli, overtly paranoid, and experiencing auditory hallucinations. He was also noted to be quite agitated and yelling. The patient was subsequently admitted on to the psychiatric unit. Upon assessment, psychiatric unit, the patient remains fixated that his neighbor is constantly playing loud music and yelling into his ears even while he is admitted on the unit. The patient believes that the patient in the next room is his neighbor and that he has been following him here onto this unit. The patient is endorsing auditory hallucinations in the form of multiple voices and loud noises. He reports significant paranoia. The patient does admit that he has been nonadherent with medications and firmly states this provider that he is not psychotic. He states that he is not schizophrenic. The patient denies any substance use. He then terminates the interview. PAST PSYCHIATRIC HISTORY: Patient was diagnosed with acute psychosis. The patient was last hospitalized on a psychiatric unit and discharged on 10/07/21 on a regimen of Abilify, trazodone, melatonin, and nicotine patches. Patient has not followed up with any of his outpatient psychiatric appointments. Unable to assess prior suicide attempts. PMH: Past Medical History: CVA/TIA, GERD/Reflux, GI Bleed, Rheumatoid Arthritis (RA) Additional Past Medical History / Comment(s): diverticulitis, DDD, herniated disc X2. Occipital Neuralgia. OCC BLOOD IN STOOL. hx of stomach ulcer. "POSSIBLE 2 STROKES ON MRI.", occiptal migraines, "sore left arm". reynaulds disease History of Any Multi-Drug Resistant Organisms: None Reported Past Surgical History: Cholecystectomy Additional Past Surgical History / Comment(s): EGD, COLONOSCOPY, oral surgery, PAIN CLINIC PROCEDURES. Past Anesthesia/Blood Transfusion Reactions: Family History of Problems w/ Anesthesia Additional Past Anesthesia/Blood Transfusion Reaction / Comment(s): MOTHER HAD EPIDURAL THAT DIDN'T WORK. Past Psychological History: Anxiety, Depression Smoking Status: Current every day smoker Past Alcohol Use History: None Reported Past Drug Use History: None Reported ALLERGIES: The patient has reported allergies to hydrocodone, adhesive tape, gabapentin, Topamax, Invega, and narcotics CHEMICAL DEPENDENCY HISTORY: Patient denies any alcohol, marijuana, tobacco, or illicit drug use. FAMILY PSYCHIATRIC/SUBSTANCE USE HISTORY: Unable to assess. SOCIAL HISTORY: Patient is reportedly homeless but has been living with his mother. No other social history could be obtained at this time. MENTAL STATUS EXAM: General Appearance: Patient appears to be stated age is alert, directable, and attempts to cooperate. Patient appears to have poor hygiene and grooming. He appears to be quite disheveled. Behavior: Patient is lying down in bed with elevated psychomotor activity. He appears to be agitated. Speech: Patient's speech is but in volume, spontaneous, and at times pressured. Mood/Affect: Patient reports their mood is upset, affect is congruent and agitated. Suicidality/Homicidality: Unable to assess. Perceptions: Patient is endorsing auditory hallucinations. Though content/process: Patient appears to be paranoid. Memory and concentration: AOX3, grossly intact for the purposes of this session. Can spell "WORLD" backwards Judgment and insight: Very poor. STRENGTHS/WEAKNESSES: Unable to identify patient's strengths at this time. Weakness is that the patient has very poor insight and his grossly psychotic. INTELLECT: average IMPRESSIONS: Schizophrenia versus schizoaffective disorder PLAN: -Patient is admitted under voluntary involuntary status to [facility] for stabilization of psychiatric symptoms and safety. A demand has been filed for court. -Medications : Will start patient on Haldol 3 mg by mouth twice a day for psychosis. -Thorazine and Ativan PRN for agitation/aggression -Patient states that he will refuse any medications. -Internal Medicine consult to perform medical evaluation and physical. -NRT - nicotine patch -SW on board for discharge planning. Encourage patient to participate in groups to work on coping skills. 11/20/21 14:39
[2021-11-20] MEDS ORDERED: LORATADINE 10 MG TAB PO PRN (14:51)
--- NOTE | 2021-11-20 14:54 | P.CONS ---
History of Present Illness - Reason for Consult Consult date: 11/20/21 medical management - History of Present Illness This is a pleasant 36-year-old male with medical history significant for gastroesophageal reflux disease, self reported rheumatoid arthritis without joint deformity, questionable history of stroke, diverticulitis, degenerative disease with herniated disc, occipital neuralgia, reynauds, migraines. Patient also history of anxiety/depression he is a current daily smoker smokes between 1-2 packs of cigarettes per day he is also a current drinker. Although he does not elaborate on how much he drinks. Patient uses a CBD pen for anxiety. Denies any other illicit substance use. Patient states that he has a "pedochip" in his head and that is what brought him to the and he would like the chip removed. Patient presents to the with auditory hallucinations and insomnia that has been going on for about 2 weeks now this information was taken from patient chart. Patient is maintained outpatient on trazodone, hydroxyzine, Abilify. He states he is supposed to be on some cardiac medications and also a stomach pill but has stopped taking them. He sees Dr Munoz he states and also Dr Lynch. His most recent lab work in September 2021 shows an A1c of 5.5, normal electrolytes, adequate cholesterol panel was TSH 3.100, liver enzymes normal. Patient does have a low-grade fever 99, is tachycardic at 119, blood pressure 127/89. We are asked to see patient in consultation for medical management. He is paranoid during examination, he is reluctant to answer most questions and does not elaborate. States he lives alone, does not work. He is having a generalized headache and reports feeling stuffy. REVIEW OF SYSTEMS: CONSTITUTIONAL: No fever, no malaise, no fatigue. Reports headache. HEENT: No recent visual problems or hearing problems. Denied any sore throat. CARDIOVASCULAR: No chest pain, orthopnea, PND, no palpitations, no syncope. PULMONARY: No shortness of breath, no cough, no hemoptysis. GASTROINTESTINAL: No diarrhea, no nausea, no vomiting, no abdominal pain. NEUROLOGICAL: No headaches, no weakness, no numbness. HEMATOLOGICAL: Denies any bleeding or petechiae. GENITOURINARY: Denies any burning micturition, frequency, or urgency. MUSCULOSKELETAL/RHEUMATOLOGICAL: Denies any joint pain, swelling, or any muscle pain. ENDOCRINE: Denies any polyuria or polydipsia. The rest of the 14-point review of systems is negative. PHYSICAL EXAMINATION: GENERAL: The patient is alert and oriented x3, not in any acute distress. Well developed, well nourished. HEENT: Pupils are round and equally reacting to light. EOMI. No scleral icterus. No conjunctival pallor. Normocephalic, atraumatic. No pharyngeal erythema. No thyromegaly. CARDIOVASCULAR: S1 and S2 present. No murmurs, rubs, or gallops. PULMONARY: Chest is clear to auscultation, no wheezing or crackles. ABDOMEN: Soft, nontender, nondistended, normoactive bowel sounds. No palpable organomegaly. MUSCULOSKELETAL: No joint swelling or deformity. EXTREMITIES: No cyanosis, clubbing, or pedal edema. NEUROLOGICAL: Gross neurological examination did not reveal any focal deficits. SKIN: No rashes. Assessment and Assessment Auditory hallucinations with insomnia Paranoia with dellusional thinking History of anxiety/depression History of gastroesophageal reflux disease Self reported history of rheumatoid arthritis History diverticulitis History degenerative disc disease L3 disc History occipital neuralgia History reynauds History migraines Questionable history of stroke Current daily smoker Frequent alcohol use CBD use GI prophylaxis DVT prophylaxis Plan Resume appropriate home medications Routine screening labs are pending Psychiatric evaluation Drug screen pending Claritin as needed Will add PPI for GI prophylaxis Thank you kindly for this consultation The impression and plan of care has been dictated by Brenda Feliciano Nurse Practitioner as directed. Dr. Jesusita MD I have performed a history and physical examination and medical decision making of this patient, discussed the same with the dictator, and agree with the dictators assessment and plan as written, documented as a scribe. Based on total visit time, I have performed more than 50% of this visit. Past Medical History Past Medical History: CVA/TIA, GERD/Reflux, GI Bleed, Rheumatoid Arthritis (RA) Additional Past Medical History / Comment(s): diverticulitis, DDD, herniated disc X2. Occipital Neuralgia. OCC BLOOD IN STOOL. hx of stomach ulcer. "POSSIBLE 2 STROKES ON MRI.", occiptal migraines, "sore left arm". reynaulds disease History of Any Multi-Drug Resistant Organisms: None Reported Past Surgical History: Cholecystectomy Additional Past Surgical History / Comment(s): EGD, COLONOSCOPY, oral surgery, PAIN CLINIC PROCEDURES. Past Anesthesia/Blood Transfusion Reactions: Family History of Problems w/ Anesthesia Additional Past Anesthesia/Blood Transfusion Reaction / Comm: MOTHER HAD EPIDURAL THAT DIDN'T WORK. Smoking Status: Current every day smoker - Past Family History Mother Family Medical History: Cancer Additional Family Medical History / Comment(s): SKIN CANCER. grandfather colon cancer Medications and Allergies Home Medications Medication Instructions Recorded Confirmed Type Aspirin 325 mg PO DAILY PRN 11/05/21 11/20/21 History Melatonin 10 mg PO HS PRN 11/05/21 11/20/21 History Nicotine 21Mg/24Hr Patch [Habitrol] 1 patch TRANSDERM DAILY PRN 11/05/21 11/20/21 History hydrOXYzine pamoate [Hydroxyzine 25 mg PO DAILY PRN 11/05/21 11/20/21 History Pamoate] ARIPiprazole [Abilify] 15 mg PO HS 11/20/21 11/20/21 History traZODone HCL 100 mg PO HS 11/20/21 11/20/21 History Allergies Allergy/AdvReac Type Severity Reaction Status Date / Time adhesive tape Allergy Rash/Hives Verified 11/20/21 07:04 gabapentin Allergy Rash/Hives Verified 11/20/21 07:04 paliperidone [From Invega] Allergy per oasis Verified 11/20/21 07:04 hydrocodone AdvReac MIGRAINE Verified 11/20/21 07:04 topiramate [From Topamax] AdvReac creates Verified 11/20/21 07:04 black SPOT on left eye NARCOTICS AdvReac MIGRAINES Uncoded 11/20/21 07:04 Physical Exam Vitals: Vital Signs Temp Pulse Pulse Resp BP BP Pulse Ox 11/20/21 09:21 99 F 119 H 20 127/89 11/20/21 04:04 98.4 F 116 H 20 131/89 99 Intake and Output 11/19/21 11/20/21 11/20/21 22:59 06:59 14:59 Other: Weight 73.936 kg 68.492 kg
[2021-11-20] MEDS ORDERED: risperiDONE 2 MG TAB PO SCH (21:00)
[2021-11-21] MEDS: haloperidoL 1 MG TAB PO SCH ×4 (02:36→21:00)
[2021-11-21] MEDS: NICOTINE 14MG/24HR PATCH TRANSDERM SCH (08:40)
[2021-11-21] MEDS: FAMOTIDINE 20 MG TAB PO SCH (08:41)
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
[2021-11-21 14:40] LABS: Basophils # (A) 0.1 k/uL (0-0.2); Basophils % (A) 1 %; Eosinophils # (A) 0.3 k/uL (0-0.7); Eosinophils % (A) 3 %; HCT 46.9 % (39.0-53.0); HGB 15.6 gm/dL (13.0-17.5); Lymphocytes % (A) 22 %; MCHC 33.2 g/dL (31.0-37.0); MCV 87.4 fL (80.0-100.0); Mean Platelet Volume 7.1; Monocytes # (A) 0.3 k/uL (0-1.0); Monocytes % (A) 3 %; Neutrophils # (A) 6.4 k/uL (1.3-7.7); Neutrophils % (A) 70 %; Platelet Count 232 k/uL (150-450); RBC 5.37 m/uL (4.30-5.90); RDW 13.1 % (11.5-15.5); WBC 9.1 k/uL (3.8-10.6)
[2021-11-21 15:02] LABS: ALT 23 U/L (4-49); AST 38 U/L (17-59); African American GFR (CKD) >90 (>60 ml/min/1.73 sqM); Alkaline Phosphatase 71 U/L (38-126); Anion Gap 7 mmol/L; Bilirubin, Delta 0.2 mg/dL (0.0-0.2); Bilirubin,Unconjugated 0.2 mg/dL (0.0-1.1); Blood Urea Nitrogen 19 mg/dL (9-20); Calcium 9.6 mg/dL (8.4-10.2); Carbon Dioxide 21 mmol/L (22-30); Chloride 102 mmol/L (98-107); Glucose 140 mg/dL (74-99); Non-African American GFR(CKD) 83 (>60 ml/min/1.73 sqM); Sodium 130 mmol/L (137-145); Total Bilirubin 0.4 mg/dL (0.2-1.3); Total Protein 6.5 g/dL (6.3-8.2)
[2021-11-21] MEDS: ACETAMINOPHEN TAB 325 MG TAB PO PRN (18:27)
[2021-11-21] MEDS: LORazepam 1 MG TAB PO PRN (21:01)
[2021-11-21 23:43] LABS: Chol/HDL Ratio 4.22 Ratio; LDL Cholesterol,Calculated 100.1 mg/dL (0.0-131.0); VLDL Calculation 19.72 mg/dL (5.00-40.00)
[2021-11-22] MEDS: FAMOTIDINE 20 MG TAB PO SCH (09:08)
[2021-11-22] MEDS: NICOTINE 14MG/24HR PATCH TRANSDERM SCH (09:08)
[2021-11-22] MEDS: haloperidoL 1 MG TAB PO SCH ×2 (09:09→20:58)
[2021-11-22] MEDS: ACETAMINOPHEN TAB 325 MG TAB PO PRN ×2 (13:41→21:01)
--- NOTE | 2021-11-22 13:58 | P.PN ---
Progress Note - Text Progress Note Date: 11/22/21 Interval History: Patient was seen sitting in his room and was directable and agreeable to speak with proposal lead writer in the office. Currently, the patient is not reporting any suicidal or homicidal ideation, intention, and/or plan. He continues to endorse auditory and visual hallucinations. He states that he is constantly having sonic waves shot into his ears and head by drones passing by. He continues to vehemently state that he is not schizophrenic and does not require any medications. Mental Status Exam: General Appearance: Patient appears to be stated age is alert, directable, and cooperative. Behavior: Patient displays psychomotor agitation. Eye contact is appropriate. Speech: Patient's speech is fluent and nonpressured. Loud in volume. Mood/Affect: Mood is "I'm all right," affect is less expansive and appears to be somewhat euthymic today. Suicidality/Homicidality: Patient denies any suicidal or homicidal ideation. Perceptions: Patient reports auditory hallucinations Though content/process: Patient continues to endorse bizarre paranoid delusions. Memory and concentration: AOX3, grossly intact for the purposes of this session Judgment and insight: Poor Vital Signs Temp 97.7 F 11/22/21 06:58 Pulse 106 H 11/22/21 06:58 Resp 16 11/22/21 06:58 BP 124/78 11/22/21 06:58 Pulse Ox 99 11/20/21 04:04 FiO2 Laboratory Results - Last 24 Hours 11/21/21 11/21/21 11/21/21 14:20 14:20 14:20 WBC 9.1 RBC 5.37 Hgb 15.6 Hct 46.9 MCV 87.4 MCH 29.0 MCHC 33.2 RDW 13.1 Plt Count 232 MPV 7.1 Neutrophils % 70 Lymphocytes % 22 Monocytes % 3 Eosinophils % 3 Basophils % 1 Neutrophils # 6.4 Lymphocytes # 2.0 Monocytes # 0.3 Eosinophils # 0.3 Basophils # 0.1 Sodium 130 L Potassium 4.0 Chloride 102 Carbon Dioxide 21 L Anion Gap 7 BUN 19 Creatinine 1.13 Est GFR (CKD-EPI)AfAm >90 Est GFR (CKD-EPI)NonAf [address] Glu mg/dL 107 Hemoglobin A1c 5.4 Calcium 9.6 Total Bilirubin 0.4 Conjugated Bilirubin 0.0 Unconjugated Bilirubin 0.2 Delta Bilirubin 0.2 AST 38 ALT 23 Alkaline Phosphatase 71 Total Protein 6.5 Albumin 4.0 Triglycerides 98.60 Cholesterol 157.00 LDL Cholesterol, Calc 100.1 VLDL Cholesterol, Calc 19.72 HDL Cholesterol 37.20 L Cholesterol/HDL Ratio 4.22 TSH 1.360 Assessment Schizophrenia Nicotine dependence Plan: -Patient continues to meet criteria for inpatient psychiatric admission for symptom stabilization and safety. A demand has been filed for court. -Medications: Continue Haldol 3 mg by mouth twice a day for psychosis. Patient continues to refuse this medication. We will likely await a court order. -When necessary Ativan and Thorazine for agitation/aggression. -NRT - nicotine patch -SW on board for discharge planning. Encouraged the patient to participate in milieu.
[2021-11-22] MEDS: MELATONIN 5 MG TABLET PO SCH (20:59)
[2021-11-23] MEDS: NICOTINE 14MG/24HR PATCH TRANSDERM SCH (07:41)
[2021-11-23] MEDS: FAMOTIDINE 20 MG TAB PO SCH ×2 (07:41→20:24)
[2021-11-23] MEDS: haloperidoL 1 MG TAB PO SCH ×2 (07:42→20:23)
[2021-11-23] MEDS: ACETAMINOPHEN TAB 325 MG TAB PO PRN ×2 (13:34→18:15)
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
--- NOTE | 2021-11-23 16:51 | P.PN ---
Progress Note - Text Progress Note Date: 11/23/21 November 23: Oral intake fair. Had a BM. Has been ambulatory. Anxious and depressed. Reflux symptoms. Active Medications Acetaminophen (Acetaminophen Tab 325 Mg Tab) 650 mg PO Q4HR PRN PRN Reason: Pain/Discomfort Last Admin: 11/23/21 13:34 Dose: 650 mg Al Hydroxide/Mg Hydroxide (Mag Hydrox/Al Hydrox/Simeth 30 Ml Cup) 30 ml PO Q4HR PRN PRN Reason: GI Upset Chlorpromazine HCl (Chlorpromazine 25 Mg/Ml 2 Ml Amp) 50 mg IM QID PRN PRN Reason: Agitation or Acute Psychosis Last Admin: 11/20/21 13:29 Dose: 50 mg Chlorpromazine HCl (Chlorpromazine 25 Mg Tab) 50 mg PO QID PRN PRN Reason: Agitation or Acute Psychosis Famotidine (Famotidine 20 Mg Tab) 20 mg PO DAILY [facility] Last Admin: 11/23/21 07:41 Dose: 20 mg Haloperidol (Haloperidol 1 Mg Tab) 3 mg PO BID [facility] Last Admin: 11/23/21 07:42 Dose: Not Given Loratadine (Loratadine 10 Mg Tab) 5 mg PO DAILY PRN PRN Reason: Allergy Symptoms Lorazepam (Lorazepam 2 Mg/Ml Inj) 2 mg IM QID PRN PRN Reason: Agitation or Acute Anxiety Last Admin: 11/20/21 13:29 Dose: 2 mg Lorazepam (Lorazepam 1 Mg Tab) 2 mg PO QID PRN PRN Reason: Agitation or Acute Anxiety Last Admin: 11/21/21 21:01 Dose: 2 mg Magnesium Hydroxide (Magnesium Hydroxide 2,400 Mg/10 Ml Cup) 2,400 mg PO DAILY PRN PRN Reason: Constipation Melatonin (Melatonin 5 Mg Tablet) 10 mg PO HS [facility] Last Admin: 11/22/21 20:59 Dose: 10 mg Nicotine (Nicotine 14mg/24hr Patch) 1 patch TRANSDERM DAILY [facility] Last Admin: 11/23/21 07:41 Dose: 1 patch On examination: VITAL SIGNS: [97.7, 106, 16, 124-78, 95% on room air] GENERAL APPEARANCE: Sitting up in a chair awake, anxious HEENT: Normal external appearance of nose and ear. Oral cavity normal EYES: Pupils equal. Conjunctiva normal. NECK: JVD not raised. Mass not palpable. RESPIRATORY: Respiratory effort normal. Lungs clear to auscultation. CARDIOVASCULAR: First and second sounds normal. No edema. ABDOMEN: Soft. Liver and spleen not palpable. No tenderness. No mass palpable. PSYCHIATRY: Alert and oriented x3. Mood and affect anxious. 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 Increase Pepcid to 20 mg twice a day. Increase nicotine patch at 21. Discussed with patient.
[2021-11-23] MEDS: NICOTINE 21MG/24HR PATCH TRANSDERM SCH (18:14)
[2021-11-23] MEDS: THIAMINE 100 MG TAB PO SCH (18:15)
[2021-11-23] MEDS: MELATONIN 5 MG TABLET PO SCH (20:24)
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
[2021-11-24] MEDS: FAMOTIDINE 20 MG TAB PO SCH ×2 (08:01→20:45)
[2021-11-24] MEDS: NICOTINE 21MG/24HR PATCH TRANSDERM SCH (08:01)
[2021-11-24] MEDS: haloperidoL 1 MG TAB PO SCH ×2 (08:02→20:45)
[2021-11-24] MEDS: ACETAMINOPHEN TAB 325 MG TAB PO PRN ×3 (08:02→20:50)
[2021-11-24] MEDS: THIAMINE 100 MG TAB PO SCH (08:58)
[2021-11-24] MEDS: PSYLLIUM HUSK 100% 6 GM PACKET PO SCH ×2 (08:59→20:45)
[2021-11-24] MEDS: MELATONIN 5 MG TABLET PO SCH (20:30)
[2021-11-24] MEDS: QUEtiapine 50 MG TAB PO SCH (20:30)
[2021-11-25] MEDS: NICOTINE 21MG/24HR PATCH TRANSDERM SCH (06:46)
[2021-11-25] MEDS: haloperidoL 1 MG TAB PO SCH ×2 (08:34→20:41)
[2021-11-25] MEDS: FAMOTIDINE 20 MG TAB PO SCH ×2 (08:34→20:41)
[2021-11-25] MEDS: PSYLLIUM HUSK 100% 6 GM PACKET PO SCH ×2 (08:35→20:41)
[2021-11-25] MEDS: THIAMINE 100 MG TAB PO SCH (08:36)
[2021-11-25] MEDS: ACETAMINOPHEN TAB 325 MG TAB PO PRN ×3 (08:37→18:03)
[2021-11-25 11:22] LABS: Appearance,Urine Clear (Clear); Bilirubin,Urine Negative (Negative); Blood,Urine Negative (Negative); Color,Urine Yellow; Glucose,Urine (UA) Negative (Negative); Ketones,Urine Negative (Negative); Leukocyte Esterase,Urine Negative (Negative); Nitrite,Urine Negative (Negative); Protein,Urine Negative (Negative); Specific Gravity,Urine 1.022 (1.001-1.035); Urobilinogen,Urine <2.0 mg/dL (<2.0)
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
[2021-11-25] MEDS: QUEtiapine 50 MG TAB PO SCH (20:40)
[2021-11-25] MEDS: MELATONIN 5 MG TABLET PO SCH (20:41)
[2021-11-25 22:39] LABS: Urine Alcohol Negative (Negative); Urine Barbiturate Negative (Negative); Urine Cocaine Negative (Negative); Urine Methadone Negative (Negative); Urine Opiates Negative (Negative); Urine Phencyclidine Negative (Negative)
[2021-11-26] MEDS: NICOTINE 21MG/24HR PATCH TRANSDERM SCH (07:49)
[2021-11-26] MEDS: FAMOTIDINE 20 MG TAB PO SCH ×2 (07:50→20:27)
[2021-11-26] MEDS: THIAMINE 100 MG TAB PO SCH (07:50)
[2021-11-26] MEDS: haloperidoL 1 MG TAB PO SCH ×2 (07:51→20:27)
[2021-11-26] MEDS: PSYLLIUM HUSK 100% 6 GM PACKET PO SCH ×2 (07:51→20:27)
--- NOTE | 2021-11-26 13:33 | P.PN ---
Progress Note - Text Progress Note Date: 11/26/21 Interval History: Patient was seen sitting in his room and was directable and agreeable to speak with typewriter assembler in the office. Currently, the patient is not reporting any suicidal or homicidal ideation, intention, and/or plan. He is not reporting any overt paranoid symptoms. He continues to be in disagreement regarding his diagnosis and the need for medications. He is however agreeable to attend mental health court to plead his case. He is otherwise calm and cooperative with staff and peers. He reports no issues regarding sleep or his appetite. He has been nonadherent with his Seroquel. Mental Status Exam: General Appearance: Patient appears to be stated age is alert, directable, and cooperative. Behavior: Patient displays normal psychomotor activity. Eye contact is appropriate. Speech: Patient's speech is fluent and nonpressured. Loud in volume. Mood/Affect: Mood is "Ok," affect is constricted and euthymic. Suicidality/Homicidality: Patient denies any suicidal or homicidal ideation. Perceptions: Patient reports auditory hallucinations Though content/process: Patient does not endorse any overt delusional thought content today. Memory and concentration: AOX3, grossly intact for the purposes of this session Judgment and insight: Poor Vital Signs Temp 98.2 F 11/26/21 07:02 Pulse 72 11/26/21 07:02 Resp 16 11/25/21 06:20 BP 123/73 11/26/21 07:02 Pulse Ox 99 11/20/21 04:04 FiO2 Laboratory Results - Last 24 Hours 11/25/21 10:00 Urine Opiates Screen Negative Urine Methadone Screen Negative Ur Propoxyphene Screen Negative Urine Barbiturates Negative Ur Phencyclidine Scrn Negative Ur Amphetamine Screen Negative U Benzodiazepines Scrn Negative Urine Cocaine Screen Negative U Cannabinoids Screen Negative Urine Alcohol Negative Assessment Schizophrenia Nicotine dependence Plan: -Patient continues to meet criteria for inpatient psychiatric admission for symptom stabilization and safety. A demand has been filed for court. Court is scheduled for 12/04/2021. -Medications: Continue Seroquel 50 mg at bedtime for psychosis. Patient is nonadherent at this time. -When necessary Ativan and Thorazine for agitation/aggression. -NRT - nicotine patch -SW on board for discharge planning. Encouraged the patient to participate in milieu.
[2021-11-26] MEDS: MELATONIN 5 MG TABLET PO SCH (20:26)
[2021-11-26] MEDS: QUEtiapine 50 MG TAB PO SCH (20:27)
[2021-11-27] MEDS: NICOTINE 21MG/24HR PATCH TRANSDERM SCH (07:44)
[2021-11-27] MEDS: haloperidoL 1 MG TAB PO SCH ×2 (07:45→23:34)
[2021-11-27] MEDS: FAMOTIDINE 20 MG TAB PO SCH ×2 (07:45→23:34)
[2021-11-27] MEDS: PSYLLIUM HUSK 100% 6 GM PACKET PO SCH ×2 (07:45→23:34)
[2021-11-27] MEDS: THIAMINE 100 MG TAB PO SCH (07:45)
[2021-11-27] MEDS: ACETAMINOPHEN TAB 325 MG TAB PO PRN ×2 (07:46→17:20)
[2021-11-27] MEDS: IBUPROFEN 600 MG TAB PO PRN ×2 (12:10→19:50)
--- NOTE | 2021-11-27 14:49 | P.PN ---
Progress Note - Text Progress Note Date: 11/27/21 Interval History: Patient was seen sitting in his room and was directable and agreeable to speak with scientific writer in the office. Currently, the patient is not reporting any suicidal or homicidal ideation, intention, and/or plan. He is not reporting any overt paranoid symptoms. He continues to be in disagreement regarding his diagnosis and the need for medications. He reports that he feels sorry for having to be a burden to staff with his continued presence on the unit. He was informed that he is not a burden. He otherwise reports no issues. Mental Status Exam: Grossly unchanged from yesterday. General Appearance: Patient appears to be stated age is alert, directable, and cooperative however not cooperative with medications. Behavior: Patient displays normal psychomotor activity. Eye contact is appropriate. Speech: Patient's speech is fluent and nonpressured. Loud in volume. Mood/Affect: Mood is "Fine," affect is constricted and euthymic. Suicidality/Homicidality: Patient denies any suicidal or homicidal ideation. Perceptions: Patient denies any auditory or visual hallucinations. Though content/process: Patient does not endorse any overt delusional thought content today. Memory and concentration: AOX3, grossly intact for the purposes of this session Judgment and insight: Poor Schizophrenia Nicotine dependence Plan: -Patient continues to meet criteria for inpatient psychiatric admission for symptom stabilization and safety. A demand has been filed for court. Court is scheduled for 12/04/2021. -Medications: Continue Seroquel 50 mg at bedtime for psychosis. Patient is nonadherent at this time. -When necessary Ativan and Thorazine for agitation/aggression. -NRT - nicotine patch -SW on board for discharge planning. Encouraged the patient to participate in milieu.
[2021-11-27] MEDS: MELATONIN 5 MG TABLET PO SCH (19:49)
[2021-11-27] MEDS: QUEtiapine 50 MG TAB PO SCH (23:35)
[2021-11-28 07:05] VITALS: RESP 18
[2021-11-28] MEDS: THIAMINE 100 MG TAB PO SCH (08:17)
[2021-11-28] MEDS: FAMOTIDINE 20 MG TAB PO SCH ×2 (08:17→20:40)
[2021-11-28] MEDS: NICOTINE 21MG/24HR PATCH TRANSDERM SCH (08:18)
[2021-11-28] MEDS: IBUPROFEN 600 MG TAB PO PRN ×2 (08:19→20:13)
[2021-11-28] MEDS: PSYLLIUM HUSK 100% 6 GM PACKET PO SCH ×2 (08:40→20:40)
[2021-11-28] MEDS: haloperidoL 1 MG TAB PO SCH ×2 (08:40→20:00)
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
[2021-11-28] MEDS: MELATONIN 5 MG TABLET PO SCH (20:14)
[2021-11-28] MEDS: QUEtiapine 50 MG TAB PO SCH (20:40)
[2021-11-29] MEDS: PSYLLIUM HUSK 100% 6 GM PACKET PO SCH ×2 (08:36→20:25)
[2021-11-29] MEDS: haloperidoL 1 MG TAB PO SCH ×2 (08:36→20:25)
[2021-11-29] MEDS: IBUPROFEN 600 MG TAB PO PRN ×2 (08:38→16:17)
[2021-11-29] MEDS: NICOTINE 21MG/24HR PATCH TRANSDERM SCH (08:38)
[2021-11-29] MEDS: FAMOTIDINE 20 MG TAB PO SCH ×2 (08:38→20:23)
[2021-11-29] MEDS: THIAMINE 100 MG TAB PO SCH (08:38)
--- NOTE | 2021-11-29 13:24 | P.PN ---
Progress Note - Text Progress Note Date: 11/29/21 Interval History: Patient was seen sitting in his room and was directable and agreeable to speak with job specification writer in his room. Currently, the patient is not reporting any issues or concerns at this time. He denies any suicidal or homicidal thoughts. He denies any auditory or visual hallucinations. He denies any paranoia or delusions. The patient continues to deny the need for any medications and does not believe that he has schizophrenia. He is awaiting court on 12/04/2021. He reports no medical issues or concerns Mental Status Exam: Grossly unchanged from yesterday. General Appearance: Patient appears to be stated age is alert, directable, and cooperative. Behavior: Patient is calmly seated without any agitated behavior. Speech: Patient's speech is fluent and nonpressured. Mood/Affect: Mood is "fine", affect is congruent and constricted. Suicidality/Homicidality: Patient denies having any suicidal or homicidal ideation intent or plan. Perceptions: Patient denies any visual hallucinations and denies any auditory hallucinations Though content/process: There is no evidence of any delusional thought content and thought process is linear and goal-directed. Memory and concentration: AOX3, grossly intact for the purposes of this session Judgment and insight: Poor Assessment Schizophrenia Nicotine dependence Plan: -Patient continues to meet criteria for inpatient psychiatric admission for symptom stabilization and safety. Patient is scheduled for mental health court on 12/04/2021 -Medications: Seroquel 50 mg by mouth at bedtime for psychosis as ordered however the patient is nonadherent at this time. -When necessary Ativan and Thorazine for agitation/aggression. -NRT - nicotine patch -SW on board for discharge planning. Encouraged the patient to participate in milieu.
[2021-11-29] MEDS: ACETAMINOPHEN TAB 325 MG TAB PO PRN (20:23)
[2021-11-29] MEDS: MELATONIN 5 MG TABLET PO SCH (20:24)
[2021-11-29] MEDS: QUEtiapine 50 MG TAB PO SCH (20:25)
[2021-11-30] MEDS: NICOTINE 21MG/24HR PATCH TRANSDERM SCH (08:44)
[2021-11-30] MEDS: IBUPROFEN 600 MG TAB PO PRN ×2 (08:44→20:26)
[2021-11-30] MEDS: FAMOTIDINE 20 MG TAB PO SCH ×2 (08:46→20:27)
[2021-11-30] MEDS: THIAMINE 100 MG TAB PO SCH (08:46)
[2021-11-30] MEDS: haloperidoL 1 MG TAB PO SCH ×2 (08:46→20:48)
[2021-11-30] MEDS: PSYLLIUM HUSK 100% 6 GM PACKET PO SCH ×2 (08:46→20:48)
[2021-11-30] MEDS: ACETAMINOPHEN TAB 325 MG TAB PO PRN (12:11)
[2021-11-30] MEDS: MELATONIN 5 MG TABLET PO SCH (20:27)
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
[2021-11-30] MEDS: QUEtiapine 50 MG TAB PO SCH (20:48)
[2021-12-01] MEDS: ACETAMINOPHEN TAB 325 MG TAB PO PRN ×3 (06:58→20:27)
[2021-12-01] MEDS: FAMOTIDINE 20 MG TAB PO SCH ×2 (08:23→20:27)
[2021-12-01] MEDS: PSYLLIUM HUSK 100% 6 GM PACKET PO SCH ×2 (08:23→21:00)
[2021-12-01] MEDS: haloperidoL 1 MG TAB PO SCH ×2 (08:23→21:00)
[2021-12-01] MEDS: NICOTINE 21MG/24HR PATCH TRANSDERM SCH (08:23)
[2021-12-01] MEDS: THIAMINE 100 MG TAB PO SCH (08:23)
[2021-12-01] MEDS: IBUPROFEN 600 MG TAB PO PRN ×2 (08:24→16:40)
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
[2021-12-01] MEDS: MELATONIN 5 MG TABLET PO SCH (20:28)
[2021-12-01] MEDS: QUEtiapine 50 MG TAB PO SCH (21:00)
[2021-12-02 06:59] VITALS: BP 131/73; PULSE 107
[2021-12-02] MEDS: THIAMINE 100 MG TAB PO SCH (08:18)
[2021-12-02] MEDS: FAMOTIDINE 20 MG TAB PO SCH (08:18)
[2021-12-02] MEDS: NICOTINE 21MG/24HR PATCH TRANSDERM SCH (08:18)
[2021-12-02] MEDS: IBUPROFEN 600 MG TAB PO PRN ×2 (08:19→18:52)
[2021-12-02 08:21] VITALS: TEMP 99.8
[2021-12-02] MEDS: PSYLLIUM HUSK 100% 6 GM PACKET PO SCH (08:54)
[2021-12-02] MEDS: haloperidoL 1 MG TAB PO SCH (08:54)
[2021-12-02 12:55] VITALS: BMI 22.1
[2021-12-02] MEDS: ACETAMINOPHEN TAB 325 MG TAB PO PRN (13:31)
[2021-12-02] MEDS ORDERED: CHOLECALCIFEROL 125 MCG (5000 IU) TABLET PO SCH (18:15)
[2021-12-02] MEDS ORDERED: ASCORBIC ACID 500 MG TAB PO SCH (21:00)
== END 2021-12-02 18:55 | disposition short-term general hospital (02) | DRG 885 ==
LOC: EC 04:02 → 3MHU 08:01
PROVIDERS: ADMIT Psychiatry & Neurology Psychiatry; ATTEND Psychiatry & Neurology Psychiatry
DX: F20.9 Schizophrenia, unspecified (principal); U07.1 COVID-19; F17.210 Nicotine dependence, cigarettes, uncomplicated; F10.10 Alcohol abuse, uncomplicated; F32.A Depression, unspecified; F41.9 Anxiety disorder, unspecified; F84.0 Autistic disorder; F90.9 Attention-deficit hyperactivity disorder, unspecified type; G47.00 Insomnia, unspecified; K21.9 Gastro-esophageal reflux disease without esophagitis; K59.00 Constipation, unspecified; I73.00 Raynaud's syndrome without gangrene; G43.909 Migraine, unspecified, not intractable, without status migrainosus; M51.36 Other intervertebral disc degeneration, lumbar region; M06.9 Rheumatoid arthritis, unspecified; Z59.02 Unsheltered homelessness; Z79.82 Long term (current) use of aspirin; Z80.0 Family history of malignant neoplasm of digestive organs; Z80.8 Family history of malignant neoplasm of other organs or systems; Z86.73 Personal history of transient ischemic attack (TIA), and cerebral infarction without residual deficits; Z87.11 Personal history of peptic ulcer disease; Z91.14 Patient's other noncompliance with medication regimen; Z91.19 Patient's noncompliance with other medical treatment and regimen; Z65.3 Problems related to other legal circumstances; Z28.310 Unvaccinated for COVID-19; Z60.2 Problems related to living alone
CPT/HCPCS: 80053; 80061; 80306; 81003; 82075; 82248; 83036; 84443; 85025; 87635; 99285

== ENCOUNTER 2021-12-02 15:20 | Inpatient (IN) | payer OTHER ==
[2021-12-02] MEDS ORDERED: ACETAMINOPHEN TAB 325 MG TAB PO PRN (22:22)
[2021-12-02] MEDS ORDERED: MAG HYDROX/AL HYDROX/SIMETH 30 ML CUP PO PRN (22:23)
[2021-12-02] MEDS ORDERED: chlorproMAZINE 25 MG TAB PO PRN (22:25)
[2021-12-02] MEDS ORDERED: IBUPROFEN 600 MG TAB PO PRN (22:29)
[2021-12-02] MEDS ORDERED: LORazepam 2 MG/ML INJ IM PRN (22:30)
[2021-12-02] MEDS ORDERED: LORazepam 1 MG TAB PO PRN (22:31)
[2021-12-02] MEDS ORDERED: MAGNESIUM HYDROXIDE 2,400 MG/10 ML CUP PO PRN (22:32)
[2021-12-02] MEDS ORDERED: QUEtiapine 50 MG TAB PO SCH (22:45)
[2021-12-02] MEDS ORDERED: MELATONIN 5 MG TABLET PO SCH (22:45)
[2021-12-02] MEDS: NAPROXEN 250 MG TAB PO SCH (23:55)
[2021-12-02] MEDS: FAMOTIDINE 20 MG TAB PO SCH (23:56)
[2021-12-03 02:36] VITALS: RESP 16
[2021-12-03 08:15] VITALS: BP 111/72; PULSE 64; TEMP 98.1
[2021-12-03] MEDS ORDERED: PSYLLIUM HUSK 100% 6 GM PACKET PO SCH (09:00)
[2021-12-03] MEDS ORDERED: NICOTINE 21MG/24HR PATCH TRANSDERM SCH (09:00)
[2021-12-03] MEDS ORDERED: THIAMINE 100 MG TAB PO SCH (09:00)
[2021-12-03] MEDS ORDERED: LORATADINE 10 MG TAB PO SCH (09:00)
[2021-12-03] MEDS: FAMOTIDINE 20 MG TAB PO SCH (10:02)
[2021-12-03] MEDS: NAPROXEN 250 MG TAB PO SCH (10:03)
--- NOTE | 2021-12-03 10:38 | P.HPIM ---
History of Present Illness H&P Date: 12/03/21 Chief Complaint: Chills This is a 36-year-old patient who follows with Dr. Sanchez. Chronic stable medical conditions include occipital neuralgia, Yasmany's, GERD, herniated disc. Patient has been admitted to the psychiatry unit [address] [facility]. from November 20 through yesterday. Below is the history of presenting complaint per Dr. Person on presentation. " Patient presented to the hospital on 11/20/2021, brought into the hospital and warehouse picker order as a demand has been filed for court. The patient has been nonadherent to treatment. When assessed in the emergency department, the patient was noted to be noticeably responding to internal stimuli, overtly par anoid, and experiencing auditory hallucinations. He was also noted to be quite agitated and yelling. The patient was subsequently admitted on to the psychiatric unit. Upon assessment, psychiatric unit, the patient remains fixated that his neighbor is constantly playing loud music and yelling into his ears even while he is admitted on the unit. The patient believes that the patient in the next room is his neighbor and that he has been following him here onto this unit. The patient is endorsing auditory hallucinations in the form of multiple voices and loud noises. He reports significant paranoia. The patient does admit that he has been nonadherent with medications and firmly states this provider that he is not psychotic. He states that he is not schizophrenic. The patient denies any substance use. He then terminates the interview." Yesterday patient started feeling a bit chills. No body ache. Increase appetite. Slight sinus drainage. Dry cough. Patient tested positive for COVID-19. Was transferred here. No nausea vomiting diarrhea. Low-grade fever. Pulse ox 98% room air. Patient is somewhat anxious and depressed. He is concerned about his van that is proctitis parents. Review of systems: GEN.: Body ache, chills, low-grade fever EYES: None HEENT: Slight cough NECK: None RESPIRATORY: As above CARDIOVASCULAR: None GASTROINTESTINAL: None GENITOURINARY: None MUSCULOSKELETAL: None LYMPHATICS: None HEMATOLOGICAL: None PSYCHIATRY: Anxious, depressed NEUROLOGICAL: None Past medical history to include: Occipital neuralgia, Raynaud's, GERD, GI bleed, herniated disc, stomach ulcer, Social history: Smokes average about 2 packs a day. For closer 20 years. Alcohol sometimes. Living with his parents. Family history: Skin cancer Physical examination: VITAL SIGNS: 99.8, T-max, 64, 16, 111/72, 98% room air GENERAL: BMI 21.1, sitting up in bed, awake, not in distress, slightly anxious EYES: Pupils equal. Conjunctiva normal. HEENT: External appearance of nose and ears normal, oral cavity grossly normal. NECK: JVD not raised; masses not palpable. HEART: First and second heart sounds are normal; no edema. LUNGS: Respiratory rate normal; clear to auscultation. ABDOMEN: Soft, nontender, liver spleen not palpable, no masses palpable. PSYCH: Alert and oriented x3; mood and affect slightly anxious MUSCULOSKELETAL:No Clubbing/cyanosis;muscles-grossly intact NEUROLOGICAL: Cranial nerves grossly intact; no facial asymmetry, power and sensation grossly intact. LYMPHATICS: No lymph nodes palpable in the axilla and neck INVESTIGATIONS, reviewed in the clinical context: [November 21]: White count 9.1 hemoglobin 15.6 platelets 232 sodium 1:30 potassium 4 creatinine 1.13 COVID 19 PCR: Detected. Note that patient was negative for same on November 20 Assessment and plan: -COVID-19, with respiratory symptoms Pulse ox 98% room air. No indication for steroids. Vitamin C vitamin D. Symptomatically treatment. -Schizophrenia Follow with psychiatry -Raynauds disease Follow clinically -Chronic nicotine dependence, cigarette smoker Nicotine patch 21 -GERD Pepcid when necessary Patient to continue his psychiatry medications. Consult psychiatry. Vitamin C vitamin D. Nicotine patch. Discussed with patient. Past Medical History Past Medical History: CVA/TIA, GERD/Reflux, GI Bleed, Rheumatoid Arthritis (RA) Additional Past Medical History / Comment(s): diverticulitis, DDD, herniated disc X2. Occipital Neuralgia. OCC BLOOD IN STOOL. hx of stomach ulcer. "POSS IBLE 2 STROKES ON MRI.", occiptal migraines, "sore left arm". reynaulds disease History of Any Multi-Drug Resistant Organisms: None Reported Past Surgical History: Cholecystectomy Additional Past Surgical History / Comment(s): EGD, COLONOSCOPY, oral surgery, PAIN CLINIC PROCEDURES. Past Anesthesia/Blood Transfusion Reactions: Family History of Problems w/ Anesthesia Additional Past Anesthesia/Blood Transfusion Reaction / Comment(s): MOTHER HAD EPIDURAL THAT DIDN'T WORK. Past Psychological History: Anxiety, Depression Additional Psychological History / Comment(s): NO CURRENT TX. severe anxiety. pt states his Dr stated to stay off the meds due to side effects. pt is in therapy. Smoking Status: Current every day smoker Past Alcohol Use History: None Reported Additional Past Alcohol Use History / Comment(s): SMOKES 1 1/2 -3 PPD, SMOKING SINCE age 16. pt states he drinks a pint of liquor every couple days. Past Drug Use History: None Reported Additional Drug Use History / Comment(s): occ CBD - Past Family History Mother Family Medical History: Cancer Additional Family Medical History / Comment(s): SKIN CANCER. grandfather colon cancer Medications and Allergies Home Medications Medication Instructions Recorded Confirmed Type Aspirin 325 mg PO DAILY PRN 11/05/21 12/02/21 History Melatonin 10 mg PO HS PRN 11/05/21 12/02/21 History Nicotine 21Mg/24Hr Patch [Habitrol] 1 patch TRANSDERM DAILY PRN 11/05/21 12/02/21 History hydrOXYzine pamoate [Hydroxyzine 25 mg PO DAILY PRN 11/05/21 12/02/21 History Pamoate] ARIPiprazole [Abilify] 15 mg PO HS 11/20/21 12/02/21 History traZODone HCL 100 mg PO HS 11/20/21 12/02/21 History Allergies Allergy/AdvReac Type Severity Reaction Status Date / Time adhesive tape Allergy Rash/Hives Verified 11/20/21 07:04 gabapentin Allergy Rash/Hives Verified 11/20/21 07:04 paliperidone [From Invega] Allergy per oasis Verified 11/20/21 07:04 hydrocodone AdvReac MIGRAINE Verified 11/20/21 07:04 topiramate [From Topamax] AdvReac creates Verified 11/20/21 07:04 black SPOT on left eye NARCOTICS AdvReac MIGRAINES Uncoded 11/20/21 07:04 Physical Exam Vitals: Vital Signs Temp Pulse Resp BP Pulse Ox 12/03/21 02:14 98.5 F 70 16 103/69 97 12/02/21 22:39 98 12/02/21 20:00 98.4 F 84 20 152/93 98 Intake and Output 12/02/21 12/03/21 12/03/21 22:59 06:59 14:59 Other: # Voids 1 1 Weight 68.492 kg Thrombosis Risk Factor Assmnt - Choose All That Apply Any of the Below Risk Factors Present?: Yes Each Factor Represents 1 point: Serious lung disease incl. pneumonia (< 1month) Other Risk Factors: No Other congenital or acquired thrombophilia - If yes, enter type in comment: No Thrombosis Risk Factor Assessment Total Risk Factor Score: 1 Thrombosis Risk Factor Assessment Level: Low Risk
[2021-12-03] MEDS ORDERED: ENOXAPARIN 40 MG/0.4 ML SYRINGE SQ SCH (10:45)
[2021-12-03] MEDS ORDERED: CHOLECALCIFEROL 125 MCG (5000 IU) TABLET PO SCH (10:45)
[2021-12-03] MEDS ORDERED: ASCORBIC ACID 500 MG TAB PO SCH (10:45)
[2021-12-03 13:24] LABS: HCT 46.8 % (39.0-53.0); MCH 28.6 pg (25.0-35.0); MCV 89.1 fL (80.0-100.0); Mean Platelet Volume 6.9; Platelet Count 245 k/uL (150-450); RBC 5.25 m/uL (4.30-5.90); RDW 13.6 % (11.5-15.5); WBC 4.2 k/uL (3.8-10.6)
[2021-12-03 13:48] LABS: ALT 29 U/L (4-49); AST 35 U/L (17-59); African American GFR (CKD) >90 (>60 ml/min/1.73 sqM); Albumin 4.2 g/dL (3.5-5.0); Albumin/Globulin Ratio 1.6; Alkaline Phosphatase 71 U/L (38-126); Anion Gap 10 mmol/L; Blood Urea Nitrogen 13 mg/dL (9-20); Calcium 9.7 mg/dL (8.4-10.2); Carbon Dioxide 25 mmol/L (22-30); Chloride 101 mmol/L (98-107); Globulin 2.7 g/dL; Glucose 91 mg/dL (74-99); Non-African American GFR(CKD) >90 (>60 ml/min/1.73 sqM); Potassium 4.7 mmol/L (3.5-5.1); Sodium 136 mmol/L (137-145); Total Bilirubin 0.1 mg/dL (0.2-1.3); Total Protein 6.9 g/dL (6.3-8.2)
--- NOTE | 2021-12-04 13:35 | P.DS ---
Providers Date of admission: 12/02/21 21:30 Expected date of discharge: 12/03/21 Attending physician: Nirmal Wilson Consults: 12/02/21 22:37 Consult Physician Routine Consulting Provider: Robert Toledo Consult Reason/Comments: Mental Health Transfer Do you want consulting provider notified?: Yes, Notify in am Placement Type Exists?: Yes Primary care physician: [facility] Course: Chief Complaint: Chills This is a 36-year-old patient who follows with Dr. Sanchez. Chronic stable medical conditions include occipital neuralgia, Yasmany's, GERD, herniated disc. Patient has been admitted to the psychiatry unit 3 [facility]. from November 20 through yesterday. Below is the history of presenting complaint per Dr. Person on presentation. " Patient presented to the hospital on 11/20/2021, brought into the hospital and cigar packer and picker order as a demand has been filed for court. The patient has been nonadherent to treatment. When assessed in the emergency department, the patient was noted to be noticeably responding to internal stimuli, overtly paranoid, and experiencing auditory hallucinations. He was also noted to be quite agitated and yelling. The patient was subsequently admitted on to the psychiatric unit. Upon assessment, psychiatric unit, the patient remains fixated that his neighbor is constantly playing loud music and yelling into his ears even while he is admitted on the unit. The patient believes that the patient in the next room is his neighbor and that he has been following him here onto this unit. The p atient is endorsing auditory hallucinations in the form of multiple voices and loud noises. He reports significant paranoia. The patient does admit that he has been nonadherent with medications and firmly states this provider that he is not psychotic. He states that he is not schizophrenic. The patient denies any substance use. He then terminates the interview." Yesterday patient started feeling a bit chills. No body ache. Increase appetite. Slight sinus drainage. Dry cough. Patient tested positive for COVID-19. Was transferred here. No nausea vomiting diarrhea. Low-grade fever. Pulse ox 98% room air. Patient is somewhat anxious and depressed. He is concerned about his van that is proctitis parents. Patient remained stable. Stable respiratory degroot. Patient being accepted to [address]. that was section [place] off for the COVID patients. Past medical history to include: Occipital neuralgia, Raynaud's, GERD, GI bleed, herniated disc, stomach ulcer, Social history: Smokes average about 2 packs a day. For closer 20 years. Alcohol sometimes. Living with his parents. Family history: Skin cancer Physical examination: VITAL SIGNS: 99.8, T-max, 64, 16, 111/72, 98% room air GENERAL: BMI 21.1, sitting up in bed, awake, not in distress, slightly anxious EYES: Pupils equal. Conjunctiva normal. HEENT: External appearance of nose and ears normal, oral cavity grossly normal. NECK: JVD not raised; masses not palpable. HEART: First and second heart sounds are normal; no edema. LUNGS: Respiratory rate normal; clear to auscultation. ABDOMEN: Soft, nontender, liver spleen not palpable, no masses palpable. PSYCH: Alert and oriented x3; mood and affect slightly anxious MUSCULOSKELETAL:No Clubbing/cyanosis;muscles-grossly intact NEUROLOGICAL: Cranial nerves grossly intact; no facial asymmetry, power and sensation grossly intact. LYMPHATICS: No lymph nodes palpable in the axilla and neck INVESTIGATIONS, reviewed in the clinical context: [November 21]: White count 9.1 hemoglobin 15.6 platelets 232 sodium 1:30 potassium 4 creatinine 1.13 COVID 19 PCR: Detected. Note that patient was negative for same on November 20 Assessment and plan: -COVID-19, with respiratory symptoms Pulse ox 98% room air. No indication for steroids. Vitamin C vitamin D. Symptomatically treatment. -Schizophrenia Follow with psychiatry -Raynauds disease Follow clinically -Chronic nicotine dependence, cigarette smoker Nicotine patch 21 -GERD Pepcid when necessary Disposition: [facility] [address]. psychiatry unit [facility] on Plan - Discharge Summary New Discharge Prescriptions: No Action hydrOXYzine pamoate [Hydroxyzine Pamoate] 25 mg PO DAILY PRN PRN Reason: Anxiety Nicotine 21Mg/24Hr Patch [Habitrol] 1 patch TRANSDERM DAILY PRN PRN Reason: Cravings traZODone HCL 100 mg PO HS Melatonin 10 mg PO HS PRN PRN Reason: Insomnia Aspirin 325 mg PO DAILY PRN PRN Reason: Migraine Headache ARIPiprazole [Abilify] 15 mg PO HS Discharge Medication List Aspirin 325 mg PO DAILY PRN 11/05/21 [History] Melatonin 10 mg PO HS PRN 11/05/21 [History] Nicotine 21Mg/24Hr Patch [Habitrol] 1 patch TRANSDERM DAILY PRN 11/05/21 [History] hydrOXYzine pamoate [Hydroxyzine Pamoate] 25 mg PO DAILY PRN 11/05/21 [History] ARIPiprazole [Abilify] 15 mg PO HS 11/20/21 [History] traZODone HCL 100 mg PO HS 11/20/21 [History] Discharge Disposition: TRANSFER TO PSYCH HOSP/UNIT
== END 2021-12-03 15:20 | DRG 179 ==
LOC: 6NMEDSUR 21:30
PROVIDERS: ADMIT Hospitalist; ATTEND Hospitalist
DX: U07.1 COVID-19 (principal); F17.210 Nicotine dependence, cigarettes, uncomplicated; F20.9 Schizophrenia, unspecified; F32.A Depression, unspecified; F41.9 Anxiety disorder, unspecified; I73.00 Raynaud's syndrome without gangrene; K21.9 Gastro-esophageal reflux disease without esophagitis; K62.89 Other specified diseases of anus and rectum; M06.9 Rheumatoid arthritis, unspecified; M54.81 Occipital neuralgia; Z79.82 Long term (current) use of aspirin; Z80.0 Family history of malignant neoplasm of digestive organs; Z80.8 Family history of malignant neoplasm of other organs or systems; Z85.828 Personal history of other malignant neoplasm of skin; Z86.73 Personal history of transient ischemic attack (TIA), and cerebral infarction without residual deficits; Z91.14 Patient's other noncompliance with medication regimen; Z87.11 Personal history of peptic ulcer disease; Z88.5 Allergy status to narcotic agent; Z91.048 Other nonmedicinal substance allergy status; Z88.8 Allergy status to other drugs, medicaments and biological substances; Z90.49 Acquired absence of other specified parts of digestive tract; Z87.19 Personal history of other diseases of the digestive system
CPT/HCPCS: 80053; 85027

== ENCOUNTER 2021-12-03 13:34 | Inpatient (IN) | payer MEDICAID ==
[2021-12-03] MEDS ORDERED: HALOPERIDOL LACTATE 5 MG/ML 1 ML VIAL IM PRN (14:04)
[2021-12-03] MEDS ORDERED: MAG HYDROX/AL HYDROX/SIMETH 30 ML CUP PO PRN (14:04)
[2021-12-03] MEDS ORDERED: MAGNESIUM HYDROXIDE 2,400 MG/10 ML CUP PO PRN (14:04)
[2021-12-03] MEDS ORDERED: LORazepam 2 MG/ML INJ IM PRN (14:06)
[2021-12-03] MEDS ORDERED: haloperidoL 5 MG TAB PO PRN (14:06)
[2021-12-03] MEDS: LORazepam 1 MG TAB PO PRN (16:01)
[2021-12-03] MEDS: MELATONIN 5 MG TABLET PO PRN (20:22)
[2021-12-03] MEDS: haloperidoL 1 MG TAB PO SCH (20:56)
[2021-12-03] MEDS: ASCORBIC ACID 500 MG TAB PO SCH (20:56)
[2021-12-03] MEDS ORDERED: QUEtiapine 50 MG TAB PO SCH (21:00)
[2021-12-04] MEDS: NICOTINE 14MG/24HR PATCH TRANSDERM SCH (09:14)
[2021-12-04] MEDS: ACETAMINOPHEN TAB 325 MG TAB PO PRN ×3 (09:14→20:08)
[2021-12-04] MEDS: CHOLECALCIFEROL 125 MCG (5000 IU) TABLET PO SCH (09:15)
[2021-12-04] MEDS: ASCORBIC ACID 500 MG TAB PO SCH ×2 (09:15→20:07)
[2021-12-04] MEDS: THIAMINE 100 MG TAB PO SCH (09:15)
[2021-12-04] MEDS: haloperidoL 1 MG TAB PO SCH (09:16)
[2021-12-04] MEDS: LORATADINE 10 MG TAB PO SCH (09:16)
--- NOTE | 2021-12-04 13:40 | P.CONS ---
History of Present Illness - Reason for Consult Consult date: 12/04/21 Medical management Requesting physician: Robert Toledo - Chief Complaint Anxious - History of Present Illness This is a 36-year-old patient who follows with Dr. Sanchez. Chronic stable medical conditions include occipital neuralgia, Yasmany's, GERD, herniated disc. Patient has been admitted to the psychiatry unit 3 [facility]. from November 20 through yesterday. Below is the history of presenting complaint per Dr. Person on presentation. " Patient presented to the hospital on 11/20/2021, brought into the hospital and picking machine operator helper order as a demand has been filed for court. The patient has been nonadherent to treatment. When assessed in the emergency department, the patient was noted to be noticeably responding to internal stimuli, overtly paranoid, and experiencing auditory hallucinations. He was also noted to be quite agitated and yelling. The patient was subsequently admitted on to the psychiatric unit. Upon assessment, psychiatric unit, the patient remains fixated that his neighbor is constantly playing loud music and yelling into his ears even while he is admitted on the unit. The patient believes that the patient in the next room is his neighbor and that he has been following him here onto this unit. The patient is endorsing auditory hallucinations in the form of multiple voices and loud noises. He reports significant paranoia. The patient does admit that he has been nonadherent with medications and firmly states this provider that he is not psychotic. He states that he is not schizophrenic. The patient denies any substance use. He then terminates the interview." 12/02/2021: patient started feeling a bit chills. No body ache. Increase appetite. Slight sinus drainage. Dry cough. Patient tested positive for COVID-19. Was transferred to medical floor. No nausea vomiting diarrhea. Low- grade fever. Pulse ox 98% room air. Patient is somewhat anxious and depressed. Patient remained stable. Patient accepted back at [address]. yesterday evening as there was separatearea over COVID patient that is section off. This morning patient feels much better. No body aches. No fever no chills. Eating well. Slightly anxious. Review of systems: GEN.: A bit tired EYES: None HEENT: None NECK: None RESPIRATORY: As above CARDIOVASCULAR: None GASTROINTESTINAL: None GENITOURINARY: None MUSCULOSKELETAL: None LYMPHATICS: None HEMATOLOGICAL: None PSYCHIATRY: Anxious, depressed NEUROLOGICAL: None Past medical history to include: Occipital neuralgia, Raynaud's, GERD, GI bleed, herniated disc, stomach ulcer, Social history: Smokes average about 2 packs a day. For closer 20 years. Alcohol sometimes. Living with his parents. Family history: Skin cancer Physical examination: VITAL SIGNS: 99, 79, 16, 10 9 x 71, 97% room air GENERAL: BMI 21.1, sitting up in chair, awake, comfortable EYES: Pupils equal. Conjunctiva normal. HEENT: External appearance of nose and ears normal, oral cavity grossly normal. NECK: JVD not raised; masses not palpable. HEART: First and second heart sounds are normal; no edema. LUNGS: Respiratory rate normal; clear to auscultation. ABDOMEN: Soft, nontender, liver spleen not palpable, no masses palpable. PSYCH: Alert and oriented x3; mood and affect slightly anxious MUSCULOSKELETAL:No Clubbing/cyanosis;muscles-grossly intact NEUROLOGICAL: Cranial nerves grossly intact; no facial asymmetry, power and sensation grossly intact. LYMPHATICS: No lymph nodes palpable in the axilla and neck INVESTIGATIONS, reviewed in the clinical context: December 03: White count 4.2 hemoglobin 15 sodium 136 potassium 4.7 creatinine 0.9 to [November 21]: White count 9.1 hemoglobin 15.6 platelets 232 sodium 1:30 potassium 4 creatinine 1.13 COVID 19 PCR: Detected. Note that patient was negative for same on November 20 Assessment and plan: -COVID-19, with respiratory symptoms: Improved Pulse ox 98% room air. No indication for steroids. Vitamin C vitamin D. Symptomatic treatment. -Schizophrenia Follow with psychiatry -Raynauds disease Follow clinically -Chronic nicotine dependence, cigarette smoker Nicotine patch 21 -GERD Pepcid when necessary Continue current medications. Discussed with patient. Thank you Dr. Toledo Past Medical History Past Medical History: CVA/TIA, GERD/Reflux, GI Bleed, Rheumatoid Arthritis (RA) Additional Past Medical History / Comment(s): diverticulitis, DDD, herniated disc X2. Occipital Neuralgia. OCC BLOOD IN STOOL. hx of stomach ulcer. "POSSIBLE 2 STROKES ON MRI.", occiptal migraines, "sore left arm". reynaulds disease History of Any Multi-Drug Resistant Organisms: None Reported Past Surgical History: Cholecystectomy Additional Past Surgical History / Comment(s): EGD, COLONOSCOPY, oral surgery, PAIN CLINIC PROCEDURES. Past Anesthesia/Blood Transfusion Reactions: Family History of Problems w/ Anesthesia Additional Past Anesthesia/Blood Transfusion Reaction / Comm: MOTHER HAD EPIDURAL THAT DIDN'T WORK. Past Psychological History: Anxiety, Depression Additional Psychological History / Comment(s): NO CURRENT TX. severe anxiety. pt states his Dr stated to stay off the meds due to side effects. pt is in therapy. Smoking Status: Current every day smoker Past Alcohol Use History: None Reported Additional Past Alcohol Use History / Comment(s): SMOKES 1 1/2 -3 PPD, SMOKING SINCE age 16. pt states he drinks a pint of liquor every couple days. Past Drug Use History: None Reported Additional Drug Use History / Comment(s): occ CBD - Past Family History Mother Family Medical History: Cancer Additional Family Medical History / Comment(s): SKIN CANCER. grandfather colon cancer Medications and Allergies Home Medications Medication Instructions Recorded Confirmed Type Aspirin 325 mg PO DAILY PRN 11/05/21 12/03/21 History Melatonin 10 mg PO HS PRN 11/05/21 12/03/21 History Nicotine 21Mg/24Hr Patch [Habitrol] 1 patch TRANSDERM DAILY PRN 11/05/21 12/03/21 History hydrOXYzine pamoate [Hydroxyzine 25 mg PO DAILY PRN 11/05/21 12/03/21 History Pamoate] ARIPiprazole [Abilify] 15 mg PO HS 11/20/21 12/03/21 History traZODone HCL 100 mg PO HS 11/20/21 12/03/21 History Allergies Allergy/AdvReac Type Severity Reaction Status Date / Time adhesive tape Allergy Rash/Hives Verified 11/20/21 07:04 gabapentin Allergy Rash/Hives Verified 11/20/21 07:04 paliperidone [From Invega] Allergy per oasis Verified 11/20/21 07:04 hydrocodone AdvReac MIGRAINE Verified 11/20/21 07:04 topiramate [From Topamax] AdvReac creates Verified 11/20/21 07:04 black SPOT on left eye NARCOTICS AdvReac MIGRAINES Uncoded 11/20/21 07:04 Physical Exam Vitals: Vital Signs Temp Pulse Resp BP Pulse Ox 12/04/21 06:52 99 F 79 16 109/71 97 12/03/21 15:42 98.6 F 137 H 20 132/92
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
[2021-12-04] MEDS: MELATONIN 5 MG TABLET PO PRN (20:07)
[2021-12-04] MEDS: haloperidoL 5 MG TAB PO SCH (20:07)
[2021-12-05] MEDS: NICOTINE 14MG/24HR PATCH TRANSDERM SCH ×2 (08:45→09:17)
[2021-12-05] MEDS: ASCORBIC ACID 500 MG TAB PO SCH ×2 (08:46→20:27)
[2021-12-05] MEDS: CHOLECALCIFEROL 125 MCG (5000 IU) TABLET PO SCH (08:46)
[2021-12-05] MEDS: LORATADINE 10 MG TAB PO SCH (08:47)
[2021-12-05] MEDS: haloperidoL 5 MG TAB PO SCH ×3 (08:47→21:08)
[2021-12-05] MEDS: THIAMINE 100 MG TAB PO SCH (08:47)
[2021-12-05] MEDS: NICOTINE 21MG/24HR PATCH TRANSDERM SCH (10:40)
[2021-12-05] MEDS: LORazepam 1 MG TAB PO PRN (14:05)
--- NOTE | 2021-12-05 17:04 | P.PN ---
Progress Note - Text Progress Note Date: 12/05/21 Interval History: Patient has seen isolating to his room and was passively engaged in assessment. At this time, patient denies any suicidal or homical ideations, intent or plan. Patient denies any auditory, visual hallucinations, and does not appear to be attending to internal stimuli. He continues to deny having a mental illness and denies needing psychotropic medications. He has been complaint with his oral Haldol 5 mg BID starting last night, however after taking each dose he begins to bargain for discharge. No EPS on assessment. He claims the Haldol makes him hear the ferro talking every once in a while, but objectively he appears to be sabotaging his medication trial in order to not take medications. He remains focused on discharge. He had been making inaccurate statements such as in court he was told he didn't have to take medications and can be discharged, and this was confirmed to be false, nobody told patient this. Mental Status Exam: General Appearance: Patient appears to be stated age, is laying in bed with the covers on. Behavior: Patient is passively engaged in assessment, is guarded and has an irritable edge. Speech: Patient's speech is fluent and non-pressured. Mood/Affect: Mood is irritable, affect is congruent and constricted. Suicidality/Homicidality: Patient denies having any suicidal or homicidal ideation intent or plan. Perceptions: Patient denies any visual hallucinations but claims to hear the ferro talking. Though content: There is evidence of delusional thought content. Thought process: Fixated on discharge, argumentative. Memory and concentration: AOX3, grossly intact for the purposes of this session Judgment and insight: Poor Assessment Schizophrenia (paranoid) Tobacco use disorder, nicotine dependence Plan: -Patient continues to meet criteria for inpatient psychiatric admission for symptom stabilization and safety. Patient has been placed on a 60/180 order for mental health treatment starting 12/04/2021. -Medications: Increase oral Haldol to 5 mg daily in the morning and 10 mg QHS for psychosis, with Haldol 5 mg IM BID PRN for refusal of oral Haldol. Plan for long-acting injectable prior to discharge due to long history of noncompliance. Closely monitor for cheeking, and monitor patient for 30 minutes following medication administration. -When necessary Ativan and Haldol for agitation/aggression. -NRT - nicotine patch -SW on board for discharge planning. Encouraged the patient to participate in milieu. Encourage medication compliance.
[2021-12-05] MEDS: MELATONIN 5 MG TABLET PO PRN (20:33)
[2021-12-05] MEDS: ACETAMINOPHEN TAB 325 MG TAB PO PRN (20:33)
[2021-12-06 07:18] VITALS: RESP 16
[2021-12-06] MEDS: ASCORBIC ACID 500 MG TAB PO SCH ×2 (09:39→20:21)
[2021-12-06] MEDS: haloperidoL 5 MG TAB PO SCH ×2 (09:39→20:22)
[2021-12-06] MEDS: LORATADINE 10 MG TAB PO SCH (09:39)
[2021-12-06] MEDS: CHOLECALCIFEROL 125 MCG (5000 IU) TABLET PO SCH (09:39)
[2021-12-06] MEDS: NICOTINE 21MG/24HR PATCH TRANSDERM SCH (09:40)
[2021-12-06] MEDS: IBUPROFEN 600 MG TAB PO PRN ×2 (09:41→16:02)
[2021-12-06] MEDS: THIAMINE 100 MG TAB PO SCH (09:41)
[2021-12-06] MEDS ORDERED: HALOPERIDOL DECANOATE 100 MG/ML 1 ML VIAL IM STA (14:00)
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
[2021-12-06] MEDS: ACETAMINOPHEN TAB 325 MG TAB PO PRN (20:22)
[2021-12-06] MEDS: MELATONIN 5 MG TABLET PO PRN (20:22)
[2021-12-07] MEDS: NICOTINE 21MG/24HR PATCH TRANSDERM SCH (08:29)
[2021-12-07] MEDS: ASCORBIC ACID 500 MG TAB PO SCH ×2 (08:29→20:43)
[2021-12-07] MEDS: LORATADINE 10 MG TAB PO SCH (08:30)
[2021-12-07] MEDS: CHOLECALCIFEROL 125 MCG (5000 IU) TABLET PO SCH (08:30)
[2021-12-07] MEDS: haloperidoL 5 MG TAB PO SCH (08:30)
[2021-12-07] MEDS: THIAMINE 100 MG TAB PO SCH (08:30)
[2021-12-07] MEDS: IBUPROFEN 600 MG TAB PO PRN ×2 (09:01→21:18)
[2021-12-07] MEDS: LORazepam 1 MG TAB PO PRN (10:18)
--- NOTE | 2021-12-07 16:41 | P.PN ---
Progress Note - Text Progress Note Date: 12/07/21 Interval History: Patient was seen in his room where he was asleep in bed. He awakens to voice but appears drowsy and passively engaged in assessment. Review of MAR shows he received Ativan 1 mg po x 1 this morning for anxiety. He received his Haldol decanoate 100 mg IM yesterday and is tolerating without any reported side effects. At this time, patient denies any suicidal or homical ideations, intent or plan. Patient denies any auditory or visual hallucinations, and does not appear to be overtly attending to internal stimuli. He does not express delusional thought content today. Mental Status Exam: General Appearance: Patient appears to be stated age, is laying in bed with the covers on. Behavior: Patient continues to isolate to his room, lays in bed in the dark. Speech: Patient's speech is fluent and non-pressured. Mood/Affect: Mood is improving, he is much less irritable today, affect is congruent and constricted. Suicidality/Homicidality: Patient denies having any suicidal or homicidal ideation intent or plan. Perceptions: Patient denies any visual hallucinations or auditory hallucinations today. Though content: He does not expressed delusional thought content to me today. Thought process: Linear Memory and concentration: AOX3, grossly intact for the purposes of this session Judgment and insight: Chronically poor, Improving mildly Assessment Schizophrenia (paranoid) Tobacco use disorder, nicotine dependence Plan: -Patient continues to meet criteria for inpatient psychiatric admission for symptom stabilization and safety. Patient has been placed on a 60/180 order for mental health treatment starting 12/04/2021. -Medications: First dose of Haldol decanoate 100 mg IM given on 12/06/21 and he is tolerating it without any reported side effects. Decrease oral Haldol to 5 mg BID for today, and decrease to 2.5 mg BID starting tomorrow, for psychosis. Discontinue PRN for agitation/anxiety. Closely monitor for cheeking, and monitor patient for 30 minutes following medication administration. -When necessary Haldol PRN for agitation/aggression. -NRT - nicotine patch -SW on board for discharge planning. Encouraged the patient to participate in milieu. Encourage medication compliance.
[2021-12-07] MEDS ORDERED: haloperidoL 5 MG TAB PO SCH (21:00)
[2021-12-07] MEDS: MELATONIN 5 MG TABLET PO PRN (21:21)
[2021-12-08] MEDS: LORATADINE 10 MG TAB PO SCH (08:07)
[2021-12-08] MEDS: NICOTINE 21MG/24HR PATCH TRANSDERM SCH (08:07)
[2021-12-08] MEDS: ASCORBIC ACID 500 MG TAB PO SCH ×2 (08:07→20:24)
[2021-12-08] MEDS: haloperidoL 5 MG TAB PO SCH ×2 (08:09→20:24)
[2021-12-08] MEDS: THIAMINE 100 MG TAB PO SCH (08:09)
[2021-12-08] MEDS: CHOLECALCIFEROL 125 MCG (5000 IU) TABLET PO SCH (08:11)
[2021-12-08] MEDS: IBUPROFEN 600 MG TAB PO PRN ×2 (08:12→20:29)
[2021-12-08] MEDS: ACETAMINOPHEN TAB 325 MG TAB PO PRN (11:20)
--- NOTE | 2021-12-08 18:59 | P.PN ---
Progress Note - Text Progress Note Date: 12/08/21 Interval History: Patient was seen in his room, is awake and sitting on his bed. He is alert and oriented to person, place, time and situation. He is calm, is not argumentative or confrontational today as he was on a few days ago. He received his first dose of Haldol decanoate 100 mg IM x 1 on Thursday and is tolerating it well without any reported side effects. At this time, patient denies any suicidal or homical ideations, intent or plan. Patient denies any auditory or visual hallucinations, and does not appear to be overtly attending to internal stimuli. He does not express delusional thought content today. He reports his mood is "stable", appetite is "descent" and sleep is good. He complains of mild COVID symptoms such as mild cough and stuffy nose. Vitals reviewed and are stable. We discussed his Haldol decanoate injection 50 mg IM for tomorrow morning and he expressed agreement. Mental Status Exam: General Appearance: Patient appears to be stated age, is sitting on his bed, neatly dressed, good hygiene. Behavior: Patient appears calmer today, not argumentative or confrontational. Speech: Patient's speech is fluent and non-pressured. Mood/Affect: Mood is "good", affect is congruent and euthymic. Suicidality/Homicidality: Patient denies having any suicidal or homicidal ideation intent or plan. Perceptions: Patient denies any visual hallucinations or auditory hallucinations today. Though content: He does not express delusional thought content to me today. Thought process: Linear Memory and concentration: AOX3, grossly intact for the purposes of this session Judgment and insight: Improving mildly Assessment Schizophrenia (paranoid) Tobacco use disorder, nicotine dependence Plan: -Patient continues to meet criteria for inpatient psychiatric admission for symptom stabilization and safety. Patient has been placed on a 60/180 order for mental health treatment starting 12/04/2021. -Medications: First dose of Haldol decanoate 100 mg IM given on 12/06/21 and he is tolerating it without any reported side effects. Second dose of Haldol decanoate 50 mg IM x 1 is ordered for Thursday12/09/21 at 9am. His monthly Haldol decanoate maintenance dose requirement is expected to be 150 mg IM every 28 days for psychosis, and is expected to be due on 01/03/22 at [facility]. [facility] can monitor response and adjust dose as needed. Continue Haldol 2.5 mg BID for tonight and tomorrow morning and then discontinue after his dose on Thursday morning. -Plan to discharge in the next 1-2 days with follow-up at [facility]. -When necessary Haldol PRN for agitation/aggression. -NRT - nicotine patch -SW on board for discharge planning. Encouraged the patient to participate in milieu. Encourage medication compliance.
[2021-12-08] MEDS: MELATONIN 5 MG TABLET PO PRN (20:28)
[2021-12-09 07:01] VITALS: BP 118/71; PULSE 67; TEMP 97.4
[2021-12-09] MEDS: LORATADINE 10 MG TAB PO SCH (08:17)
[2021-12-09] MEDS: ASCORBIC ACID 500 MG TAB PO SCH ×2 (08:17→20:24)
[2021-12-09] MEDS: NICOTINE 21MG/24HR PATCH TRANSDERM SCH (08:17)
[2021-12-09] MEDS: THIAMINE 100 MG TAB PO SCH (08:17)
[2021-12-09] MEDS: haloperidoL 5 MG TAB PO SCH (08:18)
[2021-12-09] MEDS: CHOLECALCIFEROL 125 MCG (5000 IU) TABLET PO SCH (08:18)
[2021-12-09] MEDS: IBUPROFEN 600 MG TAB PO PRN ×2 (08:19→20:24)
[2021-12-09] MEDS ORDERED: HALOPERIDOL DECANOATE 50 MG/ML 1 ML VIAL IM ONE (09:00)
--- NOTE | 2021-12-09 10:24 | P.PN ---
Progress Note - Text Progress Note Date: 12/09/21 Interval History: Patient was seen wandering the hallways and was directable and agreeable to speak with commercial lines underwriter in his room with no one else present. Currently, patient reports feeling well. He is currently not reporting any significant symptoms of covert aside from mild congestion. He is denying any fever, chills, shortness of breath. He denies any malaise. Currently, the patient is not reporting any suicidal or homicidal ideation, intention, and/or plan. He is not reporting any auditory or visual hallucinations. He is denying any paranoia or other delusions. The patient was informed that he will be receiving Haldol Decanoate today and that we will observe for 24 hours prior to his discharge. He is in agreement at this time. He denies any issues regarding his sleep or his appetite. He reports no significant side effects of his medications. Mental Status Exam: General Appearance: Patient appears to be stated age is alert, directable, and cooperative. Behavior: Patient is calmly standing without any agitated behavior. Speech: Patient's speech is fluent and nonpressured. Mood/Affect: Mood is improving mildly, affect is congruent and constricted. Suicidality/Homicidality: Patient denies having any suicidal or homicidal ideation intent or plan. Perceptions: Patient denies any visual hallucinations and denies any auditory hallucinations Though content/process: There is no evidence of any delusional thought content and thought process is linear and goal-directed. Memory and concentration: AOX3, grossly intact for the purposes of this session Judgment and insight: Improving mildly Vital Signs Temp 97.4 F L 12/09/21 06:51 Pulse 67 12/09/21 06:51 Resp 16 12/09/21 06:51 BP 118/71 12/09/21 06:51 Pulse Ox 98 12/09/21 06:51 FiO2 Assessment Schizophrenia (paranoid) Tobacco use disorder, nicotine dependence Plan: -Patient continues to meet criteria for inpatient psychiatric admission for symptom stabilization and safety. Patient has been placed on a 60/180 order for mental health treatment starting 12/04/2021. -Medications: Second dose of Haldol decanoate 50 mg IM x 1 is ordered for Thursday12/09/21 at 9am. His monthly Haldol decanoate maintenance dose requirement is expected to be 150 mg IM every 28 days for psychosis, and is expected to be due on 01/03/22 at [facility]. [facility] can monitor response and adjust dose as needed. Discontinue oral Haldol. -Plan to discharge in the next 1-2 days with follow-up at [facility]. -When necessary Haldol PRN for agitation/aggression. -NRT - nicotine patch - on board for discharge planning. Encouraged the patient to participate in jesus manuel. Encourage medication compliance.
[2021-12-09] MEDS: ACETAMINOPHEN TAB 325 MG TAB PO PRN ×2 (11:45→17:01)
[2021-12-09] MEDS: MELATONIN 5 MG TABLET PO PRN (20:24)
[2021-12-10] MEDS: NICOTINE 21MG/24HR PATCH TRANSDERM SCH (08:42)
[2021-12-10] MEDS: THIAMINE 100 MG TAB PO SCH (08:42)
[2021-12-10] MEDS: CHOLECALCIFEROL 125 MCG (5000 IU) TABLET PO SCH (08:42)
[2021-12-10] MEDS: LORATADINE 10 MG TAB PO SCH (08:42)
[2021-12-10] MEDS: ASCORBIC ACID 500 MG TAB PO SCH (08:44)
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
== END 2021-12-10 11:11 | disposition home or self-care (01) | DRG 885 ==
LOC: 3MHU 15:24
PROVIDERS: ADMIT Psychiatry & Neurology Psychiatry; ATTEND Psychiatry & Neurology Psychiatry
PROC: 8E0ZXY6 Isolation (ICD-10-PCS; principal; 2021-12-03)
DX: F20.0 Paranoid schizophrenia (principal); U07.1 COVID-19; F84.0 Autistic disorder; F90.9 Attention-deficit hyperactivity disorder, unspecified type; I73.00 Raynaud's syndrome without gangrene; K21.9 Gastro-esophageal reflux disease without esophagitis; M06.9 Rheumatoid arthritis, unspecified; M54.81 Occipital neuralgia; F17.210 Nicotine dependence, cigarettes, uncomplicated; Z59.02 Unsheltered homelessness; Z79.82 Long term (current) use of aspirin; Z79.899 Other long term (current) drug therapy; Z80.0 Family history of malignant neoplasm of digestive organs; Z80.8 Family history of malignant neoplasm of other organs or systems; Z81.8 Family history of other mental and behavioral disorders; Z86.73 Personal history of transient ischemic attack (TIA), and cerebral infarction without residual deficits; Z87.11 Personal history of peptic ulcer disease; Z91.14 Patient's other noncompliance with medication regimen; Z91.19 Patient's noncompliance with other medical treatment and regimen; Z88.5 Allergy status to narcotic agent; Z56.0 Unemployment, unspecified; Z28.21 Immunization not carried out because of patient refusal

== ENCOUNTER 2022-09-28 14:02 | Inpatient (IN) | payer OTHER ==
--- NOTE | 2022-09-28 14:23 | ED ---
General Adult HPI - General Source: patient, RN notes reviewed, old records reviewed Mode of arrival: ambulatory Limitations: no limitations <Jonel Manuel - Last Filed: 09/28/22 15:51> <Michelle Ballesteros - Last Filed: 09/28/22 16:43> - General Chief complaint: Shortness of Breath Stated complaint: ZENY Time Seen by Provider: 09/28/22 14:10 - History of Present Illness Initial comments: 37 -year-old male presenting with right-sided chest pain. Patient feels as though he cannot take a deep breath. He states this woke him from sleep approximately 12 hours prior to arrival. No central chest pain. No vomiting. He reports predominantly dry cough. (Jonel Manuel) - Related Data Previous Rx's Medication Instructions Recorded Ascorbic Acid [Vitamin C] 500 mg PO BID 30 Days tab 12/10/21 Haloperidol Decanoate [Haldol D] 100 mg IM QMONTHLY #1 each 12/10/21 Loratadine [Claritin] 5 mg PO DAILY 30 Days tab 12/10/21 Melatonin 10 mg PO HS PRN 30 Days tab 12/10/21 Nicotine 21Mg/24Hr Patch [Habitrol] 1 patch TRANSDERM DAILY 30 Days 12/10/21 patch Thiamine [Vitamin B-1] 100 mg PO DAILY 30 Days tab 12/10/21 Allergies Allergy/AdvReac Type Severity Reaction Status Date / Time adhesive tape Allergy Rash/Hives Verified 09/28/22 14:09 gabapentin Allergy Rash/Hives Verified 09/28/22 14:09 paliperidone [From Invega] Allergy per oasis Verified 09/28/22 14:09 hydrocodone AdvReac MIGRAINE Verified 09/28/22 14:09 topiramate [From Topamax] AdvReac creates Verified 09/28/22 14:09 black SPOT on left eye NARCOTICS AdvReac MIGRAINES Uncoded 09/28/22 14:09 Review of Systems ROS Other: All systems not noted in ROS Statement are negative. <Jonel Manuel - Last Filed: 09/28/22 15:51> ROS Other: All systems not noted in ROS Statement are negative. <Michelle Ballesteros - Last Filed: 09/28/22 16:43> ROS Statement: Those systems with pertinent positive or pertinent negative responses have been documented in the HPI. Past Medical History Past Medical History: CVA/TIA, GERD/Reflux, GI Bleed, Rheumatoid Arthritis (RA) Additional Past Medical History / Comment(s): diverticulitis, DDD, herniated disc X2. Occipital Neuralgia. OCC BLOOD IN STOOL. hx of stomach ulcer. "POSSIBLE 2 STROKES ON MRI.", occiptal migraines, "sore left arm". reynaulds disease History of Any Multi-Drug Resistant Organisms: None Reported Past Surgical History: Cholecystectomy Additional Past Surgical History / Comment(s): EGD, COLONOSCOPY, oral surgery, PAIN CLINIC PROCEDURES. Past Anesthesia/Blood Transfusion Reactions: Family History of Problems w/ Anesthesia Additional Past Anesthesia/Blood Transfusion Reaction / Comment(s): MOTHER HAD EPIDURAL THAT DIDN'T WORK. Past Psychological History: Anxiety, Depression Smoking Status: Current every day smoker Past Alcohol Use History: Occasional Past Drug Use History: None Reported - Past Family History Mother Family Medical History: Cancer Additional Family Medical History / Comment(s): SKIN CANCER. grandfather colon cancer <Jonel Manuel - Last Filed: 09/28/22 15:51> General Exam Limitations: no limitations General appearance: alert, in no apparent distress Head exam: Present: atraumatic, normocephalic Eye exam: Present: normal appearance, PERRL ENT exam: Present: normal exam Neck exam: Present: normal inspection. Absent: tenderness, meningismus Respiratory exam: Present: normal lung sounds bilaterally. Absent: respiratory distress, wheezes, rales, rhonchi Cardiovascular Exam: Present: regular rate, normal rhythm GI/Abdominal exam: Present: soft. Absent: distended, guarding Extremities exam: Present: normal inspection. Absent: pedal edema, calf tenderness Neurological exam: Present: alert, oriented X3, CN II-XII intact. Absent: motor sensory deficit Psychiatric exam: Present: normal affect, normal mood Skin exam: Present: warm, dry, intact. Absent: cyanosis, diaphoretic <Jonel Manuel - Last Filed: 09/28/22 15:51> Course <Michelle Ballesteros - Last Filed: 09/28/22 16:43> Vital Signs 09/28/22 09/28/22 14:07 14:27 Temperature 98.3 F Pulse Rate 86 90 Respiratory 22 20 Rate Blood Pressure 123/86 109/88 O2 Sat by Pulse 98 99 Oximetry - Reevaluation(s) Reevaluation #1: Spoke with Dr. Simmons - echo ordered 09/28/22 16:22 (Michelle Ballesteros) Medical Decision Making - Lab Data Result diagrams: 09/28/22 14:35 09/28/22 14:35 <Jonel Manuel - Last Filed: 09/28/22 15:51> - Lab Data Result diagrams: 09/28/22 14:35 09/28/22 14:35 <Michelle Ballesteros - Last Filed: 09/28/22 16:43> - Medical Decision Making Was pt. sent in by a medical professional or institution (, PA, LEATHER STRETCHER, urgent care, hospital, or [facility]...) When possible be specific @ -[No] Did you speak to anyone other than the patient for history (EMS, parent, family, police, friend...)? What history was obtained from this source @ -[No] Did you review nursing and triage notes (agree or disagree)? Why? @ -[I reviewed and agree with nursing and triage notes] Were old charts reviewed (outside hosp., previous admission, EMS record, old EKG, old radiological studies, urgent care reports/EKG's, [facility] records)? Report findings @ -[No old charts were reviewed] Differential Diagnosis (chest pain, altered mental status, abdominal pain women, abdominal pain men, vaginal bleeding, weakness, fever, dyspnea, syncope, headache, dizziness, GI bleed, back pain, seizure, CVA, palpatations, mental health, musculoskeletal)? @ -[Differential Dyspnea: Coronary syndrome, arrhythmia, tamponade, asthma, COPD, pulmonary embolism, pneumonia, pneumothorax, pulmonary effusion, anaphylaxis, diabetic ketoacidosis, flailed chest, pulmonary contusion, diaphragmatic rupture, anemia, neuromuscular, this is not meant to be an all-inclusive list. EKG interpreted by me (3pts min.). @ -[Sinus rhythm, rate of 78, MN interval 136, QRS duration 94, QTC 376, no ST segment elevation, T-wave inversion in V3. X-rays interpreted by me (1pt min.). @ -[No pneumothorax, no acute findings CT interpreted by me (1pt min.). @ -[CT chest pending U/S interpreted by me (1pt. min.). @ -[None done] What testing was considered but not performed or refused? (CT, X-rays, U/S, labs)? Why? @ -[None] What meds were considered but not given or refused? Why? @ -[None] Did you discuss the management of the patient with other professionals (professionals i.e. DrSeth, PA, LEATHER STRETCHER, lab, RT, psych nurse, licensed master social worker, airport clerk, teacher, loan workout officer, case assistant)? Give summary @ -[No] Was smoking cessation discussed for >3mins.? @ -[No] Was critical care preformed (if so, how long)? @ -[yes, 35 minutes Were there social determinants of health that impacted care today? How? (Homelessness, low income, unemployed, alcoholism, drug addiction, transportation, low edu. Level, literacy, decrease access to med. care, long term, rehab)? @ -[No] Was there de-escalation of care discussed even if they declined (Discuss DNR or withdrawal of care, Hospice)? DNR status @ -[No] What co-morbidities impacted this encounter? (DM, HTN, Smoking, COPD, CAD, Cancer, CVA, ARF, Chemo, Hep., AIDS, mental health diagnosis, sleep apnea, morbid obesity)? @ -[None] Was patient admitted / discharged? Hospital course, mention meds given and route, prescriptions, significant lab abnormalities, going to OR and other pertinent info. @ -[Patient care signed out to Dr. Ballesteros at shift change awaiting CT imaging. (Jonel Manuel) Was patient admitted / discharged? Hospital course, mention meds given and route, prescriptions, significant lab abnormalities, going to OR and other pertinent info. @ -Patient was signed out to me from Dr. Manuel. I did review the patient's laboratory studies. CT was read by the radiologist as positive for bilateral PEs with questionable heart strain. Patient is hemodynamically stable. He is started on a high-dose heparin drip. Does admit to a history of GI bleed h owever ulcer has been controlled as of recent. No history of hemorrhagic stroke. I called and spoke with Dr. Simmons who is on for EKOS. Echo is ordered of the patient's heart. Also ordered bilateral lower extremity ultrasounds. Patient is admitted to Dr. Wilson. He is awaiting a bed on the floor in stable condition Undiagnosed new problem with uncertain prognosis? @ -Yes Drug Therapy requiring intensive monitoring for toxicity (Heparin, Nitro, Insulin, Cardizem)? @ -Heparin Were any procedures done? @ -No Diagnosis/symptom? @ -Acute chest pain, bilateral PEs, elevated d-dimer Acute, or Chronic, or Acute on Chronic? @ -Acute Uncomplicated (without systemic symptoms) or Complicated (systemic symptoms)? @ -Complicated Side effects of treatment? @ -Bleeding Exacerbation, Progression, or Svee Exacerbation? @ -[No] Poses a threat to life or bodily function? How? (Chest pain, USA, DC, pneumonia, PE, COPD, DKA, ARF, appy, cholecystitis, CVA, Diverticulitis, Homicidal, Suicidal, threat to staff... and all critical care pts) @ -Yes, bilateral PEs with question of heart strain is a significant threat to life (Michelle Ballesteros) - Lab Data Lab Results 09/28/22 09/28/22 09/28/22 Range/Units 14:35 14:35 14:35 WBC 7.6 (3.8-10.6) k/uL RBC 5.28 (4.30-5.90) m/uL Hgb 14.5 (13.0-17.5) gm/dL Hct 44.4 (39.0-53.0) % MCV 84.1 (80.0-100.0) fL MCH 27.6 (25.0-35.0) pg MCHC 32.8 (31.0-37.0) g/dL RDW 14.8 (11.5-15.5) % Plt Count 184 (150-450) k/uL MPV 7.4 Neutrophils % 64 % Lymphocytes % 24 % Monocytes % 7 % Eosinophils % 3 % Basophils % 0 % Neutrophils # 4.9 (1.3-7.7) k/uL Lymphocytes # 1.8 (1.0-4.8) k/uL Monocytes # 0.5 (0-1.0) k/uL Eosinophils # 0.2 (0-0.7) k/uL Basophils # 0.0 (0-0.2) k/uL PT 10.2 (9.0-12.0) sec INR 1.0 (<1.2) APTT 23.0 (22.0-30.0) sec D-Dimer 8.16 H (<0.60) mg/L FEU Sodium 134 L (137-145) mmol/L Potassium 4.1 (3.5-5.1) mmol/L Chloride 101 (98-107) mmol/L Carbon Dioxide 25 (22-30) mmol/L Anion Gap 8 mmol/L BUN 9 (9-20) mg/dL Creatinine 0.97 (0.66-1.25) mg/dL Est GFR (CKD-EPI)AfAm >90 (>60 ml/min/1.73 sqM) Est GFR (CKD-EPI)NonAf >90 (>60 ml/min/1.73 sqM) Glucose 95 (74-99) mg/dL Calcium 9.1 (8.4-10.2) mg/dL Magnesium 1.9 (1.6-2.3) mg/dL Total Bilirubin 0.5 (0.2-1.3) mg/dL AST 23 (17-59) U/L ALT 18 (4-49) U/L Alkaline Phosphatase 86 (38-126) U/L Troponin I (0.000-0.034) ng/mL Total Protein 6.1 L (6.3-8.2) g/dL Albumin 3.5 (3.5-5.0) g/dL 09/28/22 Range/Units 14:35 WBC (3.8-10.6) k/uL RBC (4.30-5.90) m/uL Hgb (13.0-17.5) gm/dL Hct (39.0-53.0) % MCV (80.0-100.0) fL MCH (25.0-35.0) pg MCHC (31.0-37.0) g/dL RDW (11.5-15.5) % Plt Count (150-450) k/uL MPV Neutrophils % % Lymphocytes % % Monocytes % % Eosinophils % % Basophils % % Neutrophils # (1.3-7.7) k/uL Lymphocytes # (1.0-4.8) k/uL Monocytes # (0-1.0) k/uL Eosinophils # (0-0.7) k/uL Basophils # (0-0.2) k/uL PT (9.0-12.0) sec INR (<1.2) APTT (22.0-30.0) sec D-Dimer (<0.60) mg/L FEU Sodium (137-145) mmol/L Potassium (3.5-5.1) mmol/L Chloride (98-107) mmol/L Carbon Dioxide (22-30) mmol/L Anion Gap mmol/L BUN (9-20) mg/dL Creatinine (0.66-1.25) mg/dL Est GFR (CKD-EPI)AfAm (>60 ml/min/1.73 sqM) Est GFR (CKD-EPI)NonAf (>60 ml/min/1.73 sqM) Glucose (74-99) mg/dL Calcium (8.4-10.2) mg/dL Magnesium (1.6-2.3) mg/dL Total Bilirubin (0.2-1.3) mg/dL AST (17-59) U/L ALT (4-49) U/L Alkaline Phosphatase (38-126) U/L Troponin I <0.012 (0.000-0.034) ng/mL Total Protein (6.3-8.2) g/dL Albumin (3.5-5.0) g/dL Disposition <Jonel Manuel - Last Filed: 09/28/22 15:51> Is patient prescribed a controlled substance at d/c from ED?: No Time of Disposition: 16:24 Decision to Admit Reason: Admit from EC Decision Date: 09/28/22 Decision Time: 16:24 <Michelle Ballesteros - Last Filed: 09/28/22 16:43> Clinical Impression: Chest pain, Bilateral pulmonary embolism, Elevated d-dimer Disposition: ADMITTED IP TO THIS [facility] Condition: Serious Referrals: Robert Sanchez DO [Primary Care Provider] - 1-2 days
--- NOTE | 2022-09-28 14:40 | XR ---
EXAMINATION TYPE: XR chest 2V DATE OF EXAM: 09/28/2022 COMPARISON: NONE HISTORY: Chest pain TECHNIQUE: Frontal and lateral views of the chest are obtained. FINDINGS: There is no focal air space opacity. No evidence for pneumothorax. No pleural effusion. The cardiac silhouette size is within normal limits. The osseous structures are grossly intact. IMPRESSION: 1. No acute cardiopulmonary process.
[2022-09-28 14:45] LABS: Basophils % (A) 0 %; Eosinophils # (A) 0.2 k/uL (0-0.7); Eosinophils % (A) 3 %; HCT 44.4 % (39.0-53.0); HGB 14.5 gm/dL (13.0-17.5); Lymphocytes # (A) 1.8 k/uL (1.0-4.8); Lymphocytes % (A) 24 %; MCH 27.6 pg (25.0-35.0); MCHC 32.8 g/dL (31.0-37.0); MCV 84.1 fL (80.0-100.0); Mean Platelet Volume 7.4; Monocytes # (A) 0.5 k/uL (0-1.0); Monocytes % (A) 7 %; Neutrophils # (A) 4.9 k/uL (1.3-7.7); Neutrophils % (A) 64 %; Platelet Count 184 k/uL (150-450); RBC 5.28 m/uL (4.30-5.90); RDW 14.8 % (11.5-15.5); WBC 7.6 k/uL (3.8-10.6)
[2022-09-28 15:06] LABS: Prothrombin Time 10.2 sec (9.0-12.0)
[2022-09-28 15:25] LABS: ALT 18 U/L (4-49); AST 23 U/L (17-59); African American GFR (CKD) >90 (>60 ml/min/1.73 sqM); Albumin 3.5 g/dL (3.5-5.0); Alkaline Phosphatase 86 U/L (38-126); Anion Gap 8 mmol/L; Blood Urea Nitrogen 9 mg/dL (9-20); Calcium 9.1 mg/dL (8.4-10.2); Carbon Dioxide 25 mmol/L (22-30); Chloride 101 mmol/L (98-107); Glucose 95 mg/dL (74-99); Magnesium 1.9 mg/dL (1.6-2.3); Non-African American GFR(CKD) >90 (>60 ml/min/1.73 sqM); Potassium 4.1 mmol/L (3.5-5.1); Sodium 134 mmol/L (137-145); Total Bilirubin 0.5 mg/dL (0.2-1.3); Total Protein 6.1 g/dL (6.3-8.2)
[2022-09-28] MEDS ORDERED: HEPARIN SODIUM 1,000 UN/ML (10ML VL) IV ONE (16:05)
[2022-09-28] MEDS ORDERED: HEPARIN SODIUM 1,000 UN/ML (10ML VL) IV PRN (16:05)
--- NOTE | 2022-09-28 16:10 | CT ---
EXAMINATION TYPE: CT angio chest DATE OF EXAM: 09/28/2022 COMPARISON: None HISTORY: elevated d-dimer, chest pain CT DLP: 374.3 mGycm CONTRAST: CT chest with contrast and 3D reconstruction with MIP imaging is performed with IV Contrast, patient injected with 100 mL of Isovue 370. Contrast-enhanced CT of the chest was performed through the course of the pulmonary arteries with jen g and mediastinal window settings submitted. 3D reconstruction with MIP imaging was also performed. PULMONARY ARTERIES: There are moderate lower lobe pulmonary arterial filling defects noted involving first, Second and third order branches. Main pulmonary arteries are free of filling defect or saddle component. There is a small amount of reflux within the intrahepatic IVC which could reflect early ri ght heart strain. Relative sparing of the upper lobe pulmonary arteries. LUNGS: Small peripheral infiltrate right lower lobe could reflect infarct. No evidence for atelectasi s. No pulmonary nodule or mass is detected. No pleural effusion. MEDIASTINUM: Thoracic aorta is of normal caliber. The heart is not enlarged. No evidence for medias tinal mass. No mediastinal lymph nodes greater than 1cm. HILAR STRUCTURES: No evidence for mass. No hilar lymph nodes greater than 1 cm. UPPER ABDOMEN: No significant abnormality is seen. IMPRESSION: 1. There are moderate lower lobe pulmonary arterial filling defects noted involving first, Second an d third order branches. Main pulmonary arteries are free of filling defect or saddle component. There is a small amount of reflux within the intrahepatic IVC which could reflect early right heart strain .
[2022-09-28] MEDS ORDERED: NALOXONE 0.4 MG/ML 1 ML VIAL IV PRN (16:24)
--- NOTE | 2022-09-28 17:57 | US ---
EXAMINATION TYPE: US venous doppler duplex LE BI DATE OF EXAM: 09/28/2022 5:37 PM COMPARISON: NONE CLINICAL INDICATION: Male, 37 years old with history of pulmonary emboli; PE SIDE PERFORMED: Bilateral TECHNIQUE: The lower extremity deep venous system is examined utilizing real time linear array sonog dalton with graded compression, doppler sonography and color-flow sonography. VESSELS IMAGED: Common Femoral Vein Deep Femoral Vein Greater Saphenous Vein * Femoral Vein Popliteal Vein Small Saphenous Vein * Proximal Calf Veins (* superficial vessels) Right Leg: Negative for DVT Left Leg: Negative for DVT IMPRESSION: No evidence for DVT at this time.
[2022-09-28] MEDS: HEPARIN SOD,PORK IN 0.45% NACL 25,000 UNIT in 0.45% NACL 1 250ML.BAG IV SCH (18:21)
[2022-09-28] MEDS: NICOTINE 14MG/24HR PATCH TRANSDERM SCH (18:44)
[2022-09-28] MEDS: ACETAMINOPHEN TAB 325 MG TAB PO PRN (18:44)
[2022-09-28] MEDS: traMADol 50 MG TAB PO PRN (20:12)
[2022-09-29] MEDS: traMADol 50 MG TAB PO PRN ×4 (02:21→20:38)
[2022-09-29] MEDS: NICOTINE 14MG/24HR PATCH TRANSDERM SCH (09:13)
[2022-09-29 09:53] LABS: Basophils % (A) 0 %; Eosinophils # (A) 0.2 k/uL (0-0.7); Eosinophils % (A) 3 %; HCT 43.2 % (39.0-53.0); HGB 14.1 gm/dL (13.0-17.5); Lymphocytes # (A) 1.6 k/uL (1.0-4.8); Lymphocytes % (A) 20 %; MCHC 32.7 g/dL (31.0-37.0); MCV 85.6 fL (80.0-100.0); Mean Platelet Volume 7.4; Monocytes # (A) 0.6 k/uL (0-1.0); Monocytes % (A) 8 %; Neutrophils # (A) 5.3 k/uL (1.3-7.7); Neutrophils % (A) 67 %; Platelet Count 179 k/uL (150-450); RBC 5.05 m/uL (4.30-5.90); RDW 14.7 % (11.5-15.5); WBC 7.8 k/uL (3.8-10.6)
[2022-09-29 10:33] LABS: African American GFR (CKD) >90 (>60 ml/min/1.73 sqM); Anion Gap 6 mmol/L; Blood Urea Nitrogen 9 mg/dL (9-20); Calcium 8.6 mg/dL (8.4-10.2); Carbon Dioxide 27 mmol/L (22-30); Chloride 101 mmol/L (98-107); Glucose 104 mg/dL (74-99); Non-African American GFR(CKD) >90 (>60 ml/min/1.73 sqM); Potassium 4.1 mmol/L (3.5-5.1); Sodium 134 mmol/L (137-145)
[2022-09-29] MEDS ORDERED: SUMAtriptan succinate 50 MG TAB PO PRN (11:18)
--- NOTE | 2022-09-29 12:34 | CA ---
Transthoracic Echo Report Name: John Doran Age: 37 Gender: M : 1985 Exam Date: 09/29/2022 08:31 Exam Location: [facility] Ht (in): 71 Wt (lb): 183 Ordering Physician: Michelle Ballesteros DO Attending/Referring Phys: [id number], Lesli Director Of Collections Yoshi Suni Procedure CPT: Indications: pulmonary emboli, r/o heart strain Cardiac Hx: Technical Quality: Fair Contrast 1: Total Dose (mL): Contrast 2: Total Dose (mL): MEASUREMENTS (Male / Female) Normal Values 2D ECHO LV Diastolic Diameter PLAX 4.1 cm 4.2 - 5.9 / 3.9 - 5.3 cm LV Systolic Diameter PLAX 2.7 cm IVS Diastolic Thickness 1.1 cm 0.6 - 1.0 / 0.6 - 0.9 cm LVPW Diastolic Thickness 1.2 cm 0.6 - 1.0 / 0.6 - 0.9 cm LV Relative Wall Thickness 0.6 RV Internal Dim ED PLAX 2.6 cm LVOT Diameter 2.1 cm Aortic Root Diameter 3.2 cm LA Systolic Diameter LX 2.5 cm 3.0 - 4.0 / 2.7 - 3.8 cm LV Diastolic Volume MOD BP 47.1 cm??? 67 - 155 / 56 - 104 cm??? LV Systolic Volume MOD BP 14.1 cm??? 22 - 58 / 19 - 49 cm??? LV Ejection Fraction MOD BP 70.0 % >= 55 % LV Diastolic Volume MOD 4C 64.5 cm??? LV Systolic Volume MOD 4C 18.5 cm??? LV Ejection Fraction MOD 4C 71.4 % LV Diastolic Length 4C 7.6 cm LV Systolic Length 4C 6.8 cm LV Diastolic Volume MOD 2C 32.4 cm??? LV Systolic Volume MOD 2C 9.6 cm??? LV Ejection Fraction MOD 2C 70.3 % LV Diastolic Length 2C 7.2 cm LV Systolic Length 2C 5.9 cm LA Volume 40.4 cm??? 18 - 58 / 22 - 52 cm??? DOPPLER MV Peak Velocity 88.5 cm/s MV Peak Gradient 3.1 mmHg MV Mean Velocity 50.0 cm/s MV Mean Gradient 1.2 mmHg MV Velocity Time Integral 33.2 cm Mitral E Point Velocity 86.3 cm/s Mitral A Point Velocity 70.7 cm/s Mitral E to A Ratio 1.2 MV Deceleration Time 202.8 ms MV E' Velocity 10.0 cm/s Mitral E to MV E' Ratio 8.6 TR Peak Velocity 160.0 cm/s TR Peak Gradient 10.2 mmHg Right Ventricular Systolic Press 15.2 mmHg FINDINGS Left Ventricle Left ventricular ejection fraction is estimated at 60-65 %. Right Ventricle Normal right ventricular size. Right Atrium Normal right atrial size. Left Atrium Normal left atrial size. Mitral Valve Structurally normal mitral valve. No mitral regurgitation. Aortic Valve Trileaflet aortic valve. No aortic valve stenosis or regurgitation. Tricuspid Valve Structurally normal tricuspid valve. Trace TR. Pulmonic Valve Pericardium Normal pericardium. Aorta Normal size aortic root and proximal ascending aorta. CONCLUSIONS Normal LV systolic function Previewed by: Dr. Cameron Arredondo MD (Electronically Signed) Final Date: 29 September 2022 12:34
[2022-09-29] MEDS: ACETAMINOPHEN TAB 325 MG TAB PO PRN ×2 (13:07→20:37)
[2022-09-29] MEDS: PANTOPRAZOLE 40 MG TABLET PO SCH (13:07)
[2022-09-29] MEDS: HEPARIN SOD,PORK IN 0.45% NACL 25,000 UNIT in 0.45% NACL 1 250ML.BAG IV SCH (13:55)
--- NOTE | 2022-09-29 14:32 | P.HPIM ---
History of Present Illness H&P Date: 09/29/22 Chief Complaint: Short of breath This is a pleasant 37-year-old patient, follows with Dr. Sanchez. Chronic stable medical conditions include GERD, rheumatoid arthritis, herniated disc, occipital neuralgia, stomach ulcer, Raynaud's disease. Anxiety depression. Smoker. Patient about 3:00 in the morning was woken up with shortness of breath. Cardiac to take a deep breath. No fever no chills. Appetite fair. No leg swelling. Pain mainly on the right side of the chest. Chest CT confirmed pulmonary embolism. Started on IV heparin. Cardiology was consulted. This morning remains a bit short of breath. Laying in bed. Pleuritic pain. We deep breath. Patient states his biological father had blood clot. Does not plan any further details. Review of systems: GEN.: Tired EYES: None HEENT: None NECK: None RESPIRATORY: As above CARDIOVASCULAR: None GASTROINTESTINAL: None GENITOURINARY: None MUSCULOSKELETAL: None LYMPHATICS: None HEMATOLOGICAL: None PSYCHIATRY: Anxious NEUROLOGICAL: None Past medical history to include: GERD, rheumatoid arthritis, injected this, occipital neuralgia, Raynaud's disease, occipital migraines, anxiety depression Social history: This is a grandmother's. Smokes a pack and a half a day for many years. Since 717. Drinks a pint of rum every other day. Does use CBD Physical examination: VITAL SIGNS: 98.8, 86, 18, 129/80, 99% 2 L GENERAL: BMI 25.5, laying in bed slightly anxious. EYES: Pupils equal. Conjunctiva normal. HEENT: External appearance of nose and ears normal, oral cavity grossly normal. NECK: JVD not raised; masses not palpable. HEART: First and second heart sounds are normal; no edema. LUNGS: Respiratory rate increased; decreased breath sounds. ABDOMEN: Soft, nontender, liver spleen not palpable, no masses palpable. PSYCH: Alert and oriented x3; mood and affect anxiousl. MUSCULOSKELETAL:No Clubbing/cyanosis;muscles-grossly intact NEUROLOGICAL: Cranial nerves grossly intact; no facial asymmetry, power and sensation grossly intact. LYMPHATICS: No lymph nodes palpable in the axilla and neck INVESTIGATIONS, reviewed in the clinical context: 2-D echocardiogram: EF 60-65%. No right ventricle strain White count 7.8 hemoglobin 14.1 platelets 179 potassium 4.1 creatinine 0.94 Troponin I 3 less than 0.012 EKG tracing personally reviewed by me-no sinus rhythm. Chest x-ray film personally reviewed by me-some hyperinflation CT angiogram chest: Moderate lower lobe pulmonary arterial filling defects Assessment and Plan: -Acute pulmonary embolism, unprovoked. father with history of DVT. Detail is unknown. IV heparin. Consult hematology for familial/hematological causes -Possible pulmonary infarct, pleuritic pain -Chronic nicotine dependence, cigarette smoker Nicotine patch -IV heparin monitoring Follow PTT -Anxiety depression Trazodone -GERD Omeprazole Past Medical History Past Medical History: CVA/TIA, GERD/Reflux, GI Bleed, Rheumatoid Arthritis (RA) Additional Past Medical History / Comment(s): diverticulitis, DDD, herniated disc X2. Occipital Neuralgia. OCC BLOOD IN STOOL. hx of stomach ulcer. "POSSIBLE 2 STROKES ON MRI.", occiptal migraines, "sore left arm". reynaulds disease History of Any Multi-Drug Resistant Organisms: None Reported Past Surgical History: Cholecystectomy Additional Past Surgical History / Comment(s): EGD, COLONOSCOPY, oral surgery, PAIN CLINIC PROCEDURES. Past Anesthesia/Blood Transfusion Reactions: Family History of Problems w/ Anesthesia Additional Past Anesthesia/Blood Transfusion Reaction / Comment(s): MOTHER HAD EPIDURAL THAT DIDN'T WORK. Past Psychological History: Anxiety, Depression Additional Psychological History / Comment(s): NO CURRENT [place]. severe anxiety. pt states his Dr stated to stay off the meds due to side effects. pt is in therapy. Smoking Status: Current every day smoker Past Alcohol Use History: Occasional Additional Past Alcohol Use History / Comment(s): SMOKES 1 1/2 -3 PPD, SMOKING SINCE age 16. pt states he drinks a pint of liquor every couple days. Past Drug Use History: None Reported Additional Drug Use History / Comment(s): occ CBD - Past Family History Mother Family Medical History: Cancer Additional Family Medical History / Comment(s): SKIN CANCER. grandfather colon cancer Medications and Allergies Home Medications Medication Instructions Recorded Confirmed Type Omeprazole 40 mg PO DAILY 09/28/22 09/28/22 History SUMAtriptan succinate [Imitrex] 50 mg PO BID PRN 09/28/22 09/28/22 History traZODone HCL [Desyrel] 50 mg PO HS 09/28/22 09/28/22 History Allergies Allergy/AdvReac Type Severity Reaction Status Date / Time adhesive tape Allergy Rash/Hives Verified 09/28/22 16:46 gabapentin Allergy Rash/Hives Verified 09/28/22 16:46 paliperidone [From Invega] Allergy per oasis Verified 09/28/22 16:46 hydrocodone AdvReac MIGRAINE Verified 09/28/22 16:46 topiramate [From Topamax] AdvReac creates Verified 09/28/22 16:46 black SPOT on left eye NARCOTICS AdvReac MIGRAINES Uncoded 09/28/22 14:09 Physical Exam Vitals: Vital Signs Temp Pulse Pulse Resp BP BP Pulse Ox 09/29/22 08:08 97 09/29/22 08:00 98.8 F 86 18 129/80 99 09/29/22 04:00 98.1 F 84 16 128/80 98 09/29/22 01:22 76 18 09/29/22 00:00 76 18 112/74 99 09/28/22 20:00 97.9 F 80 18 119/80 98 09/28/22 18:38 99.1 F 93 22 114/77 98 09/28/22 18:23 88 20 131/86 99 09/28/22 14:27 90 20 109/88 99 09/28/22 14:07 98.3 F 86 22 123/86 98 Intake and Output 09/28/22 09/29/22 09/29/22 22:59 06:59 14:59 Intake Total 635.856 Output Total 400 Balance 235.856 Intake: Intake, IV Titration 155.856 Amount Heparin Sod,Pork in 0.45% 155.856 NaCl 25,000 unit In 0.45 % NaCl 1 250ml.bag @ 18 UNITS/KG/HR 14.941 mls/hr IV .[id number] [facility] Rx#: [id number] Oral 480 Output: Urine 400 Other: Weight 83.007 kg Results CBC & Chem 7: 09/29/22 09:27 09/29/22 09:27 Labs: Abnormal Lab Results - Last 24 Hours (Table) 09/28/22 09/28/22 09/28/22 Range/Units 14:35 14:35 23:51 APTT 104.1 H* (22.0-30.0) sec D-Dimer 8.16 H (<0.60) mg/L FEU Sodium 134 L (137-145) mmol/L Glucose (74-99) mg/dL Total Protein 6.1 L (6.3-8.2) g/dL 09/29/22 09/29/22 Range/Units 09:27 09:27 APTT 49.9 H (22.0-30.0) sec D-Dimer (<0.60) mg/L FEU Sodium 134 L (137-145) mmol/L Glucose 104 H (74-99) mg/dL Total Protein (6.3-8.2) g/dL Thrombosis Risk Factor Assmnt - Choose All That Apply Any of the Below Risk Factors Present?: No Other Risk Factors: No Other congenital or acquired thrombophilia - If yes, enter type in comment: No Thrombosis Risk Factor Assessment Level: Very Low Risk
--- NOTE | 2022-09-29 14:36 | P.CRDCN ---
History of Present Illness History of present illness: HISTORY OF PRESENTING ILLNESS Patient is a pleasant 37-year-old male with history of some form of clot in his arm and saw the vascular surgeon, Dr. Munoz at then the 2020 with eventual cat heterization showing a clot and placed on anticoagulation. He only take anticoagulation for proximally 3 weeks and then developed hematochezia from hemorrhoids and therefore stopped this and did not have good follow-up outpatient. He additionally has tobacco abuse and migraine headaches. He belie ves his biological father had history of clotting disorder. He does smoke approximately half pack per day. Denies any illicit drugs. Occasional alcohol. He presented with chest pain which started yesterday which is pleuritic worse with deep inspiration. CT showed pulmonary embolism. Troponins normal 3 with proBNP normal. Echocardiogram performed with preserved EF without significant right ventricular strain and normal RVSP. REVIEW OF SYSTEMS At the time of my exam: CONSTITUTIONAL: Denies fever or chills. CARDIOVASCULAR: +Chest pain, +shortness of breath, no orthopnea, PND or palpitations. RESPIRATORY: Denies cough. GASTROINTESTINAL: Denies abdominal pain, diarrhea, constipation, nausea or vomiting. MUSCULOSKELETAL: Denies myalgias. NEUROLOGIC: Denies numbness, tingling or weakness. ENDOCRINE: Denies fatigue, weight change, polydipsia or polyurina. GENITOURINARY: Denies burning, hematuria or urgency with micturation. HEMATOLOGIC: Denies history of anemia or bleeding. PHYSICAL EXAMINATION Vital signs reviewed. CONSTITUTIONAL: No apparent distress. HEENT: Head is normocephalic. Pupils are equal, round. Sclerae anicteric. Mucous membranes of the mouth are moist. No JVD. No carotid bruit. CHEST EXAMINATION: Lungs are clear to auscultation. No chest wall tenderness is noted on palpation or with deep breathing. HEART EXAMINATION: Regular rate and rhythm. S1, S2 heard. No murmurs, gallops or rub. ABDOMEN: Soft, nontender. Positive bowel sounds. EXTREMITIES: 2+ peripheral pulses, no lower extremity edema and no calf tenderness. NEUROLOGIC EXAMINATION: Patient is awake, alert and oriented x3. ASSESSMENT 1. Chest pain appears related to pulmonary embolism 2. Acute pulmonary embolism 3. History of prior clotting of his arm with vascular surgery workup, catheter ization performed at [facility] 4. Tobacco abuse PLAN Patient does have new onset pulmonary embolism with lower extremity venous ultrasound negative. He apparently had prior workup a year to year and a half ago at [facility] for some form of clot and had catheterization performed by Dr. Munoz. Additionally has family history of father with clotting disorder and likely has hypercoagulable state. Discussed tobacco cessation. No significant echo evidence of right ventricular strain and therefore continue medical therapy. Transition to NOAC when able. Likely will need lifelong anticoagulation, consider outpt hematology workup. Obtain records from [facility]. Past Medical History Past Medical History: CVA/TIA, GERD/Reflux, GI Bleed, Rheumatoid Arthritis (RA) Additional Past Medical History / Comment(s): diverticulitis, DDD, herniated disc X2. Occipital Neuralgia. OCC BLOOD IN STOOL. hx of stomach ulcer. "POSSIBLE 2 STROKES ON MRI.", occiptal migraines, "sore left arm". reynaulds disease History of Any Multi-Drug Resistant Organisms: None Reported Past Surgical History: Cholecystectomy Additional Past Surgical History / Comment(s): EGD, COLONOSCOPY, oral surgery, PAIN CLINIC PROCEDURES. Past Anesthesia/Blood Transfusion Reactions: Family History of Problems w/ Anesthesia Additional Past Anesthesia/Blood Transfusion Reaction / Comment(s): MOTHER HAD EPIDURAL THAT DIDN'T WORK. Past Psychological History: Anxiety, Depression Additional Psychological History / Comment(s): NO CURRENT TX. severe anxiety. pt states his Dr stated to stay off the meds due to side effects. pt is in therapy. Smoking Status: Current every day smoker Past Alcohol Use History: Occasional Additional Past Alcohol Use History / Comment(s): SMOKES 1 1/2 -3 PPD, SMOKING SINCE age 16. pt states he drinks a pint of liquor every couple days. Past Drug Use History: None Reported Additional Drug Use History / Comment(s): occ CBD - Past Family History Mother Family Medical History: Cancer Additional Family Medical History / Comment(s): SKIN CANCER. grandfather colon cancer Medications and Allergies Home Medications Medication Instructions Recorded Confirmed Type Omeprazole 40 mg PO DAILY 09/28/22 09/28/22 History SUMAtriptan succinate [Imitrex] 50 mg PO BID PRN 09/28/22 09/28/22 History traZODone HCL [Desyrel] 50 mg PO HS 09/28/22 09/28/22 History Allergies Allergy/AdvReac Type Severity Reaction Status Date / Time adhesive tape Allergy Rash/Hives Verified 09/28/22 16:46 gabapentin Allergy Rash/Hives Verified 09/28/22 16:46 paliperidone [From Invega] Allergy per oasis Verified 09/28/22 16:46 hydrocodone AdvReac MIGRAINE Verified 09/28/22 16:46 topiramate [From Topamax] AdvReac creates Verified 09/28/22 16:46 black SPOT on left eye NARCOTICS AdvReac MIGRAINES Uncoded 09/28/22 14:09 Physical Exam Vitals: Vital Signs Temp Pulse Pulse Resp BP BP Pulse Ox 09/29/22 14:00 84 18 09/29/22 12:00 84 18 131/82 98 09/29/22 08:08 97 09/29/22 08:00 98.8 F 86 18 129/80 99 09/29/22 04:00 98.1 F 84 16 128/80 98 09/29/22 01:22 76 18 09/29/22 00:00 76 18 112/74 99 09/28/22 20:00 97.9 F 80 18 119/80 98 09/28/22 18:38 99.1 F 93 22 114/77 98 09/28/22 18:23 88 20 131/86 99 Intake and Output 09/28/22 09/29/22 09/29/22 22:59 06:59 14:59 Intake Total 635.856 146.092 Output Total 400 Balance 235.856 146.092 Intake: Intake, IV Titration 155.856 146.092 Amount Heparin Sod,Pork in 0.45% 155.856 146.092 NaCl 25,000 unit In 0.45 % NaCl 1 250ml.bag @ 18 UNITS/KG/HR 14.941 mls/hr IV .[id number] [facility] Rx#: [id number] Oral 480 Output: Urine 400 Other: # Voids 2 Weight 83.007 kg Results 09/29/22 09:27 09/29/22 09:27 Cardiac Enzymes 09/28/22 09/28/22 09/28/22 Range/Units 14:35 14:35 18:20 AST 23 (17-59) U/L Troponin I <0.012 <0.012 (0.000-0.034) ng/mL 09/28/22 Range/Units 20:53 AST (17-59) U/L Troponin I <0.012 (0.000-0.034) ng/mL Coagulation 09/28/22 09/28/22 09/29/22 Range/Units 14:35 23:51 09:27 PT 10.2 (9.0-12.0) sec APTT 23.0 104.1 H* 49.9 H (22.0-30.0) sec CBC 09/28/22 09/29/22 Range/Units 14:35 09:27 WBC 7.6 7.8 (3.8-10.6) k/uL RBC 5.28 5.05 (4.30-5.90) m/uL Hgb 14.5 14.1 (13.0-17.5) gm/dL Hct 44.4 43.2 (39.0-53.0) % Plt Count 184 179 (150-450) k/uL Comprehensive Metabolic Panel 09/28/22 09/29/22 Range/Units 14:35 09:27 Sodium 134 L 134 L (137-145) mmol/L Potassium 4.1 4.1 (3.5-5.1) mmol/L Chloride 101 101 (98-107) mmol/L Carbon Dioxide 25 27 (22-30) mmol/L BUN 9 9 (9-20) mg/dL Creatinine 0.97 0.94 (0.66-1.25) mg/dL Glucose 95 104 H (74-99) mg/dL Calcium 9.1 8.6 (8.4-10.2) mg/dL AST 23 (17-59) U/L ALT 18 (4-49) U/L Alkaline Phosphatase 86 (38-126) U/L Total Protein 6.1 L (6.3-8.2) g/dL Albumin 3.5 (3.5-5.0) g/dL Current Medications Generic Name Dose Route Start Last Admin Trade Name Freq PRN Reason Stop Dose Admin Acetaminophen 650 mg 09/28/22 18:31 09/29/22 13:07 Acetaminophen Tab 325 Mg Tab PO 650 mg Q6HR PRN Administration Fever and/ or Mild Pain Heparin Sodium (Porcine) 0 unit 09/28/22 16:05 Heparin Sodium 1,000 Un/Ml (10ml Vl) IV PER PROTOCOL PRN Low PTT Protocol Heparin Sodium/Sodium Chloride 250 mls @ 14.941 mls/hr 09/28/22 16:15 09/29/22 13:55 25,000 unit/ Sodium Chloride IV 09/29/22 17:30 15 units/kg/hr .[id number] NAV 12.451 mls/hr Administration Protocol 18 UNITS/KG/HR Naloxone HCl 0.2 mg 09/28/22 16:24 Naloxone 0.4 Mg/Ml 1 Ml Vial IV Q2M PRN Opioid Reversal Nicotine 1 patch 09/28/22 18:45 09/29/22 09:13 Nicotine 14mg/24hr Patch TRANSDERM 1 patch DAILY NAV Administration Pantoprazole Sodium 40 mg 09/29/22 11:30 09/29/22 13:07 Pantoprazole 40 Mg Tablet PO 40 mg DAILY NAV Administration Rivaroxaban 15 mg 09/29/22 17:30 Rivaroxaban 15 Mg Tab PO BID-W/MEALS NAV Protocol Sumatriptan Succinate 50 mg 09/29/22 11:18 Sumatriptan Succinate 50 Mg Tab PO BID PRN Migraine Headache Tramadol HCl 25 mg 09/28/22 19:43 09/29/22 09:13 Tramadol 50 Mg Tab PO 25 mg QID PRN Administration Pain Trazodone HCl 50 mg 09/29/22 21:00 Trazodone Hcl 50 Mg Tab PO [facility] Intake and Output 09/28/22 09/29/22 09/29/22 22:59 06:59 14:59 Intake Total 635.856 146.092 Output Total 400 Balance 235.856 146.092 Intake: Intake, IV Titration 155.856 146.092 Amount Heparin Sod,Pork in 0.45% 155.856 146.092 NaCl 25,000 unit In 0.45 % NaCl 1 250ml.bag @ 18 UNITS/KG/HR 14.941 mls/hr IV .[id number] [facility] Rx#: [id number] Oral 480 Output: Urine 400 Other: # Voids 2 Weight 83.007 kg 09/29/22 09:27 09/29/22 09:27
[2022-09-29] MEDS: RIVAROXABAN 15 MG TAB PO SCH (17:39)
[2022-09-29] MEDS: traZODone HCL 50 MG TAB PO SCH (20:38)
[2022-09-29] MEDS: KETOROLAC 15 MG/ML 1 ML VIAL IVP SCH (22:50)
[2022-09-30] MEDS: KETOROLAC 15 MG/ML 1 ML VIAL IVP SCH ×3 (06:08→18:36)
[2022-09-30] MEDS: RIVAROXABAN 15 MG TAB PO SCH ×2 (06:08→18:38)
[2022-09-30] MEDS: PANTOPRAZOLE 40 MG TABLET PO SCH (08:41)
[2022-09-30] MEDS: NICOTINE 14MG/24HR PATCH TRANSDERM SCH (08:41)
[2022-09-30] MEDS: ACETAMINOPHEN TAB 325 MG TAB PO PRN ×2 (12:38→20:34)
[2022-09-30] MEDS: IOPAMIDOL CONTRAST (ORAL USE) VIAL PO PRN ×2 (12:39→13:59)
--- NOTE | 2022-09-30 14:47 | XR ---
EXAMINATION TYPE: XR chest 2V DATE OF EXAM: 09/30/2022 COMPARISON: 09/28/2022 TECHNIQUE: PA and lateral views submitted. HISTORY: Fever FINDINGS: Heart size normal pleural effusion or pneumothorax. Patchy right perihilar infiltrate. Mild hyperinfl ation. Increased density on the lateral view in the lower lung zone. IMPRESSION: 1. Patchy right perihilar density as well as increased density lower lung zone posteriorly on the lat eral views patient's for early pneumonia.
--- NOTE | 2022-09-30 14:52 | P.PN ---
Progress Note - Text Progress Note Date: 09/30/22 Chief Complaint: Short of breath This is a pleasant 37-year-old patient, follows with Dr. Sanchez. Chronic stable medical conditions include GERD, rheumatoid arthritis, herniated disc, occipital neuralgia, stomach ulcer, Raynaud's disease. Anxiety depression. Smoker. Patient about 3:00 in the morning was woken up with shortness of breath. Cardiac to take a deep breath. No fever no chills. Appetite fair. No leg swelling. Pain mainly on the right side of the chest. Chest CT confirmed pulmonary embolism. Started on IV heparin. Cardiology was consulted. This morning remains a bit short of breath. Laying in bed. Pleuritic pain. We deep breath. Patient states his biological father had blood clot. Does not plan any further details. September 30: Spiked a fever of 103.1. Some bloody sputum. Suspect pulmonary infarct. Cannot rule out secondary infection. Consult pulmonary. X-ray. Patient on xarelto. Text x-ray shows patchy right perihilar density and density left lower zone. Posteriorly. Active Medications Acetaminophen (Acetaminophen Tab 325 Mg Tab) 650 mg PO Q6HR PRN PRN Reason: Fever and/ or Mild Pain Last Admin: 09/30/22 12:38 Dose: 650 mg Ketorolac Tromethamine (Ketorolac 15 Mg/Ml 1 Ml Vial) 15 mg IVP Q6HR [facility] Stop: 10/04/22 21:38 Last Admin: 09/30/22 12:23 Dose: 15 mg Naloxone HCl (Naloxone 0.4 Mg/Ml 1 Ml Vial) 0.2 mg IV Q2M PRN PRN Reason: Opioid Reversal Nicotine (Nicotine 14mg/24hr Patch) 1 patch TRANSDERM DAILY [facility] Last Admin: 09/30/22 08:41 Dose: 1 patch Pantoprazole Sodium (Pantoprazole 40 Mg Tablet) 40 mg PO DAILY [facility] Last Admin: 09/30/22 08:41 Dose: 40 mg Rivaroxaban (Rivaroxaban 15 Mg Tab) 15 mg PO BID-W/MEALS [facility]; Protocol Last Admin: 09/30/22 06:08 Dose: 15 mg Sumatriptan Succinate (Sumatriptan Succinate 50 Mg Tab) 50 mg PO BID PRN PRN Reason: Migraine Headache Trazodone HCl (Trazodone Hcl 50 Mg Tab) 50 mg PO HS [facility] Last Admin: 09/29/22 20:38 Dose: 50 mg Past medical history to include: GERD, rheumatoid arthritis, injected this, occipital neuralgia, Raynaud's disease, occipital migraines, anxiety depression Social history: This is a grandmother's. Smokes a pack and a half a day for many years. Since 817. Drinks a pint of rum every other day. Does use CBD Physical examination: VITAL SIGNS: 103.1, 128, 18, 129/84, 95% room air GENERAL: BMI 25.5, laying in bed slightly anxious. EYES: Pupils equal. Conjunctiva normal. HEENT: External appearance of nose and ears normal, oral cavity grossly normal. NECK: JVD not raised; masses not palpable. HEART: First and second heart sounds are normal; no edema. LUNGS: Respiratory rate increased; decreased breath sounds. ABDOMEN: Soft, nontender, liver spleen not palpable, no masses palpable. PSYCH: Alert and oriented x3; mood and affect anxiousl. INVESTIGATIONS, reviewed in the clinical context: 2-D echocardiogram: EF 60-65%. No right ventricle strain White count 7.8 hemoglobin 14.1 platelets 179 potassium 4.1 creatinine 0.94 Troponin I 3 less than 0.012 EKG tracing personally reviewed by me-no sinus rhythm. Chest x-ray film personally reviewed by me-some hyperinflation CT angiogram chest: Moderate lower lobe pulmonary arterial filling defects Assessment and Plan: -Acute pulmonary embolism, unprovoked. father with history of DVT. Detail is unknown. IV heparin changed over to xarelto. Consult hematology for familial/hematological causes -Probable acute pulmonary infarct secondary to PE, pleuritic pain -Rule out secondary infection. Pulmonary consulted. -Chronic nicotine dependence, cigarette smoker Nicotine patch -Anxiety depression Trazodone -GERD Omeprazole We will hold off any antibiotic till patient reviewed by pulmonary. Pulmonary consulted. Continue xarelto. Incentive spirometry.
--- NOTE | 2022-09-30 15:03 | CT ---
EXAMINATION TYPE: CT abdomen pelvis w con DATE OF EXAM: 09/30/2022 COMPARISON: 01/04/2010 HISTORY: abd pain, unprovoked PE,Hx of arterial clot CT DLP: 1075.8 mGycm CONTRAST: CT scan of the abdomen and pelvis is performed with Oral Contrast and with IV Contrast, patient injec daria with 100 mL of Isovue 300. FINDINGS: LUNG BASES-: There is partially imaged right lower lobe airspace consolidation felt to reflect pneumo satinder. Correlate clinically. LIVER/GB: The gallbladder surgically absent. Geographic enhancement within the liver may reflect ar eas of fatty hepatic infiltration. No space occupying hepatic lesion. Biliary tree is of normal seb jud. PANCREAS: No inflammation. No distinct mass. SPLEEN: No splenic enlargement. No lesion seen. ADRENALS: No nodule. No thickening. KIDNEYS/BLADDER: No hydronephrosis. No nephrolithiasis. No distinct renal mass. Urinary bladder g rossly unremarkable. BOWEL: Normal appendix. Normal bowel caliber. No inflammation. GENITAL ORGANS: No gross abnormality. LYMPH NODES: No greater than 1cm abdominal or pelvic lymph nodes are appreciated. AORTA: No significant abnormality. OSSEOUS STRUCTURES: No significant abnormality is seen. OTHER: No significant additional abnormality is seen. IMPRESSION: 1. Right lower lobe infiltrate. Correlate for pneumonia or aspiration pneumonia. 2. Fatty liver.
--- NOTE | 2022-09-30 17:13 | P.CNPUL ---
History of Present Illness Consult date: 09/30/22 Requesting physician: Nirmal Wilson Reason for consult: pulmonary embolism Chief complaint: Shortness of breath and pleuritic right-sided chest pain History of present illness: This is a 37-year-old white male with no previous significant medical history except for possible history of deep vein thromboses for which she was seen by Dr. Garcia, in 2020, and he was placed on anticoagulation therapy however the patient was noncompliant with therapy, and he took medication for 3 weeks, he developed hematochezia from hemorrhoids, and he stopped taking anticoagulation therapy. At any rate patient also has strong family history of hypercoagulable state/father, patient presented to the ER this time with shortness of breath, right-sided chest pain, and chest discomfort. CT angiogram of the chest showed bilateral pulmonary emboli. Echocardiogram showed no evidence of ventricular strain. DVT workup was negative, Doppler was negative for deep vein thrombosis. Patient was admitted, this consult was initiated. He was initially placed on heparin and now he is on eliquis. Presently feeling better, hardly any shortness of breath, no cough no wheezing, and he does have some vague right-s ided pleuritic chest pain. CBC is relatively normal his PTT was therapeutic this morning electrodes are normal renal profile is normal troponin is normal Review of Systems CONSTITUTIONAL: Denies weight loss fever chills CARDIOVASCULAR: +Chest pain, +shortness of breath, no orthopnea, PND or palpitations. RESPIRATORY: As noted in HPI mostly shortness of breath and right-sided pleuritic chest pain. GASTROINTESTINAL: Denies abdominal pain, diarrhea, constipation, nausea or vomiting. MUSCULOSKELETAL: History of rheumatoid arthritis. NEUROLOGIC: Denies numbness, tingling or weakness. ENDOCRINE: Negative. GENITOURINARY: Denies burning, hematuria or urgency with micturation. HEMATOLOGIC: As noted in HPI. Past Medical History Past Medical History: CVA/TIA, GERD/Reflux, GI Bleed, Rheumatoid Arthritis (RA) Additional Past Medical History / Comment(s): diverticulitis, DDD, herniated disc X2. Occipital Neuralgia. OCC BLOOD IN STOOL. hx of stomach ulcer. "POSSIBLE 2 STROKES ON MRI.", occiptal migraines, "sore left arm". reynaulds disease History of Any Multi-Drug Resistant Organisms: None Reported Past Surgical History: Cholecystectomy Additional Past Surgical History / Comment(s): EGD, COLONOSCOPY, oral surgery, PAIN CLINIC PROCEDURES. Past Anesthesia/Blood Transfusion Reactions: Family History of Problems w/ Anesthesia Additional Past Anesthesia/Blood Transfusion Reaction / Comment(s): MOTHER HAD EPIDURAL THAT DIDN'T WORK. Past Psychological History: Anxiety, Depression Additional Psychological History / Comment(s): NO CURRENT TX. severe anxiety. pt states his Dr stated to stay off the meds due to side effects. pt is in therapy. Smoking Status: Current every day smoker Past Alcohol Use History: Occasional Additional Past Alcohol Use History / Comment(s): SMOKES 1 1/2 -3 PPD, SMOKING SINCE age 16. pt states he drinks a pint of liquor every couple days. Past Drug Use History: None Reported Additional Drug Use History / Comment(s): occ CBD - Past Family History Mother Family Medical History: Cancer Additional Family Medical History / Comment(s): SKIN CANCER. grandfather colon cancer Medications and Allergies Home Medications Medication Instructions Recorded Confirmed Type Omeprazole 40 mg PO DAILY 09/28/22 09/28/22 History SUMAtriptan succinate [Imitrex] 50 mg PO BID PRN 09/28/22 09/28/22 History traZODone HCL [Desyrel] 50 mg PO HS 09/28/22 09/28/22 History Allergies Allergy/AdvReac Type Severity Reaction Status Date / Time adhesive tape Allergy Rash/Hives Verified 09/28/22 16:46 gabapentin Allergy Rash/Hives Verified 09/28/22 16:46 paliperidone [From Invega] Allergy per oasis Verified 09/28/22 16:46 hydrocodone AdvReac MIGRAINE Verified 09/28/22 16:46 topiramate [From Topamax] AdvReac creates Verified 09/28/22 16:46 black SPOT on left eye NARCOTICS AdvReac MIGRAINES Uncoded 09/28/22 14:09 Physical Exam Vitals: Vital Signs Temp Pulse Resp BP Pulse Ox 09/30/22 16:00 99.3 F 101 H 18 107/75 91 L 09/30/22 14:02 100.8 F H 09/30/22 14:00 128 H 18 09/30/22 12:45 103.1 F H 128 H 18 129/84 95 09/30/22 10:28 111 H 18 09/30/22 08:31 97 09/30/22 08:25 99.0 F 111 H 18 116/70 97 09/30/22 04:00 100.6 F H 121 H 18 121/75 96 09/30/22 02:00 104 H 18 09/30/22 00:00 97.7 F 104 H 18 125/79 95 09/29/22 20:00 100.9 F H 104 H 18 138/90 98 Intake and Output 09/30/22 09/30/22 09/30/22 06:59 14:59 22:59 Intake Total 118 Balance 118 Intake: Oral 118 Other: # Voids 1 Physical Exam: Revealed a 77-year-old white male in no distress Head: Atraumatic, normocephalic. HEENT:[Neck is supple.] [No neck masses.] [No thyromegaly.] [No JVD.] Chest: [Clear throughout, no crackles, no rhonchi, no wheezes.] Cardiac Exam: [Normal S1 and S2, no S3 gallop, no murmur.] Abdomen: [Soft, nontender, no megaly, no rebound, no guarding, normal bowel sounds.] Extremities: [No clubbing, no edema, no cyanosis.] Neurological Exam: [No focal neurologic deficit.] Alert and oriented 3. Psychiatric: Normal mood, affect and normal mental status examination. Skin: No rashes Results - Laboratory Findings CBC and BMP: 09/29/22 09:27 09/29/22 09:27 PT/INR, D-dimer PT 10.2 sec (9.0-12.0) 09/28/22 14:35 INR 1.0 (<1.2) 09/28/22 14:35 D-Dimer 8.16 mg/L FEU (<0.60) H 09/28/22 14:35 Abnormal lab findings: Abnormal Labs 09/28/22 09/28/22 09/28/22 14:35 14:35 23:51 ESR APTT 104.1 H* D-Dimer 8.16 H Sodium 134 L Glucose Total Protein 6.1 L Rheumatoid Factor 09/29/22 09/29/22 09/30/22 09:27 09:27 12:13 ESR 44 H APTT 49.9 H D-Dimer Sodium 134 L Glucose 104 H Total Protein Rheumatoid Factor 06/06/23 12:13 ESR APTT D-Dimer Sodium Glucose Total Protein Rheumatoid Factor 18 H - Diagnostic Findings CT scan - chest: image reviewed (As noted in HPI.) Additional studies: Echocardiogram showed no evidence of right ventricular strain Assessment and Plan Assessment: Impression: Acute unprovoked pulmonary embolism Family history of thromboembolic disease Previous history of left arm deep vein thromboses, workup done at [facility] Tobacco dependence syndrome Pleuritic chest pain secondary to pulmonary embolism History of rheumatoid arthritis recommendation: Agree with the present treatment plan Patient has to be on anticoagulations therapy lifetime therapy if there is an absolute contraindication to anticoagulation patient will need to have an IVC filter placement. In the meantime continue present supportive care measures, continue treatment, We will continue to follow. Patient was advised to be very compliant with the treatment as outlined. Time with Patient: Greater than 30
--- NOTE | 2022-09-30 17:37 | P.PN ---
Subjective HISTORY OF PRESENTING ILLNESS Patient is a pleasant 37-year-old male with history of some form of clot in his arm and saw the vascular surgeon, Dr. Munoz at then the 2020 with eventual catheterization showing a clot and placed on anticoagulation. He only take anticoagulation for proximally 3 weeks and then developed hematochezia from hemorrhoids and therefore stopped this and did not have good follow-up outpatient. He additionally has tobacco abuse and migraine headaches. He believes his biological father had history of clotting disorder. He does smoke approximately half pack per day. Denies any illicit drugs. Occasional alcohol. He presented with chest pain which started yesterday which is pleuritic worse with deep inspiration. CT showed pulmonary embolism. Troponins normal 3 with proBNP normal. Echocardiogram performed with preserved EF without significant right ventricular strain and normal RVSP. 09/30 Patient seen and examined. Patient spikes fever and had a CAT scan which shows concern of infiltrate. Pulmonary was consulted. He was given Toradol for chest pain with some improvement. Transition over to Xarelto. PHYSICAL EXAMINATION Vital signs reviewed. CONSTITUTIONAL: No apparent distress. HEENT: Head is normocephalic. Pupils are equal, round. Sclerae anicteric. Mucous membranes of the mouth are moist. No JVD. No carotid bruit. CHEST EXAMINATION: Lungs are clear to auscultation. No chest wall tenderness is noted on palpation or with deep breathing. HEART EXAMINATION: Regular rate and rhythm. S1, S2 heard. No murmurs, gallops or rub. ABDOMEN: Soft, nontender. Positive bowel sounds. EXTREMITIES: 2+ peripheral pulses, no lower extremity edema and no calf tenderness. NEUROLOGIC EXAMINATION: Patient is awake, alert and oriented x3. ASSESSMENT 1. Chest pain appears related to pulmonary embolism 2. Acute pulmonary embolism 3. History of prior clotting of his arm with vascular surgery workup, catheterization performed at [facility] 4. Tobacco abuse 5. Fever PLAN Continue with current anticoagulation. No significant right ventricular strain. Further recommendations regarding duration of anticoagulation per hematology with hypercoagulable workup in progress. No further recommendations from cardiology standpoint. Please call with any questions. Objective - Vital Signs Vital signs: Vital Signs Temp 99.3 F 09/30/22 16:00 Pulse 101 H 09/30/22 16:00 Resp 18 09/30/22 16:00 BP 107/75 09/30/22 16:00 Pulse Ox 91 L 09/30/22 16:00 FiO2 Intake & Output 09/29/22 09/30/22 09/30/22 18:59 06:59 18:59 Intake Total 826.092 118 Output Total 425 Balance 401.092 118 Intake: Intake, IV Titration 146.092 Amount Heparin Sod,Pork in 0.45% 146.092 NaCl 25,000 unit In 0.45 % NaCl 1 250ml.bag @ 18 UNITS/KG/HR 14.941 mls/hr IV .[id number] [facility] Rx#: [id number] Oral 680 118 Output: Urine 425 Other: # Voids 2 1 - Labs CBC & Chem 7: 09/29/22 09:27 09/29/22 09:27 Labs: Abnormal Lab Results - Last 24 Hours (Table) 09/30/22 09/30/22 Range/Units 12:13 12:13 ESR 44 H (0-15) mm/hr Rheumatoid Factor 18 H IU/mL
[2022-09-30] MEDS: traZODone HCL 50 MG TAB PO SCH (20:34)
[2022-09-30 21:46] LABS: Cardiolipin Ab IgG Interp Negative; Cardiolipin Ab IgM Interp Negative; Cardiolipin IgA Antibody <2.0 U/mL; Cardiolipin IgM Antibody <1.5 U/mL
[2022-10-01] MEDS: KETOROLAC 15 MG/ML 1 ML VIAL IVP SCH ×4 (00:11→16:53)
[2022-10-01] MEDS: ACETAMINOPHEN TAB 325 MG TAB PO PRN ×3 (05:01→16:53)
[2022-10-01] MEDS: RIVAROXABAN 15 MG TAB PO SCH ×2 (06:42→16:53)
[2022-10-01] MEDS: NICOTINE 14MG/24HR PATCH TRANSDERM SCH (09:08)
[2022-10-01] MEDS: PANTOPRAZOLE 40 MG TABLET PO SCH (09:08)
--- NOTE | 2022-10-01 13:42 | P.PN ---
Progress Note - Text Progress Note Date: 10/01/22 Chief Complaint: Short of breath This is a pleasant 37-year-old patient, follows with Dr. Sanchez. Chronic stable medical conditions include GERD, rheumatoid arthritis, herniated disc, occipital neuralgia, stomach ulcer, Raynaud's disease. Anxiety depression. Smoker. Patient about 3:00 in the morning was woken up with shortness of breath. Cardiac to take a deep breath. No fever no chills. Appetite fair. No leg swelling. Pain mainly on the right side of the chest. Chest CT confirmed pulmonary embolism. Started on IV heparin. Cardiology was consulted. This morning remains a bit short of breath. Laying in bed. Pleuritic pain. We deep breath. Patient states his biological father had blood clot. Does not plan any further details. September 30: Spiked a fever of 103.1. Some bloody sputum. Suspect pulmonary infarct. Cannot rule out secondary infection. Consult pulmonary. X-ray. Patient on xarelto. Text x-ray shows patchy right perihilar density and density left lower zone. Posteriorly. October 01: Spiked a fever to 101.[address] Mosley. We both agree that the fever is coming from pulmonary infarct. No indication for antibiotics. Continue with xarelto. Eating well. Encourage ambulation. Active Medications Acetaminophen (Acetaminophen Tab 325 Mg Tab) 650 mg PO Q6HR PRN PRN Reason: Fever and/ or Mild Pain Last Admin: 10/01/22 11:41 Dose: 650 mg Ketorolac Tromethamine (Ketorolac 15 Mg/Ml 1 Ml Vial) 15 mg IVP Q6HR [facility] Stop: 10/04/22 21:38 Last Admin: 10/01/22 11:37 Dose: 15 mg Naloxone HCl (Naloxone 0.4 Mg/Ml 1 Ml Vial) 0.2 mg IV Q2M PRN PRN Reason: Opioid Reversal Nicotine (Nicotine 14mg/24hr Patch) 1 patch TRANSDERM DAILY [facility] Last Admin: 10/01/22 09:08 Dose: 1 patch Pantoprazole Sodium (Pantoprazole 40 Mg Tablet) 40 mg PO DAILY [facility] Last Admin: 10/01/22 09:08 Dose: 40 mg Rivaroxaban (Rivaroxaban 15 Mg Tab) 15 mg PO BID-W/MEALS [facility]; Protocol Last Admin: 10/01/22 06:42 Dose: 15 mg Sumatriptan Succinate (Sumatriptan Succinate 50 Mg Tab) 50 mg PO BID PRN PRN Reason: Migraine Headache Trazodone HCl (Trazodone Hcl 50 Mg Tab) 50 mg PO [facility] Last Admin: 09/30/22 20:34 Dose: 50 mg Past medical history to include: GERD, rheumatoid arthritis, injected this, occipital neuralgia, Raynaud's disease, occipital migraines, anxiety depression Social history: This is a grandmother's. Smokes a pack and a half a day for many years. Since 817. Drinks a pint of rum every other day. Does use CBD Physical examination: VITAL SIGNS: 11.7, 110, 18, 1 26 x 76, 97% room air GENERAL: BMI 25.5, laying in bed slightly anxious. EYES: Pupils equal. Conjunctiva normal. HEENT: External appearance of nose and ears normal, oral cavity grossly normal. NECK: JVD not raised; masses not palpable. HEART: First and second heart sounds are normal; no edema. LUNGS: Respiratory rate increased; decreased breath sounds. ABDOMEN: Soft, nontender, liver spleen not palpable, no masses palpable. PSYCH: Alert and oriented x3; mood and affect anxiousl. INVESTIGATIONS, reviewed in the clinical context: COVID-19: Not detected 2-D echocardiogram: EF 60-65%. No right ventricle strain White count 7.8 hemoglobin 14.1 platelets 179 potassium 4.1 creatinine 0.94 Troponin I 3 less than 0.012 EKG tracing personally reviewed by me-no sinus rhythm. Chest x-ray film personally reviewed by me-some hyperinflation CT angiogram chest: Moderate lower lobe pulmonary arterial filling defects Assessment and Plan: -Acute pulmonary embolism, unprovoked. father with history of DVT. Detail is unknown. xarelto. Consult hematology for familial/hematological causes -Probable acute pulmonary infarct secondary to PE, pleuritic pain -SIRS, secondary to pulmonary infarct causing fever. No sepsis -Chronic nicotine dependence, cigarette smoker Nicotine patch -Anxiety depression Trazodone -GERD Omeprazole Continue current medications. Discussed with patient. Watch another 24 hours. Increase activity.
[2022-10-01 14:00] LABS: APTT 65 Sec(s) (<43); APTT 1:1 Mix 61 Sec(s) (<43); DRVVT 1:1 Mix 68 Sec(s) (<44); DRVVT Confirmation Positive (Negative); Dilute Russell Viper Venom 92 Sec(s) (<44); Hexagonal Phase Neutralization Positive (Negative)
--- NOTE | 2022-10-01 14:50 | P.CONS ---
History of Present Illness - Reason for Consult Consult date: 09/30/22 PE Requesting physician: Nirmal Wilson - Chief Complaint SOB, chest pain - History of Present Illness Patient is a 37-year-old male we've been asked to see for unprovoked pulmonary embolism. Patient reports rather sudden onset of moderate to severe difficulty in breathing associated with right chest pain, woke him from sleep, symptoms persisted so, he came to ER for evaluation. CTA showed moderate left lower lobe filling defects, Doppler of the bilateral lower extremities, negative for DVT, echo reports LVEF of 60-65%, no significant right heart strain. Patient has a history of an arterial clot in the left arm, he saw Dr. Munoz for this in 2020. It's reported that he was put on anticoagulation but, due to hematochezia and hemorrhoids, he was only on it for about 3 weeks and stopped it himself. No follow up with Vascular since. Patient denies any history of any other clots. Never has seen a Gel Coater. He had Covid last year, denies any recent hos pitalizations, injuries, prolonged immobility, surgeries, long trips, steroids. He reports mild dysphagia, some abdominal discomfort, reports a history of gastric ulcers and colon polyps. He has has not had an EGD, he has had a colonoscopy, not exactly sure when. He states he was diagnosed with rheumatoid arthritis in a hip from an x-ray but, denies being on any medications for the same. He is a one and a half pack per day smoker. He believes his father had blood clots, no known clotting disorder. Currently he is resting in bed, reporting improvements in his shortness of breath, less intense right-sided chest pain, he has been transitioned to Xarelto, loading dose. He denies any bleeding since admission. Review of Systems 10 point review of systems is negative except as stated in HPI Past Medical History Past Medical History: CVA/TIA, GERD/Reflux, GI Bleed, Rheumatoid Arthritis (RA) Additional Past Medical History / Comment(s): diverticulitis, DDD, herniated disc X2. Occipital Neuralgia. OCC BLOOD IN STOOL. hx of stomach ulcer. "POSSIBLE 2 STROKES ON MRI.", occiptal migraines, "sore left arm". reynaulds disease History of Any Multi-Drug Resistant Organisms: None Reported Past Surgical History: Cholecystectomy Additional Past Surgical History / Comment(s): EGD, COLONOSCOPY, oral surgery, PAIN CLINIC PROCEDURES. Past Anesthesia/Blood Transfusion Reactions: Family History of Problems w/ Anesthesia Additional Past Anesthesia/Blood Transfusion Reaction / Comm: MOTHER HAD EPIDURAL THAT DIDN'T WORK. Past Psychological History: Anxiety, Depression Additional Psychological History / Comment(s): NO CURRENT TX. severe anxiety. pt states his Dr stated to stay off the meds due to side effects. pt is in therapy. Smoking Status: Current every day smoker Past Alcohol Use History: Occasional Additional Past Alcohol Use History / Comment(s): SMOKES 1 1/2 -3 PPD, SMOKING SINCE age 16. pt states he drinks a pint of liquor every couple days. Past Drug Use History: None Reported Additional Drug Use History / Comment(s): occ CBD - Past Family History Mother Family Medical History: Cancer Additional Family Medical History / Comment(s): SKIN CANCER. grandfather colon cancer Medications and Allergies Home Medications Medication Instructions Recorded Confirmed Type Omeprazole 40 mg PO DAILY 09/28/22 09/28/22 History SUMAtriptan succinate [Imitrex] 50 mg PO BID PRN 09/28/22 09/28/22 History traZODone HCL [Desyrel] 50 mg PO HS 09/28/22 09/28/22 History Allergies Allergy/AdvReac Type Severity Reaction Status Date / Time adhesive tape Allergy Rash/Hives Verified 09/28/22 16:46 gabapentin Allergy Rash/Hives Verified 09/28/22 16:46 paliperidone [From Invega] Allergy per oasis Verified 09/28/22 16:46 hydrocodone AdvReac MIGRAINE Verified 09/28/22 16:46 topiramate [From Topamax] AdvReac creates Verified 09/28/22 16:46 black SPOT on left eye NARCOTICS AdvReac MIGRAINES Uncoded 09/28/22 14:09 Physical Exam Vitals: Vital Signs Temp Pulse Resp BP Pulse Ox 09/30/22 08:31 97 09/30/22 08:25 99.0 F 111 H 18 116/70 97 09/30/22 04:00 100.6 F H 121 H 18 121/75 96 09/30/22 02:00 104 H 18 09/30/22 00:00 97.7 F 104 H 18 125/79 95 09/29/22 20:00 100.9 F H 104 H 18 138/90 98 09/29/22 16:00 98.7 F 84 18 126/79 98 09/29/22 14:00 84 18 09/29/22 12:00 84 18 131/82 98 Intake and Output 09/29/22 09/30/22 09/30/22 22:59 06:59 14:59 Intake Total 680 Output Total 425 Balance 255 Intake: Oral 680 Output: Urine 425 Other: # Voids 1 - Constitutional General appearance: average body habitus, cooperative, no acute distress - EENT Eyes: anicteric sclerae, EOMI ENT: hearing grossly normal, normal oropharynx - Neck Neck: no lymphadenopathy - Respiratory Respiratory: bilateral: CTA - Cardiovascular Rhythm: regular Heart sounds: normal: S1, S2 Abnormal Heart Sounds: no systolic murmur, no diastolic murmur, no rub, no S3 Gallop, no S4 Gallop, no click, no other leg Peripheral Edema: bilateral: None - Gastrointestinal General gastrointestinal: no absent bowel sounds, no decreased bowel sounds, no distended, no hepatomegaly, no hyperactive bowel sounds, normal bowel sounds, no organomegaly, no rigid, no scaphoid, soft, no splenomegaly, no tenderness, no umbilical hernia, no ventral hernia - Integumentary Integumentary: normal - Neurologic Neurologic: CNII-XII intact - Musculoskeletal Musculoskeletal: strength equal bilaterally - Psychiatric Psychiatric: A&O x's 3, appropriate affect, intact judgment & insight Results CBC & Chem 7: 09/29/22 09:27 09/29/22 09:27 Labs: Abnormal Lab Results - Last 24 Hours (Table) 09/29/22 09/29/22 Range/Units 09:27 09:27 APTT 49.9 H (22.0-30.0) sec Sodium 134 L (137-145) mmol/L Glucose 104 H (74-99) mg/dL Comments: Echo report reviewed Additional information obtained from outside medical records CT scan - chest: report reviewed Venous US: report reviewed Assessment and Plan (1) Bilateral pulmonary embolism Current Visit: Yes Status: Acute Priority: High Code(s): I26.99 - OTHER PULMONARY EMBOLISM WITHOUT ACUTE COR PULMONALE SNOMED Code(s): 18486174 Plan: Unprovoked bilateral PE -Doppler of the bilateral lower extremities was negative for DVT -CT of the abdomen and pelvis ordered. Unprovoked PE, c/o dysphagia and abdominal discomfort. -Patient reporting a history of rheumatoid arthritis, no formal diagnosis. Rheumatoid factor and sedimentation rate ordered so that this can be verified for the patient's medical record. -Medical records from [facility] reviewed. Pt had LUE arterial occlusion, treated, placed on plavix. Which he quit because of bleeding hemorrhoids attests: I have seen and examined patient, performed H&P and developed i mpression and plan of care. Discussed with dictator. Agree with documentation, dictated as a scribe
--- NOTE | 2022-10-01 14:58 | P.PN ---
Subjective Progress Note Date: 10/01/22 Principal diagnosis: Cesar PE In f/u today pt reporting improvement in the burning chest pain with inspiration that he presented with. Denies bleeding. Objective - Vital Signs Vital signs: Vital Signs Temp 99.4 F 10/01/22 12:00 Pulse 91 10/01/22 12:00 Resp 18 10/01/22 13:15 BP 114/66 10/01/22 12:00 Pulse Ox 96 10/01/22 12:00 FiO2 Intake & Output 09/30/22 10/01/22 10/01/22 18:59 06:59 18:59 Intake Total 898 1198 Output Total 550 Balance 898 648 Intake: Oral 898 1198 Output: Urine 550 Other: # Voids 2 - Constitutional General appearance: Present: average body habitus, cooperative, no acute distress - EENT Eyes: Present: anicteric sclerae, EOMI ENT: Present: hearing grossly normal - Respiratory Respiratory: bilateral: CTA - Cardiovascular Rhythm: regular Heart sounds: normal: S1, S2 Abnormal Heart Sounds: Absent: systolic murmur, diastolic murmur, rub, S3 Gallop, S4 Gallop, click, other - Peripheral edema leg Peripheral Edema: bilateral: None - Integumentary Integumentary: Present: normal - Neurologic Neurologic: Present: CNII-XII intact - Musculoskeletal Musculoskeletal: Present: strength equal bilaterally - Psychiatric Psychiatric: Present: A&O x's 3, appropriate affect, intact judgment & insight - Labs CBC & Chem 7: 09/29/22 09:27 09/29/22 09:27 Labs: Abnormal Lab Results - Last 24 Hours (Table) 09/30/22 09/30/22 Range/Units 10:19 12:13 Lupus Anticoag aPTT 65 H (<43) Sec(s) Lupus Anticoag PTT Mix 61 H (<43) Sec(s) Dil Trav Viper Venom 92 H (<44) Sec(s) LA dRVVT Confirm Positive A (Negative) dRVVT 50:50 68 H (<44) Sec(s) Lupus Hexagonal Phase Positive A (Negative) Rheumatoid Factor 18 H IU/mL - Imaging and Cardiology Chest x-ray: report reviewed CT scan - abdomen: report reviewed CT scan - pelvis: report reviewed Assessment and Plan (1) Bilateral pulmonary embolism Current Visit: Yes Status: Acute Priority: High Code(s): I26.99 - OTHER PULMONARY EMBOLISM WITHOUT ACUTE COR PULMONALE SNOMED Code(s): 44715042 Plan: Unprovoked bilateral PE -Doppler of the bilateral lower extremities was negative for DVT -CT of the abdomen and pelvis neg for any pathology per report. -Patient reported history of rheumatoid arthritis. Rh and sed rate tested and they are elevated. Referral to Rheumatology outpt reasonable. -Hx of arterial clot in the LUE 1 year ago. Pt denied any precipitating event. Denies any similar events since. He did quit plavix but, reports taking 2 baby asa daily. -Lupus anticoagulant positive-pt on anticoagulation so, positive result does not change mgmt. Cardiolipin ab neg, pending beta 2 glycoprotein 1 ab. Anticipate pt will be ok for anticoagulation with DOAC. Spoke with [facility] W[facility] who will check copay for eliquis. 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
--- NOTE | 2022-10-01 14:58 | P.PN ---
Subjective Progress Note Date: 10/01/22 Principal diagnosis: Acute pulmonary embolism This is a 37-year-old white male with no previous significant medical history except for possible history of deep vein thromboses for which she was seen by Dr. Garcia, in 2020, and he was placed on anticoagulation therapy however the patient was noncompliant with therapy, and he took medication for 3 weeks, he developed hematochezia from hemorrhoids, and he stopped taking anticoagulation therapy. At any rate patient also has strong family history of hypercoagulable state/father, patient presented to the ER this time with shortness of breath, right-sided chest pain, and chest discomfort. CT angiogram of the chest showed bilateral pulmonary emboli. Echocardiogram showed no evidence of ventricular strain. DVT workup was negative, Doppler was negative for deep vein thrombosis. Patient was admitted, this consult was initiated. He was initially placed on heparin and now he is on eliquis. Presently feeling better, hardly any shortness of breath, no cough no wheezing, and he does have some vague right- sided pleuritic chest pain. CBC is relatively normal his PTT was therapeutic this morning electrodes are normal renal profile is normal troponin is normal Patient was reevaluated today on 10/01/2022, doing well, less shortness of breath, less chest pain, continues to have low-grade fever, he is on room air with O2 sat of 96%. Patient was noted to have positive lupus anticoagulants, considering his low-grade fever, patient is still in the hospital, and no plans to discharge. Objective - Vital Signs Vital signs: Vital Signs Temp 99.4 F 10/01/22 12:00 Pulse 91 10/01/22 12:00 Resp 18 10/01/22 13:15 BP 114/66 10/01/22 12:00 Pulse Ox 96 10/01/22 12:00 FiO2 Intake & Output 09/30/22 10/01/22 10/01/22 18:59 06:59 18:59 Intake Total 898 1198 Output Total 550 Balance 898 648 Intake: Oral 898 1198 Output: Urine 550 Other: # Voids 2 - Exam Physical Exam: Revealed a 77-year-old white male in no distress, on room air Head: Atraumatic, normocephalic. HEENT:[Neck is supple.] [No neck masses.] [No thyromegaly.] [No JVD.] Chest: [Clear throughout, no crackles, no rhonchi, no wheezes.] Cardiac Exam: [Normal S1 and S2, no S3 gallop, no murmur.] Abdomen: [Soft, nontender, no megaly, no rebound, no guarding, normal bowel sounds.] Extremities: [No clubbing, no edema, no cyanosis.] Neurological Exam: [No focal neurologic deficit.] Alert and oriented 3. Psychiatric: Normal mood, affect and normal mental status examination. Skin: No rashes - Labs CBC & Chem 7: 09/29/22 09:27 09/29/22 09:27 Labs: Abnormal Lab Results - Last 24 Hours (Table) 09/30/22 09/30/22 Range/Units 10:19 12:13 Lupus Anticoag aPTT 65 H (<43) Sec(s) Lupus Anticoag PTT Mix 61 H (<43) Sec(s) Dil Trav Viper Venom 92 H (<44) Sec(s) LA dRVVT Confirm Positive A (Negative) dRVVT 50:50 68 H (<44) Sec(s) Lupus Hexagonal Phase Positive A (Negative) Rheumatoid Factor 18 H IU/mL Assessment and Plan Assessment: Impression: Acute unprovoked pulmonary embolism Family history of thromboembolic disease Previous history of left arm arterial thrombosis, did not require any intervention except anticoagulation therapy, however the patient was not compliant with the anticoagulation therapy after few weeks Tobacco dependence syndrome Pleuritic chest pain secondary to pulmonary embolism Positive lupus anticoagulants and hypercoagulable state. recommendation: Continue present treatment Continue Xarelto and the patient should be on it lifetime. Discussed his condition with admitting physician/Dr. Wilson. In the meantime continue present supportive care measures, continue treatment, We will continue to follow. Time with Patient: Less than 30
[2022-10-01] MEDS: traZODone HCL 50 MG TAB PO SCH (20:12)
[2022-10-02] MEDS: ACETAMINOPHEN TAB 325 MG TAB PO PRN ×4 (00:14→20:42)
[2022-10-02] MEDS: KETOROLAC 15 MG/ML 1 ML VIAL IVP SCH ×5 (00:14→23:40)
[2022-10-02] MEDS: RIVAROXABAN 15 MG TAB PO SCH ×2 (06:52→17:34)
[2022-10-02] MEDS: NICOTINE 14MG/24HR PATCH TRANSDERM SCH (10:39)
[2022-10-02] MEDS: PANTOPRAZOLE 40 MG TABLET PO SCH (10:39)
[2022-10-02] MEDS: AMOXIC-POT CLAV 875-125MG 1 EACH TAB PO SCH ×2 (10:42→20:42)
--- NOTE | 2022-10-02 12:16 | XR ---
EXAMINATION TYPE: XR chest 1V portable DATE OF EXAM: 10/02/2022 COMPARISON: NONE HISTORY: Hemoptysis TECHNIQUE: Single frontal view of the chest is obtained. FINDINGS: A patchy right perihilar infiltrate. Pulmonary arteries prominent correlate for pulmonary arterial hypertension. Heart size normal no overt failure. No pleural effusion or pneumothorax. Osseous structures intact. IMPRESSION: Patchy right perihilar infiltrate correlate for pneumonia versus pulmonary infarct.
--- NOTE | 2022-10-02 13:02 | P.PN ---
Subjective Progress Note Date: 10/02/22 Principal diagnosis: Acute pulmonary embolism This is a 37-year-old white male with no previous significant medical history except for possible history of deep vein thromboses for which she was seen by Dr. Garcia, in 2020, and he was placed on anticoagulation therapy however the patient was noncompliant with therapy, and he took medication for 3 weeks, he developed hematochezia from hemorrhoids, and he stopped taking anticoagulation therapy. At any rate patient also has strong family history of hypercoagulable state/father, patient presented to the ER this time with shortness of breath, right-sided chest pain, and chest discomfort. CT angiogram of the chest showed bilateral pulmonary emboli. Echocardiogram showed no evidence of ventricular strain. DVT workup was negative, Doppler was negative for deep vein thrombosis. Patient was admitted, this consult was initiated. He was initially placed on heparin and now he is on eliquis. Presently feeling better, hardly any shortness of breath, no cough no wheezing, and he does have some vague right- sided pleuritic chest pain. CBC is relatively normal his PTT was therapeutic this morning electrodes are normal renal profile is normal troponin is normal Patient was reevaluated today on 10/01/2022, doing well, less shortness of breath, less chest pain, continues to have low-grade fever, he is on room air with O2 sat of 96%. Patient was noted to have positive lupus anticoagulants, considering his low-grade fever, patient is still in the hospital, and no plans to discharge. Reevaluated today on 10/02/2022, patient continues to have intermittent low-grade fever, and continues to have intermittent episodes of hemoptysis, less than 1 tablespoon in the last 24 hours. No shortness of breath, continues to have some vague chest discomfort. Considering his fever although I believe the fever is mostly related to his pulmonary embolism, I will go ahead and recommended repeat chest x-ray, and will place the patient empirically on Augmentin 875 twice a day for the next one week continue to monitor the patient at least for the next 24 hours, and consider discharge planning once his fever has resolved. Objective - Vital Signs Vital signs: Vital Signs Temp 101.9 F H 10/02/22 12:22 Pulse 90 10/02/22 08:00 Resp 18 10/02/22 08:00 BP 108/64 10/02/22 08:00 Pulse Ox 97 10/02/22 09:32 FiO2 Intake & Output 10/01/22 10/02/22 10/02/22 18:59 06:59 18:59 Intake Total 1198 658 Output Total 550 Balance 648 658 Intake: Oral 1198 658 Output: Urine 550 Other: # Voids 1 - Exam Physical Exam: Revealed a 77-year-old white male in no distress, on room air Head: Atraumatic, normocephalic. HEENT:[Neck is supple.] [No neck masses.] [No thyromegaly.] [No JVD.] Chest: [Clear throughout, no crackles, no rhonchi, no wheezes.] Cardiac Exam: [Normal S1 and S2, no S3 gallop, no murmur.] Abdomen: [Soft, nontender, no megaly, no rebound, no guarding, normal bowel sounds.] Extremities: [No clubbing, no edema, no cyanosis.] Neurological Exam: [No focal neurologic deficit.] Alert and oriented 3. Psychiatric: Normal mood, affect and normal mental status examination. Skin: No rashes - Labs CBC & Chem 7: 09/29/22 09:27 09/29/22 09:27 Labs: Abnormal Lab Results - Last 24 Hours (Table) 09/30/22 Range/Units 10:19 Lupus Anticoag aPTT 65 H (<43) Sec(s) Lupus Anticoag PTT Mix 61 H (<43) Sec(s) Dil Trav Viper Venom 92 H (<44) Sec(s) LA dRVVT Confirm Positive A (Negative) dRVVT 50:50 68 H (<44) Sec(s) Lupus Hexagonal Phase Positive A (Negative) Microbiology - Last 24 Hours (Table) 09/30/22 14:52 Blood Culture - Preliminary Blood Assessment and Plan Assessment: Impression: Acute unprovoked pulmonary embolism, suspect a right sided pulmonary infarct with hemoptysis. Family history of thromboembolic disease Previous history of left arm arterial thrombosis, did not require any intervention except anticoagulation therapy, however the patient was not compliant with the anticoagulation therapy after few weeks Tobacco dependence syndrome Pleuritic chest pain secondary to pulmonary embolism Positive lupus anticoagulants and hypercoagulable state. recommendation: Will empirically start the patient on Augmentin 875 twice a day Continue present treatment Continue Xarelto and the patient should be on it lifetime. Discussed his condition with admitting physician/Dr. Wilson. Consider discharge planning in the next 24 hours. We will continue to follow. Time with Patient: Less than 30
--- NOTE | 2022-10-02 15:38 | P.PN ---
Progress Note - Text Progress Note Date: 10/02/22 Chief Complaint: Short of breath This is a pleasant 37-year-old patient, follows with Dr. Sanchez. Chronic stable medical conditions include GERD, rheumatoid arthritis, herniated disc, occipital neuralgia, stomach ulcer, Raynaud's disease. Anxiety depression. Smoker. Patient about 3:00 in the morning was woken up with shortness of breath. Cardiac to take a deep breath. No fever no chills. Appetite fair. No leg swelling. Pain mainly on the right side of the chest. Chest CT confirmed pulmonary embolism. Started on IV heparin. Cardiology was consulted. This morning remains a bit short of breath. Laying in bed. Pleuritic pain. We deep breath. Patient states his biological father had blood clot. Does not plan any further details. September 30: Spiked a fever of 103.1. Some bloody sputum. Suspect pulmonary infarct. Cannot rule out secondary infection. Consult pulmonary. X-ray. Patient on xarelto. Text x-ray shows patchy right perihilar density and density left lower zone. Posteriorly. October 01: Spiked a fever to 101.[address] Mosley. We both agree that the fever is coming from pulmonary infarct. No indication for antibiotics. Continue with xarelto. Eating well. Encourage ambulation. October 02: Patient spiked a fever again at night. Eating fair. Some cough with bloody specks. Tired. Breathing a bit better. Augmentin was added today for a secondary pneumonia. Patient blood work is come back positive for lupus ant icoagulant. Discussed the results with the patient. Active Medications Acetaminophen (Acetaminophen Tab 325 Mg Tab) 650 mg PO Q6HR PRN PRN Reason: Fever and/ or Mild Pain Last Admin: 10/02/22 12:29 Dose: 650 mg Amoxicillin/Clavulanate Potassium (Amoxic-Pot Clav 875-125mg 1 Each Tab) 1 each PO Q12HR [facility]; Protocol Last Admin: 10/02/22 10:42 Dose: 1 each Ketorolac Tromethamine (Ketorolac 15 Mg/Ml 1 Ml Vial) 15 mg IVP Q6HR [facility] Stop: 10/04/22 21:38 Last Admin: 10/02/22 12:29 Dose: 15 mg Naloxone HCl (Naloxone 0.4 Mg/Ml 1 Ml Vial) 0.2 mg IV Q2M PRN PRN Reason: Opioid Reversal Nicotine (Nicotine 14mg/24hr Patch) 1 patch TRANSDERM DAILY [facility] Last Admin: 10/02/22 10:39 Dose: 1 patch Pantoprazole Sodium (Pantoprazole 40 Mg Tablet) 40 mg PO DAILY [facility] Last Admin: 10/02/22 10:39 Dose: 40 mg Rivaroxaban (Rivaroxaban 15 Mg Tab) 15 mg PO BID-W/MEALS [facility]; Protocol Last Admin: 10/02/22 06:52 Dose: 15 mg Sumatriptan Succinate (Sumatriptan Succinate 50 Mg Tab) 50 mg PO BID PRN PRN Reason: Migraine Headache Trazodone HCl (Trazodone Hcl 50 Mg Tab) 50 mg PO HS [facility] Last Admin: 10/01/22 20:12 Dose: 50 mg Past medical history to include: GERD, rheumatoid arthritis, injected this, occipital neuralgia, Raynaud's disease, occipital migraines, anxiety depression Social history: This is a grandmother's. Smokes a pack and a half a day for many years. Since 817. Drinks a pint of rum every other day. Does use CBD Physical examination: VITAL SIGNS: 101.9, 105, 18, 125/86, 99% room air GENERAL: BMI 25.5, laying in bed slightly anxious. EYES: Pupils equal. Conjunctiva normal. HEENT: External appearance of nose and ears normal, oral cavity grossly normal. NECK: JVD not raised; masses not palpable. HEART: First and second heart sounds are normal; no edema. LUNGS: Respiratory rate increased; decreased breath sounds. ABDOMEN: Soft, nontender, liver spleen not palpable, no masses palpable. PSYCH: Alert and oriented x3; mood and affect anxiousl. INVESTIGATIONS, reviewed in the clinical context: Lupus anticoagulant APTT 65, lupus anticoagulant PTT mix 61, diluted Trav viper venom 92, LAD or DVT confirm positive, lupus accident health phase positive. Rheumatoid factor XVIII Anticardiolipin IgG antibody less than 1.6 anticardiolipin IgG antibody less than 2 anticardiolipin IgM antibody less than 1.5 COVID-19: Not detected 2-D echocardiogram: EF 60-65%. No right ventricle strain White count 7.8 hemoglobin 14.1 platelets 179 potassium 4.1 creatinine 0.94 Troponin I 3 less than 0.012 EKG tracing personally reviewed by me-no sinus rhythm. Chest x-ray film personally reviewed by me-some hyperinflation CT angiogram chest: Moderate lower lobe pulmonary arterial filling defects Assessment and Plan: -Acute pulmonary embolism, unprovoked. father with history of DVT. Detail is unknown. xarelto. Underlying positive for lupus anticoagulant. We need lifelong anticoagulation -Positive for lupus anticoagulant Being followed by hematology - acute pulmonary infarct secondary to PE, pleuritic pain -Secondary pneumonia probably decide pulmonary infarct causing sepsis Augmentin started -Chronic nicotine dependence, cigarette smoker Nicotine patch -Anxiety depression Trazodone -GERD Omeprazole Augmentin added. IV fluids. Other medications to continue. Increase activity.
[2022-10-02] MEDS: LACTATED RINGERS 1,000 ML IV SCH ×2 (15:45→23:42)
[2022-10-02] MEDS: traZODone HCL 50 MG TAB PO SCH (20:42)
[2022-10-03] MEDS: ACETAMINOPHEN TAB 325 MG TAB PO PRN ×3 (04:06→18:49)
[2022-10-03] MEDS: RIVAROXABAN 15 MG TAB PO SCH ×2 (05:55→16:54)
[2022-10-03] MEDS: LACTATED RINGERS 1,000 ML IV SCH ×3 (05:55→23:12)
[2022-10-03] MEDS: KETOROLAC 15 MG/ML 1 ML VIAL IVP SCH ×4 (05:55→23:12)
[2022-10-03] MEDS: PANTOPRAZOLE 40 MG TABLET PO SCH (08:19)
[2022-10-03] MEDS: NICOTINE 14MG/24HR PATCH TRANSDERM SCH (08:19)
[2022-10-03] MEDS: AMOXIC-POT CLAV 875-125MG 1 EACH TAB PO SCH ×2 (08:20→20:01)
[2022-10-03 09:04] LABS: Basophils % (A) 0 %; Eosinophils # (A) 0.2 k/uL (0-0.7); Eosinophils % (A) 3 %; HCT 33.5 % (39.0-53.0); Lymphocytes # (A) 0.9 k/uL (1.0-4.8); Lymphocytes % (A) 13 %; MCH 26.6 pg (25.0-35.0); MCV 82.9 fL (80.0-100.0); Mean Platelet Volume 7.3; Monocytes # (A) 0.7 k/uL (0-1.0); Monocytes % (A) 9 %; Neutrophils # (A) 5.2 k/uL (1.3-7.7); Neutrophils % (A) 72 %; Platelet Count 354 k/uL (150-450); RBC 4.04 m/uL (4.30-5.90); RDW 14.7 % (11.5-15.5); WBC 7.1 k/uL (3.8-10.6)
[2022-10-03 09:28] LABS: HGB 10.7 gm/dL (13.0-17.5)
[2022-10-03 09:34] LABS: ALT 33 U/L (4-49); AST 38 U/L (17-59); African American GFR (CKD) >90 (>60 ml/min/1.73 sqM); Albumin 2.7 g/dL (3.5-5.0); Alkaline Phosphatase 249 U/L (38-126); Anion Gap 8 mmol/L; Blood Urea Nitrogen 6 mg/dL (9-20); Calcium 8.4 mg/dL (8.4-10.2); Carbon Dioxide 23 mmol/L (22-30); Chloride 97 mmol/L (98-107); Glucose 125 mg/dL (74-99); Non-African American GFR(CKD) >90 (>60 ml/min/1.73 sqM); Sodium 128 mmol/L (137-145); Total Bilirubin 0.8 mg/dL (0.2-1.3); Total Protein 5.3 g/dL (6.3-8.2)
[2022-10-03 13:14] VITALS: BMI 25.9
--- NOTE | 2022-10-03 14:48 | P.PN ---
Subjective Progress Note Date: 10/03/22 Principal diagnosis: PE At today's visit patient is resting comfortably in bed. Patient reports orthopnea, breathing even and unlabored at this time. He also reports bloody sputum, denies clots. Patient currently on Augmentin for secondary pneumonia. Fever this morning was 101.3. Oxygen saturation 98%. Objective - Vital Signs Vital signs: Vital Signs Temp 100.1 F H 10/03/22 12:05 Pulse 105 H 10/03/22 14:05 Resp 18 10/03/22 14:05 BP 124/83 10/03/22 12:05 Pulse Ox 96 10/03/22 12:05 FiO2 21 10/03/22 09:11 Intake & Output 10/02/22 10/03/22 10/03/22 18:59 06:59 18:59 Intake Total 2403 3560 300 Balance 2403 3560 300 Weight 84.3 kg Intake: Intake, IV Titration 125 2000 Amount Lactated Ringers 1,000 ml 125 2000 @ 125 mls/hr IV .Q8H [facility] Rx#:[id number] Oral 2278 1560 300 Other: # Voids 1 - Constitutional General appearance: Present: average body habitus, no acute distress - EENT Eyes: Present: anicteric sclerae, EOMI ENT: Present: hearing grossly normal - Respiratory Details: breathing is even and unlabored - Cardiovascular Details: skin warm and dry - Integumentary Integumentary: Absent: cyanotic, rash - Neurologic Neurologic: Present: CNII-XII intact - Musculoskeletal Musculoskeletal: Present: strength equal bilaterally - Psychiatric Psychiatric: Present: A&O x's 3, appropriate affect, intact judgment & insight - Labs CBC & Chem 7: 10/03/22 08:28 10/03/22 08:28 Labs: Abnormal Lab Results - Last 24 Hours (Table) 10/02/22 10/03/22 10/03/22 Range/Units 11:22 08:28 08:28 RBC 4.04 L (4.30-5.90) m/uL Hgb 10.7 L D (13.0-17.5) gm/dL Hct 33.5 L (39.0-53.0) % Lymphocytes # 0.9 L (1.0-4.8) k/uL Sodium 128 L (137-145) mmol/L Chloride 97 L (98-107) mmol/L BUN 6 L (9-20) mg/dL Glucose 125 H (74-99) mg/dL Alkaline Phosphatase 249 H (38-126) U/L Total Protein 5.3 L (6.3-8.2) g/dL Albumin 2.7 L (3.5-5.0) g/dL Procalcitonin 0.31 H (0.02-0.09) ng/mL Microbiology - Last 24 Hours (Table) 09/30/22 14:52 Blood Culture - Preliminary Blood Assessment and Plan (1) Bilateral pulmonary embolism Current Visit: Yes Status: Acute Priority: High Code(s): I26.99 - OTHER PULMONARY EMBOLISM WITHOUT ACUTE COR PULMONALE SNOMED Code(s): 84716913 Plan: Unprovoked bilateral PE -Doppler of the bilateral lower extremities was negative for DVT -CT of the abdomen and pelvis neg for any pathology per report. -Patient reported history of rheumatoid arthritis. Rh and sed rate tested and they are elevated. Referral to Rheumatology outpt reasonable. -Hx of arterial clot in the LUE 1 year ago. Pt denied any precipitating event. Denies any similar events since. He did quit plavix but, reports taking 2 baby asa daily. -Lupus anticoagulant positive-pt on anticoagulation so, positive result does not change mgmt. Cardiolipin ab neg, pending beta 2 glycoprotein antibody. Anticipate pt will be ok for anticoagulation with DOAC. 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
--- NOTE | 2022-10-03 15:29 | P.PN ---
Progress Note - Text Progress Note Date: 10/03/22 Chief Complaint: Short of breath This is a pleasant 37-year-old patient, follows with Dr. Sanchez. Chronic stable medical conditions include GERD, rheumatoid arthritis, herniated disc, occipital neuralgia, stomach ulcer, Raynaud's disease. Anxiety depression. Smoker. Patient about 3:00 in the morning was woken up with shortness of breath. Cardiac to take a deep breath. No fever no chills. Appetite fair. No leg swelling. Pain mainly on the right side of the chest. Chest CT confirmed pulmonary embolism. Started on IV heparin. Cardiology was consulted. This morning remains a bit short of breath. Laying in bed. Pleuritic pain. We deep breath. Patient states his biological father had blood clot. Does not plan any further details. September 30: Spiked a fever of 103.1. Some bloody sputum. Suspect pulmonary infarct. Cannot rule out secondary infection. Consult pulmonary. X-ray. Patient on xarelto. Text x-ray shows patchy right perihilar density and density left lower zone. Posteriorly. October 01: Spiked a fever to 101.[address] Mosley. We both agree that the fever is coming from pulmonary infarct. No indication for antibiotics. Continue with xarelto. Eating well. Encourage ambulation. October 02: Patient spiked a fever again at night. Eating fair. Some cough with bloody specks. Tired. Breathing a bit better. Augmentin was added today for a secondary pneumonia. Patient blood work is come back positive for lupus ant icoagulant. Discussed the results with the patient. October 03: On Augmentin. Continues to have fever. Eating better. On Augmentin per pulmonary. Increase activity. Active Medications Acetaminophen (Acetaminophen Tab 325 Mg Tab) 650 mg PO Q6HR PRN PRN Reason: Fever and/ or Mild Pain Last Admin: 10/03/22 12:07 Dose: 650 mg Amoxicillin/Clavulanate Potassium (Amoxic-Pot Clav 875-125mg 1 Each Tab) 1 each PO Q12HR [facility]; Protocol Last Admin: 10/03/22 08:20 Dose: Not Given Lactated Ringer's (Lactated Ringers) 1,000 mls @ 125 mls/hr IV .Q8H [facility] Last Admin: 10/03/22 05:55 Dose: 125 mls/hr Ketorolac Tromethamine (Ketorolac 15 Mg/Ml 1 Ml Vial) 15 mg IVP Q6HR [facility] Stop: 10/04/22 21:38 Last Admin: 10/03/22 12:07 Dose: 15 mg Naloxone HCl (Naloxone 0.4 Mg/Ml 1 Ml Vial) 0.2 mg IV Q2M PRN PRN Reason: Opioid Reversal Nicotine (Nicotine 14mg/24hr Patch) 1 patch TRANSDERM DAILY [facility] Last Admin: 10/03/22 08:19 Dose: 1 patch Pantoprazole Sodium (Pantoprazole 40 Mg Tablet) 40 mg PO DAILY [facility] Last Admin: 10/03/22 08:19 Dose: 40 mg Rivaroxaban (Rivaroxaban 15 Mg Tab) 15 mg PO BID-W/MEALS [facility]; Protocol Last Admin: 10/03/22 05:55 Dose: 15 mg Sumatriptan Succinate (Sumatriptan Succinate 50 Mg Tab) 50 mg PO BID PRN PRN Reason: Migraine Headache Trazodone HCl (Trazodone Hcl 50 Mg Tab) 50 mg PO HS [facility] Last Admin: 10/02/22 20:42 Dose: 50 mg Past medical history to include: GERD, rheumatoid arthritis, injected this, occipital neuralgia, Raynaud's disease, occipital migraines, anxiety depression. Left upper extremity arterial clot 1 year ago Social history: This is a grandmother's. Smokes a pack and a half a day for many years. Since 817. Drinks a pint of rum every other day. Does use CBD Physical examination: VITAL SIGNS: 100.1, 105, 18, 124/83, 96% room air GENERAL: BMI 25.5, laying in bed slightly anxious. EYES: Pupils equal. Conjunctiva normal. HEENT: External appearance of nose and ears normal, oral cavity grossly normal. NECK: JVD not raised; masses not palpable. HEART: First and second heart sounds are normal; no edema. LUNGS: Respiratory rate increased; decreased breath sounds. ABDOMEN: Soft, nontender, liver spleen not palpable, no masses palpable. PSYCH: Alert and oriented x3; mood and affect anxiousl. INVESTIGATIONS, reviewed in the clinical context: October 03: White count 7.1 hemoglobin 10.7 sodium 128 potassium 4 creatinine 0.83. Procalcitonin 0.31 Lupus anticoagulant APTT 65, lupus anticoagulant PTT mix 61, diluted Trav viper venom 92, LAD or DVT confirm positive, lupus accident health phase positive. Rheumatoid factor XVIII Anticardiolipin IgG antibody less than 1.6 anticardiolipin IgG antibody less than 2 anticardiolipin IgM antibody less than 1.5 COVID-19: Not detected 2-D echocardiogram: EF 60-65%. No right ventricle strain White count 7.8 hemoglobin 14.1 platelets 179 potassium 4.1 creatinine 0.94 Troponin I 3 less than 0.012 EKG tracing personally reviewed by me-no sinus rhythm. Chest x-ray film personally reviewed by me-some hyperinflation CT angiogram chest: Moderate lower lobe pulmonary arterial filling defects Assessment and Plan: -Acute pulmonary embolism, unprovoked. father with history of DVT. Left upper extremity arterial clot about a year ago. xarelto. Underlying positive for lupus anticoagulant.-lifelong anticoagulation -Positive for lupus anticoagulant Being followed by hematology - acute pulmonary infarct secondary to PE, pleuritic pain -Secondary pneumonia, but infected pulmonary infarct causing sepsis Augmentin, follow with pulmonary -Chronic nicotine dependence, cigarette smoker Nicotine patch -Anxiety depression Trazodone -GERD Omeprazole Augmentin IV fluids. Xarelto. Follow with pulmonary.
--- NOTE | 2022-10-03 15:36 | P.PN ---
Subjective Progress Note Date: 10/03/22 Principal diagnosis: Acute pulmonary embolism This is a 37-year-old white male with no previous significant medical history except for possible history of deep vein thromboses for which she was seen by Dr. Garcia, in 2020, and he was placed on anticoagulation therapy however the patient was noncompliant with therapy, and he took medication for 3 weeks, he developed hematochezia from hemorrhoids, and he stopped taking anticoagulation therapy. At any rate patient also has strong family history of hypercoagulable state/father, patient presented to the ER this time with shortness of breath, right-sided chest pain, and chest discomfort. CT angiogram of the chest showed bilateral pulmonary emboli. Echocardiogram showed no evidence of ventricular strain. DVT workup was negative, Doppler was negative for deep vein thrombosis. Patient was admitted, this consult was initiated. He was initially placed on heparin and now he is on eliquis. Presently feeling better, hardly any shortness of breath, no cough no wheezing, and he does have some vague right- sided pleuritic chest pain. CBC is relatively normal his PTT was therapeutic this morning electrodes are normal renal profile is normal troponin is normal Patient was reevaluated today on 10/01/2022, doing well, less shortness of breath, less chest pain, continues to have low-grade fever, he is on room air with O2 sat of 96%. Patient was noted to have positive lupus anticoagulants, considering his low-grade fever, patient is still in the hospital, and no plans to discharge. Reevaluated today on 10/02/2022, patient continues to have intermittent low-grade fever, and continues to have intermittent episodes of hemoptysis, less than 1 tablespoon in the last 24 hours. No shortness of breath, continues to have some vague chest discomfort. Considering his fever although I believe the fever is mostly related to his pulmonary embolism, I will go ahead and recommended repeat chest x-ray, and will place the patient empirically on Augmentin 875 twice a day for the next one week continue to monitor the patient at least for the next 24 hours, and consider discharge planning once his fever has resolved. Reevaluated today on 10/03/2022, patient continues to have intermittent fevers, continues to have some blood-tinged sputum intermittently, hemodynamically stable, chest x-ray, showed no major worsening in the right perihilar area. Patient is on Augmentin orally, he is also on anticoagulation therapy for his acute pulmonary embolism. Considering his intermittent fever, I'm recommending that we continue antibiotics, and not quite ready for discharge planning until fever is under control. Patient had slightly elevated pro calcitonin level Objective - Vital Signs Vital signs: Vital Signs Temp 99.4 F 10/03/22 14:55 Pulse 105 H 10/03/22 14:05 Resp 18 10/03/22 14:05 BP 124/83 10/03/22 12:05 Pulse Ox 96 10/03/22 12:05 FiO2 21 10/03/22 09:11 Intake & Output 10/02/22 10/03/22 10/03/22 18:59 06:59 18:59 Intake Total 2403 3560 300 Balance 2403 3560 300 Weight 84.3 kg Intake: Intake, IV Titration 125 2000 Amount Lactated Ringers 1,000 ml 125 2000 @ 125 mls/hr IV .Q8H [facility] Rx#:[id number] Oral 2278 1560 300 Other: # Voids 1 - Exam Physical Exam: Revealed a 77-year-old white male in no distress, on room air Head: Atraumatic, normocephalic. HEENT:[Neck is supple.] [No neck masses.] [No thyromegaly.] [No JVD.] Chest: [Clear throughout, no crackles, no rhonchi, no wheezes.] Cardiac Exam: [Normal S1 and S2, no S3 gallop, no murmur.] Abdomen: [Soft, nontender, no megaly, no rebound, no guarding, normal bowel sounds.] Extremities: [No clubbing, no edema, no cyanosis.] Neurological Exam: [No focal neurologic deficit.] Alert and oriented 3. Psychiatric: Normal mood, affect and normal mental status examination. Skin: No rashes - Labs CBC & Chem 7: 10/03/22 08:28 10/03/22 08:28 Labs: Abnormal Lab Results - Last 24 Hours (Table) 10/02/22 10/03/22 10/03/22 Range/Units 11:22 08:28 08:28 RBC 4.04 L (4.30-5.90) m/uL Hgb 10.7 L D (13.0-17.5) gm/dL Hct 33.5 L (39.0-53.0) % Lymphocytes # 0.9 L (1.0-4.8) k/uL Sodium 128 L (137-145) mmol/L Chloride 97 L (98-107) mmol/L BUN 6 L (9-20) mg/dL Glucose 125 H (74-99) mg/dL Alkaline Phosphatase 249 H (38-126) U/L Total Protein 5.3 L (6.3-8.2) g/dL Albumin 2.7 L (3.5-5.0) g/dL Procalcitonin 0.31 H (0.02-0.09) ng/mL Microbiology - Last 24 Hours (Table) 09/30/22 14:52 Blood Culture - Preliminary Blood Assessment and Plan Assessment: Impression: Acute unprovoked pulmonary embolism, suspect a right sided pulmonary infarct with hemoptysis. Family history of thromboembolic disease Previous history of left arm arterial thrombosis, did not require any intervention except anticoagulation therapy, however the patient was not compliant with the anticoagulation therapy after few weeks Tobacco dependence syndrome Pleuritic chest pain secondary to pulmonary embolism Positive lupus anticoagulants and hypercoagulable state. recommendation: Possible pneumonia, I clinically suspect this is a right sided infarct from his pulmonary embolism Continue Augmentin Continue present treatment Continue Xarelto and the patient should be on it lifetime. Not quite ready for discharge planning We will continue to follow. Time with Patient: Less than 30
[2022-10-03] MEDS: traZODone HCL 50 MG TAB PO SCH (20:01)
[2022-10-04] MEDS: ACETAMINOPHEN TAB 325 MG TAB PO PRN ×3 (04:11→23:17)
[2022-10-04] MEDS: RIVAROXABAN 15 MG TAB PO SCH ×2 (06:05→16:56)
[2022-10-04] MEDS: KETOROLAC 15 MG/ML 1 ML VIAL IVP SCH ×3 (06:05→16:56)
[2022-10-04] MEDS: AMOXIC-POT CLAV 875-125MG 1 EACH TAB PO SCH (08:24)
[2022-10-04] MEDS: PANTOPRAZOLE 40 MG TABLET PO SCH (08:24)
[2022-10-04] MEDS: NICOTINE 14MG/24HR PATCH TRANSDERM SCH (08:24)
[2022-10-04] MEDS: LACTATED RINGERS 1,000 ML IV SCH (12:45)
--- NOTE | 2022-10-04 13:01 | P.PN ---
Subjective Progress Note Date: 10/04/22 Principal diagnosis: Acute pulmonary embolism This is a 37-year-old white male with no previous significant medical history except for possible history of deep vein thromboses for which she was seen by Dr. Garcia, in 2020, and he was placed on anticoagulation therapy however the patient was noncompliant with therapy, and he took medication for 3 weeks, he developed hematochezia from hemorrhoids, and he stopped taking anticoagulation therapy. At any rate patient also has strong family history of hypercoagulable state/father, patient presented to the ER this time with shortness of breath, right-sided chest pain, and chest discomfort. CT angiogram of the chest showed bilateral pulmonary emboli. Echocardiogram showed no evidence of ventricular strain. DVT workup was negative, Doppler was negative for deep vein thrombosis. Patient was admitted, this consult was initiated. He was initially placed on heparin and now he is on eliquis. Presently feeling better, hardly any shortness of breath, no cough no wheezing, and he does have some vague right- sided pleuritic chest pain. CBC is relatively normal his PTT was therapeutic this morning electrodes are normal renal profile is normal troponin is normal Patient was reevaluated today on 10/01/2022, doing well, less shortness of breath, less chest pain, continues to have low-grade fever, he is on room air with O2 sat of 96%. Patient was noted to have positive lupus anticoagulants, considering his low-grade fever, patient is still in the hospital, and no plans to discharge. Reevaluated today on 10/02/2022, patient continues to have intermittent low-grade fever, and continues to have intermittent episodes of hemoptysis, less than 1 tablespoon in the last 24 hours. No shortness of breath, continues to have some vague chest discomfort. Considering his fever although I believe the fever is mostly related to his pulmonary embolism, I will go ahead and recommended repeat chest x-ray, and will place the patient empirically on Augmentin 875 twice a day for the next one week continue to monitor the patient at least for the next 24 hours, and consider discharge planning once his fever has resolved. Reevaluated today on 10/03/2022, patient continues to have intermittent fevers, continues to have some blood-tinged sputum intermittently, hemodynamically stable, chest x-ray, showed no major worsening in the right perihilar area. Patient is on Augmentin orally, he is also on anticoagulation therapy for his acute pulmonary embolism. Considering his intermittent fever, I'm recommending that we continue antibiotics, and not quite ready for discharge planning until fever is under control. Patient had slightly elevated pro calcitonin level Reevaluated today on 10/04/2022, continues to have intermittent fevers, he has slightly elevated pro calcitonin level, abnormal chest x-ray, considering that the patient is not getting much better, I'm going to add and changing his oral Augmentin to Zosyn. In the meantime we'll continue treatment for his underlying pulmonary embolism, patient is not quite ready for discharge planning. WBC count is 7.1 hemoglobin 10.7 Objective - Vital Signs Vital signs: Vital Signs Temp 101.6 F H 10/04/22 12:47 Pulse 94 10/04/22 10:07 Resp 18 10/04/22 10:07 BP 122/79 10/04/22 08:23 Pulse Ox 97 10/04/22 08:23 FiO2 21 10/03/22 09:11 Intake & Output 10/03/22 10/04/22 10/04/22 18:59 06:59 18:59 Intake Total 540 2080 110 Balance 540 2080 110 Weight 84.3 kg Intake: Intake, IV Titration 1000 Amount Lactated Ringers 1,000 ml 1000 @ 75 mls/hr IV .[id number] [facility] Rx#:[id number] Oral 540 1080 110 Other: # Voids 5 1 # Bowel Movements 4 - Exam Physical Exam: Revealed a 77-year-old white male in no distress, on room air Head: Atraumatic, normocephalic. HEENT:[Neck is supple.] [No neck masses.] [No thyromegaly.] [No JVD.] Chest: [Clear throughout, no crackles, no rhonchi, no wheezes.] Cardiac Exam: [Normal S1 and S2, no S3 gallop, no murmur.] Abdomen: [Soft, nontender, no megaly, no rebound, no guarding, normal bowel sounds.] Extremities: [No clubbing, no edema, no cyanosis.] Neurological Exam: [No focal neurologic deficit.] Alert and oriented 3. Psychiatric: Normal mood, affect and normal mental status examination. Skin: No rashes - Labs CBC & Chem 7: 10/03/22 08:28 10/03/22 08:28 Labs: Abnormal Lab Results - Last 24 Hours (Table) 10/03/22 Range/Units 08:28 Procalcitonin 0.27 H (0.02-0.09) ng/mL Assessment and Plan Assessment: Impression: Acute unprovoked pulmonary embolism, suspect a right sided pulmonary infarct with hemoptysis. Family history of thromboembolic disease Previous history of left arm arterial thrombosis, did not require any intervention except anticoagulation therapy, however the patient was not compliant with the anticoagulation therapy after few weeks Tobacco dependence syndrome Pleuritic chest pain secondary to pulmonary embolism Positive lupus anticoagulants and hypercoagulable state. recommendation: Change Augmentin to Zosyn Continue present treatment Continue Xarelto and the patient should be on it lifetime. Not quite ready for discharge planning We will continue to follow. Time with Patient: Less than 30
--- NOTE | 2022-10-04 13:29 | P.PN ---
Progress Note - Text Progress Note Date: 10/04/22 Chief Complaint: Short of breath This is a pleasant 37-year-old patient, follows with Dr. Sanchez. Chronic stable medical conditions include GERD, rheumatoid arthritis, herniated disc, occipital neuralgia, stomach ulcer, Raynaud's disease. Anxiety depression. Smoker. Patient about 3:00 in the morning was woken up with shortness of breath. Cardiac to take a deep breath. No fever no chills. Appetite fair. No leg swelling. Pain mainly on the right side of the chest. Chest CT confirmed pulmonary embolism. Started on IV heparin. Cardiology was consulted. This morning remains a bit short of breath. Laying in bed. Pleuritic pain. We deep breath. Patient states his biological father had blood clot. Does not plan any further details. September 30: Spiked a fever of 103.1. Some bloody sputum. Suspect pulmonary infarct. Cannot rule out secondary infection. Consult pulmonary. X-ray. Patient on xarelto. Text x-ray shows patchy right perihilar density and density left lower zone. Posteriorly. October 01: Spiked a fever to 101.[address] Mosley. We both agree that the fever is coming from pulmonary infarct. No indication for antibiotics. Continue with xarelto. Eating well. Encourage ambulation. October 02: Patient spiked a fever again at night. Eating fair. Some cough with bloody specks. Tired. Breathing a bit better. Augmentin was added today for a secondary pneumonia. Patient blood work is come back positive for lupus ant icoagulant. Discussed the results with the patient. October 03: On Augmentin. Continues to have fever. Eating better. On Augmentin per pulmonary. Increase activity. October 04: Patient still spiking fever. The looks well. Some bloody specks in the cough. Eating well. Cutback IV fluids. Put on IV Zosyn by pulmonary. Because of the inflammation from infarct with prednisone. Patient has to walk in the hallway. Active Medications Acetaminophen (Acetaminophen Tab 325 Mg Tab) 650 mg PO Q6HR PRN PRN Reason: Fever and/ or Mild Pain Last Admin: 10/04/22 11:41 Dose: 650 mg Lactated Ringer's (Lactated Ringers) 1,000 mls @ 10 mls/hr IV .Q24H [facility] Last Admin: 10/04/22 12:45 Dose: 75 mls/hr Piperacillin Sod/Tazobactam (Sod 3.375 gm/ Sodium Chloride) 100 mls @ 25 mls/hr IVPB Q8HR [facility]; Protocol Ketorolac Tromethamine (Ketorolac 15 Mg/Ml 1 Ml Vial) 15 mg IVP Q6HR [facility] Stop: 10/04/22 21:38 Last Admin: 10/04/22 11:37 Dose: 15 mg Naloxone HCl (Naloxone 0.4 Mg/Ml 1 Ml Vial) 0.2 mg IV Q2M PRN PRN Reason: Opioid Reversal Nicotine (Nicotine 14mg/24hr Patch) 1 patch TRANSDERM DAILY [facility] Last Admin: 10/04/22 08:24 Dose: 1 patch Pantoprazole Sodium (Pantoprazole 40 Mg Tablet) 40 mg PO DAILY [facility] Last Admin: 10/04/22 08:24 Dose: 40 mg Prednisone (Prednisone 20 Mg Tab) 60 mg PO DAILY [facility] Rivaroxaban (Rivaroxaban 15 Mg Tab) 15 mg PO BID-W/MEALS [facility]; Protocol Last Admin: 10/04/22 06:05 Dose: 15 mg Sumatriptan Succinate (Sumatriptan Succinate 50 Mg Tab) 50 mg PO BID PRN PRN Reason: Migraine Headache Trazodone HCl (Trazodone Hcl 50 Mg Tab) 50 mg PO HS [facility] Last Admin: 10/03/22 20:01 Dose: 50 mg Past medical history to include: GERD, rheumatoid arthritis, injected this, occipital neuralgia, Raynaud's disease, occipital migraines, anxiety depression. Left upper extremity arterial clot 1 year ago Social history: This is a grandmother's. Smokes a pack and a half a day for many years. Since 817. Drinks a pint of rum every other day. Does use CBD Physical examination: VITAL SIGNS: 101.5, 94, 18, 122/79, 97% room air GENERAL: BMI 25.5, in bed EYES: Pupils equal. Conjunctiva normal. HEENT: External appearance of nose and ears normal, oral cavity grossly normal. NECK: JVD not raised; masses not palpable. HEART: First and second heart sounds are normal; no edema. LUNGS: Respiratory rate increased; decreased breath sounds. ABDOMEN: Soft, nontender, liver spleen not palpable, no masses palpable. PSYCH: Alert and oriented x3; mood and affect anxiousl. INVESTIGATIONS, reviewed in the clinical context: October 04: WBC 7.1 hemoglobin 10.7 sodium 128 potassium 4 BUN 6 with 0.83 procalcitonin 0.27 October 03: White count 7.1 hemoglobin 10.7 sodium 128 potassium 4 creatinine 0.83. Procalcitonin 0.31 Lupus anticoagulant APTT 65, lupus anticoagulant PTT mix 61, diluted Trav viper venom 92, LAD or DVT confirm positive, lupus accident health phase positive. Rheumatoid factor XVIII Anticardiolipin IgG antibody less than 1.6 anticardiolipin IgG antibody less than 2 anticardiolipin IgM antibody less than 1.5 COVID-19: Not detected 2-D echocardiogram: EF 60-65%. No right ventricle strain White count 7.8 hemoglobin 14.1 platelets 179 potassium 4.1 creatinine 0.94 Troponin I 3 less than 0.012 EKG tracing personally reviewed by me-no sinus rhythm. Chest x-ray film personally reviewed by me-some hyperinflation CT angiogram chest: Moderate lower lobe pulmonary arterial filling defects Assessment and Plan: -Acute pulmonary embolism, unprovoked. father with history of DVT. Left upper extremity arterial clot about a year ago. xarelto. Underlying positive for lupus anticoagulant.-lifelong anticoagulation -Positive for lupus anticoagulant Being followed by hematology - acute pulmonary infarct secondary to PE, pleuritic pain -Secondary pneumonia, from infected pulmonary infarct causing sepsis: Slow to respond Augmentin changed to IV Zosyn., follow with pulmonary. Add prednisone for an i nflammatory affect. -Chronic nicotine dependence, cigarette smoker Nicotine patch -Anxiety depression Trazodone -GERD Omeprazole IV Zosyn. Increase activity. Add prednisone. Other medications to continue.
[2022-10-04] MEDS: predniSONE 20 MG TAB PO SCH (13:48)
[2022-10-04] MEDS: PIPERACILLIN-TAZOBACTAM 3.375 GM in SODIUM CHLORIDE 0.9% 100 ML IVPB SCH ×2 (15:50→23:17)
[2022-10-04] MEDS: traZODone HCL 50 MG TAB PO SCH (20:06)
[2022-10-05] MEDS: RIVAROXABAN 15 MG TAB PO SCH ×2 (06:10→16:41)
[2022-10-05] MEDS: PIPERACILLIN-TAZOBACTAM 3.375 GM in SODIUM CHLORIDE 0.9% 100 ML IVPB SCH ×3 (08:09→23:43)
[2022-10-05] MEDS: predniSONE 20 MG TAB PO SCH (08:09)
[2022-10-05] MEDS: PANTOPRAZOLE 40 MG TABLET PO SCH (08:09)
[2022-10-05] MEDS: NICOTINE 14MG/24HR PATCH TRANSDERM SCH (08:09)
[2022-10-05] MEDS: ACETAMINOPHEN TAB 325 MG TAB PO PRN ×2 (08:14→20:17)
--- NOTE | 2022-10-05 11:40 | P.PN ---
Subjective Progress Note Date: 10/05/22 Principal diagnosis: Acute pulmonary embolism This is a 37-year-old white male with no previous significant medical history except for possible history of deep vein thromboses for which she was seen by Dr. Garcia, in 2020, and he was placed on anticoagulation therapy however the patient was noncompliant with therapy, and he took medication for 3 weeks, he developed hematochezia from hemorrhoids, and he stopped taking anticoagulation therapy. At any rate patient also has strong family history of hypercoagulable state/father, patient presented to the ER this time with shortness of breath, right-sided chest pain, and chest discomfort. CT angiogram of the chest showed bilateral pulmonary emboli. Echocardiogram showed no evidence of ventricular strain. DVT workup was negative, Doppler was negative for deep vein thrombosis. Patient was admitted, this consult was initiated. He was initially placed on heparin and now he is on eliquis. Presently feeling better, hardly any shortness of breath, no cough no wheezing, and he does have some vague right- sided pleuritic chest pain. CBC is relatively normal his PTT was therapeutic this morning electrodes are normal renal profile is normal troponin is normal Patient was reevaluated today on 10/01/2022, doing well, less shortness of breath, less chest pain, continues to have low-grade fever, he is on room air with O2 sat of 96%. Patient was noted to have positive lupus anticoagulants, considering his low-grade fever, patient is still in the hospital, and no plans to discharge. Reevaluated today on 10/02/2022, patient continues to have intermittent low-grade fever, and continues to have intermittent episodes of hemoptysis, less than 1 tablespoon in the last 24 hours. No shortness of breath, continues to have some vague chest discomfort. Considering his fever although I believe the fever is mostly related to his pulmonary embolism, I will go ahead and recommended repeat chest x-ray, and will place the patient empirically on Augmentin 875 twice a day for the next one week continue to monitor the patient at least for the next 24 hours, and consider discharge planning once his fever has resolved. Reevaluated today on 10/03/2022, patient continues to have intermittent fevers, continues to have some blood-tinged sputum intermittently, hemodynamically stable, chest x-ray, showed no major worsening in the right perihilar area. Patient is on Augmentin orally, he is also on anticoagulation therapy for his acute pulmonary embolism. Considering his intermittent fever, I'm recommending that we continue antibiotics, and not quite ready for discharge planning until fever is under control. Patient had slightly elevated pro calcitonin level Reevaluated today on 10/04/2022, continues to have intermittent fevers, he has slightly elevated pro calcitonin level, abnormal chest x-ray, considering that the patient is not getting much better, I'm going to add and changing his oral Augmentin to Zosyn. In the meantime we'll continue treatment for his underlying pulmonary embolism, patient is not quite ready for discharge planning. WBC count is 7.1 hemoglobin 10.7 Reevaluated today on 10/05/2022, patient is doing better today, no fever since yesterday. Patient was placed on Zosyn yesterday. Patient continues to have some bloody tinged sputum. Improved, I believe the patient should be observed for the next 24 hours, and if no fever in the next 24 hours, patient could be considered for discharge planning. Labs were reviewed today, hemoglobin is 10.7 the scan is 7.1. This is a significant drop in his hemoglobin from 14.1 and now it is 10.7, I would recommend repeat CBC, and if it's proven to be accurate or low, may have to start investigating the patient for other sources of bleeding. Patient should be tested for Hemoccult. And should be considered for full GI evaluation if this is truly happening with the drop in hemoglobin. Objective - Vital Signs Vital signs: Vital Signs Temp 98.9 F 10/05/22 07:43 Pulse 100 10/05/22 10:05 Resp 18 10/05/22 10:05 BP 124/78 10/05/22 07:43 Pulse Ox 96 10/05/22 07:43 FiO2 21 10/03/22 09:11 Intake & Output 10/04/22 10/05/22 10/05/22 18:59 06:59 18:59 Intake Total 330 540 220 Balance 330 540 220 Intake: Oral 330 540 220 Other: # Voids 2 - Exam Physical Exam: Revealed a 77-year-old white male in no distress, on room air Head: Atraumatic, normocephalic. HEENT:[Neck is supple.] [No neck masses.] [No thyromegaly.] [No JVD.] Chest: [Clear throughout, no crackles, no rhonchi, no wheezes.] Cardiac Exam: [Normal S1 and S2, no S3 gallop, no murmur.] Abdomen: [Soft, nontender, no megaly, no rebound, no guarding, normal bowel sounds.] Extremities: [No clubbing, no edema, no cyanosis.] Neurological Exam: [No focal neurologic deficit.] Alert and oriented 3. Psychiatric: Normal mood, affect and normal mental status examination. Skin: No rashes - Labs CBC & Chem 7: 10/03/22 08:28 10/03/22 08:28 Labs: Abnormal Lab Results - Last 24 Hours (Table) 10/03/22 Range/Units 08:28 Procalcitonin 0.27 H (0.02-0.09) ng/mL Microbiology - Last 24 Hours (Table) 09/30/22 14:52 Blood Culture - Preliminary Blood Assessment and Plan Assessment: Impression: Acute unprovoked pulmonary embolism, suspect a right sided pulmonary infarct with hemoptysis. Family history of thromboembolic disease Previous history of left arm arterial thrombosis, did not require any intervention except anticoagulation therapy, however the patient was not compliant with the anticoagulation therapy after few weeks Tobacco dependence syndrome Pleuritic chest pain secondary to pulmonary embolism Positive lupus anticoagulants and hypercoagulable state. Possible right lower lobe pneumonia, patient had fever and had elevated pro calcitonin level. Acute anemia since the patient was placed on anticoagulation therapy/Xarelto, will recheck hemoglobin, may have to consider full evaluation for possible ongoing GI bleeding on this patient. If the hemoglobin proves to be low again. recommendation: Change Augmentin to Zosyn Continue present treatment Continue Xarelto and the patient should be on it lifetime. Consider stopping Xarelto if the patient proves to have GI bleeding or could explain the drop in the hemoglobin from 14.5 down to 10.7. Again not ready for discharge planning. We will continue to follow. Time with Patient: Less than 30
--- NOTE | 2022-10-05 14:10 | P.PN ---
Progress Note - Text Progress Note Date: 10/05/22 Chief Complaint: Short of breath This is a pleasant 37-year-old patient, follows with Dr. Sanchez. Chronic stable medical conditions include GERD, rheumatoid arthritis, herniated disc, occipital neuralgia, stomach ulcer, Raynaud's disease. Anxiety depression. Smoker. Patient about 3:00 in the morning was woken up with shortness of breath. Cardiac to take a deep breath. No fever no chills. Appetite fair. No leg swelling. Pain mainly on the right side of the chest. Chest CT confirmed pulmonary embolism. Started on IV heparin. Cardiology was consulted. This morning remains a bit short of breath. Laying in bed. Pleuritic pain. We deep breath. Patient states his biological father had blood clot. Does not plan any further details. September 30: Spiked a fever of 103.1. Some bloody sputum. Suspect pulmonary infarct. Cannot rule out secondary infection. Consult pulmonary. X-ray. Patient on xarelto. Text x-ray shows patchy right perihilar density and density left lower zone. Posteriorly. October 01: Spiked a fever to 101.[address] Mosley. We both agree that the fever is coming from pulmonary infarct. No indication for antibiotics. Continue with xarelto. Eating well. Encourage ambulation. October 02: Patient spiked a fever again at night. Eating fair. Some cough with bloody specks. Tired. Breathing a bit better. Augmentin was added today for a secondary pneumonia. Patient blood work is come back positive for lupus ant icoagulant. Discussed the results with the patient. October 03: On Augmentin. Continues to have fever. Eating better. On Augmentin per pulmonary. Increase activity. October 04: Patient still spiking fever. The looks well. Some bloody specks in the cough. Eating well. Cutback IV fluids. Put on IV Zosyn by pulmonary. Because of the inflammation from infarct with prednisone. Patient has to walk in the hallway. October 05: Patient doing better with prednisone on board. Probably significant inflammation component. Breathing better. Oral intake good. Has started to ambulate in the room. Pulse ox on room air. IV Zosyn. We will watch for another 24 hours. Active Medications Acetaminophen (Acetaminophen Tab 325 Mg Tab) 650 mg PO Q6HR PRN PRN Reason: Fever and/ or Mild Pain Last Admin: 10/05/22 08:14 Dose: 650 mg Lactated Ringer's (Lactated Ringers) 1,000 mls @ 10 mls/hr IV .Q24H [facility] Last Admin: 10/04/22 12:45 Dose: 75 mls/hr Piperacillin Sod/Tazobactam (Sod 3.375 gm/ Sodium Chloride) 100 mls @ 25 mls/hr IVPB Q8HR [facility]; Protocol Last Admin: 10/05/22 08:09 Dose: 25 mls/hr Naloxone HCl (Naloxone 0.4 Mg/Ml 1 Ml Vial) 0.2 mg IV Q2M PRN PRN Reason: Opioid Reversal Nicotine (Nicotine 14mg/24hr Patch) 1 patch TRANSDERM DAILY [facility] Last Admin: 10/05/22 08:09 Dose: 1 patch Pantoprazole Sodium (Pantoprazole 40 Mg Tablet) 40 mg PO DAILY [facility] Last Admin: 10/05/22 08:09 Dose: 40 mg Prednisone (Prednisone 20 Mg Tab) 60 mg PO DAILY [facility] Last Admin: 10/05/22 08:09 Dose: 60 mg Rivaroxaban (Rivaroxaban 15 Mg Tab) 15 mg PO BID-W/MEALS [facility]; Protocol Last Admin: 10/05/22 06:10 Dose: 15 mg Sumatriptan Succinate (Sumatriptan Succinate 50 Mg Tab) 50 mg PO BID PRN PRN Reason: Migraine Headache Trazodone HCl (Trazodone Hcl 50 Mg Tab) 50 mg PO HS [facility] Last Admin: 10/04/22 20:06 Dose: 50 mg Past medical history to include: GERD, rheumatoid arthritis, injected this, occipital neuralgia, Raynaud's disease, occipital migraines, anxiety depression. Left upper extremity arterial clot 1 year ago Social history: This is a grandmother's. Smokes a pack and a half a day for many years. Since 817. Drinks a pint of rum every other day. Does use CBD Physical examination: VITAL SIGNS: 98.9, 100, 18, 124/78, 96% room air GENERAL: BMI 25.5, sitting up in bed comfortable EYES: Pupils equal. Conjunctiva normal. HEENT: External appearance of nose and ears normal, oral cavity grossly normal. NECK: JVD not raised; masses not palpable. HEART: First and second heart sounds are normal; no edema. LUNGS: Respiratory rate normal; decreased breath sounds. ABDOMEN: Soft, nontender, liver spleen not palpable, no masses palpable. PSYCH: Alert and oriented x3; mood and affect anxiousl. INVESTIGATIONS, reviewed in the clinical context: October 03: White count 7.1 hemoglobin 10.7 sodium 128 potassium 4 creatinine 0.83. Procalcitonin 0. 27 Lupus anticoagulant APTT 65, lupus anticoagulant PTT mix 61, diluted Trav viper venom 92, LAD or DVT confirm positive, lupus accident health phase positive. Rheumatoid factor XVIII Anticardiolipin IgG antibody less than 1.6 anticardiolipin IgG antibody less than 2 anticardiolipin IgM antibody less than 1.5 COVID-19: Not detected 2-D echocardiogram: EF 60-65%. No right ventricle strain White count 7.8 hemoglobin 14.1 platelets 179 potassium 4.1 creatinine 0.94 Troponin I 3 less than 0.012 EKG tracing personally reviewed by me-no sinus rhythm. Chest x-ray film personally reviewed by me-some hyperinflation CT angiogram chest: Moderate lower lobe pulmonary arterial filling defects Assessment and Plan: -Acute pulmonary embolism, unprovoked. father with history of DVT. Left upper extremity arterial clot about a year ago. xarelto. Underlying positive for lupus anticoagulant.-lifelong anticoagulation -Positive for lupus anticoagulant Being followed by hematology - acute pulmonary infarct secondary to PE, pleuritic pain -Secondary pneumonia, from infected pulmonary infarct causing sepsis: Better Augmentin changed to IV Zosyn., follow with pulmonary. Prednisone -Chronic nicotine dependence, cigarette smoker Nicotine patch -Anxiety depression Trazodone -GERD Omeprazole IV Zosyn. Decrease prednisone to 40 mg starting tomorrow. Increase activity. Hopefully discharge tomorrow
[2022-10-05 16:08] LABS: Basophils % (A) 0 %; Eosinophils # (A) 0.1 k/uL (0-0.7); Eosinophils % (A) 1 %; HGB 11.2 gm/dL (13.0-17.5); Hypochromasia Slight; Lymphocytes # (A) 0.8 k/uL (1.0-4.8); Lymphocytes % (A) 7 %; MCH 26.8 pg (25.0-35.0); MCHC 31.1 g/dL (31.0-37.0); MCV 86.3 fL (80.0-100.0); Mean Platelet Volume 7.1; Monocytes # (A) 0.3 k/uL (0-1.0); Monocytes % (A) 3 %; Neutrophils # (A) 11.1 k/uL (1.3-7.7); Neutrophils % (A) 89 %; Platelet Count 602 k/uL (150-450); RBC 4.17 m/uL (4.30-5.90); RDW 15.2 % (11.5-15.5); WBC 12.4 k/uL (3.8-10.6)
[2022-10-05] MEDS: LACTATED RINGERS 1,000 ML IV SCH (19:26)
[2022-10-05] MEDS: traZODone HCL 50 MG TAB PO SCH (20:17)
[2022-10-06] MEDS: RIVAROXABAN 15 MG TAB PO SCH (06:26)
--- NOTE | 2022-10-06 07:43 | XR ---
EXAMINATION TYPE: XR chest 1V portable DATE OF EXAM: 10/06/2022 COMPARISON: 10/02/2022 HISTORY: Pneumonia TECHNIQUE: Single frontal view of the chest is obtained. FINDINGS: There is no pleural effusion or pneumothorax seen. The cardiac silhouette size is within normal limits. The osseous structures are intact. Persistent right midlung perihilar consolidation. IMPRESSION: Stable right perihilar consolidation suggestive of pneumonia. Follow-up to resolution to exclude underlying neoplasm.
[2022-10-06] MEDS ORDERED: predniSONE 20 MG TAB PO SCH (09:00)
[2022-10-06] MEDS: NICOTINE 14MG/24HR PATCH TRANSDERM SCH (09:29)
[2022-10-06] MEDS: PIPERACILLIN-TAZOBACTAM 3.375 GM in SODIUM CHLORIDE 0.9% 100 ML IVPB SCH (09:29)
[2022-10-06] MEDS: PANTOPRAZOLE 40 MG TABLET PO SCH (09:29)
[2022-10-06] MEDS: ACETAMINOPHEN TAB 325 MG TAB PO PRN (09:33)
[2022-10-06 12:02] VITALS: BP 139/79; PULSE 99; RESP 18; TEMP 98.7
--- NOTE | 2022-10-06 12:02 | P.PN ---
Subjective Progress Note Date: 10/06/22 Principal diagnosis: Chest pain, shortness of breath. Acute pulmonary embolism This is a 37-year-old white male with no previous significant medical history except for possible history of deep vein thromboses for which she was seen by Dr. Garcia, in 2020, and he was placed on anticoagulation therapy however the patient was noncompliant with therapy, and he took medication for 3 weeks, he developed hematochezia from hemorrhoids, and he stopped taking anticoagulation therapy. At any rate patient also has strong family history of hypercoagulable state/father, patient presented to the ER this time with shortness of breath, right-sided chest pain, and chest discomfort. CT angiogram of the chest showed bilateral pulmonary emboli. Echocardiogram showed no evidence of ventricular strain. DVT workup was negative, Doppler was negative for deep vein thrombosis. Patient was admitted, this consult was initiated. He was initially placed on heparin and now he is on eliquis. Presently feeling better, hardly any shortness of breath, no cough no wheezing, and he does have some vague right- sided pleuritic chest pain. CBC is relatively normal his PTT was therapeutic this morning electrodes are normal renal profile is normal troponin is normal Patient was reevaluated today on 10/01/2022, doing well, less shortness of breath, less chest pain, continues to have low-grade fever, he is on room air with O2 sat of 96%. Patient was noted to have positive lupus anticoagulants, considering his low-grade fever, patient is still in the hospital, and no plans to discharge. Reevaluated today on 10/02/2022, patient continues to have intermittent low-grade fever, and continues to have intermittent episodes of hemoptysis, less than 1 tablespoon in the last 24 hours. No shortness of breath, continues to have some vague chest discomfort. Considering his fever although I believe the fever is mostly related to his pulmonary embolism, I will go ahead and recommended repeat chest x-ray, and will place the patient empirically on Augmentin 875 twice a day for the next one week continue to monitor the patient at least for the next 24 hours, and consider discharge planning once his fever has resolved. Reevaluated today on 10/03/2022, patient continues to have intermittent fevers, continues to have some blood-tinged sputum intermittently, hemodynamically stable, chest x-ray, showed no major worsening in the right perihilar area. Patient is on Augmentin orally, he is also on anticoagulation therapy for his acute pulmonary embolism. Considering his intermittent fever, I'm recommending that we continue antibiotics, and not quite ready for discharge planning until fever is under control. Patient had slightly elevated pro calcitonin level Reevaluated today on 10/04/2022, continues to have intermittent fevers, he has slightly elevated pro calcitonin level, abnormal chest x-ray, considering that the patient is not getting much better, I'm going to add and changing his oral Augmentin to Zosyn. In the meantime we'll continue treatment for his underlying pulmonary embolism, patient is not quite ready for discharge planning. WBC count is 7.1 hemoglobin 10.7 Reevaluated today on 10/05/2022, patient is doing better today, no fever since yesterday. Patient was placed on Zosyn yesterday. Patient continues to have some bloody tinged sputum. Improved, I believe the patient should be observed for the next 24 hours, and if no fever in the next 24 hours, patient could be considered for discharge planning. Labs were reviewed today, hemoglobin is 10.7 the scan is 7.1. This is a significant drop in his hemoglobin from 14.1 and now it is 10.7, I would recommend repeat CBC, and if it's proven to be accurate or low, may have to start investigating the patient for other sources of bleeding. Patient should be tested for Hemoccult. And should be considered for full GI evaluation if this is truly happening with the drop in hemoglobin. Progress note dated 10/06/2022. This is a 37-year-old male who seen today in room 359. Currently, he's not receiving any IV fluids. He is on room air. He's hoping to be discharged soon. The patient was admitted with a diagnosis of pulmonary embolism, and pulmonary infarction. He is currently on a factor X a inhibitor. No new lab data today. White count from yesterday was 12.4, with a hemoglobin of 11.2. Chest x-ray shows a stable right perihilar consolidation suggesting pneumonia. CT angiogram showed moderate lower lobe pulmonary arterial filling defects consistent with pulmonary embolism. Objective - Vital Signs Vital signs: Vital Signs Temp 99.2 F 10/06/22 08:00 Pulse 116 H 10/06/22 08:00 Resp 20 10/06/22 08:00 BP 118/72 10/06/22 08:00 Pulse Ox 97 10/06/22 09:36 FiO2 21 10/03/22 09:11 Intake & Output 10/05/22 10/06/22 10/06/22 18:59 06:59 18:59 Intake Total 810 100 711 Balance 810 100 711 Intake: Intake, IV Titration 100 Amount Piperacillin-Tazobactam 3 100 .375 gm In Sodium Chloride 0.9% 100 ml @ 25 mls/hr IVPB Q8HR [facility] Rx# :[id number] Oral 810 711 Other: Voiding Method Toilet Toilet # Voids 3 - Exam No acute distress, oriented 3. Currently on room air. No audible wheezing or use of accessory muscles. HEENT examination is grossly unremarkable. Neck supple. Full range of motion. No adenopathy thyromegaly or neck vein distention. Cardiovascular examination reveals regular rhythm rate. S1-S2 normal. No S3 or S4. No discernible murmur noted. Heart rate 100 bpm. Heart sounds are distant. Lungs reveal clear breath sounds. Breath sounds are equal bilaterally. No adventitious lung sounds including wheezes rhonchi or crackles. Resting room air saturation is 97%. Abdomen soft bowel sounds are heard. No masses or tenderness. Extremities are intact. No cyanosis clubbing or edema. Skin is without rash or lesion. Neurologic examination is brief but nonfocal. - Labs CBC & Chem 7: 10/05/22 15:45 10/03/22 08:28 Labs: Abnormal Lab Results - Last 24 Hours (Table) 10/05/22 Range/Units 15:45 WBC 12.4 H (3.8-10.6) k/uL RBC 4.17 L (4.30-5.90) m/uL Hgb 11.2 L (13.0-17.5) gm/dL Hct 36.0 L (39.0-53.0) % Plt Count 602 H (150-450) k/uL Neutrophils # 11.1 H (1.3-7.7) k/uL Lymphocytes # 0.8 L (1.0-4.8) k/uL Microbiology - Last 24 Hours (Table) 09/30/22 14:52 Blood Culture - Final Blood Assessment and Plan Assessment: Acute unprovoked pulmonary embolism with possible right-sided pulmonary infarction. Hemoptysis, secondary to pulmonary infarction. Family history of thromboembolic disease. Previous history of left arm arterial thrombosis. Tobacco dependence syndrome. Pleuritic chest pain, likely secondary to pulmonary embolism. Possible lupus anticoagulant and hypercoagulable state. Possible right lower lobe pneumonia. Acute anemia. Plan: Plan dated 10/06/2022. The patient appears be doing well. The patient will need long-term anticoagulation, and possibly lifelong anticoagulation. The patient will follow with one of my partners. The patient is stable for discharge from the pulmonary standpoint. The patient's currently on room air. His vital signs are stable. We will continue to follow along and make recommendations along the way. Prognosis is guarded. Time with Patient: Less than 30
--- NOTE | 2022-10-06 16:46 | P.PN ---
Subjective Progress Note Date: 10/06/22 Principal diagnosis: Cesar PE In f/u today pt Denies any PE symptoms, no side effects of anticoagulation, no bleeding to report, he is tolerating eliquis without side effects at this time. Objective - Vital Signs Vital signs: Vital Signs Temp 98.7 F 10/06/22 12:01 Pulse 99 10/06/22 12:01 Resp 18 10/06/22 12:01 BP 139/79 10/06/22 12:01 Pulse Ox 95 10/06/22 12:01 FiO2 21 10/03/22 09:11 Intake & Output 10/05/22 10/06/22 10/06/22 18:59 06:59 18:59 Intake Total 928 494 9242 Balance 887 255 4360 Weight 84.3 kg Intake: Intake, IV Titration 100 Amount Piperacillin-Tazobactam 3 100 .375 gm In Sodium Chloride 0.9% 100 ml @ 25 mls/hr IVPB Q8HR [facility] Rx# :[id number] Oral 810 1069 Other: Voiding Method Toilet Toilet # Voids 3 - Constitutional General appearance: Present: average body habitus, cooperative, no acute distress - EENT Eyes: Present: anicteric sclerae, EOMI - Respiratory Details: Respirations even and unlabored at rest - Musculoskeletal Musculoskeletal: Present: strength equal bilaterally - Psychiatric Psychiatric: Present: A&O x's 3, appropriate affect, intact judgment & insight - Labs CBC & Chem 7: 10/05/22 15:45 10/03/22 08:28 Labs: Microbiology - Last 24 Hours (Table) 09/30/22 14:52 Blood Culture - Final Blood Assessment and Plan (1) Bilateral pulmonary embolism Status: Acute Priority: High Code(s): I26.99 - OTHER PULMONARY EMBOLISM WITHOUT ACUTE COR PULMONALE SNOMED Code(s): 06830698 Plan: Unprovoked bilateral PE -Doppler BLE negative for DVT -CT AP neg for any pathology per report. -Rh factor and sed rate tested and they are elevated. Referral to Rheumatology outpt. -Hx of arterial clot in the LUE 1 year ago, no precipitating event. Denies any similar events since. He did quit plavix but, reports taking 2 baby asa daily. -Lupus anticoagulant positive-pt on anticoagulation so, positive result does not change mgmt. Cardiolipin ab neg. Pending beta 2 glycoprotein 1 ab drawn on the 6th, still no results. Anticipate pt will be ok for anticoagulation with DOAC, has been started in eliquis. -F/U [employer]ice in 1 month-Office will contact patient for appointment
--- NOTE | 2022-10-06 20:06 | P.DS ---
Providers Date of admission: 09/28/22 16:24 Expected date of discharge: 10/06/22 Attending physician: Nirmal Wilson Consults: 09/28/22 16:24 Consult Physician Urgent Consulting Provider: [facility] Consult Reason/Comments: acute chest pain, bilateral pulmonary emboli Do you want consulting provider notified?: Already Contacted 09/29/22 14:12 Consult Physician Routine Consulting Provider: Simon Isaacs Consult Reason/Comments: Acute PE/inpatient Do you want consulting provider notified?: Yes 09/30/22 12:59 Consult Physician Routine Consulting Provider: Rita Mosley Consult Reason/Comments: cough fever Do you want consulting provider notified?: Yes Primary care physician: [facility] Course: Chief Complaint: Short of breath This is a pleasant 37-year-old patient, follows with Dr. Sanchez. Chronic stable medical conditions include GERD, rheumatoid arthritis, herniated disc, occipital neuralgia, stomach ulcer, Raynaud's disease. Anxiety depression. Smoker. Patient about 3:00 in the morning was woken up with shortness of breath. Cardiac to take a deep breath. No fever no chills. Appetite fair. No leg s welling. Pain mainly on the right side of the chest. Chest CT confirmed pulmonary embolism. Started on IV heparin. Cardiology was consulted. This morning remains a bit short of breath. Laying in bed. Pleuritic pain. We deep breath. Patient states his biological father had blood clot. Does not plan any further details. September 30: Spiked a fever of 103.1. Some bloody sputum. Suspect pulmonary infarct. Cannot rule out secondary infection. Consult pulmonary. X-ray. Patient on xarelto. Text x-ray shows patchy right perihilar density and density left lower zone. Posteriorly. October 01: Spiked a fever to 101.[address] Mosley. We both agree that the fever is coming from pulmonary infarct. No indication for antibiotics. Continue with xarelto. Eating well. Encourage ambulation. October 02: Patient spiked a fever again at night. Eating fair. Some cough with bloody specks. Tired. Breathing a bit better. Augmentin was added today for a secondary pneumonia. Patient blood work is come back positive for lupus anticoagulant. Discussed the results with the patient. October 03: On Augmentin. Continues to have fever. Eating better. On Augmentin per pulmonary. Increase activity. October 04: Patient still spiking fever. The looks well. Some bloody specks in the cough. Eating well. Cutback IV fluids. Put on IV Zosyn by pulmonary. Because of the inflammation from infarct with prednisone. Patient has to walk in the hallway. October 05: Patient doing better with prednisone on board. Probably significant inflammation component. Breathing better. Oral intake good. Has started to ambulate in the room. Pulse ox on room air. IV Zosyn. We will watch for another 24 hours. October 06: Weak. At that is present symptoms. Minimal cough. Afebrile. Pulse ox. Anxiety. Discussed with Dr. Ponec from pulmonary. 3 more days of Augmentin. Prednisone taper. Patient will follow-up with hematology and rheumatology outpatient. Questions answered. Lifelong anticoagulation Discussion and discharge planning more than 35 minutes Past medical history to include: GERD, rheumatoid arthritis, injected this, occipital neuralgia, Raynaud's disease, occipital migraines, anxiety depression. Left upper extremity arterial clot 1 year ago Social history: This is a grandmother's. Smokes a pack and a half a day for many years. Since 817. Drinks a pint of rum every other day. Does use CBD Physical examination: VITAL SIGNS: 98.7, 99, 18, 139%), 95% room air GENERAL: BMI 25.5, sitting up in bed comfortable EYES: Pupils equal. Conjunctiva normal. HEENT: External appearance of nose and ears normal, oral cavity grossly normal. NECK: JVD not raised; masses not palpable. HEART: First and second heart sounds are normal; no edema. LUNGS: Respiratory rate normal; decreased breath sounds. ABDOMEN: Soft, nontender, liver spleen not palpable, no masses palpable. PSYCH: Alert and oriented x3; mood and affect normal INVESTIGATIONS, reviewed in the clinical context: October 03: White count 7.1 hemoglobin 10.7 sodium 128 potassium 4 creatinine 0.83. Procalcitonin 0. 27 Lupus anticoagulant APTT 65, lupus anticoagulant PTT mix 61, diluted Trav viper venom 92, LAD or DVT confirm positive, lupus accident health phase positive. Rheumatoid factor XVIII Anticardiolipin IgG antibody less than 1.6 anticardiolipin IgG antibody less than 2 anticardiolipin IgM antibody less than 1.5 COVID-19: Not detected 2-D echocardiogram: EF 60-65%. No right ventricle strain White count 7.8 hemoglobin 14.1 platelets 179 potassium 4.1 creatinine 0.94 Troponin I 3 less than 0.012 EKG tracing personally reviewed by me-no sinus rhythm. Chest x-ray film personally reviewed by me-some hyperinflation CT angiogram chest: Moderate lower lobe pulmonary arterial filling defects Assessment and Plan: -Acute pulmonary embolism, unprovoked. father with history of DVT. Left upper extremity arterial clot about a year ago. xarelto. Underlying positive for lupus anticoagulant.-lifelong anticoagulation -Positive for lupus anticoagulant Outpatient follow-up by hematology and rheumatology Dr. Maxwell - acute pulmonary infarct secondary to PE, pleuritic pain -Secondary pneumonia, from infected pulmonary infarct causing sepsis: Better Complete 3 more days of Augmentin., follow with pulmonary. Prednisone taper -Chronic nicotine dependence, cigarette smoker Nicotine patch -Anxiety depression Trazodone -GERD Omeprazole Disposition: Home Plan - Discharge Summary Discharge Rx Participant: No New Discharge Prescriptions: New Rivaroxaban [Xarelto Starter Pack] 0 mg PO DIRECTED 30 Days #1 packet Amoxic-Pot Clav 875-125Mg [Augmentin 875-125] 1 tab PO BID #6 tab Nicotine 14Mg/24Hr Patch [Habitrol] 1 patch TRANSDERM DAILY #14 patch predniSONE 10 mg PO DAILY #30 tab Continue Omeprazole 40 mg PO DAILY traZODone HCL [Desyrel] 50 mg PO HS SUMAtriptan succinate [Imitrex] 50 mg PO BID PRN PRN Reason: Migraine Headache Discharge Medication List Omeprazole 40 mg PO DAILY 09/28/22 [History] SUMAtriptan succinate [Imitrex] 50 mg PO BID PRN 09/28/22 [History] traZODone HCL [Desyrel] 50 mg PO HS 09/28/22 [History] Amoxic-Pot Clav 875-125Mg [Augmentin 875-125] 1 tab PO BID #6 tab 10/06/22 [Rx] Nicotine 14Mg/24Hr Patch [Habitrol] 1 patch TRANSDERM DAILY #14 patch 10/06/22 [Rx] Rivaroxaban [Xarelto Starter Pack] 0 mg PO DIRECTED 30 Days #1 packet 10/06/22 [Rx] predniSONE 10 mg PO DAILY #30 tab 10/06/22 [Rx] Follow up Appointment(s)/Referral(s): Ned Tirado MD [STAFF PHYSICIAN] - 6 Weeks (pt. wants to make own windy. ) Robert Sanchez DO [Primary Care Provider] - 1-2 days (pt. wants to make own windy.) Benita Maxwell MD [STAFF PHYSICIAN] - 1 Week (lupus positive. Pt. wants to make own windy. ) Patient Instructions/Handouts: Pulmonary Embolism (DC), Lupus Erythematosus (DC) Discharge Disposition: HOME SELF-CARE
== END 2022-10-06 15:15 | disposition home or self-care (01) | DRG 134 ==
LOC: EC 14:02 → 3SCARD 16:24
PROVIDERS: ADMIT Hospitalist; ATTEND Hospitalist
DX: I26.99 Other pulmonary embolism without acute cor pulmonale (principal); A41.9 Sepsis, unspecified organism; D64.9 Anemia, unspecified; D68.62 Lupus anticoagulant syndrome; F17.210 Nicotine dependence, cigarettes, uncomplicated; Z71.6 Tobacco abuse counseling; F32.A Depression, unspecified; F41.9 Anxiety disorder, unspecified; G43.909 Migraine, unspecified, not intractable, without status migrainosus; J18.9 Pneumonia, unspecified organism; I73.00 Raynaud's syndrome without gangrene; K21.9 Gastro-esophageal reflux disease without esophagitis; K25.4 Chronic or unspecified gastric ulcer with hemorrhage; M06.9 Rheumatoid arthritis, unspecified; M54.81 Occipital neuralgia; R13.10 Dysphagia, unspecified; Z79.01 Long term (current) use of anticoagulants; Z83.2 Family history of diseases of the blood and blood-forming organs and certain disorders involving the immune mechanism; Z86.16 Personal history of COVID-19; Z86.718 Personal history of other venous thrombosis and embolism; Z86.73 Personal history of transient ischemic attack (TIA), and cerebral infarction without residual deficits; Z91.199 Patient's noncompliance with other medical treatment and regimen due to unspecified reason; Z95.828 Presence of other vascular implants and grafts; Z28.310 Unvaccinated for COVID-19; Z79.899 Other long term (current) drug therapy
CPT/HCPCS: 36415; 71045; 71046; 71275; 74177; 80048; 80053; 83735; 83880; 84145; 84484; 85025; 85379; 85598; 85610; 85613; 85652; 85730; 85732; 86147; 86431; 87040; 87635; 93005; 93306; 93970; 94760; 99291

== ENCOUNTER 2023-05-22 20:13 | Emergency (ER) | payer OTHER ==
[2023-05-22 20:45] VITALS: TEMP 98
--- NOTE | 2023-05-22 20:46 | ED ---
Psych HPI - General Source: EMS Mode of arrival: EMS Limitations: altered mental status - History of Present Illness MD Complaint: other -: minutes(s) Quality: constant Improves With: none Worsens With: none Context: recent alcohol abuse Associated Symptoms: denies other symptoms <Demetrius Tavera - Last Filed: 05/22/23 20:41> <Marlon Simpson - Last Filed: 05/23/23 12:28> - General Chief Complaint: Psychiatric Symptoms Stated Complaint: Mental health Time Seen by Provider: 05/22/23 20:18 - History of Present Illness Initial Comments: Patient is a 37-year-old man who is brought for psychiatric evaluation. Patient reportedly became belligerent. He reportedly was outside yelling at neighbors at his residence. Patient reportedly drank a moderate amount of hard liquor. Patient did then make threatening statements. Patient denies suicidal ideation. (Demetrius Tavera) - Related Data Home Medications Medication Instructions Recorded Confirmed Omeprazole 40 mg PO DAILY 09/28/22 09/28/22 SUMAtriptan succinate [Imitrex] 50 mg PO BID PRN 09/28/22 09/28/22 traZODone HCL [Desyrel] 50 mg PO HS 09/28/22 09/28/22 Previous Rx's Medication Instructions Recorded Amoxic-Pot Clav 875-125Mg 1 tab PO BID #6 tab 10/06/22 [Augmentin 875-125] Nicotine 14Mg/24Hr Patch [Habitrol] 1 patch TRANSDERM DAILY #14 patch 10/06/22 Rivaroxaban [Xarelto Starter Pack] 0 mg PO DIRECTED 30 Days #1 10/06/22 packet predniSONE 10 mg PO DAILY #30 tab 10/06/22 Allergies Allergy/AdvReac Type Severity Reaction Status Date / Time adhesive tape Allergy Rash/Hives Verified 05/22/23 20:23 gabapentin Allergy Rash/Hives Verified 05/22/23 20:23 paliperidone [From Invega] Allergy per oasis Verified 05/22/23 20:23 hydrocodone AdvReac MIGRAINE Verified 05/22/23 20:23 topiramate [From Topamax] AdvReac creates Verified 05/22/23 20:23 black SPOT on left eye NARCOTICS AdvReac MIGRAINES Uncoded 05/22/23 20:23 Review of Systems ROS Other: All systems not noted in ROS Statement are negative. Limitations: ROS unobtainable due to patients medical condition <Demetrius Tavera - Last Filed: 05/22/23 20:41> ROS Other: All systems not noted in ROS Statement are negative. <Marlon Simpson - Last Filed: 05/23/23 12:28> ROS Statement: Those systems with pertinent positive or pertinent negative responses have been documented in the HPI. Past Medical History Past Medical History: CVA/TIA, GERD/Reflux, GI Bleed, Rheumatoid Arthritis (RA) Additional Past Medical History / Comment(s): diverticulitis, DDD, herniated disc X2. Occipital Neuralgia. OCC BLOOD IN STOOL. hx of stomach ulcer. "POSSIBLE 2 STROKES ON MRI.", occiptal migraines, "sore left arm". reynaulds disease History of Any Multi-Drug Resistant Organisms: None Reported Past Surgical History: Cholecystectomy Additional Past Surgical History / Comment(s): EGD, COLONOSCOPY, oral surgery, PAIN CLINIC PROCEDURES. Past Anesthesia/Blood Transfusion Reactions: Family History of Problems w/ Anesthesia Additional Past Anesthesia/Blood Transfusion Reaction / Comment(s): MOTHER HAD EPIDURAL THAT DIDN'T WORK. Past Psychological History: Anxiety, Depression Smoking Status: Current every day smoker Past Alcohol Use History: Occasional Past Drug Use History: None Reported - Past Family History Mother Family Medical History: Cancer Additional Family Medical History / Comment(s): SKIN CANCER. grandfather colon cancer <Demetrius Tavera - Last Filed: 05/22/23 20:41> General Exam Limitations: altered mental status General appearance: alert, appears intoxicated Head exam: Present: atraumatic, normocephalic Eye exam: Present: normal appearance. Absent: scleral icterus, conjunctival injection Neck exam: Present: normal inspection, full ROM. Absent: tenderness Respiratory exam: Present: normal lung sounds bilaterally. Absent: respiratory distress, wheezes, rales, rhonchi, stridor, accessory muscle use Cardiovascular Exam: Present: regular rate, normal rhythm, normal heart sounds. Absent: systolic murmur, diastolic murmur, rubs, gallop GI/Abdominal exam: Present: soft. Absent: distended, tenderness, guarding, rebound, mass Extremities exam: Present: normal inspection, normal capillary refill Back exam: Present: normal inspection Neurological exam: Present: alert Psychiatric exam: Present: agitated. Absent: suicidal ideation Skin exam: Present: warm, dry, intact, normal color. Absent: rash <LyricDemetrius early - Last Filed: 05/22/23 20:41> Course Vital Signs 05/22/23 05/22/23 20:21 23:18 Temperature 98.0 F 98.0 F Pulse Rate 124 H 70 Respiratory 22 16 Rate Blood Pressure 174/74 107/65 O2 Sat by Pulse 98 95 Oximetry Procedures - Restraint - Face to Face Restraint Occurrence 1 Patient's Immediate Situation: Endangers others' safety Patient's Reaction to the Intervention: Bizarre, Suspicious, Aggressive Patient's Medical & Behavioral Condition: Bizarre behavior Need to Continue or Terminate Restraint or Seclusion: Continue Face to Face Eval of Restraint Date: 05/22/23 Face to Face Eval of Restraint Time: 20:15 <AyseDemetrius - Last Filed: 05/22/23 20:41> Medical Decision Making <Marlon Simpson - Last Filed: 05/23/23 12:28> - Medical Decision Making Was pt. sent in by a medical professional or institution (, PA, MEMBERSHIP ASSISTANT, urgent care, hospital, or snf...) When possible be specific @ -No Did you speak to anyone other than the patient for history (EMS, parent, family, police, friend...)? What history was obtained from this source @ -No Did you review nursing and triage notes (agree or disagree)? Why? @ -I reviewed and agree with nursing and triage notes Were old charts reviewed (outside hosp., previous admission, EMS record, old EKG, old radiological studies, urgent care reports/EKG's, snf records)? Report findings @ -No old charts were reviewed Differential Diagnosis (chest pain, altered mental status, abdominal pain women, abdominal pain men, vaginal bleeding, weakness, fever, dyspnea, syncope, headache, dizziness, GI bleed, back pain, seizure, CVA, palpatations, mental health, musculoskeletal)? @ -Differential Mental Health Depression, anxiety, bipolar, psychosis, schizophrenia, borderline personality, situational depression, adjustment disorder, behavioral disorder, brain tumor, malingering, substance abuse, encephalopathy, medication reaction, dementia, hypothyroidism, degenerative neurologic disorder, lupus.... This is not meant to be all-inclusive list EKG interpreted by me (3pts min.). @ -As above X-rays interpreted by me (1pt min.). @ -None done CT interpreted by me (1pt min.). @ -None done U/S interpreted by me (1pt. min.). @ -None done What testing was considered but not performed or refused? (CT, X-rays, U/S, labs)? Why? @ -None What meds were considered but not given or refused? Why? @ -None Did you discuss the management of the patient with other professionals (professionals i.e. , PA, MEMBERSHIP ASSISTANT, lab, RT, psych nurse, social welfare administrator, hydrology teacher, teacher, navigation officer, piano case and bench assembler)? Give summary @ -Case discussed with mental health worker with plans for discharge. Was smoking cessation discussed for >3mins.? @ -No Was critical care preformed (if so, how long)? @ -No Were there social determinants of health that impacted care today? How? (Homelessness, low income, unemployed, alcoholism, drug addiction, transportation, low edu. Level, literacy, decrease access to med. care, senior care, rehab)? @ -No Was there de-escalation of care discussed even if they declined (Discuss DNR or withdrawal of care, Hospice)? DNR status @ -No What co-morbidities impacted this encounter? (DM, HTN, Smoking, COPD, CAD, Cancer, CVA, ARF, Chemo, Hep., AIDS, mental health diagnosis, sleep apnea, morbid obesity)? @ -None Was patient admitted / discharged? Hospital course, mention meds given and route, prescriptions, significant lab abnormalities, going to OR and other pertinent info. @ -Patient reevaluated. Patient does not recall making any threatening statements. Patient denies suicidal ideation. Patient denies homicidal ideation. Patient does contract for safety. Undiagnosed new problem with uncertain prognosis? @ -No Drug Therapy requiring intensive monitoring for toxicity (Heparin, Nitro, Insulin, Cardizem)? @ -No Were any procedures done? @ -No Diagnosis/symptom? @ -Alcohol intoxication Acute, or Chronic, or Acute on Chronic? @ -Acute Uncomplicated (without systemic symptoms) or Complicated (systemic symptoms)? @ -default Side effects of treatment? @ -No Exacerbation, Progression, or Severe Exacerbation? @ -No Poses a threat to life or bodily function? How? (Chest pain, [place], [place], pneumonia, PE, COPD, DKA, ARF, appy, cholecystitis, CVA, Diverticulitis, Homicidal, Suicidal, threat to staff... and all critical care pts) @ -No (Marlon Simpson) - Lab Data Lab Results 05/22/23 Range/Units 20:44 Urine Opiates Screen Not Detected (NotDetected) Ur Oxycodone Screen Not Detected (NotDetected) Urine Methadone Screen Not Detected (NotDetected) Ur Barbiturates Screen Not Detected (NotDetected) U Tricyclic Antidepress Not Detected (NotDetected) Ur Phencyclidine Scrn Not Detected (NotDetected) Ur Amphetamines Screen Not Detected (NotDetected) U Methamphetamines Scrn Not Detected (NotDetected) U Benzodiazepines Scrn Not Detected (NotDetected) Urine Cocaine Screen Not Detected (NotDetected) U Marijuana (THC) Screen Not Detected (NotDetected) Disposition <Demetrius Tavera - Last Filed: 05/22/23 20:41> Is patient prescribed a controlled substance at d/c from ED?: No Time of Disposition: 12:27 <Marlon Simpson - Last Filed: 05/23/23 12:28> Clinical Impression: Alcohol intoxication Disposition: HOME SELF-CARE Condition: Stable Instructions (If sedation given, give patient instructions): Alcohol Intoxication (ED) Additional Instructions: Discontinue alcohol use. Please do follow-up to primary care physician in the next day or 2 for recheck. Return for thoughts of self-harm, worsening symptoms, or any other concerns. Referrals: Robert Sanchez DO [Primary Care Provider] - 1-2 days Forms: AA Meetings [facility], AA Meetings [address] [facility] - [facility], [facility] Substance Abuse Facilities
[2023-05-22 21:04] LABS: Amphetamine Screen,Urine Not Detected (NotDetected); Barbiturate Screen,Urine Not Detected (NotDetected); Benzodiazepines Screen,Urine Not Detected (NotDetected); Cocaine Screen,Urine Not Detected (NotDetected); Methadone Screen, Urine Not Detected (NotDetected); Opiate Screen,Urine Not Detected (NotDetected); Oxycodone Screen, Urine Not Detected (NotDetected); Phencyclidine Screen,Urine Not Detected (NotDetected); Tricyclic Antidepressant,Urine Not Detected (NotDetected); Urn Cannabinoid Scrn Not Detected (NotDetected)
[2023-05-22] MEDS ORDERED: ZIPRASIDONE 20 MG VIAL IM STA (21:20)
[2023-05-22] MEDS ORDERED: LORazepam 2 MG/ML INJ IM STA (21:21)
[2023-05-22 23:37] VITALS: BP 107/65; PULSE 70; RESP 16
== END 2023-05-23 13:10 | disposition home or self-care (01) ==
LOC: EC 20:13
DX: F10.129 Alcohol abuse with intoxication, unspecified (principal); K21.9 Gastro-esophageal reflux disease without esophagitis; F41.9 Anxiety disorder, unspecified; F32.A Depression, unspecified; F17.200 Nicotine dependence, unspecified, uncomplicated; Z79.899 Other long term (current) drug therapy; Z91.09 Other allergy status, other than to drugs and biological substances; Z88.8 Allergy status to other drugs, medicaments and biological substances
CPT/HCPCS: 82075; 80306; 99285; 96372 ×2; J2060; J3486